=== PATIENT | male | born 1980 | race Caucasian/White ===

== ENCOUNTER → 2016-04-23 | Outpatient (CLI) | payer SELFPAY ==
[~2016-04-23] MED LIST: AC500T PO; AMIO400T4 PO; ASP325T PO; ASP81TEC PO; ASPI-808 PO; CALC500T5 PO; CARV12.5 PO; CARV3.12 PO; CEFU500T5 PO; Calcium Carbonate PO; DIPH50CA40 PO; ENAL2.5T PO; FOLI0.4T2 PO; FOLI1TAB24 PO; FURO20TA4 PO; FURO40TA4 PO; HYDR-2856 PO; KCL10CCR PO; LEVE500T6 PO; LEVE500T99 PO; MAGN400C PO; METO-333 PO; OMEP20CA12 PO; ONDAN4ODT PO; Oxycodone Hcl/Acetaminophen PO; PHEN100C4 PO; PNT40TEC PO; POTA10CA43 PO; POTA10TA86 PO; THM100T PO; TRAZ150T42 PO; TRZ100T PO; [UNRECOGNIZED DRUG - CODE] IM
--- NOTE | 2016-04-25 11:57 | ECHOCARDIOGRAPHY REPORT ---
PROCEDURE PHYSICIAN: HILLARY TAYLOR DATE OF PROCEDURE: 04/23/2016 TWO DIMENSIONAL ECHOCARDIOGRAM REPORT PRIMARY PHYSICIAN: OTHER PHYSICIAN: REFERRING PHYSICIAN: Dr. Cecily Toussaint [facility] ORDERING PHYSICIAN: INDICATION FOR THE PROCEDURE: Congestive heart failure, coronary artery disease. MEASUREMENTS DERIVED VALUES LV DIAMETER (LAX) NORMALS NORMALS Diastolic 6.9 (3.6-5.2) Eject. Fract. 40% (60%+/-6%) Systolic (2.3-3.9) Diastolic Vol. % Shortening (0.22-0.42) Systolic Vol. Aortic Root IVS THICKNESS Diastolic 1.1 (0.6-1.1) LVPW THICKNESS Diastolic 1.1 (0.6-1.1) LA DIAMETER Systolic 4. (2.1-3.7) FINDINGS: 1. The left ventricle is prominent with diffuse left ventricular hypokinesia. Systolic function is reduced. Estimated ejection fraction 40%. 2. The left atrium is in the upper normal limit in size. No clot or thrombus were seen within the left atrium. 3. The right atrium and right ventricle are normal in size. No clot or thrombus were seen within the right side. 4. Mitral valve is normal in morphology with mild mitral regurgitation noted by color Doppler flow. No mitral valve prolapse. No mitral valve stenosis. 5. Aortic valve is bicuspid, the valve gradient was not well measured. Overall it did not appear to be having aortic valve stenosis or regurgitation. 6. Tricuspid valve is normal in morphology with mild tricuspid regurgitation noted by color Doppler flow. Doppler across tricuspid valve estimated pulmonary artery pressure of 27+ right atrial pressure. 7. Pulmonic valve is functioning normally. 8. No pericardial effusion. CONCLUSION: 1. Prominent left ventricle with diffuse left ventricular hypokinesia. Systolic function is reduced. Estimated ejection fraction 40% percent. 2. Bicuspid aortic valve appeared to be functioning normally, the gradient was not measured across the aortic valve. 3. Mild mitral and tricuspid regurgitation. 4. Estimated pulmonary artery pressure of 35 mmHg. Job ID: [id number] Dictated Date: 04/24/2016 08:54:09 Community Outreach Specialist Date: 04/25/2016 11:51:24 / jasmin
== END ==
LOC: CARD 13:12
PROVIDERS: ATTEND Internal Medicine Cardiovascular Disease
DX: I25.10 Atherosclerotic heart disease of native coronary artery without angina pectoris (principal); I50.22 Chronic systolic (congestive) heart failure; F10.10 Alcohol abuse, uncomplicated; E83.42 Hypomagnesemia; F15.10 Other stimulant abuse, uncomplicated
CPT/HCPCS: 93306

== ENCOUNTER → 2016-08-23 | Outpatient (CLI) | payer OTHER ==
--- NOTE | 2016-08-23 09:38 | Diagnostic Imaging Report ---
EXAMINATION: Two views of the left knee. INDICATION: Left knee pain. FINDINGS: There is a well-corticated fragment in the upper lateral aspect of the patella, likely related to a bipartite congenital fragment or related to old trauma. The fragment is 1.4 cm in size. If there is focal tenderness and injury at this location, then a subacute fracture could be considered. Dedicated patellar views could also be obtained, like sunrise view, if needed. No arthritic changes are seen. No suprapatellar effusion. IMPRESSION: 1.4 cm osseous fragment along the superior lateral aspect of the patella is favored to be congenital or related to old trauma. If the patient has focal tenderness and injury history at this site, then a subacute fracture could be considered. Dictated by: Dictated on workstation # [id number]
== END | disposition home or self-care (01) ==
LOC: RAD 09:06
PROVIDERS: ATTEND Surgery
DX: M25.562 Pain in left knee (principal)
CPT/HCPCS: 73560

== ENCOUNTER 2017-04-13 07:02 | Inpatient (IN) | payer MEDICAID ==
[2017-04-13] VITALS (14 sets, daily range): BP systolic 97–126; BP diastolic 61–83
[~2017-04-13] VITALS: Ht 172.7 cm; Wt 84.0 kg
[~2017-04-13 07:02] MED LIST changes: -AMIO400T4 PO; +AMIO400T5 PO
--- OUTSIDE RECORDS SUMMARY | 2017-04-13 07:04 | XMS REPORT | Continuity of Care Document ---
Author Author [employer] Organization [facility] Address Unknown Phone Unavailable Care Team Providers Care Clinical Application Consultant Name Role Phone [employer] Unavailable Unavailable Problems Medications Allergies, Adverse Reactions, Alerts Immunizations Results Vital Signs Encounters Location Location Details Encounter Type Encounter Number Reason For Visit Attending Provider ADM Date DC Date Status Source OUTPATIENT [id number] MARCIANO BASS 10/19/20162016 Active [facility] O MARCIANO BASS Active [facility] Procedures Plan of Care Social History Assessment and Plan Family History Advance Directives Functional Status
--- OUTSIDE RECORDS SUMMARY | 2017-04-13 07:04 | XMS REPORT | Clinical Summary ---
Author Author [facility] Organization [facility] Address Unknown Phone Unavailable Care Team Providers Care Container Coordinator Name Role Phone Mary Jane Ceballos MD PCP Source Comments Some departments are not documenting in the electronic medical record. If you do not see the information that you expected, contact Release of Information in the Health Information Management department at [phone] for further assistance in locating additional records.[facility] Allergies No Known Allergies Current Medications Prescription Sig. Disp. Refills Start End Date Status Date LEVETIRACETAM (KEPPRA PO) Take 500 mg by mouth Active three times daily. amiodarone (CORDARONE) Take 200 mg by mouth Active 200 mg tablet twice daily. Take with food. METOPROLOL TARTRATE PO Take 25 mg by mouth twice Active daily. Active Problems Problem Noted Date Unclassified epileptic seizures (HCC) 07/29/2016 Last Assessment & Plan: Patient has multiple risk factors for seizures. I have requested records from [facility] in [place]. EEG ordered. Keprra is the medication of choice given the patient's liver disease. Will try to get him on patient assistance for Keppra XR as this may be more tolerable. Social History Tobacco Use Types Packs/Day Years Used Date Never Smoker Alcohol Use Drinks/Week oz/Week Comments Yes 7 Standard 4.2 drinks or equivalent Sex Assigned at Date Recorded Not on file Last Filed Vital Signs Vital Sign Reading Time Taken Blood Pressure 111/71 07/29/2016 11:21 AM CDT Pulse 73 07/29/2016 11:21 AM CDT Temperature 36.5 C (97.7 F) 07/29/2016 11:21 AM CDT Respiratory Rate 12 07/29/2016 11:21 AM CDT Oxygen Saturation - - Inhaled Oxygen - - Concentration Weight 76.2 kg (168 lb) 07/29/2016 11:21 AM CDT Height 175 cm (5' 8.9") 07/29/2016 11:21 AM CDT Body Mass Index 24.88 07/29/2016 11:21 AM CDT Plan of Treatment Health Maintenance Due Date Last Done Comments PHYSICAL (COMPREHENSIVE) 1989 EXAM PERTUSSIS VACCINE 1993 TETANUS VACCINE 07/01/1999 INFLUENZA VACCINE 10/12/2016 Results Not on filefrom Last 3 Months
--- OUTSIDE RECORDS SUMMARY | 2017-04-13 07:04 | XMS REPORT ---
Author Author KARLY RIOS Organization [facility] Address [address] [place] [address] Care Team Providers Care Active Directory Systems Administrator Name Role Phone KARLY RIOS Unavailable PROBLEMS Type Condition ICD9-CM Code [id number] Code Onset Dates Condition Status SNOMED Code Problem Chronic congestive heart failure, unspecified congestive heart failure type I50.9 Active 96227452 Problem Essential hypertension I10 Active 03193072 Problem Mild intermittent asthma without complication J45.20 Active 490297567 Problem Elevated liver enzymes R74.8 Active 127500490 Problem GERD (gastroesophageal reflux disease) K21.9 Active 104865546 Problem Cardiomegaly I51.7 Active 3667102 Problem Anxiety F41.9 Active 73710311 Problem Other chronic pain G89.29 Active 45594468 Problem Pain in left knee M25.562 Active 75854916 Problem Seizures R56.9 Active 29177746 Problem Alcohol abuse F10.10 Active 86722949 Problem CAD (coronary artery disease) I25.10 Active 97719863 Problem Insomnia G47.00 Active 421876612 ALLERGIES Unknown Allergies SOCIAL HISTORY No smoking Hx information available PLAN OF CARE VITAL SIGNS MEDICATIONS Unknown Medications RESULTS No Results PROCEDURES No Known procedures IMMUNIZATIONS No Known Immunizations
--- OUTSIDE RECORDS SUMMARY | 2017-04-13 07:05 | XMS REPORT ---
Author Author KARLY RIOS Organization [facility] Address [address] [place] [address] Care Team Providers Care Bass Mechanism Maker Name Role Phone KARLY RIOS Unavailable PROBLEMS Type Condition ICD9-CM Code [id number] Code Onset Dates Condition Status SNOMED Code Problem Chronic congestive heart failure, unspecified congestive heart failure type I50.9 Active 78398980 Problem Essential hypertension I10 Active 73352217 Problem Mild intermittent asthma without complication J45.20 Active 205035158 Problem Elevated liver enzymes R74.8 Active 379054067 Problem GERD (gastroesophageal reflux disease) K21.9 Active 348981655 Problem Cardiomegaly I51.7 Active 8798422 Problem Anxiety F41.9 Active 89518746 Problem Other chronic pain G89.29 Active 39933639 Problem Pain in left knee M25.562 Active 58370968 Problem Seizures R56.9 Active 78478349 Problem Alcohol abuse F10.10 Active 35959102 Problem CAD (coronary artery disease) I25.10 Active 71122888 Problem Insomnia G47.00 Active 287250938 ALLERGIES Unknown Allergies SOCIAL HISTORY No smoking Hx information available PLAN OF CARE VITAL SIGNS MEDICATIONS Unknown Medications RESULTS No Results PROCEDURES No Known procedures IMMUNIZATIONS No Known Immunizations
--- OUTSIDE RECORDS SUMMARY | 2017-04-13 07:05 | XMS REPORT ---
Author RUPERT Bradley [facility] [employer] Address Unknown Phone Unavailable Care Team Providers Care Icu Nurse Name Role Phone RUPERT RYAN Unavailable Allergies, Adverse Reactions, Alerts Substance Reaction Event Type N.K.D.A. Info Not Available Non Drug Allergy Problems Problem Type Condition Code Onset Dates Condition Status Assessment Chronic congestive heart failure, unspecified congestive heart failure type I50.9 Active Problem Seizures R56.9 Active Problem Alcohol abuse F10.10 Active Assessment Anxiety F41.9 Active Assessment Mild intermittent asthma without complication J45.20 Active Problem Anxiety F41.9 Active Problem Mild intermittent asthma without complication J45.20 Active Problem GERD (gastroesophageal reflux disease) K21.9 Active Problem Insomnia G47.00 Active Problem Cardiomegaly I51.7 Active Problem Essential hypertension I10 Active Problem Chronic congestive heart failure, unspecified congestive heart failure type I50.9 Active Medications Medication Code System Code Instructions Start Date End Date Status Dosage Lasix [facility] [address]-24 20 mg Mar 27, 2014 0.5 Tablet by Oral route 1 time per day take with potassium-REPOSITORY Potassium Chloride [facility] [address]-54 10 mEq Mar 27, 2014 1 Tablet by Oral route 1 time per day take with lasix-- REPOSITORY Enalapril Maleate [facility] [address]-70 2.5 MG Orally 2 times a day 1 tablet Amiodarone HCl [facility] [address]-90 400 MG Orally 2 times a day 1 tablet Omeprazole [facility] [address]-32 20 MG Orally 2 times a day May 14, 2014 take 1 capsule by Oral route before a meal 2 time per day repository HydrOXYzine HCl [facility] [address]-01 25 mg May 14, 2014 take 1 tablet by Oral route 3 times per day as needed for anxiety. Metoprolol Tartrate [facility] [address]-16 25 MG Orally Twice a day 1 tablet Procedures Procedure Coding System Code Date Office Visit, Est Pt., Level 3 CPT-4 62167 Feb 10, 2015 Vital Signs Date/Time: Feb 10, 2015 Temperature 98.3 F Weight 183.0 lbs Height 70 in BMI 26.25 Index Blood Pressure Diastolic 80 mmHg Blood Pressure Systolic 118 mmHg Cardiac Monitoring Heart Rate 72 bpm Results No Known Results Summary Purpose eClinicalWorks Submission
--- OUTSIDE RECORDS SUMMARY | 2017-04-13 07:05 | XMS REPORT ---
Author Author KARLY RIOS Organization [employer] Address Unknown Phone Unavailable Care Team Providers Care Quoter Name Role Phone KARLY RIOS CP Unavailable Allergies No Known Allergies Problems Problem Type Condition Code Onset Dates Condition Status Problem Alcohol abuse F10.10 Active Problem Cardiomegaly I51.7 Active Problem Seizures R56.9 Active Problem GERD (gastroesophageal reflux disease) K21.9 Active Problem Anxiety F41.9 Active Problem CAD (coronary artery disease) I25.10 Active Problem Chronic congestive heart failure, unspecified congestive heart failure type I50.9 Active Problem Insomnia G47.00 Active Problem Mild intermittent asthma without complication J45.20 Active Problem Essential hypertension I10 Active Medications No Known Medications Results No Known Results Summary Purpose eClinicalWorks Submission
--- OUTSIDE RECORDS SUMMARY | 2017-04-13 07:05 | XMS REPORT ---
Author Author KARLY RIOS [facility] Address [address] [place] [address] Care Team Providers Care Barrel Rifler Broach Name Role Phone AYAKA RIOSNETTE Unavailable PROBLEMS Type Condition ICD9-CM Code [id number] Code Onset Dates Condition Status SNOMED Code Problem Chronic congestive heart failure, unspecified congestive heart failure type I50.9 Active 98168823 Problem Essential hypertension I10 Active 24326773 Problem Mild intermittent asthma without complication J45.20 Active 072852481 Problem Elevated liver enzymes R74.8 Active 832117972 Problem GERD (gastroesophageal reflux disease) K21.9 Active 066775964 Problem Cardiomegaly I51.7 Active 0448331 Problem Anxiety F41.9 Active 24012936 Problem Other chronic pain G89.29 Active 94222031 Problem Pain in left knee M25.562 Active 43380958 Problem Seizures R56.9 Active 64193226 Problem Alcohol abuse F10.10 Active 81197183 Problem CAD (coronary artery disease) I25.10 Active 31398950 Problem Insomnia G47.00 Active 253938380 ALLERGIES Substance Reaction Event Type Date Status N.K.D.A. Unknown Non Drug Allergy Mar, Unknown SOCIAL HISTORY No smoking Hx information available PLAN OF CARE Activity Details Follow Up 4 Weeks Reason:recheck of left knee VITAL SIGNS Height 71 in 2016-03-19 Weight 183 lbs 2016-03-19 Temperature 98.2 degrees Fahrenheit 2016-03-19 Heart Rate 78 bpm 2016-03-19 Respiratory Rate 20 2016-03-19 BMI 25.52 kg/m2 2016-03-19 Blood pressure systolic 110 mmHg 2016-03-19 Blood pressure diastolic 80 mmHg 2016-03-19 MEDICATIONS Medication Instructions Dosage Frequency Start Date End Date Duration Status Metoprolol Tartrate 25 MG Orally Twice a day 1 tablet with food 12h Aug 30 day(s) Active Amiodarone HCl 200 mg Orally twice a day 1 tablet 12h Aug, Active Protonix 40 mg Orally Once a day 1 tablet 24h Mar, 30 day(s) Active Keppra 500 MG Orally every 12 hrs 1 tablet 12h Active RESULTS Name Result Date Reference Range Xray : Knee, Left 3 views (IN HOUSE) 2016-03-19 CBC 2016-03-19 WBC 4.9 3.4-10.8 RBC 4.94 4.14-5.80 Hemoglobin 15.5 12.6-17.7 Hematocrit 45.5 37.5-51.0 MCV 92 79-97 MCH 31.4 26.6-33.0 MCHC 34.1 31.5-35.7 RDW 13.6 12.3-15.4 Platelets 237 150-379 Neutrophils 63 Lymphs 24 Monocytes 10 Eos 2 Basos 1 Neutrophils (Absolute) 3.1 1.4-7.0 Lymphs (Absolute) 1.2 0.7-3.1 Monocytes(Absolute) 0.5 0.1-0.9 Eos (Absolute) 0.1 0.0-0.4 Baso (Absolute) 0.1 0.0-0.2 Immature Granulocytes 0 Immature Grans (Abs) 0.0 0.0-0.1 CMP 2016-03-19 Glucose, Serum 87 65-99 BUN 5 6-20 Creatinine, Serum 0.89 0.76-1.27 eGFR If NonAfricn Am 112 >59 eGFR If Africn Am 130 >59 BUN/Creatinine Ratio 6 8-19 Sodium, Serum 143 134-144 Potassium, Serum 4.6 3.5-5.2 Chloride, Serum 99 96-106 Carbon Dioxide, Total 27 18-29 Calcium, Serum 8.9 8.7-10.2 Protein, Total, Serum 7.8 6.0-8.5 Albumin, Serum 4.6 3.5-5.5 Globulin, Total 3.2 1.5-4.5 A/G Ratio 1.4 1.1-2.5 Bilirubin, Total 0.6 0.0-1.2 Alkaline Phosphatase, S 134 39-117 AST (SGOT) 161 0-40 ALT (SGPT) 78 0-44 PROCEDURES Procedure Date Ordered Related Diagnosis Body Site COMPLETE CBC W/AUTO DIFF WBC Mar 19, 2016 COMPREHEN METABOLIC PANEL Mar 19, 2016 Office Visit, Est Pt., Level 4 Mar 19, 2016 X-RAY EXAM OF KNEE, 3 Mar 19, 2016 VENIPUNCT, ROUTINE* Mar 19, 2016 IMMUNIZATIONS No Known Immunizations
--- OUTSIDE RECORDS SUMMARY | 2017-04-13 07:05 | XMS REPORT ---
Author Author RUPERT RYAN [facility] eClinicalWorks Address Unknown Phone Unavailable Care Team Providers Care Psych Coordinator Name Role Phone RUPERT RYAN CP Unavailable Allergies No Known Allergies Problems Problem Type Condition Code Onset Dates Condition Status Problem Insomnia, unspecified 780.52 Active Problem Other dyspnea and respiratory abnormalities 786.09 Active Problem Congestive heart failure, unspecified 428.0 Active Problem Cardiomegaly 429.3 Active Problem Personal history of alcoholism V11.3 Active Problem Esophageal reflux 530.81 Active Problem Nausea with vomiting 787.01 Active Problem Seizures 780.39 Active Problem Acute sinusitis, unspecified 461.9 Active Problem Unspecified essential hypertension 401.9 Active Problem Anxiety state, unspecified 300.00 Active Problem Asthma, unspecified, unspecified status 493.90 Active Medications Medication Code System Code Instructions Start Date End Date Status Dosage Enalapril Maleate [facility] [address]-06 2.5 MG Orally 2 times a day 1 tablet Trazodone HCl [facility] [address]-44 100 MG Orally Once a day 1 tablet at bedtime Results No Known Results Summary Purpose eClinicalWorks Submission
--- OUTSIDE RECORDS SUMMARY | 2017-04-13 07:05 | XMS REPORT ---
Author Author KARLY RIOS Organization [facility] Address [address] [place] [address] Care Team Providers Care Assistant Oceanographer Name Role Phone KARLY RIOS Unavailable PROBLEMS Type Condition ICD9-CM Code QEM19-ZG Code Onset Dates Condition Status SNOMED Code Problem Chronic congestive heart failure, unspecified congestive heart failure type I50.9 Active 20023968 Problem Essential hypertension I10 Active 57908653 Problem Mild intermittent asthma without complication J45.20 Active 868992742 Problem Elevated liver enzymes R74.8 Active 211235594 Problem GERD (gastroesophageal reflux disease) K21.9 Active 116121034 Problem Cardiomegaly I51.7 Active 9785467 Problem Anxiety F41.9 Active 05176929 Problem Other chronic pain G89.29 Active 30293484 Problem Pain in left knee M25.562 Active 82817566 Problem Seizures R56.9 Active 09335768 Problem Alcohol abuse F10.10 Active 94743819 Problem CAD (coronary artery disease) I25.10 Active 77038581 Problem Insomnia G47.00 Active 623509749 ALLERGIES Unknown Allergies SOCIAL HISTORY No smoking Hx information available PLAN OF CARE VITAL SIGNS MEDICATIONS Unknown Medications RESULTS No Results PROCEDURES No Known procedures IMMUNIZATIONS No Known Immunizations
--- OUTSIDE RECORDS SUMMARY | 2017-04-13 07:05 | XMS REPORT ---
Author RUPERT Bradley [facility] eClinicalWorks Address Unknown Phone Unavailable Care Team Providers Care Drop Wire Aliner Name Role Phone RUPERT RYAN Unavailable Allergies, Adverse Reactions, Alerts Substance Reaction Event Type N.K.D.A. Info Not Available Non Drug Allergy Problems Problem Type Condition Code Onset Dates Condition Status Assessment Essential hypertension I10 Active Problem Seizures R56.9 Active Problem Alcohol abuse F10.10 Active Problem Anxiety F41.9 Active Problem Mild intermittent asthma without complication J45.20 Active Problem GERD (gastroesophageal reflux disease) K21.9 Active Problem Insomnia G47.00 Active Problem Cardiomegaly I51.7 Active Problem Essential hypertension I10 Active Problem Chronic congestive heart failure, unspecified congestive heart failure type I50.9 Active Assessment Alcohol abuse F10.10 Active Assessment Seizures R56.9 Active Assessment GERD (gastroesophageal reflux disease) K21.9 Active Assessment Cardiomegaly I51.7 Active Assessment Anxiety F41.9 Active Assessment Chronic congestive heart failure, unspecified congestive heart failure type I50.9 Active Medications Medication Code System Code Instructions Start Date End Date Status Dosage Lasix [facility] [address]-91 20 mg Mar 27, 2014 0.5 Tablet by Oral route 1 time per day take with potassium-REPOSITORY Potassium Chloride [facility] [address]-39 10 mEq Mar 27, 2014 1 Tablet by Oral route 1 time per day take with lasix-- REPOSITORY HydrOXYzine HCl [facility] [address]-43 25 mg May 14, 2014 take 1 tablet by Oral route 3 times per day as needed for anxiety. Metoprolol Tartrate [facility] [address]-66 25 MG Orally Twice a day 1 tablet Omeprazole [facility] [address]-78 20 MG Orally 2 times a day May 14, 2014 take 1 capsule by Oral route before a meal 2 time per day repository Enalapril Maleate [facility] [address]-94 2.5 MG Orally 2 times a day 1 tablet Amiodarone HCl [facility] [address]-11 400 MG Orally 2 times a day 1 tablet Procedures Procedure Coding System Code Date Office Visit, Est Pt., Level 3 CPT-4 27373 Jan 14, 2015 Vital Signs Date/Time: Jan 14, 2015 Temperature 98.1 F Weight 183.3 lbs Height 70 in BMI 26.30 Index Blood Pressure Diastolic 88 mmHg Blood Pressure Systolic 148 mmHg Cardiac Monitoring Heart Rate 84 bpm Results No Known Results Summary Purpose eClinicalWorks Submission
--- OUTSIDE RECORDS SUMMARY | 2017-04-13 07:06 | XMS REPORT ---
Author Author RUPERT RYAN [facility] eClinicalWorks Address Unknown Phone Unavailable Care Team Providers Care Quality Assurance Project Manager Name Role Phone RUPERT RYAN CP Unavailable [...] Asthma, unspecified, unspecified status 493.90 Active Medications No Known Medications Results No Known Results Summary Purpose eClinicalWorks Submission
--- OUTSIDE RECORDS SUMMARY | 2017-04-13 07:06 | XMS REPORT ---
Author Author RUPERT RYAN Organization [employer] Address Unknown Phone Unavailable Care Team Providers Care Household Worker Name Role Phone RUPERT RYAN CP Unavailable Allergies No Known Allergies Problems Problem Type Condition Code Onset Dates Condition Status Problem Seizures R56.9 Active Problem Alcohol abuse F10.10 Active Problem Anxiety F41.9 Active Problem Mild intermittent asthma without complication J45.20 Active Problem GERD (gastroesophageal reflux disease) K21.9 Active Problem Insomnia G47.00 Active Problem Cardiomegaly I51.7 Active Problem Essential hypertension I10 Active Problem Chronic congestive heart failure, unspecified congestive heart failure type I50.9 Active Medications No Known Medications Results No Known Results Summary Purpose eClinicalWorks Submission
--- OUTSIDE RECORDS SUMMARY | 2017-04-13 07:06 | XMS REPORT ---
Author Author RUPERT RYAN [facility] eClinical[employer] Address Unknown Phone Unavailable Care Team Providers Care Employee Relation Manager Name Role Phone RUPERT RYAN CP [...]
--- OUTSIDE RECORDS SUMMARY | 2017-04-13 07:06 | XMS REPORT ---
Author Author KARLY RIOS Organization [facility] Address [address] [place] [address] Care Team Providers Care Shank Sorter Name Role Phone AYAKA RIOSNETTE Unavailable PROBLEMS Type Condition ICD9-CM Code EDI78-FF Code Onset Dates Condition Status SNOMED Code Problem Chronic congestive heart failure, unspecified congestive heart failure type I50.9 Active 96238683 Problem Essential hypertension I10 Active 33286074 Problem Mild intermittent asthma without complication J45.20 Active 602705174 Problem Elevated liver enzymes R74.8 Active 869086574 Problem GERD (gastroesophageal reflux disease) K21.9 Active 053718101 Problem Cardiomegaly I51.7 Active 9125451 Problem Anxiety F41.9 Active 11168155 Problem Other chronic pain G89.29 Active 05167163 Problem Pain in left knee M25.562 Active 95430826 Problem Seizures R56.9 Active 83730946 Problem Alcohol abuse F10.10 Active 48906205 Problem CAD (coronary artery disease) I25.10 Active 69157699 Problem Insomnia G47.00 Active 680591405 ALLERGIES No Information SOCIAL HISTORY Never Assessed PLAN OF CARE VITAL SIGNS MEDICATIONS Unknown Medications RESULTS No Results PROCEDURES No Known procedures IMMUNIZATIONS No Known Immunizations MEDICAL (GENERAL) HISTORY Type Description Date Medical History CHF-Dx'd 11/01/2012. Seen by Dr. Soliman Medical History Anxiety Medical History Cardiomegaly Medical History GERD Medical History Chest pain Medical History hypertension Medical History insomnia Medical History asthma Medical History pacemaker Medical History seizures Surgical History pacemaker/defibrillator 2013 Surgical History heart cath 2013 Hospitalization History Chest pain 04/2014 Hospitalization History CHF 10/2012 Hospitalization History CHF x2 admits 11/2012 Hospitalization History Chest Pain 01/2015
--- OUTSIDE RECORDS SUMMARY | 2017-04-13 07:06 | XMS REPORT ---
Author Author BLANCA KARLY Organization [facility] Address [address] [place] [address] Care Team Providers Care Industrial Property Appraiser Name Role Phone KARLY RIOS Unavailable PROBLEMS Type Condition ICD9-CM Code [id number] Code Onset Dates Condition Status SNOMED Code Problem Seizures R56.9 Active 80805348 Problem Insomnia G47.00 Active 535691812 Problem Cardiomegaly I51.7 Active 2797887 Assessment Essential hypertension I10 Nov, Active 81926618 Problem Elevated liver enzymes R74.8 Active 434848023 Problem Alcohol abuse F10.10 Active 63994488 Problem CAD (coronary artery disease) I25.10 Active 91980518 Problem GERD (gastroesophageal reflux disease) K21.9 Active 854661265 Problem Essential hypertension I10 Active 68175845 Problem Chronic congestive heart failure, unspecified congestive heart failure type I50.9 Active 50397339 Problem Anxiety F41.9 Active 52288101 Problem Mild intermittent asthma without complication J45.20 Active 488302512 ALLERGIES Substance Reaction Event Type Date Status N.K.D.A. Unknown Non Drug Allergy Nov, Unknown SOCIAL HISTORY No smoking Hx information available PLAN OF CARE VITAL SIGNS Height 71 in 2015-11-20 Weight 184.6 lbs 2015-11-20 Heart Rate 64 bpm 2015-11-20 Respiratory Rate 20 2015-11-20 BMI 25.74 kg/m2 2015-11-20 Blood pressure systolic 124 mmHg 2015-11-20 Blood pressure diastolic 90 mmHg 2015-11-20 MEDICATIONS Medication Instructions Dosage Frequency Start Date End Date Duration Status Amiodarone HCl 200 mg Orally twice a day 1 tablet 12h Aug, Active Keppra 500 MG Orally every 12 hrs 1 tablet 12h Active BusPIRone HCl 10 mg Orally Twice a day 1 tablet 12h Jun, Active Metoprolol Tartrate 25 MG Orally Twice a day 1 tablet with food 12h Aug 30 day(s) Active RESULTS Name Result Date Reference Range HIV ANTIGEN/ANTIBODY 2015-11-20 HIV Screen 4th Generation wRfx Non Reactive Non Reactive MAGNESIUM, SERUM 2015-11-20 Magnesium, Serum 1.8 1.6-2.3 CBC 2015-11-20 WBC 7.2 3.4-10.8 RBC 4.74 4.14-5.80 Hemoglobin 14.7 12.6-17.7 Hematocrit 44.1 37.5-51.0 MCV 93 79-97 MCH 31.0 26.6-33.0 MCHC 33.3 31.5-35.7 RDW 13.8 12.3-15.4 Platelets 300 150-379 Neutrophils 76 Lymphs 13 Monocytes 9 Eos 1 Basos 1 Neutrophils (Absolute) 5.5 1.4-7.0 Lymphs (Absolute) 0.9 0.7-3.1 Monocytes(Absolute) 0.6 0.1-0.9 Eos (Absolute) 0.1 0.0-0.4 Baso (Absolute) 0.1 0.0-0.2 Immature Granulocytes 0 Immature Grans (Abs) 0.0 0.0-0.1 LIPID PANEL 2015-11-20 Cholesterol, Total 215 100-199 Triglycerides 97 0-149 HDL Cholesterol 110 >39 VLDL Cholesterol Marcelino 19 5-40 LDL Cholesterol Calc 86 0-99 CMP 2015-11-20 Glucose, Serum 76 65-99 BUN 8 6-20 Creatinine, Serum 0.76 0.76-1.27 eGFR If NonAfricn Am 120 >59 eGFR If Africn Am 139 >59 BUN/Creatinine Ratio 11 8-19 Sodium, Serum 141 134-144 Potassium, Serum 4.8 3.5-5.2 Chloride, Serum 97 97-108 Carbon Dioxide, Total 27 18-29 Calcium, Serum 9.4 8.7-10.2 Protein, Total, Serum 7.2 6.0-8.5 Albumin, Serum 4.4 3.5-5.5 Globulin, Total 2.8 1.5-4.5 A/G Ratio 1.6 1.1-2.5 Bilirubin, Total 0.8 0.0-1.2 Alkaline Phosphatase, S 111 39-117 AST (SGOT) 68 0-40 ALT (SGPT) 50 0-44 HEPATITIS PROFILE 2015-11-20 Hep A Ab, IgM Negative Negative HBsAg Screen Negative Negative Hep B Core Ab, IgM Negative Negative Hep C Virus Ab <0.1 0.0-0.9 Written Authorization 2015-11-20 Written Authorization PROCEDURES Procedure Date Ordered Related Diagnosis Body Site COMPLETE CBC W/AUTO DIFF WBC Nov 20, 2015 COMPREHEN METABOLIC PANEL Nov 20, 2015 Office Visit, Est Pt., Level 4 Nov 20, 2015 LIPID PANEL Nov 20, 2015 VENIPUNCT, ROUTINE* Nov 20, 2015 ASSAY OF MAGNESIUM Nov 20, 2015 IMMUNIZATIONS No Known Immunizations
--- OUTSIDE RECORDS SUMMARY | 2017-04-13 07:06 | XMS REPORT ---
Author KARLY [facility] eClinicalWorks Address Unknown Phone Unavailable Care Team Providers Care Test Director Name Role Phone KARLY RIOS CP Unavailable Allergies, Adverse Reactions, Alerts Substance Reaction Event Type N.K.D.A. Info Not Available Non Drug Allergy Problems Problem Type Condition Code Onset Dates Condition Status Assessment Seizures R56.9 Active Problem Seizures R56.9 Active Problem Alcohol abuse F10.10 Active Problem Anxiety F41.9 Active Problem Mild intermittent asthma without complication J45.20 Active Problem GERD (gastroesophageal reflux disease) K21.9 Active Problem Insomnia G47.00 Active Problem Cardiomegaly I51.7 Active Problem Essential hypertension I10 Active Problem Chronic congestive heart failure, unspecified congestive heart failure type I50.9 Active Assessment Alcohol abuse F10.10 Active Assessment Anxiety F41.9 Active Assessment GERD (gastroesophageal reflux disease) K21.9 Active Assessment Cardiomegaly I51.7 Active Medications Medication Code System Code Instructions Start Date End Date Status Dosage Lasix [facility] [address]-29 20 mg Mar 27, 2014 0.5 Tablet by Oral route 1 time per day take with potassium-REPOSITORY ProAir HFA [facility] [address]-72 90 mcg/actuation Apr 24, 2011 2 puffs by Inhalation route 4 times per day for 30 day(s) Metoprolol Tartrate [facility] [address]-61 25 MG Orally Twice a day 1 tablet HydrOXYzine HCl [facility] [address]-83 25 mg May 14, 2014 take 1 tablet by Oral route 3 times per day as needed for anxiety. Enalapril Maleate [facility] [address]-37 2.5 MG Orally 2 times a day 1 tablet Amiodarone HCl [facility] [address]-09 400 MG Orally 2 times a day 1 tablet Omeprazole [facility] [address]-18 20 MG Orally 2 times a day May 14, 2014 take 1 capsule by Oral route before a meal 2 time per day repository Levetiracetam [facility] [address]-70 500 MG Orally every 12 hrs 1 tablet Potassium Chloride [facility] [address]-71 10 mEq Mar 27, 2014 1 Tablet by Oral route 1 time per day take with lasix-- REPOSITORY Procedures Procedure Coding System Code Date COMPREHEN METABOLIC PANEL CPT-4 88535 Mar 26, 2015 Office Visit, Est Pt., Level 4 CPT-4 63662 Mar 26, 2015 GLYCATED HEMOGLOBIN TEST CPT-4 36824 Mar 26, 2015 VENIPUNCT, ROUTINE* CPT-4 15399 Mar 26, 2015 Vital Signs Date/Time: Mar 26, 2015 Temperature 98.2 F Weight 188.2 lbs Height 71 in BMI 26.25 Index Blood Pressure Diastolic 80 mmHg Blood Pressure Systolic 120 mmHg Cardiac Monitoring Heart Rate 80 bpm Results Name Result Date Reference Range Unit Abnormality Flag CMP ----Calcium, Serum 9.2 20150326 8.7-10.2 mg/dL ----Carbon Dioxide, Total 26 20150326 18-29 mmol/L ----ALT (SGPT) 15 20150326 0-44 IU/L ----Creatinine, Serum 0.87 80663502 0.76-1.27 mg/dL ----AST (SGOT) 30 87554120 0-40 IU/L ----eGFR If NonAfricn Am 114 17058573 >59 mL/min/1.73 ----Alkaline Phosphatase, S 123 40879699 39-117 IU/L H ----eGFR If Africn Am 132 71316844 >59 mL/min/1.73 ----Bilirubin, Total 0.3 48592207 0.0-1.2 mg/dL ----BUN/Creatinine Ratio 7 20150326 8-19 L ----A/G Ratio 1.3 26844898 1.1-2.5 ----Sodium, Serum 138 20150326 134-144 mmol/L ----Globulin, Total 3.4 13470891 1.5-4.5 g/dL ----Potassium, Serum 4.5 20150326 3.5-5.2 mmol/L ----Glucose, Serum 93 20150326 65-99 mg/dL ----Chloride, Serum 100 20150326 97-108 mmol/L ----Albumin, Serum 4.4 20150326 3.5-5.5 g/dL ----BUN 6 20150326 6-20 mg/dL ----Protein, Total, Serum 7.8 20150326 6.0-8.5 g/dL A1C (IN HOUSE) ----A1C IN HOUSE 5.2 20150326 4.30 - 5.6 % ----Lot # [id number] ----Exp date [id number] ROUTINE VENIPUNCTURE Summary Purpose eClinicalWorks Submission
--- OUTSIDE RECORDS SUMMARY | 2017-04-13 07:06 | XMS REPORT ---
Author Author RUPERT RYAN Organization [employer] Address Unknown Phone Unavailable Care Team Providers Care Gold Miner Blasting Name Role Phone RUPERT RYAN CP Unavailable [...]
--- OUTSIDE RECORDS SUMMARY | 2017-04-13 07:07 | XMS REPORT ---
Author Author KARLY RIOS Organization [employer] Address Unknown Phone Unavailable Care Team Providers Care Gyroscopic Instrument Tester Name Role Phone KARLY RIOS CP Unavailable [...]
--- OUTSIDE RECORDS SUMMARY | 2017-04-13 07:07 | XMS REPORT ---
Author Author KARLY RIOS Organization [facility] Address [address] [place] [address] Care Team Providers Care Pharmacy Service Associate Name Role Phone AYAKA RIOSNETTE Unavailable PROBLEMS Type Condition ICD9-CM Code [id number] Code Onset Dates Condition Status SNOMED Code Problem Cardiomegaly I51.7 Active 3047879 Problem Essential hypertension I10 Active 22135180 Problem Mild intermittent asthma without complication J45.20 Active 576846564 Problem Elevated liver enzymes R74.8 Active 121233958 Problem GERD (gastroesophageal reflux disease) K21.9 Active 684563299 Problem Anxiety F41.9 Active 05626191 Problem Chronic systolic HF (heart failure) I50.22 Active 418867466 Problem Other chronic pain G89.29 Active 78349378 Problem Seizures R56.9 Active 09048545 Problem Alcohol abuse F10.10 Active 85229869 Problem CAD (coronary artery disease) I25.10 Active 32309480 Problem Insomnia G47.00 Active 924857946 ALLERGIES No Information SOCIAL HISTORY Never Assessed [...]
--- OUTSIDE RECORDS SUMMARY | 2017-04-13 07:07 | XMS REPORT ---
Author RUPERT [facility] eClinical[employer] Address Unknown Phone Unavailable Care Team Providers Care Location Director Name Role Phone RUPERT RYAN CP Unavailable Allergies, Adverse Reactions, Alerts Substance Reaction Event Type N.K.D.A. Info Not Available Non Drug Allergy Problems Problem Type Condition ICD-9 Code Onset Dates Condition Status Problem Insomnia, unspecified 780.52 Active Problem Other dyspnea and respiratory abnormalities 786.09 Active Problem Congestive heart failure, unspecified 428.0 Active Problem Esophageal reflux 530.81 Active Problem Nausea with vomiting 787.01 Active Problem Seizures 780.39 Active Problem Acute sinusitis, unspecified 461.9 Active Problem Unspecified essential hypertension 401.9 Active Problem Anxiety state, unspecified 300.00 Active Problem Asthma, unspecified, unspecified status 493.90 Active Assessment Congestive heart failure, unspecified 428.0 Active Assessment Esophageal reflux 530.81 Active Problem Cardiomegaly 429.3 Active Assessment Seizures 780.39 Active Problem Personal history of alcoholism V11.3 Active Medications Medication Code System Code Instructions Start Date End Date Status Dosage Enalapril Maleate [facility] [address]-32 2.5 MG Orally 2 times a day 1 tablet Coreg [facility] [address]-62 12.5 mg Mar 27, 2014 1 Tablet by Oral route 2 times per day REPOSITORY Lasix [facility] [address]-38 20 mg Mar 27, 2014 0.5 Tablet by Oral route 1 time per day take with potassium-REPOSITORY Potassium Chloride [facility] [address]-83 10 mEq Mar 27, 2014 1 Tablet by Oral route 1 time per day take with lasix-- REPOSITORY Trazodone HCl [facility] [address]-75 100 MG Orally Once a day 1 tablet at bedtime Omeprazole [facility] [address]-70 20 mg May 14, 2014 take 1 capsule by Oral route before a meal 1 time per day repository HydrOXYzine HCl [facility] [address]-27 25 mg May 14, 2014 take 1 tablet by Oral route 3 times per day as needed for anxiety. Procedures Procedure Coding System Code Date Office Visit, Est Pt., Level 4 CPT-4 27998 Oct 28, 2014 Vital Signs Date/Time: Oct 28, 2014 Temperature 97.4 F Weight 177 lbs Height 70 in BMI 25.39 Index Blood Pressure Diastolic 74 mmHg Blood Pressure Systolic 110 mmHg Cardiac Monitoring Heart Rate 74 bpm Results No Known Results Summary Purpose eClinicalWorks Submission
--- OUTSIDE RECORDS SUMMARY | 2017-04-13 07:07 | XMS REPORT ---
Author Author KARLY RIOS [facility] Address [address] [place] [address] Care Team Providers Care Plant Clerk Name Role Phone AYAKA RIOSNETTE Unavailable PROBLEMS Type Condition ICD9-CM Code [id number] Code Onset Dates Condition Status SNOMED Code Problem Chronic congestive heart failure, unspecified congestive heart failure type I50.9 Active 72167131 Problem Essential hypertension I10 Active 63085210 Problem Mild intermittent asthma without complication J45.20 Active 738625130 Problem Elevated liver enzymes R74.8 Active 198782639 Problem GERD (gastroesophageal reflux disease) K21.9 Active 911390400 Problem Cardiomegaly I51.7 Active 6480907 Problem Anxiety F41.9 Active 83512052 Problem Other chronic pain G89.29 Active 56728768 Problem Pain in left knee M25.562 Active 89890396 Problem Seizures R56.9 Active 21847638 Problem Alcohol abuse F10.10 Active 36435489 Problem CAD (coronary artery disease) I25.10 Active 78749268 Problem Insomnia G47.00 Active 254033520 ALLERGIES No Known Allergies SOCIAL HISTORY Never Assessed PLAN OF CARE Activity Details Follow Up 3 Months Reason:seizures, falling alcohol abuse VITAL SIGNS Height 71 in 2016-06-07 Weight 178.5 lbs 2016-06-07 Temperature 97.2 degrees Fahrenheit 2016-06-07 Heart Rate 70 bpm 2016-06-07 Respiratory Rate 20 2016-06-07 BMI 24.89 kg/m2 2016-06-07 Blood pressure systolic 122 mmHg 2016-06-07 Blood pressure diastolic 80 mmHg 2016-06-07 MEDICATIONS Medication Instructions Dosage Frequency Start Date End Date Duration Status Keppra 500 mg Orally 3 times a day 1 tablet 8h Active Protonix 40 mg Orally Once a day 1 tablet 24h Mar, 30 day(s) Active Amiodarone HCl 200 mg Orally twice a day 1 tablet 12h Aug, Active Metoprolol Tartrate 25 MG Orally Twice a day 1 tablet with food 12h Aug 30 day(s) Active RESULTS Name Result Date Reference Range H PYLORI (IN HOUSE) 2016-06-07 H. PYLORI Negative Control + Lot # [id number] Exp date PROCEDURES Procedure Date Ordered Result Body Site IMMUNOASSAY,INFECTIOUS AGENT June 07, 2016 IMMUNIZATIONS No Known Immunizations MEDICAL (GENERAL) HISTORY [...]
--- OUTSIDE RECORDS SUMMARY | 2017-04-13 07:07 | XMS REPORT ---
Author Author ELIDA ZAVALA [employer] Address Unknown Phone Unavailable Care Team Providers Care Home Support Worker Name Role Phone ELIDA ZAVALA CP Unavailable Allergies No Known Allergies Problems [...]
--- OUTSIDE RECORDS SUMMARY | 2017-04-13 07:07 | XMS REPORT ---
Author Author RUPERT RYAN Organization [employer] Address Unknown Phone Unavailable Care Team Providers Care Spare Hand Name Role Phone RUPERT RYAN CP Unavailable [...]
--- OUTSIDE RECORDS SUMMARY | 2017-04-13 07:08 | XMS REPORT | Continuity of Care Document ---
Author Author [facility] Organization [facility] Address Unknown Phone Unavailable Allergies Active Description Code Type Severity Reaction Onset Reported/Identified Relationship to Patient Clinical Status Yes No Known Drug Allergies [id number] Drug Allergy Unknown N/A 11/28/2012 Medications There is no data. Problems Date Dx Coded Attending Type Code Diagnosis Diagnosed By 09/21/2009 Ot 873.43 09/21/2009 Ot E000.8 09/21/2009 Ot E029.9 09/21/2009 Ot E849.0 09/21/2009 Ot E917.4 09/28/2009 Ot V58.32 06/03/2011 Ot 070.9 06/03/2011 Ot 558.9 06/03/2011 Ot 787.03 09/29/2011 Ot 300.00 11/26/2011 Ot 291.81 11/26/2011 Ot 300.00 11/26/2011 Ot 303.91 11/26/2011 Ot 780.39 11/26/2011 Ot V06.1 03/27/2012 Ot 291.81 03/27/2012 Ot 303.91 03/27/2012 Ot 780.39 03/27/2012 Ot V04.81 11/01/2012 ZAIRA CARPENTER, VITALIY Dumont Ot 275.2 11/01/2012 ZAIRA CARPENTER, VITALIY Dumont Ot 300.00 11/01/2012 ZAIRA CARPENTER, VITALIY Dumont Ot 303.90 11/01/2012 ZAIRA CARPENTER, VITALIY Dumont Ot 305.70 11/01/2012 ZAIRA CARPENTER, VITALIY Dumont Ot 397.0 11/01/2012 ZAIRA CARPENTER, VITALIY Dumont Ot 424.0 11/01/2012 ZAIRA CARPENTER, VITALIY Dumont Ot 425.5 11/01/2012 ZAIRA CARPENTER, VITALIY Dumont Ot 427.89 11/01/2012 ZAIRA CARPENTER, VITALIY Dumont Ot 428.0 11/01/2012 ZAIRA CARPENTER, VITALIY Dumont Ot 428.21 11/01/2012 ZAIRA CARPENTER, VITALIY F Ot 571.8 11/01/2012 ZAIRA CARPENTER, VITALIY Dumont Ot 790.6 11/01/2012 ZAIRA CARPENTER, VITALIY Tim Ot 794.31 11/04/2012 KAMILAH CARPENTER, IAM N Ot 276.1 11/04/2012 KAMILAH CARPENTER, IAM N Ot 305.01 11/04/2012 KAMILAH CARPENTER, IAM N Ot 305.90 11/04/2012 KAMILAH CARPENTER, IAM N Ot 425.4 11/04/2012 KAMILAH CARPENTER, IAM N Ot 428.0 11/04/2012 KAMILAH CARPENTER, IAM N Ot 428.23 11/28/2012 KAMILAH CARPENTER, IAM N Ot 303.90 11/28/2012 KAMILAH CARPENTER, IAM N Ot 305.70 11/28/2012 KAMILAH CARPENTER, IAM N Ot 425.5 11/28/2012 KAMILAH CARPENTER, IAM N Ot 428.0 11/28/2012 KAMILAH CARPENTER, IAM N Ot 428.23 02/04/2014 JAYLEEN MYERS Ot 428.0 02/14/2014 CLAUDIA CARPENTER, HILLARY Chawla Ot 305.00 02/14/2014 CLAUDIA CARPENTER, HILLARY J Ot 305.70 02/14/2014 CLAUDIA CARPENTER, HILLARY Chawla Ot 401.9 02/14/2014 CLAUDIA CARPENTER, HILLARY Chawla Ot 414.01 02/14/2014 CLAUDIA CARPENTER, HILLARY J Ot 425.4 02/14/2014 CLAUDIA CARPENTER, HILLARY J Ot 428.0 02/14/2014 CLAUDIA CARPENTER, HILLARY J Ot 428.22 02/14/2014 CLAUDIA CARPENTER, HILLARY J Ot V58.69 03/15/2014 DARON GUTIERRES MD Ot 345.90 03/15/2014 DARON GUTIERRES MD Ot 401.9 03/15/2014 DARON GUTIERRES MD Ot 414.01 03/15/2014 DARON GUTIERRES MD Ot 425.4 03/15/2014 DARON GUTIERRES MD Ot V53.32 03/15/2014 JAYLEEN MYERS Ot 428.0 03/15/2014 JAYLEEN MYERS Ot 397.0 03/15/2014 KELLY-BRITNI PA, JAYLEEN K Ot 401.9 03/15/2014 KELLY-BRITNI PA, JAYLEEN K Ot 424.0 03/15/2014 KELLY-BRITNI PA, JAYLEEN K Ot 428.0 03/15/2014 KELLY-BRITNI PA, JAYLEEN K Ot 786.09 03/15/2014 KELLY-BRITNI PA, JAYLEEN K Ot 397.0 03/15/2014 KELLY-BRITNI PA, JAYLEEN K Ot 401.9 03/15/2014 KELLY-BRITNI PA, JAYLEEN K Ot 424.0 03/15/2014 KELLY-BRITNI PA, JAYLEEN K Ot 428.0 03/15/2014 KELLY-BRITNI PA, JAYLEEN K Ot 786.09 04/24/2014 JOHNSON DO, ANNE K Ot 291.81 04/24/2014 JOHNSON DO, ANNE K Ot 300.00 04/24/2014 JOHNSON DO, ANNE K Ot 303.91 04/24/2014 JOHNSON DO, ANNE K Ot 425.5 04/24/2014 JOHNSON DO, ANNE K Ot 427.69 04/24/2014 JOHNSON DO, ANNE K Ot 428.0 04/24/2014 JOHNSON DO, ANNE K Ot 428.22 04/24/2014 JOHNSON DO, ANNE K Ot 786.50 04/24/2014 JOHNSON DO, ANNE K Ot 787.01 04/24/2014 JOHNSON DO, ANNE K Ot 787.91 04/24/2014 JOHNSON DO, ANNE K Ot V45.02 07/11/2014 ZAIRA CARPENTER, VITALIY Dumont Ot 291.81 07/11/2014 ZAIRA CARPENTER, VITALIY Dumont Ot 425.5 07/11/2014 ZAIRA CARPENTER, VITALIY Dumont Ot 780.39 07/11/2014 ZAIRA CARPENTER, VITALIY Dumont Ot V15.81 08/06/2014 KELLY-BRITNI PA, JAYLEEN K Ot 428.0 08/06/2014 KELLY-BRITNI PA, JAYLEEN K Ot 397.0 08/06/2014 KELLY-BRITNI PA, JAYLEEN K Ot 401.9 08/06/2014 KELLY-BRITNI PA, JAYLEEN K Ot 424.0 08/06/2014 KELLY-BRITNI PA, JAYLEEN K Ot 428.0 08/06/2014 KELLY-BRITNI PA, JAYLEEN K Ot 786.09 08/06/2014 KELLY-BRITNI PA, JAYLEEN K Ot 397.0 08/06/2014 KELLY-BRITNI PA, JAYLEEN K Ot 401.9 08/06/2014 KELLY-BRITNI PA, JAYLEEN K Ot 424.0 08/06/2014 KELLY-BRITNI PA, JAYLEEN K Ot 428.0 08/06/2014 KELLY-BRITNI PA, JAYLEEN K Ot 786.09 08/30/2014 KELLY-BRITNI PA, JAYLEEN K Ot 428.0 08/30/2014 KELLY-BRITNI PA, JAYLEEN K Ot 397.0 08/30/2014 KELLY-BRITNI PA, JAYLEEN K Ot 401.9 08/30/2014 KELLY-BRITNI PA, JAYLEEN K Ot 424.0 08/30/2014 KELLY-BRITNI PA, JAYLEEN K Ot 428.0 08/30/2014 KELLY-BRITNI PA, JAYLEEN K Ot 786.09 08/30/2014 KELLY-BRITNI PA, JAYLEEN K Ot 397.0 08/30/2014 KELLY-BRITNI PA, JAYLEEN K Ot 401.9 08/30/2014 KELLY-BRITNI PA, JAYLEEN K Ot 424.0 08/30/2014 KELLY-BRITNI PA, JAYLEEN K Ot 428.0 08/30/2014 KELLY-BRITNI PA, JAYLEEN K Ot 786.09 08/30/2014 KELLY-BIRTNI PA, JAYLEEN K Ot 428.0 09/05/2014 KELLY-BRITNI PA, JAYLEEN K Ot 428.0 09/05/2014 KELLY-BRITNI PA, JAYLEEN K Ot 397.0 09/05/2014 KELLY-BRITNI PA, JAYLEEN K Ot 401.9 09/05/2014 KELLY-BRITNI PA, JAYLEEN K Ot 424.0 09/05/2014 KELLY-BRITNI PA, JAYLEEN K Ot 428.0 09/05/2014 KELLY-BRITNI PA, JAYLEEN K Ot 786.09 10/17/2014 KELYL-BRITNI PA, JAYLEEN K Ot 428.0 10/17/2014 KELLY-BRITNI PA, JAYLEEN K Ot 397.0 10/17/2014 KELLY-BRITNI PA, JAYLEEN K Ot 401.9 10/17/2014 KELLY-BRITNI PA, JAYLEEN K Ot 424.0 10/17/2014 KELLY-BRITNI PA, JAYLEEN K Ot 428.0 10/17/2014 KELLY-BRITNI PA, JAYLEEN K Ot 786.09 10/21/2014 JAYME PA, WILBER Baldwin Ot 291.81 ALCOHOL WITHDRAWAL 10/21/2014 KELLY-BRITNI PA, JAYLEEN K Ot 428.0 10/21/2014 KELLY-BRITNI PA, JAYLEEN K Ot 397.0 10/21/2014 KELLY-BRITNI PA, JAYLEEN K Ot 401.9 10/21/2014 KELLY-BRITNI PA, JAYLEEN K Ot 424.0 10/21/2014 KELLY-BRITNI PA, JAYLEEN K Ot 428.0 10/21/2014 KELLY-BRITNI PA, JAYLEEN K Ot 786.09 12/05/2014 KELLY-BRITNI PA, JAYLEEN K Ot 428.0 12/05/2014 KELLY-BRITNI PA, JAYLEEN K Ot 397.0 12/05/2014 KELLY-BRITNI PA, JAYLEEN K Ot 401.9 12/05/2014 KELLY-BRITNI PA, JAYLEEN K Ot 424.0 12/05/2014 KELLY-BRITNI PA, JAYLEEN K Ot 428.0 12/05/2014 KELLY-BRITNI PA, JAYLEEN K Ot 786.09 12/11/2014 KELLY-BRITNI PA, JAYLEEN K Ot 428.0 12/11/2014 KELLY-BRITNI PA, JAYLEEN K Ot 397.0 12/11/2014 KELLY-BRITNI PA, JAYLEEN K Ot 401.9 12/11/2014 KELLY-BRITNI PA, JAYLEEN K Ot 424.0 12/11/2014 KELLY-BRITNI PA, JAYLEEN K Ot 428.0 12/11/2014 KELLY-BRITNI PA, JAYLEEN K Ot 786.09 01/11/2015 KELLY-BRITNI PA, JAYLEEN K Ot 428.0 01/11/2015 KELLY-BRITNI PA, JAYLEEN K Ot 397.0 01/11/2015 KELLY-BRITNI PA, JAYLEEN K Ot 401.9 01/11/2015 KELLY-BRITNI PA, JAYLEEN K Ot 424.0 01/11/2015 JAYLEEN MYERS Ot 428.0 01/11/2015 JAYLEEN MYERS Ot 786.09 01/11/2015 CLAUDIA CARPENTER, HILLARY Chawla Ot F10.10 01/11/2015 HILLARY TAYLOR MD Ot F15.10 01/11/2015 CLAUDIA CARPENTER, HILLARY Chawla Ot I25.10 01/11/2015 CLAUDIA CARPENTER, HILLARY Chawla Ot I50.22 01/12/2015 ANNE JOHNSON DO Ot E78.5 HYPERLIPIDEMIA, UNSPECIFIED 01/12/2015 ANNE JOHNSON DO Ot F10.229 ALCOHOL DEPENDENCE WITH INTOXICATION, UN 01/12/2015 ANNE JOHNSON DO Ot G40.909 EPILEPSY, UNSP, NOT INTRACTABLE, WITHOUT 01/12/2015 ANNE JOHNSON DO Ot I10 ESSENTIAL (PRIMARY) HYPERTENSION 01/12/2015 ANNE JOHNSON DO Ot I25.10 ATHSCL HEART DISEASE OF [place] CORONARY 01/12/2015 ANNE JOHNSON DO Ot I42.6 ALCOHOLIC CARDIOMYOPATHY 01/12/2015 ANNE JOHNSON DO Ot I47.1 SUPRAVENTRICULAR TACHYCARDIA 01/12/2015 ANNE JOHNSON DO Ot I50.22 CHRONIC SYSTOLIC (CONGESTIVE) HEART FAIL 01/12/2015 ANNE JOHNSON DO Ot Z91.14 PATIENT'S OTHER NONCOMPLIANCE WITH MEDIC 01/12/2015 ANNE JOHNSON DO Ot Z95.810 PRESENCE OF AUTOMATIC (IMPLANTABLE) CARD 03/21/2015 ANNE JOHNSON DO Ot F10.20 ALCOHOL DEPENDENCE, UNCOMPLICATED 03/21/2015 ANNE JOHNSON DO Ot G40.409 OTH GENERALIZED EPILEPSY, NOT INTRACTABL 03/21/2015 ANNE JOHNSON DO Ot I42.6 ALCOHOLIC CARDIOMYOPATHY 03/21/2015 ANNE JONHSON DO Ot I47.1 SUPRAVENTRICULAR TACHYCARDIA 03/21/2015 ANNE JOHNSON DO Ot Z91.14 PATIENT'S OTHER NONCOMPLIANCE WITH MEDIC 03/21/2015 ANNE JOHNSON DO Ot Z91.19 PATIENT'S NONCOMPLIANCE W OTH MEDICAL TR 03/21/2015 HILLARY TAYLOR MD Ot F10.10 03/21/2015 CLAUDIA CARPENTER, HILLARY Chawla Ot F15.10 03/21/2015 HILLARY TAYLOR MD J Ot I25.10 03/21/2015 CLAUDIA CARPENTER, HILLARY Chawla Ot I50.22 03/21/2015 CLAUDIA CARPENTER, HILLARY Chawla Ot F10.10 03/21/2015 CLAUDIA CARPENTER, HILLARY Chawla Ot F15.10 03/21/2015 CLAUDIA CARPENTER, HILLARY Chawla Ot I25.10 03/21/2015 CLAUDIA CARPENTER, HILLARY Chawla Ot I50.22 04/29/2015 CLAUDIA CARPENTER, HILLARY Chawla Ot F10.10 04/29/2015 CLAUDIA CARPENTER, HILLARY Chawla Ot F15.10 04/29/2015 CLAUDIA CARPENTER, HILLARY Chawla Ot I25.10 04/29/2015 CLAUDIA CARPENTER, HILLARY Chawla Ot I50.22 04/29/2015 CLAUDIA CARPENTER, HILLARY Chawla Ot F10.10 04/29/2015 CLAUDIA CARPENTER, HILLARY Chawla Ot F15.10 04/29/2015 CLAUDIA CARPENTER, HILLARY Chawla Ot I25.10 04/29/2015 CLAUDIA CARPENTER, HILLARY Chawla Ot I50.22 09/02/2015 CLAUDIA CARPENTER, HILLARY Chawla Ot F10.10 ALCOHOL ABUSE, UNCOMPLICATED 09/02/2015 CLAUDIA CARPENTER, HILLARY Chawla Ot F15.10 OTHER STIMULANT ABUSE, UNCOMPLICATED 09/02/2015 CLAUDIA CARPENTER, HILLARY Chawla Ot I25.10 ATHSCL HEART DISEASE OF [place] CORONARY 09/02/2015 CLAUDIA CARPENTER, HILLARY Chawla Ot I50.22 CHRONIC SYSTOLIC (CONGESTIVE) HEART FAIL 11/09/2015 HERLINDA FONSECA MD Ot G40.909 EPILEPSY, UNSP, NOT INTRACTABLE, WITHOUT 11/09/2015 RAYMUNDO CARPENTER, HERLINDA Shoemaker Ot I42.9 CARDIOMYOPATHY, UNSPECIFIED 11/11/2015 HERLINDA FONSECA MD Ot G40.909 EPILEPSY, UNSP, NOT INTRACTABLE, WITHOUT 11/11/2015 HERLINDA FONSECA MD T Ot I42.9 CARDIOMYOPATHY, UNSPECIFIED 11/13/2015 HERLINDA FONSECA MD Ot G40.909 EPILEPSY, UNSP, NOT INTRACTABLE, WITHOUT 11/13/2015 HERLINDA FONSECA MD Ot I42.9 CARDIOMYOPATHY, UNSPECIFIED 04/26/2016 HILLARY TAYLOR MD Ot E83.42 HYPOMAGNESEMIA 04/26/2016 HILLARY TAYLOR MD Ot F10.10 ALCOHOL ABUSE, UNCOMPLICATED 04/26/2016 HILLARY TAYLOR MD Ot F15.10 OTHER STIMULANT ABUSE, UNCOMPLICATED 04/26/2016 HILLARY TAYLOR MD Ot I25.10 ATHSCL HEART DISEASE OF [place] CORONARY 04/26/2016 HILLARY TAYLOR MD Ot I50.22 CHRONIC SYSTOLIC (CONGESTIVE) HEART FAIL 08/23/2016 HILLARY TAYLOR MD Ot E83.42 HYPOMAGNESEMIA 08/23/2016 HILLARY TAYLOR MD Ot F10.10 ALCOHOL ABUSE, UNCOMPLICATED 08/23/2016 HILLARY TAYLOR MD Ot F15.10 OTHER STIMULANT ABUSE, UNCOMPLICATED 08/23/2016 HILLARY TAYLOR MD Ot I25.10 ATHSCL HEART DISEASE OF [place] CORONARY 08/23/2016 HILLARY TAYLOR MD Ot I50.22 CHRONIC SYSTOLIC (CONGESTIVE) HEART FAIL 08/23/2016 OLAF CARPENTER, DIAMOND Bhatt ([facility]) Ot M25.562 PAIN IN LEFT KNEE Procedures There is no data. Results Test Result Range Complete blood count (CBC) with automated white blood cell (WBC) differential - 11/09/15 11:45 Blood leukocytes automated count (number/volume) 7.7 10*3/uL 4.3-11.0 Blood erythrocytes automated count (number/volume) 4.43 10*6/uL 4.35-5.85 Venous blood hemoglobin measurement (mass/volume) 14.3 g/dL 13.3-17.7 Blood hematocrit (volume fraction) 42 % 40-54 Automated erythrocyte mean corpuscular volume 94 [foz_us] 80-99 Automated erythrocyte mean corpuscular hemoglobin (mass per erythrocyte) 32 pg 25-34 Automated erythrocyte mean corpuscular hemoglobin concentration measurement ( mass/volume) 34 g/dL 32-36 Automated erythrocyte distribution width ratio 12.6 % 10.0-14.5 Automated blood platelet count (count/volume) 264 10*3/uL 130-400 Automated blood platelet mean volume measurement 9.7 [foz_us] 7.4-10.4 Automated blood neutrophils/100 leukocytes 81 % 42-75 Automated blood lymphocytes/100 leukocytes 8 % 12-44 Blood monocytes/100 leukocytes 10 % 0-12 Automated blood eosinophils/100 leukocytes 1 % 0-10 Automated blood basophils/100 leukocytes 1 % 0-10 Blood neutrophils automated count (number/volume) 6.2 10*3 1.8-7.8 Blood lymphocytes automated count (number/volume) 0.6 10*3 1.0-4.0 Blood monocytes automated count (number/volume) 0.8 10*3 0.0-1.0 Automated eosinophil count 0.1 10*3/uL 0.0-0.3 Automated blood basophil count (count/volume) 0.1 10*3/uL 0.0-0.1 Comprehensive metabolic panel - 11/09/15 11:45 Serum or plasma sodium measurement (moles/volume) 139 mmol/L 135-145 Serum or plasma potassium measurement (moles/volume) 4.1 mmol/L 3.6-5.0 Serum or plasma chloride measurement (moles/volume) 107 mmol/L 98-107 Carbon dioxide 25 mmol/L 21-32 Serum or plasma anion gap determination (moles/volume) 7 mmol/L 5-14 Serum or plasma urea nitrogen measurement (mass/volume) 9 mg/dL 7-18 Serum or plasma creatinine measurement (mass/volume) 0.76 mg/dL 0.60-1.30 Serum or plasma urea nitrogen/creatinine mass ratio 12 NRG Serum or plasma creatinine measurement with calculation of estimated glomerular filtration rate > NRG Serum or plasma glucose measurement (mass/volume) 99 mg/dL 70-105 Serum or plasma calcium measurement (mass/volume) 8.7 mg/dL 8.5-10.1 Serum or plasma total bilirubin measurement (mass/volume) 0.6 mg/dL 0.1-1.0 Serum or plasma alkaline phosphatase measurement (enzymatic activity/volume) 90 U/L 40-136 Serum or plasma aspartate aminotransferase measurement (enzymatic activity/ volume) 19 U/L 5-34 Serum or plasma alanine aminotransferase measurement (enzymatic activity/volume ) 15 U/L 0-55 Serum or plasma protein measurement (mass/volume) 6.4 g/dL 6.4-8.2 Serum or plasma albumin measurement (mass/volume) 3.8 g/dL 3.2-4.5 Magnesium - 11/09/15 11:45 Magnesium 2.2 mg/dL 1.8-2.4 Serum or plasma creatine kinase measurement (enzymatic activity/volume) - 11/08 11:45 Serum or plasma creatine kinase measurement (enzymatic activity/volume) 103 U/L 30-200 Serum or plasma troponin i.cardiac measurement (mass/volume) - 11/09/15 11:45 Serum or plasma troponin i.cardiac measurement (mass/volume) < ng/ mL <0.30 Serum or plasma ethanol measurement (mass/volume) - 11/09/15 11:45 Serum or plasma ethanol measurement (mass/volume) < mg/dL <10 Serum or plasma lithium measurement (moles/volume) - 11/09/15 11:45 BNP level 54.0 pg/mL <100.0 Complete urinalysis with reflex to culture - 11/09/15 12:35 Urine color determination YELLOW NRG Urine clarity determination CLEAR NRG Urine pH measurement by test strip 7 5-9 Specific gravity of urine by test strip 1.015 1.016- 1.022 Urine protein assay by test strip, semi-quantitative 2+ NEGATIVE Urine glucose detection by automated test strip NEGATIVE NEGATIVE Erythrocytes detection in urine sediment by light microscopy NEGATIVE NEGATIVE Urine ketones detection by automated test strip NEGATIVE NEGATIVE Urine nitrite detection by test strip NEGATIVE NEGATIVE Urine total bilirubin detection by test strip NEGATIVE NEGATIVE Urine urobilinogen measurement by automated test strip (mass/volume) 1 mg/dL NORMAL Urine leukocyte esterase detection by dipstick 1+ NEGATIVE Automated urine sediment erythrocyte count by microscopy (number/high power field) RARE NRG Automated urine sediment leukocyte count by microscopy (number/high power field ) RARE NRG Bacteria detection in urine sediment by light microscopy NEGATIVE NRG Squamous epithelial cells detection in urine sediment by light microscopy NONE NRG Crystals detection in urine sediment by light microscopy NONE NRG Casts detection in urine sediment by light microscopy NONE NRG Mucus detection in urine sediment by light microscopy NEGATIVE NRG Complete urinalysis with reflex to culture NO NRG Urine drug screening test - 11/09/15 12:35 Urine acetaminophen detection by screening method NEGATIVE NEGATIVE Urine phencyclidine detection by screening method NEGATIVE NEGATIVE Urine benzodiazepines detection by screening method NEGATIVE NEGATIVE Urine cocaine detection NEGATIVE NEGATIVE Urine amphetamines detection by screening method NEGATIVE NEGATIVE Urine methamphetamine detection by screening method NEGATIVE NEGATIVE Urine cannabinoids detection by screening method NEGATIVE NEGATIVE Urine opiates detection by screening method NEGATIVE NEGATIVE Urine barbiturates detection NEGATIVE NEGATIVE Screening urine tricyclic antidepressants detection POSITIVE NEGATIVE Urine methadone detection by screening method NEGATIVE NEGATIVE Encounters ACCT No. Visit Date/Time Discharge Status Pt. Type Provider Facility Loc./Unit Complaint [id number] 04/06/2017 09:00:00 04/06/2017 23:59:59 CLS Preadmit HILLARY TAYLOR MD [facility] CATH SEJAL,VT,NICM,HLP [id number] 08/23/2016 09:06:00 08/23/2016 23:59:59 CLS Outpatient DIAMOND BABIN MD (DDU) [facility] RAD DDU [id number] 04/23/2016 13:12:00 04/23/2016 23:59:59 CLS Outpatient HILLARY TAYLOR MD [facility] CARD CAD,CHF [id number] 11/09/2015 10:55:00 11/09/2015 13:49:00 DIS Emergency RAYMUNDO CARPENTER, HERLINDA Shoemaker [facility] ER SEIZURE [id number] 03/20/2015 15:30:00 03/21/2015 13:55:00 DIS Inpatient ANNE JOHNSON DO [facility] ICU SEIZURES [id number] 01/11/2015 13:00:00 01/12/2015 14:50:00 DIS Inpatient ANNE JOHNSON DO [facility] ICU [id number] 12/20/2014 11:13:00 12/20/2014 23:59:59 CLS Outpatient HILLARY TAYLOR MD [facility] CARD [id number] 10/21/2014 12:11:00 10/21/2014 15:04:00 DIS Emergency WILBER MOORE [facility] ER [id number] 07/10/2014 16:30:00 07/11/2014 07:45:00 DIS Inpatient VITALIY MENESES MD [facility] SURGICAL [id number] 04/23/2014 22:50:00 04/24/2014 19:15:00 DIS Inpatient JOHNSON ANNE RAMIREZ [facility] 4TH [id number] 03/13/2014 22:15:00 03/15/2014 08:15:00 DIS Inpatient DARON GUTIERRES MD [facility] CSD [id number] 02/13/2014 10:15:00 02/14/2014 16:00:00 DIS Outpatient CLAUDIA CARPENTER, HILLARY Chawla [facility] [id number] 02/04/2014 09:12:00 02/04/2014 23:59:59 CLS Outpatient JAYLEEN MYERS [facility] CARD [id number] 03/29/2013 12:58:00 03/29/2013 23:59:59 CLS Outpatient JAYLEEN MYERS [facility] CARD [id number] 11/27/2012 21:13:00 11/28/2012 15:45:00 DIS Inpatient IAM TRIANA MD Via [address] [id number] 11/04/2012 05:34:00 11/04/2012 18:30:00 DIS Inpatient IAM TRIANA MD [facility] [id number] 10/29/2012 21:40:00 11/01/2012 15:10:00 DIS Inpatient VITALIY MENESES MD [facility] [id number] 02/04/2014 09:10:00 Document Registration [id number] 03/26/2012 15:11:00 Document Registration [id number] 11/25/2011 13:10:00 Document Registration [id number] 09/29/2011 11:53:00 Document Registration [id number] 06/03/2011 06:04:00 Document Registration [id number] 09/28/2009 17:19:00 Document Registration [id number] 09/21/2009 17:41:00 Document Registration
[2017-04-13] MEDS ORDERED: HEParin (CATH LAB) 1,000 ML IV ONE (07:11)
[2017-04-13] MEDS ORDERED: NS IV 1000 ML 1,000 ML ONE (07:11)
[2017-04-13] MEDS ORDERED: LIDOCAINE 1% INJ 50 ML (XYLOCAINE) VIAL ONE (07:11)
[2017-04-13 07:44] LABS: BILIRUBIN,URINE NEGATIVE (NEGATIVE); CLARITY,URINE CLEAR; COLOR,URINE YELLOW; GLUCOSE, URINE (UA) NEGATIVE (NEGATIVE); KETONES,URINE NEGATIVE (NEGATIVE); LEUKOCYTE ESTERASE ,URINE NEGATIVE (NEGATIVE); NITRITE,URINE NEGATIVE (NEGATIVE); PH,URINE 7 (5-9); PROTEIN,URINE NEGATIVE (NEGATIVE); UROBILINOGEN,URINE 4 MG/DL (NORMAL)
[2017-04-13] MEDS: NS IV 1000 ML 1,000 ML IV SCH ×2 (07:45→13:26)
[2017-04-13 07:47] LABS: HEMOGLOBIN 13.9 G/DL (13.3-17.7); MEAN PLATELET VOLUME 9.1 FL (7.4-10.4); RED BLOOD COUNT 4.45 10^6/uL (4.35-5.85); RED CELL DISTRIBUTION WIDTH 11.8 % (10.0-14.5); WHITE BLOOD COUNT 6.5 10^3/uL (4.3-11.0)
[2017-04-13 07:50] LABS: BACTERIA,URINE NEGATIVE /HPF; SQUAMOUS EPITHELIAL CELL,UR RARE /HPF; WBC,URINE RARE /HPF
[2017-04-13 07:54] LABS: PROTHROMBIN TIME PATIENT 13.1 SEC (12.2-14.7)
[2017-04-13] MEDS ORDERED: ceFAZolin 1,000 MG (ANCEF) VIAL ONE (07:56)
[2017-04-13] MEDS ORDERED: NS (IVPB) 50 ML ONE (07:57)
[2017-04-13] MEDS ORDERED: BACITRACIN INJECTION 50,000 UNIT, SODIUM CHLORIDE 0.9% IRRIGATIO 500 ML IR ONE ×2 (08:00)
[2017-04-13 08:02] LABS: ALANINE AMINOTRANSFERASE 21 U/L (0-55); ALKALINE PHOSPHATASE 92 U/L (40-136); BILIRUBIN,TOTAL 1.1 MG/DL (0.1-1.0); BUN/CREATININE RATIO 11; CALCIUM 8.8 MG/DL (8.5-10.1); CARBON DIOXIDE 27 MMOL/L (21-32); CHLORIDE 104 MMOL/L (98-107); CHOLESTEROL 143 MG/DL (< 200); CREATININE SERUM 0.84 MG/DL (0.60-1.30); GFR ESTIMATED > 60; GLUCOSE 94 MG/DL (70-105); HDL CHOLESTEROL 47 MG/DL (40-60); POTASSIUM 3.9 MMOL/L (3.6-5.0); SODIUM 139 MMOL/L (135-145); TOTAL PROTEIN 6.9 GM/DL (6.4-8.2); TRIGLYCERIDES 98 MG/DL (<150); VLDL CHOLESTEROL 20 MG/DL (5-40)
[2017-04-13] MEDS ORDERED: AMIO200T2 PO (08:04)
--- NOTE | 2017-04-13 08:04 | Diagnostic Imaging Report ---
INDICATION: ICD pacer replacement. Preop. COMPARISON: 11/09/2015. FINDINGS: Portable chest show the lungs to be well-aerated and clear. ICD pacer on the right is present. Pacemaker lead appears unchanged. The lungs are well-aerated with no infiltrates. Heart is not enlarged. No pulmonary edema. No pleural effusion. IMPRESSION: Pacemaker present on the right with no abnormalities. Dictated by: Dictated on workstation # [id number]
--- NOTE | 2017-04-13 08:57 | Cardiac Procedure Note-CS/ASA ---
Pre-Procedure Note Pre-Op Procedure Note H&P Reviewed The H&P was reviewed, patient examined and no changes noted. Date H&P Reviewed: Apr 13, 2017 Time H&P Reviewed: 08:57 Conscious Sedation Pre-Proced Time Reviewed: 08:57 ASA Class: 3 Airway Mallampati Classification: ([place] appropriate class) I. II. III, IV Lungs Heart ASA score ASA 1: a normal healthy patient ASA 2: a patient with a mild systemic disease (mid diabetes, controlled hypertension, obesity x ASA 3: a patient with a severe systemic disease that limits activity (angina , COPD, prior Myocardial infarction) ASA 4: a patient with an incapacitating disease that is a constant threat to life (CHF, renal failure) ASA 5: a moribund patient not expected to survive 24 hrs. (ruptured aneurysm) ASA 6: a declared brain patient whose organs are being harvested. For emergent operations, add the letter E after the classification Grade 3 Sedation Plan: Analgesia, Amnesia, Plan communicated to team members, Discussed options with patient/fam, Discussed risks with patient/fam Note The patient is an appropriate candidate to undergo the planned procedure, sedation, and anesthesia. The patient immediately re-assessed prior to indication. HILLARY TAYLOR MD Apr 13, 2017 08:57
[2017-04-13] MEDS ORDERED: proPOfol 200 MG/20 ML (DIPRIVAN) VIAL IV ONE (10:16)
[2017-04-13] MEDS ORDERED: NS IV 1000 ML 1,000 ML IV SCH (10:26)
--- NOTE | 2017-04-13 10:28 | Progress Note-Standard ---
Standard Progress Note Progress Notes/Assess & Plan Date Seen by Provider: Apr 13, 2017 Time Seen by Provider: 10:10 Progress/Assessment & Plan Anesthesia Note ([id number]) Called to [facility] for sedation for defibrillator function testing. Pt already given versed 7 mg IV and fentanyl 125 mcg IV for procedural sedation prior to my arrival. VSS and propofol 50 mg IV given for additional sedation prior to DFT. Spontaneous ventilation maintained throughout. Pt tolerated procedure well. Will be available if needed. IGNACIA CONRAD DO Apr 13, 2017 10:28
[2017-04-13] MEDS ORDERED: PATIENT MAY USE OWN MEDS, ALL PO SCH (10:30)
--- NOTE | 2017-04-13 10:54 | ICD Generator Change ---
ICD Generator Change Physician (s)/Dairy Consultant (s) Physician HILLARY TAYLOR MD Pre-Procedure Diagnosis Pre-Procedure Diagnosis: Congestive heart failure, ventricular tachycardia Post-Procedure Note Procedure Start Date: Apr 13, 2017 Name of Procedure: ICD generator change DFT testing Findings/Procedure Note BRIEF HISTORY: The patient is a 36 male with congestive heart failure, had ventricular tachycardia and multiple shock, has single-chamber ICD reached SEJAL and scheduled for generator replacement DFT testing. PROCEDURE NOTE: After explaining the procedure to the patient, all pros and cons were explained. Chest was prepped in sterile condition, incision was made, generator was removed and skin pocket was irrigated with antibiotic solution then a new device [employer] (formerly [employer])tronic with serial number [id number] was placed, attached to the leads , good sensing and capture activity. Skin pocket was closed without complication The patient was sedated with assistance of anesthesia, R on T was delivered with T shock, patient went to ventricular fibrillation, received 3 consecutive shocks with 25 then 35 then 45 J without success in terminating ventricular fibrillation, patient received external shock and it was successful in terminating ventricular fibrillation. CONCLUSION: 1. Successful single-chamber ICD generator replacement without complication 2. Patient had DFT testing which failed to terminate ventricular fibrillation through 3 consecutive shocks. Anesthesia Type: Conscious Sedation Estimated blood loss (mL): 20 ml Contrast Amount: 0 ml Post-Procedure Diagnosis Post-operative diagnosis: Congestive heart failure Ventricular tachycardia Ventricular fibrillation HILLARY Jeter MD Apr 13, 2017 10:54
--- NOTE | 2017-04-13 12:21 | Diagnostic Imaging Report ---
Indication: Pacemaker placement. TIME OF EXAM: 11:26 AM FINDINGS: Right-sided defibrillator is in place. There is an external pacer overlying the left hemithorax. The lungs are clear. No pneumothorax is seen. There is no effusion. IMPRESSION: No acute abnormality is detected. Dictated by: Dictated on workstation # [id number]
--- OUTSIDE RECORDS SUMMARY | 2017-04-13 12:39 | XMS REPORT | Continuity of Care Document ---
Author Author [employer] Organization [facility] Address Unknown Phone Unavailable Care Team Providers Care Dispatcher [employer] Name Role Phone [employer] Unavailable Unavailable Problems Medications Allergies, Adverse Reactions, Alerts Immunizations Results Vital Signs Encounters Location Location Details Encounter Type Encounter Number Reason For Visit Attending Provider ADM Date DC Date Status Source OUTPATIENT [id number] MARCIANO BASS 10/19/20162016 Active [facility] O Active [facility] Procedures Plan of Care Social History Assessment and Plan Family History Advance Directives Functional Status
--- OUTSIDE RECORDS SUMMARY | 2017-04-13 12:39 | XMS REPORT | Encounter Summary ---
Author Author [facility] Organization [facility] Address Unknown Phone Unavailable Care Team Providers Care Hop Trainer Name Role Phone Mary Jane Ceballos MD PCP Encounter Details Date Type Department Care Team Description 04/13/2017 Pharmacy Visit [facility] [id number] [place] [id number] Social History Tobacco Use Types Packs/Day Years Used Date Never Smoker Alcohol Use Drinks/Week oz/Week Comments Yes 7 Standard 4.2 drinks or equivalent Sex Assigned at Date Recorded Not on file as of this encounter Plan of Treatment Not on fileas of this encounter Visit Diagnoses Not on filein this encounter
--- OUTSIDE RECORDS SUMMARY | 2017-04-13 12:39 | XMS REPORT | Clinical Summary ---
Author Author [facility] Organization [facility] Address Unknown Phone Unavailable Care Team Providers Care [place] Department Supervisor Name Role Phone Mary Jane Ceballos MD PCP Source Comments Some departments are not documenting in the electronic medical record. If you do not see the information that you expected, contact Release of Information in the Health Information Management department at [phone] for further assistance in locating additional records.[facility] Allergies No Known Allergies Current Medications [...] have requested records from [facility] in [place]. EEG ordered. Keprra is the medication of choice given the patient's liver disease. Will try to get him on patient assistance for Keppra XR as this may be more tolerable. Encounters Date Type Specialty Care Team Description 04/13/2017 Pharmacy Visit from Last 3 Months Social History Tobacco Use Types Packs/Day Years [...]
--- OUTSIDE RECORDS SUMMARY | 2017-04-13 12:42 | XMS REPORT | Continuity of Care Document ---
Author Author [facility] Organization [facility] Address Unknown Phone Unavailable Allergies Active Description Code Type Severity Reaction Onset Reported/Identified Relationship to Patient Clinical Status Yes No Known Drug Allergies [id number] Drug Allergy Unknown N/A 11/28/2012 Medications There [...] JAYLEEN K Ot 786.09 04/24/2014 JOHNSON DO, NANE K Ot 291.81 04/24/2014 JOHNSON DO, ANNE [...] 08/30/2014 KELLY-BRITNI PA, JAYLEEN K Ot 428.0 09/05/2014 KELLY-BRITNI PA, JAYLEEN K Ot 428.0 09/05/2014 KELLY-BRITNI PA, JAYLEEN K Ot 397.0 09/05/2014 KELLY-BRITNI PA, JAYLEEN K Ot 401.9 09/05/2014 KELLY-BRITNI PA, JAYLEEN K Ot 424.0 09/05/2014 KELLY-BRITNI PA, JAYLEEN K Ot 428.0 09/05/2014 KELLY-BRITNI PA, JAYLEEN K Ot 786.09 10/17/2014 KELLY-BRITNI PA, JAYLEEN K Ot 428.0 [...] KELLY-BRITNI PA, JAYLEEN K Ot 428.0 12/11/2014 KELYL-BRITNI PA, JAYLEEN K Ot 397.0 12/11/2014 KELLY-BRITNI PA, JAYLEEN K Ot 401.9 12/11/2014 KELLY-BRITNI PA, JAYLEEN K Ot 424.0 12/11/2014 KELLY-BRITNI PA, JAYLEEN K Ot 428.0 12/11/2014 KELLY-BRITNI PA, JAYLEEN K Ot 786.09 01/11/2015 KELLY-BRITNI PA, JAYLEEN K Ot 428.0 01/11/2015 KELLY-BRITNI PA, JAYLEEN K Ot 397.0 01/11/2015 KELLY-BRITNI PA, JAYLEEN K Ot 401.9 01/11/2015 KELLY-BRITNI PA, JAYLEEN K Ot 424.0 01/11/2015 JAYELEN MYERS Ot 428.0 01/11/2015 JAYLEEN MYERS Ot [...] DO Ot I25.10 ATHSCL HEART DISEASE OF [place] CORONARY 01/12/2015 ANNE JOHNSON DO Ot I42.6 [...] DO Ot I42.6 ALCOHOLIC CARDIOMYOPATHY 03/21/2015 ANNE JOHNSON DO Ot I47.1 SUPRAVENTRICULAR TACHYCARDIA 03/21/2015 ANNE [...] Chawla Ot I25.10 ATHSCL HEART DISEASE OF [place] CORONARY 09/02/2015 CLAUDIA CARPENTER, HILLARY Chawla Ot [...] MD Ot I25.10 ATHSCL HEART DISEASE OF [place] CORONARY 04/26/2016 HILLARY TAYLOR MD Ot I50.22 CHRONIC SYSTOLIC (CONGESTIVE) HEART FAIL 08/23/2016 HILLARY TAYLOR MD Ot E83.42 HYPOMAGNESEMIA 08/23/2016 HILLARY TAYLOR MD Ot F10.10 ALCOHOL ABUSE, UNCOMPLICATED 08/23/2016 HILLARY TAYLOR MD Ot F15.10 OTHER STIMULANT ABUSE, UNCOMPLICATED 08/23/2016 HILLARY TAYLOR MD Ot I25.10 ATHSCL HEART DISEASE OF [place] CORONARY 08/23/2016 HILLARY TAYLOR MD Ot I50.22 CHRONIC SYSTOLIC (CONGESTIVE) HEART FAIL 08/23/2016 OLAF CARPENTER, DIAMOND Bhatt ([facility]) Ot M25.562 PAIN IN LEFT KNEE [...] methadone detection by screening method NEGATIVE NEGATIVE Complete urinalysis with reflex to culture - 04/13/17 07:22 Urine color determination YELLOW NRG Urine clarity determination CLEAR NRG Urine pH measurement by test strip 7 5-9 Specific gravity of urine by test strip 1.005 1.016- 1.022 Urine protein assay by test strip, semi-quantitative NEGATIVE NEGATIVE Urine glucose detection by automated test strip NEGATIVE NEGATIVE Erythrocytes detection in urine sediment by light microscopy NEGATIVE NEGATIVE Urine ketones detection by automated test strip NEGATIVE NEGATIVE Urine nitrite detection by test strip NEGATIVE NEGATIVE Urine total bilirubin detection by test strip NEGATIVE NEGATIVE Urine urobilinogen measurement by automated test strip (mass/volume) 4 mg/dL NORMAL Urine leukocyte esterase detection by dipstick NEGATIVE NEGATIVE Automated urine sediment erythrocyte count by microscopy (number/high power field) NONE NRG Automated urine sediment leukocyte count by microscopy (number/high power field ) RARE NRG Bacteria detection in urine sediment by light microscopy NEGATIVE NRG Squamous epithelial cells detection in urine sediment by light microscopy RARE NRG Crystals detection in urine sediment by light microscopy NONE NRG Casts detection in urine sediment by light microscopy NONE NRG Mucus detection in urine sediment by light microscopy NEGATIVE NRG Complete urinalysis with reflex to culture NO NRG Automated blood complete blood count (hemogram) panel - 04/13/17 07:35 Blood leukocytes automated count (number/volume) 6.5 10*3/uL 4.3-11.0 Blood erythrocytes automated count (number/volume) 4.45 10*6/uL 4.35-5.85 Venous blood hemoglobin measurement (mass/volume) 13.9 g/dL 13.3-17.7 Blood hematocrit (volume fraction) 40 % 40-54 Automated erythrocyte mean corpuscular volume 90 [foz_us] 80-99 Automated erythrocyte mean corpuscular hemoglobin (mass per erythrocyte) 31 pg 25-34 Automated erythrocyte mean corpuscular hemoglobin concentration measurement ( mass/volume) 35 g/dL 32-36 Automated erythrocyte distribution width ratio 11.8 % 10.0-14.5 Automated blood platelet count (count/volume) 332 10*3/uL 130-400 Automated blood platelet mean volume measurement 9.1 [foz_us] 7.4-10.4 PT panel in platelet poor plasma by coagulation assay - 04/13/17 07:35 Prothrombin time (PT) in platelet poor plasma by coagulation assay 13.1 s 12.2-14.7 INR in platelet poor plasma or blood by coagulation assay 1.0 0.8-1.4 Activated partial thromboplastin time (aPTT) in platelet poor plasma bycoagulation assay - 04/13/17 07:35 Activated partial thromboplastin time (aPTT) in platelet poor plasma bycoagulation assay 30 s 24-35 Comprehensive metabolic panel - 04/13/17 07:35 Serum or plasma sodium measurement (moles/volume) 139 mmol/L 135-145 Serum or plasma potassium measurement (moles/volume) 3.9 mmol/L 3.6-5.0 Serum or plasma chloride measurement (moles/volume) 104 mmol/L 98-107 Carbon dioxide 27 mmol/L 21-32 Serum or plasma anion gap determination (moles/volume) 8 mmol/L 5-14 Serum or plasma urea nitrogen measurement (mass/volume) 9 mg/dL 7-18 Serum or plasma creatinine measurement (mass/volume) 0.84 mg/dL 0.60-1.30 Serum or plasma urea nitrogen/creatinine mass ratio 11 NRG Serum or plasma creatinine measurement with calculation of estimated glomerular filtration rate > NRG Serum or plasma glucose measurement (mass/volume) 94 mg/dL 70-105 Serum or plasma calcium measurement (mass/volume) 8.8 mg/dL 8.5-10.1 Serum or plasma total bilirubin measurement (mass/volume) 1.1 mg/dL 0.1-1.0 Serum or plasma alkaline phosphatase measurement (enzymatic activity/volume) 92 U/L 40-136 Serum or plasma aspartate aminotransferase measurement (enzymatic activity/ volume) 23 U/L 5-34 Serum or plasma alanine aminotransferase measurement (enzymatic activity/volume ) 21 U/L 0-55 Serum or plasma protein measurement (mass/volume) 6.9 g/dL 6.4-8.2 Serum or plasma albumin measurement (mass/volume) 4.0 g/dL 3.2-4.5 Lipid 1996 panel - 04/13/17 07:35 Serum or plasma triglyceride measurement (mass/volume) 98 mg/dL <150 Serum or plasma cholesterol measurement (mass/volume) 143 mg/dL < 200 Serum or plasma cholesterol in HDL measurement (mass/volume) 47 mg/ dL 40-60 Cholesterol in LDL [mass/volume] in serum or plasma by direct assay 89 mg/dL 1-129 Serum or plasma cholesterol in VLDL measurement (mass/volume) 20 mg/ dL 5-40 Encounters ACCT No. Visit Date/Time Discharge Status Pt. Type Provider Facility Loc./Unit Complaint [id number] 04/06/2017 09:00:00 04/06/2017 23:59:59 CLS Preadmit HILLARY TAYLOR MD [facility] CATH SEJAL,VT,NICM,HLP [id number] 08/23/2016 09:06:00 08/23/2016 23:59:59 CLS Outpatient DIAMOND BABIN MD (DDU) [facility] RAD DDU [id number] 04/23/2016 13:12:00 04/23/2016 23:59:59 CLS Outpatient HILLARY TAYLOR MD [facility] CARD CAD,CHF [id number] 11/09/2015 10:55:00 11/09/2015 13:49:00 DIS Emergency RAYMUNDO CARPENTER, HERLINDA T [facility] ER SEIZURE [id number] 03/20/2015 15:30:00 03/21/2015 13:55:00 DIS Inpatient ANNE JOHNSON DO K [facility] ICU SEIZURES [id number] 01/11/2015 13:00:00 01/12/2015 14:50:00 DIS Inpatient ANNE JOHNSON DO [facility] ICU [id number] 12/20/2014 11:13:00 12/20/2014 23:59:59 CLS Outpatient HILLARY TAYLOR MD [facility] CARD [id number] 10/21/2014 12:11:00 10/21/2014 15:04:00 DIS Emergency WILBER MOORE [facility] ER [id number] 07/10/2014 16:30:00 07/11/2014 07:45:00 DIS Inpatient ZAIRA CARPENTER, VITALIY Dumont [facility] SURGICAL [id number] 04/23/2014 22:50:00 04/24/2014 19:15:00 DIS Inpatient ANNE JOHNSON DO [facility] 4TH [id number] 03/13/2014 22:15:00 03/15/2014 08:15:00 DIS Inpatient DARON GUTIERRES MD [facility] [id number] 02/13/2014 10:15:00 02/14/2014 16:00:00 DIS Outpatient CLAUDIA CARPENTER, HILLARY Chawla [facility] [id number] 02/04/2014 09:12:00 02/04/2014 23:59:59 CLS Outpatient KELLY-JAYLEEN HOUSE [facility] CARD [id number] 03/29/2013 12:58:00 03/29/2013 23:59:59 CLS Outpatient ROBIN-JAYLEEN HOUSE K [facility] CARD [id number] 11/27/2012 21:13:00 11/28/2012 15:45:00 DIS Inpatient IAM TRIANA MD [facility] [address] [id number] 11/04/2012 05:34:00 11/04/2012 18:30:00 DIS Inpatient IAM TRIANA MD [facility] [id number] 10/29/2012 21:40:00 11/01/2012 15:10:00 DIS Inpatient VITALIY MENESES MD [facility] [id number] 02/04/2014 09:10:00 Document Registration [id number] 03/26/2012 15:11:00 Document Registration [id number] 11/25/2011 13:10:00 Document Registration [id number] 09/29/2011 11:53:00 Document Registration [id number] 06/03/2011 06:04:00 Document Registration [id number] 09/28/2009 17:19:00 Document Registration [id number] 09/21/2009 17:41:00 Document Registration
--- NOTE | 2017-04-13 13:21 | Electrophysiology Consultation ---
HPI-Cardiology Cardiology Consultation: Date of Consultation 04/13/17 Date of Admission Attending Physician Tia Soliman MD Admitting Physician No,Local Physician Consulting Physician Julio CALDERON MD HPI: Time Seen by Provider: 12:30 Chief Complaint: Failed defibrillation during DFT testing This is a 36-year-old gentleman who has history of nonischemic cardiomyopathy with ICD placement in 2013. Patient also has history of alcohol and drug abuse , however, according to the patient he has quit both alcohol and drug abuse. His most recent echocardiogram showed an EF of 40 percent. He has had previous ICD shocks. His ICD generator which is a [employer] device was at [facility] and therefore replaced this morning. He has a right-sided ICD since he is left- handed. VF was induced with R on T. First shock was at 25 J, the next 2 shocks were at 36 J which were all unsuccessful. An external shock at 200 J was successful. Review of Systems-Cardiology Review of Systems Constitutional: No As described under HPI, No no symptoms reported, No chills, No fever, No lightheadedness, No malaise, No tiredness, No weight loss, No weight gain, No other Eyes: No As described under HPI, No no symptoms reported, No blindness, No blurred vision, No contact lenses, No drainage, No decreased acuity, No foreign body sensation, No glasses, No inflammation, No pain, No photophobia, No previous injury, No shadows, No tunnel vision, No other, No vision change Ears/Nose/Throat: No As described under HPI, No no symptoms reported, No chronic hearing loss, No epistaxis, No ear discharge, No ear pain, No loose teeth, No mouth pain, No mouth swelling, No nasal drainage, No nose pain, No recent hearing loss, No throat pain, No throat swelling, No ulcerations, No other Respiratory: No no symptoms reported, No As described under HPI, No cough, No orthopnea, No shortness of breath, No SOB with excertion, No SOB at rest, No stridor, No wheezing, No other Cardiovascular: No no symptoms reported, No As described under HPI, No chest pain, No edema, No irregular heart rate, No lightheadedness, No palpitations, No syncope, No other Gastrointestinal: No no symptoms reported, No As described under HPI, No abdomen distended, No abdominal pain, No blood streaked bowels, No constipation , No diarrhea, No difficulty swallowing, No nausea, No poor appetite, No poor fluid intake, No rectal bleeding, No vomiting, No other, No nausea/vomiting/ diarrhea, No stool coloration changes Genitourinary: No no symptoms reported, No As described under HPI, No burning, No dysuria, No discharge, No frequency, No flank pain, No hematuria, No incontinence, No pain, No urgency, No other, No urine frequency changes, No urine coloration changes Musculoskeletal: No no symptoms reported, No As describe under HPI, No back pain, No gout, No joint pain, No joint swelling, No muscle pain, No muscle stiffness, No neck pain, No other Skin: No no symptoms reported, No As described under HPI, No change in color, No change in hair/nails, No dryness, No lesions, No lumps, No rash, No other, No skin related problems, No ulcerations, No rash on exposed areas, No ulcerations on exposed areas SOL-[id number] Hx Patient Social History Smoking Status: Never a Smoker Recent Foreign Travel: No Immunizations Up To Date Tetanus Booster (TDap): Unknown Date of Pneumonia Vaccine: Feb 14, 2014 Date of Influenza Vaccine: Dec 15, 2016 Past Medical History PMH As described under Assessment. Family Medical History Family History: Deafness or hearing loss 19 FATHER Diabetes mellitus 19 FATHER Hypertension G8 BROTHER Respiratory disorder 19 MOTHER Allergies and Home Medications Allergies Coded Allergies: No Known Drug Allergies (Unverified , 11/28/12) Home Medications Amiodarone HCl 200 Mg Tablet, 200 MG PO DAILY, (Reported) Enalapril Maleate 2.5 Mg Tablet, 2.5 MG PO BID, (Reported) Levetiracetam 500 Mg Tablet, 500 MG PO BID, #60 Prescribed by: COURTNEY ABRAHAM on 03/21/15 1256 Metoprolol Tartrate 25 Mg Tablet, 25 MG PO BID, (Reported) Physical Exam-Cardiology Physical Exam Vital Signs/I&O Vital Sign - Last 12Hours 04/13/17 04/13/17 04/13/17 04/13/17 10:47 10:47 12:00 12:45 Temp 97.4 Pulse 53 53 Resp 12 12 B/P (MAP) 113/80 (91) 105/70 (82) Pulse Ox 97 97 O2 Delivery Room Air Room Air Room Air Room Air 04/13/17 04/13/17 04/13/17 04/13/17 13:00 14:00 14:11 15:00 Pulse 51 58 51 68 Resp 12 18 18 B/P (MAP) 111/79 (90) 111/82 (92) 115/61 (79) Pulse Ox 98 98 98 O2 Delivery Room Air Room Air Room Air 04/13/17 04/13/17 04/13/17 04/13/17 15:50 16:00 16:00 17:00 Temp 98.3 Pulse 56 54 Resp 14 16 B/P (MAP) 108/69 (82) 105/66 (79) Pulse Ox 100 99 O2 Delivery Room Air Room Air Room Air 04/13/17 04/13/17 18:00 19:00 Pulse 53 58 Resp 15 B/P (MAP) 106/68 (81) Pulse Ox 98 O2 Delivery Room Air Capillary Refill : Constitutional: No appears stated age, No AAO x 3, No apparent distress, No PERRL, No well-developed, No well-nourished, No other HEENT: No PERRL, No normal ENT inspection, No TMs normal, No pharynx normal, No scleral icterus (R), No scleral icterus (L), No pale conjunctivae (R), No pale conjunctivae (L), No photophobia, No TM abnormal (R), No TM abnormal (L), No pharyngeal erythema, No tonsillar exudate, No other, No discharge, No EOMI, No hearing is well preserved, No hard of hearing, No oral hygience is good, No ulceration, No xanthelasmas are seen Neck: No non-tender, No full range of motion, No supple, No normal inspection, No carotid bruit, No limited range of motion, No lymphadenopathy (R), No lymphadenopathy (L), No tender lateral, No tender midline, No thyromegaly, No other, No carotid pulses are 2 + bilaterally, No with good upstrokes Respiratory: No accessory muscle use, No respiratory distress, No chest tender , No chest expansion is symmetric, No chest is bilaterally symmetric, No lungs clear to percussion, No lungs clear to auscultation, No crackles, No rhonchi, No rales, No stridor, No wheezing, No pleural rub, No other Cardiovascular: regular rate-rhythm, S1 and S2 Gastrointestinal: No tender, No soft, No round, No distended, No pulsatile mass , No organomegaly, No guarding, No rebound, No tenderness, No hernia, No mass, No audible bowel sounds, No abnormal bowel sounds, No abdominal bruits, No spleenomegaly, No other Rectal: deferred Extremities: No normal range of motion, No non-tender, No normal inspection, No pedal edema, No calf tenderness, No normal capillary refill, No pelvis stable , No calf tenderness, No inflammation, No pedal edema, No slow capillary refill , No swelling, No other, No abrasion, No clubbing, No cyanosis, No ecchymosis, No laceration, No no lower extremity edema bilateral, No significant edema, No tenderness, No wound Neurologic/Psychiatric: No seismic engineer II-XII nml as tested, No no motor/sensory deficits, No alert, No normal mood/affect, No oriented x 3, No abnormal cerebellar tests, No abnormal seismic engineer II-XII, No abnormal gait, No aphasia, No EOM palsy, No facial droop, No motor weakness, No sensory deficit, No depressed affect, No disoriented x 3, No other, No grossly intact, No power is 5/5 both on sides Skin: No normal color, No warm/dry, No cyanosis, No cool, No diaphoresis, No damp, No ecchymosis, No jaundice, No mottled, No pallor, No rash, No tattoos/ piercings, No ulcerations, No rash on exposed areas, No ulcerations on exposed areas, No other Data Review Labs Laboratory Tests 04/13/17 07:22: Urine Color YELLOW, Urine Clarity CLEAR, Urine pH 7, Urine Specific [place] 1.005L, Urine Protein NEGATIVE, Urine Glucose (UA) NEGATIVE, Urine Ketones NEGATIVE, Urine Nitrite NEGATIVE, Urine Bilirubin NEGATIVE, Urine Urobilinogen 4H, Urine Leukocyte Esterase NEGATIVE, Urine RBC (Auto) NEGATIVE, Urine RBC NONE , Urine WBC RARE, Urine Squamous Epithelial Cells RARE, Urine Crystals NONE, Urine Bacteria NEGATIVE, Urine Casts NONE, Urine Mucus NEGATIVE, Urine Culture Indicated NO 04/13/17 07:35: White Blood Count 6.5, Red Blood Count 4.45, Hemoglobin 13.9, Hematocrit 40, Mean Corpuscular Volume 90, Mean Corpuscular Hemoglobin 31, Mean Corpuscular Hemoglobin Concent 35, Red Cell Distribution Width 11.8, Platelet Count 332, Mean Platelet Volume 9.1, Prothrombin Time 13.1, INR Comment 1.0, Activated Partial Thromboplast Time 30, Sodium Level 139, Potassium Level 3.9, Chloride Level 104, Carbon Dioxide Level 27, Anion Gap 8, Blood Urea Nitrogen 9, Creatinine 0.84, Estimat Glomerular Filtration Rate > 60, BUN/Creatinine Ratio 11, Glucose Level 94, Calcium Level 8.8, Total Bilirubin 1.1H, Aspartate Amino Transf (AST/SGOT) 23, Alanine Aminotransferase (ALT/SGPT) 21, Alkaline Phosphatase 92, Total Protein 6.9, Albumin 4.0, Triglycerides Level 98, Cholesterol Level 143, LDL Cholesterol Direct 89, VLDL Cholesterol 20, HDL Cholesterol 47 ECG Impression ECG Initial ECG Rhythm: S.Nuno A/P-Cardiology Assessment/Admission Diagnosis ICD generator change today. History of ventricular tachycardia and ICD shock. Congestive heart failure. Unsuccessful DFT testing. Plan Reviewing all the patient's pertinent EP data including initial implant and DFT thresholds. Previous appropriate and inappropriate shocks and programming changing. Early battery depletion due to frequent shocks is noted. Right sided ICD device with dual coils. However according to the patient his had no shocks in the last one year. Discontinue amiodarone. We will recheck EKG in the morning. May require starting sotalol x 3 days. NIPS on tuesday afternoon. Thank you for your consultation. Please call me if you have any questions. Bandar Calderon MD, FACP, FACC, FSCAI, FHRS, CCDS Interventional Cardiology Cardiac Electrophysiology Vascular Medicine and Endovascular Interventions Julio CALDERON MD Apr 13, 2017 1:21 pm
[2017-04-13] MEDS: ceFAZolin INJECTION 1,000 MG in NS (IVPB) 50 ML IV SCH ×2 (13:26→21:10)
[2017-04-13] MEDS: meTOprolol TARTRATE 25 MG (LOPRESSOR) TABLET PO SCH (21:11)
[2017-04-13] MEDS: LEVETIRACETAM 500 MG (KEPPRA) TAB PO SCH (21:11)
[2017-04-13] MEDS: ENALAPRIL 2.5 MG (VASOTEC) TAB PO SCH (21:13)
[2017-04-14] VITALS (23 sets, daily range): BP systolic 87–119; BP diastolic 33–80
[2017-04-14] MEDS: NS IV 1000 ML 1,000 ML IV SCH ×2 (05:43→13:15)
[2017-04-14] MEDS: ceFAZolin INJECTION 1,000 MG in NS (IVPB) 50 ML IV SCH (05:49)
[2017-04-14 05:50] LABS: HEMOGLOBIN 13.7 G/DL (13.3-17.7); MEAN PLATELET VOLUME 9.6 FL (7.4-10.4); RED BLOOD COUNT 4.39 10^6/uL (4.35-5.85); WHITE BLOOD COUNT 6.2 10^3/uL (4.3-11.0)
[2017-04-14 06:29] LABS: ALANINE AMINOTRANSFERASE 18 U/L (0-55); ALBUMIN 3.6 GM/DL (3.2-4.5); ALKALINE PHOSPHATASE 73 U/L (40-136); BILIRUBIN,TOTAL 0.9 MG/DL (0.1-1.0); BUN/CREATININE RATIO 9; CALCIUM 8.8 MG/DL (8.5-10.1); CARBON DIOXIDE 25 MMOL/L (21-32); CHLORIDE 106 MMOL/L (98-107); CREATININE SERUM 0.79 MG/DL (0.60-1.30); GFR ESTIMATED > 60; GLUCOSE 91 MG/DL (70-105); POTASSIUM 4.3 MMOL/L (3.6-5.0); SODIUM 140 MMOL/L (135-145); TOTAL PROTEIN 6.4 GM/DL (6.4-8.2)
[2017-04-14] MEDS: meTOprolol TARTRATE 25 MG (LOPRESSOR) TABLET PO SCH ×2 (08:37→21:27)
[2017-04-14] MEDS: LEVETIRACETAM 500 MG (KEPPRA) TAB PO SCH ×2 (08:38→21:26)
[2017-04-14] MEDS: ENALAPRIL 2.5 MG (VASOTEC) TAB PO SCH ×2 (08:38→21:26)
[2017-04-14] MEDS ORDERED: AMIODARONE 200 MG (CORDARONE) TAB PO SCH (09:00)
[2017-04-14] MEDS ORDERED: SOTALOL 80 MG (BETAPACE) TAB PO NR (09:55)
[2017-04-14] MEDS: CEFDINIR 300 MG (OMNICEF) CAP PO SCH ×2 (10:04→21:26)
--- NOTE | 2017-04-14 13:24 | Cardiology Progress Note ---
Cardiology SOAP Progress Note Subjective: No cardiac symptoms. Objective: I&O/Vital Signs Vital Sign - Last 12Hours 04/14/17 04/14/17 04/14/17 04/14/17 09:00 09:00 10:00 11:00 Pulse 58 57 71 Resp 11 18 20 B/P (MAP) 108/76 (87) 101/72 (82) 105/67 (80) Pulse Ox 97 100 99 O2 Delivery Room Air Room Air Room Air Room Air 04/14/17 04/14/17 04/14/17 04/14/17 11:19 11:20 12:00 13:00 Temp 98.2 Pulse 60 59 B/P (MAP) 106/67 (80) 105/68 (80) Pulse Ox 98 99 O2 Delivery Room Air Room Air Room Air 04/14/17 04/14/17 04/14/17 04/14/17 13:00 14:00 15:00 16:00 Pulse 59 59 60 66 B/P (MAP) 110/65 (80) 101/71 (81) 96/67 (77) Pulse Ox 100 99 100 O2 Delivery Room Air Room Air Room Air 04/14/17 04/14/17 17:00 18:00 Pulse 63 64 B/P (MAP) 104/73 (83) 104/66 (79) Pulse Ox 100 99 O2 Delivery Room Air Room Air Intake and Output 04/14/17 00:00 Intake Total 836 ml Output Total 950 ml Balance -114 ml Weight (Pounds): 185 Weight (Ounces): 2.0 Weight (Calculated Kilograms): 83.906957 Constitutional: No appears stated age, No AAO x 3, No apparent distress, No PERRL, No well-developed, No well-nourished, No other Respiratory: No accessory muscle use, No respiratory distress, No chest tender , No chest expansion is symmetric, No chest is bilaterally symmetric, No lungs clear to percussion, No lungs clear to auscultation, No crackles, No rhonchi, No rales, No stridor, No wheezing, No pleural rub, No other Cardiovascular: regular rate-rhythm, S1 and S2 Gastrointestional: No tender, No soft, No round, No distended, No pulsatile mass, No organomegaly, No guarding, No rebound, No tenderness, No hernia, No mass, No audible bowel sounds, No abnormal bowel sounds, No abdominal bruits, No spleenomegaly, No other Extremities: No normal range of motion, No non-tender, No normal inspection, No pedal edema, No calf tenderness, No normal capillary refill, No pelvis stable , No calf tenderness, No inflammation, No pedal edema, No slow capillary refill , No swelling, No other, No abrasion, No clubbing, No cyanosis, No ecchymosis, No laceration, No no lower extremity edema bilateral, No significant edema, No tenderness, No wound Neurologic/Psychiatric: No clamper II-XII nml as tested, No no motor/sensory deficits, No alert, No normal mood/affect, No oriented x 3, No abnormal cerebellar tests, No abnormal clamper II-XII, No abnormal gait, No aphasia, No EOM palsy, No facial droop, No motor weakness, No sensory deficit, No depressed affect, No disoriented x 3, No other, No grossly intact, No power is 5/5 both on sides Skin: No normal color, No warm/dry, No cyanosis, No cool, No diaphoresis, No damp, No ecchymosis, No jaundice, No mottled, No pallor, No rash, No tattoos/ piercings, No ulcerations, No rash on exposed areas, No ulcerations on exposed areas, No other Results/Procedures: Labs Laboratory Tests 04/14/17 04:55: White Blood Count 6.2, Red Blood Count 4.39, Hemoglobin 13.7, Hematocrit 40, Mean Corpuscular Volume 92, Mean Corpuscular Hemoglobin 31, Mean Corpuscular Hemoglobin Concent 34, Red Cell Distribution Width 12.0, Platelet Count 303, Mean Platelet Volume 9.6, Sodium Level 140, Potassium Level 4.3, Chloride Level 106, Carbon Dioxide Level 25, Anion Gap 9, Blood Urea Nitrogen 7, Creatinine 0.79, Estimat Glomerular Filtration Rate > 60, BUN/Creatinine Ratio 9, Glucose Level 91, Calcium Level 8.8, Total Bilirubin 0.9, Aspartate Amino Transf (AST/ SGOT) 21, Alanine Aminotransferase (ALT/SGPT) 18, Alkaline Phosphatase 73, Total Protein 6.4, Albumin 3.6 Microbiology 04/13/17 MRSA Screen - Final, Complete MRSA not isolated A/P: Assessment/Dx: ICD generator change today. History of ventricular tachycardia and ICD shock. Congestive heart failure. Unsuccessful DFT testing. Plan: Reviewing all the patient's pertinent EP data including initial implant and DFT thresholds. Previous appropriate and inappropriate shocks and programming changing. Early battery depletion due to frequent shocks is noted. Right sided ICD device with dual coils. However according to the patient his had no shocks in the last one year. Discontinue amiodarone. Repeat EKG this morning showed QT interval below 500 ms therefore sotalol 40 mg was given. Post sotalol to our EKG did not show significant improvement in QTc interval therefore patient will be changed to sotalol 80 mg twice a day. NIPS on tuesday afternoon. Patient not in congestive heart failure. Latest EF [address] Soliman. Thank you for your consultation. Please call me if you have any questions. Bandar Calderon MD, FACP, FACC, FSCAI, FHRS, CCDS Interventional Cardiology Cardiac Electrophysiology Vascular Medicine and Endovascular Interventions Julio CALDERON MD Apr 14, 2017 1:24 pm
--- NOTE | 2017-04-14 16:01 | Cardiology History & Physical ---
HPI-Cardiology Cardiology Consultation Date of Consultation 04/14/17 Date of Admission Time Seen by Provider: 08:00 Indication: Sudden cardiac , ventricular fibrillation HPI 36 years old gentleman with history of ventricular tachycardia and ventricular fibrillation cardiomyopathy, alcoholism, had history of single-chamber ICD that has been functioning normally. Reached SEJAL, scheduled for elective generator replacement yesterday, underwent the procedure without any complication, after the procedure I did NIPS, was able to induce ventricular fibrillation with our own T shock, the device was unsuccessful in terminating fibrillation with 3 consecutive shocks. Patient received external defibrillation successfully. He has been asymptomatic. I consulted Dr. Calderon for EP evaluation. Decision was made to admit him and change amiodarone to sotalol and monitor his QT interval and repeated procedure in 3 days. PMH-Cardiology Immunizations Up To Date Tetanus Booster (DTap): Unknown Date of Pneumonia Vaccine: Feb 14, 2014 Date of Influenza Vaccine: Dec 15, 2016 Seasonal Allergies Seasonal Allergies: No Cardiovascular Cardiomyopathy, Coronary Artery Disease Neurological Seizure Disorder Reproductive System Hx Reproductive Disorders: No Sexually Transmitted Disease: No HIV/AIDS: No HEENT Loss of Vision: Denies Hearing Impairment: Denies Psychosocial Anxiety Blood Transfusions Adverse Rxn to Transfusion: No Other PMHx past medical history as discussed below Social History Patient Social History Marrital Status: single Dip or chew tobacco?: No Recent Foreign Travel: No Contact w/other who traveled: No Family Hx Significant Family History: No Pertinent Family Hx Family History: Deafness or hearing loss 19 FATHER Diabetes mellitus 19 FATHER Hypertension G8 BROTHER Respiratory disorder 19 MOTHER ROS-Cardiology Review of Systems General: No Chills, No Night Sweats, Fatigue, Malaise, No Appetite HEENT: No Head Aches, No Visual Changes, No Eye Pain, No Ear Pain, No Dysphasia , No Sinus Congestion, No Post Nasal Drip, No Sore Throat Pulmonary: No Dyspnea, No Cough, No Pleuritic Chest Pain Cardiovascular: No: Chest Pain, Palpitations, Orthopnea, Paroxysmal Noc. Dyspnea, Edema, Lt Headedness Gastrointestinal: No: Nausea, Vomiting, Abdominal Pain, Diarrhea, Constipation , Melena, Hematochezia Genitourinary: No Dysuria, No Frequency, No Incontinence, No Hematuria, No Retention Musculoskeletal: No: neck pain, shoulder pain, arm pain, back pain, hand pain, leg pain, foot pain Neurological: No: Weakness, Numbness, Incoordination, Change in speech, Confusion, Seizures Home Medications & Allergies Allergies: Coded Allergies: No Known Drug Allergies (Unverified , 11/28/12) Home Medication List Reviewed: Yes Exam-Cardiology Vital Signs Vital Signs Date Time Temp Pulse Resp B/P (MAP) Pulse Ox O2 Delivery O2 Flow Rate FiO2 04/14/17 13:00 59 04/14/17 11:20 Room Air 04/14/17 11:19 98.2 04/14/17 08:00 12 107/71 (83) 98 Exam General Appearance: Alert, Oriented X3, Cooperative, No Acute Distress HEENT: Atraumatic, PERRLA Respiratory: Clear to Auscultation, Normal Air Movement Cardiovascular: Regular Rate, Normal S1, Normal S2, No Murmurs Abdominal: Normal Bowel Sounds, Soft, No Tenderness, No Hepatosplenomegaly, No Masses Extremities: No Clubbing, No Cyanosis, No Edema, Normal Pulses, No Tenderness/ Swelling Skin: No Rashes, No Breakdown, No Significant Lesion Neuro: Normal Gait, Normal Speech, Strength at 5/5 X4 Ext, Normal Tone, Sensation Intact Psych/Mental Status: Mental Status NL, Mood NL Results Labs Labs Laboratory Tests 04/14/17 04:55: White Blood Count 6.2, Red Blood Count 4.39, Hemoglobin 13.7, Hematocrit 40, Mean Corpuscular Volume 92, Mean Corpuscular Hemoglobin 31, Mean Corpuscular Hemoglobin Concent 34, Red Cell Distribution Width 12.0, Platelet Count 303, Mean Platelet Volume 9.6, Sodium Level 140, Potassium Level 4.3, Chloride Level 106, Carbon Dioxide Level 25, Anion Gap 9, Blood Urea Nitrogen 7, Creatinine 0.79, Estimat Glomerular Filtration Rate > 60, BUN/Creatinine Ratio 9, Glucose Level 91, Calcium Level 8.8, Total Bilirubin 0.9, Aspartate Amino Transf (AST/ SGOT) 21, Alanine Aminotransferase (ALT/SGPT) 18, Alkaline Phosphatase 73, Total Protein 6.4, Albumin 3.6 Microbiology 04/13/17 MRSA Screen - Final, Complete MRSA not isolated A/P-Cardiology Admission Diagnosis Congestive heart failure, chronic compensated left ventricular systolic dysfunction Ventricular fibrillation Sudden cardiac Alcohol abuse Assessment/Plan Congestive heart failure, improved, left ventricular function has improved on the last echocardiogram. Continue on current medications and monitor X Ventricular fibrillation, multiple episodes of sudden . Had history of single-chamber ICD implantation. Underwent generator replacement yesterday without complication, leads tested normal without change from baseline. Failed to terminate ventricular fibrillation during testing the device, Dr. Calderon was consulted, decision was made to discontinue amiodarone and start him on sotalol and monitor his QT interval for consideration to repeat NIPS in 3 days. History of substance and alcohol abuse, has been abstinent. Continue to monitor History of noncompliance with medications. Clinical Quality Measures DVT/VTE Risk/Contraindication: RFS Level Per Nursing on Admit: 1=Low/No VTE PPX HILLARY TAYLOR MD Apr 14, 2017 16:01
[2017-04-14] MEDS: SOTALOL 80 MG (BETAPACE) TAB PO SCH (21:26)
[2017-04-15] VITALS (12 sets, daily range): BP systolic 84–109; BP diastolic 51–75
[2017-04-15] MEDS: NS IV 1000 ML 1,000 ML IV SCH ×2 (00:05→13:05)
[2017-04-15] MEDS: CEFDINIR 300 MG (OMNICEF) CAP PO SCH ×2 (08:50→20:28)
[2017-04-15] MEDS: ENALAPRIL 2.5 MG (VASOTEC) TAB PO SCH ×2 (08:50→20:29)
[2017-04-15] MEDS: SOTALOL 80 MG (BETAPACE) TAB PO SCH ×2 (08:50→20:28)
[2017-04-15] MEDS: LEVETIRACETAM 500 MG (KEPPRA) TAB PO SCH ×2 (08:51→20:29)
[2017-04-15] MEDS: meTOprolol TARTRATE 25 MG (LOPRESSOR) TABLET PO SCH ×2 (08:51→20:29)
--- NOTE | 2017-04-15 09:28 | Cardiology Progress Note ---
Subjective Date Seen by Provider: Apr 15, 2017 Time Seen by Provider: 09:28 Subjective/Events-last exam patient is laying down in bed, feeling well. No complaint Review of Systems General: No Chills, No Night Sweats, No Fatigue, No Malaise, No Appetite, No Other HEENT: No Head Aches, No Visual Changes, No Eye Pain, No Ear Pain, No Dysphasia , No Sinus Congestion, No Post Nasal Drip, No Sore Throat, No Other Pulmonary: No Dyspnea, No Cough, No Pleuritic Chest Pain, No Other Cardiovascular: No: Chest Pain, Palpitations, Orthopnea, Paroxysmal Noc. Dyspnea, Edema, Lt Headedness, Other Objective-Cardiology Exam Last Set of Vital Signs Vital Signs 04/14/17 04/15/17 11:00 08:00 Pulse 55 Resp 20 B/P (MAP) 101/58 (72) Pulse Ox 99 O2 Delivery Room Air Capillary Refill : I&O Intake and Output 04/15/17 00:00 Intake Total 2506 ml Output Total 2600 ml Balance -94 ml Intake Oral 2506 ml Output Urine Total 2600 ml # Voids 6 General: Alert, Oriented X3, Cooperative, No Acute Distress HEENT: Atraumatic, PERRLA Lungs: Clear to Auscultation, Normal Air Movement Heart: Regular Rate, Normal S1, Normal S2, No Murmurs Abdomen: Normal Bowel Sounds, Soft, No Tenderness, No Hepatosplenomegaly, No Masses Extremities: No Clubbing, No Cyanosis, No Edema, Normal Pulses, No Tenderness/ Swelling Skin: No Rashes, No Breakdown, No Significant Lesion Neuro: Normal Gait, Normal Speech, Strength at 5/5 X4 Ext, Normal Tone, Sensation Intact Psych/Mental Status: Mental Status NL, Mood NL A/P-Cardiology Admission Diagnosis Congestive heart failure, chronic compensated left ventricular systolic dysfunction Ventricular fibrillation Sudden cardiac Alcohol abuse Assessment/Plan Congestive heart failure, improved, left ventricular function has improved on the last echocardiogram. Continue on current medications and monitor Ventricular fibrillation, multiple episodes of sudden . Had history of single-chamber ICD implantation. Underwent generator replacement yesterday without complication, leads tested normal without change from baseline. Failed to terminate ventricular fibrillation during testing the device, Dr. Calderon was consulted, decision was made to discontinue amiodarone and start him on sotalol and monitor his QT interval for consideration to repeat NIPS in 3 days, today's EKG showed normal QTC History of substance and alcohol abuse, has been abstinent. Continue to monitor History of noncompliance with medications. Clinical Quality Measures DVT/VTE Risk/Contraindication: RFS Level Per Nursing on Admit: 1=Low/No VTE PPX HILLARY TAYLOR MD Apr 15, 2017 09:28
--- NOTE | 2017-04-15 16:17 | Cardiology Progress Note ---
Cardiology SOAP Progress Note Subjective: No cardiac complaints. Objective: I&O/Vital Signs Vital Sign - Last 12Hours 04/15/17 04/15/17 04/15/17 04/15/17 05:00 06:00 07:00 07:00 Pulse 56 59 89 56 B/P (MAP) 84/51 (62) 96/67 (77) 98/68 (78) Pulse Ox 96 98 98 O2 Delivery Room Air Room Air Room Air 04/15/17 04/15/17 04/15/17 04/15/17 08:00 08:45 08:45 12:00 Temp 97.0 97.4 Pulse 55 60 Resp 12 16 B/P (MAP) 101/58 (72) 109/74 (86) Pulse Ox 99 100 O2 Delivery Room Air Room Air Room Air Room Air 04/15/17 13:00 Pulse 71 Intake and Output 04/15/17 00:00 Intake Total 1595 ml Output Total 550 ml Balance 1045 ml Weight (Pounds): 185 Weight (Ounces): 2.0 Weight (Calculated Kilograms): 83.689439 Constitutional: No appears stated age, No AAO x 3, No apparent distress, No PERRL, No well-developed, No well-nourished, No other Respiratory: No accessory muscle use, No respiratory distress, No chest tender , No chest expansion is symmetric, No chest is bilaterally symmetric, No lungs clear to percussion, No lungs clear to auscultation, No crackles, No rhonchi, No rales, No stridor, No wheezing, No pleural rub, No other Cardiovascular: regular rate-rhythm, S1 and S2 Gastrointestional: No tender, No soft, No round, No distended, No pulsatile mass, No organomegaly, No guarding, No rebound, No tenderness, No hernia, No mass, No audible bowel sounds, No abnormal bowel sounds, No abdominal bruits, No spleenomegaly, No other Extremities: No normal range of motion, No non-tender, No normal inspection, No pedal edema, No calf tenderness, No normal capillary refill, No pelvis stable , No calf tenderness, No inflammation, No pedal edema, No slow capillary refill , No swelling, No other, No abrasion, No clubbing, No cyanosis, No ecchymosis, No laceration, No no lower extremity edema bilateral, No significant edema, No tenderness, No wound Neurologic/Psychiatric: No dairy husbandman II-XII nml as tested, No no motor/sensory deficits, No alert, No normal mood/affect, No oriented x 3, No abnormal cerebellar tests, No abnormal dairy husbandman II-XII, No abnormal gait, No aphasia, No EOM palsy, No facial droop, No motor weakness, No sensory deficit, No depressed affect, No disoriented x 3, No other, No grossly intact, No power is 5/5 both on sides Skin: No normal color, No warm/dry, No cyanosis, No cool, No diaphoresis, No damp, No ecchymosis, No jaundice, No mottled, No pallor, No rash, No tattoos/ piercings, No ulcerations, No rash on exposed areas, No ulcerations on exposed areas, No other Results/Procedures: Labs Microbiology 04/13/17 MRSA Screen - Final, Complete MRSA not isolated A/P: Assessment/Dx: ICD generator change today. History of ventricular tachycardia and ICD shock. Congestive heart failure. Unsuccessful DFT testing. Plan: Reviewing all the patient's pertinent EP data including initial implant and DFT thresholds. Previous appropriate and inappropriate shocks and programming changing. Early battery depletion due to frequent shocks is noted. Right sided ICD device with dual coils. However according to the patient his had no shocks in the last one year. Discontinue amiodarone. Continue sotalol 80 mg twice a day. NIPS on tuesday afternoon. Patient not in congestive heart failure. Latest EF [address] Soliman. Thank you for your consultation. Please call me if you have any questions. Bandar Calderon MD, FACP, FACC, FSCAI, FHRS, CCDS Interventional Cardiology Cardiac Electrophysiology Vascular Medicine and Endovascular Interventions Julio CALDERON MD Apr 15, 2017 4:17 pm
[2017-04-16] VITALS (7 sets, daily range): BP systolic 66–110; BP diastolic 58–73
[2017-04-16] MEDS: SOTALOL 80 MG (BETAPACE) TAB PO SCH ×2 (09:20→20:13)
[2017-04-16] MEDS: CEFDINIR 300 MG (OMNICEF) CAP PO SCH ×2 (09:20→20:13)
[2017-04-16] MEDS: LEVETIRACETAM 500 MG (KEPPRA) TAB PO SCH ×2 (09:20→20:14)
[2017-04-16] MEDS: meTOprolol TARTRATE 25 MG (LOPRESSOR) TABLET PO SCH ×2 (09:59→20:13)
[2017-04-16] MEDS: ENALAPRIL 2.5 MG (VASOTEC) TAB PO SCH ×2 (09:59→20:14)
--- NOTE | 2017-04-16 14:19 | Cardiology Progress Note ---
Cardiology SOAP Progress Note Subjective: No complaints. Objective: I&O/Vital Signs Vital Sign - Last 12Hours 04/16/17 04/16/17 04/16/17 04/16/17 04:00 07:00 08:00 08:00 Temp 98.5 98.5 Pulse 58 61 61 Resp 6 6 B/P (MAP) 104/70 (81) 92/65 (74) Pulse Ox 96 96 96 O2 Delivery Room Air Room Air Room Air 04/16/17 04/16/17 04/16/17 09:58 12:00 13:00 Temp 98.5 97.9 Pulse 61 52 66 Resp 6 16 B/P (MAP) 92/65 (74) 66/61 (63) Pulse Ox 96 O2 Delivery Room Air Room Air Intake and Output 04/16/17 00:00 Intake Total 860 ml Balance 860 ml Weight (Pounds): 185 Weight (Ounces): 2.0 Weight (Calculated Kilograms): 83.122432 Constitutional: No appears stated age, No AAO x 3, No apparent distress, No PERRL, No well-developed, No well-nourished, No other Respiratory: No accessory muscle use, No respiratory distress, No chest tender , No chest expansion is symmetric, No chest is bilaterally symmetric, No lungs clear to percussion, No lungs clear to auscultation, No crackles, No rhonchi, No rales, No stridor, No wheezing, No pleural rub, No other Cardiovascular: regular rate-rhythm, S1 and S2 Gastrointestional: No tender, No soft, No round, No distended, No pulsatile mass, No organomegaly, No guarding, No rebound, No tenderness, No hernia, No mass, No audible bowel sounds, No abnormal bowel sounds, No abdominal bruits, No spleenomegaly, No other Extremities: No normal range of motion, No non-tender, No normal inspection, No pedal edema, No calf tenderness, No normal capillary refill, No pelvis stable , No calf tenderness, No inflammation, No pedal edema, No slow capillary refill , No swelling, No other, No abrasion, No clubbing, No cyanosis, No ecchymosis, No laceration, No no lower extremity edema bilateral, No significant edema, No tenderness, No wound Neurologic/Psychiatric: No insulation board head saw operator II-XII nml as tested, No no motor/sensory deficits, No alert, No normal mood/affect, No oriented x 3, No abnormal cerebellar tests, No abnormal insulation board head saw operator II-XII, No abnormal gait, No aphasia, No EOM palsy, No facial droop, No motor weakness, No sensory deficit, No depressed affect, No disoriented x 3, No other, No grossly intact, No power is 5/5 both on sides Skin: No normal color, No warm/dry, No cyanosis, No cool, No diaphoresis, No damp, No ecchymosis, No jaundice, No mottled, No pallor, No rash, No tattoos/ piercings, No ulcerations, No rash on exposed areas, No ulcerations on exposed areas, No other Results/Procedures: Labs Microbiology 04/13/17 MRSA Screen - Final, Complete MRSA not isolated A/P: Assessment/Dx: ICD generator change today. History of ventricular tachycardia and ICD shock. Congestive heart failure. Unsuccessful DFT testing. Plan: Reviewing all the patient's pertinent EP data including initial implant and DFT thresholds. Previous appropriate and inappropriate shocks and programming changing. Early battery depletion due to frequent shocks is noted. Right sided ICD device with dual coils. However according to the patient his had no shocks in the last one year. Discontinued amiodarone. Continue sotalol 80 mg twice a day. QTC below 480 ms. NIPS on tuesday afternoon. Patient not in congestive heart failure. Latest EF 40 percent. Thank you for your consultation. Please call me if you have any questions. Bandar Calderon MD, FACP, FACC, FSCAI, FHRS, CCDS Interventional Cardiology Cardiac Electrophysiology Vascular Medicine and Endovascular Interventions Julio CALDERON MD Apr 16, 2017 2:18 pm
[2017-04-17] VITALS: BP 102/69
[2017-04-17 04:00] VITALS: BP 83/44
[2017-04-17 08:00] VITALS: BP 108/64
[2017-04-17] MEDS: meTOprolol TARTRATE 25 MG (LOPRESSOR) TABLET PO SCH ×2 (08:59→21:02)
[2017-04-17] MEDS: SOTALOL 80 MG (BETAPACE) TAB PO SCH ×2 (08:59→21:01)
[2017-04-17] MEDS: LEVETIRACETAM 500 MG (KEPPRA) TAB PO SCH ×2 (08:59→21:02)
[2017-04-17] MEDS: CEFDINIR 300 MG (OMNICEF) CAP PO SCH ×2 (08:59→21:01)
[2017-04-17] MEDS: ENALAPRIL 2.5 MG (VASOTEC) TAB PO SCH ×2 (08:59→21:02)
[2017-04-17 12:00] VITALS: BP 112/68
--- NOTE | 2017-04-17 13:04 | Cardiology Progress Note ---
Cardiology SOAP Progress Note Subjective: No cardiac complaints. Objective: I&O/Vital Signs Vital Sign - Last 12Hours 04/17/17 04/17/17 04/17/17 04:00 07:00 08:00 Temp 98.0 98.0 Pulse 64 56 60 Resp 16 16 B/P (MAP) 83/44 (57) 108/64 (79) Pulse Ox 97 96 O2 Delivery Room Air Intake and Output 04/17/17 00:00 Intake Total 2770 ml Balance 2770 ml Weight (Pounds): 185 Weight (Ounces): 2.0 Weight (Calculated Kilograms): 83.665040 Constitutional: No appears stated age, No AAO x 3, No apparent distress, No PERRL, No well-developed, No well-nourished, No other Respiratory: No accessory muscle use, No respiratory distress, No chest tender , No chest expansion is symmetric, No chest is bilaterally symmetric, No lungs clear to percussion, No lungs clear to auscultation, No crackles, No rhonchi, No rales, No stridor, No wheezing, No pleural rub, No other Cardiovascular: regular rate-rhythm, S1 and S2 Gastrointestional: No tender, No soft, No round, No distended, No pulsatile mass, No organomegaly, No guarding, No rebound, No tenderness, No hernia, No mass, No audible bowel sounds, No abnormal bowel sounds, No abdominal bruits, No spleenomegaly, No other Extremities: No normal range of motion, No non-tender, No normal inspection, No pedal edema, No calf tenderness, No normal capillary refill, No pelvis stable , No calf tenderness, No inflammation, No pedal edema, No slow capillary refill , No swelling, No other, No abrasion, No clubbing, No cyanosis, No ecchymosis, No laceration, No no lower extremity edema bilateral, No significant edema, No tenderness, No wound Neurologic/Psychiatric: No plant operations manager II-XII nml as tested, No no motor/sensory deficits, No alert, No normal mood/affect, No oriented x 3, No abnormal cerebellar tests, No abnormal plant operations manager II-XII, No abnormal gait, No aphasia, No EOM palsy, No facial droop, No motor weakness, No sensory deficit, No depressed affect, No disoriented x 3, No other, No grossly intact, No power is 5/5 both on sides Skin: No normal color, No warm/dry, No cyanosis, No cool, No diaphoresis, No damp, No ecchymosis, No jaundice, No mottled, No pallor, No rash, No tattoos/ piercings, No ulcerations, No rash on exposed areas, No ulcerations on exposed areas, No other Results/Procedures: Labs Microbiology 04/13/17 MRSA Screen - Final, Complete MRSA not isolated A/P: Assessment/Dx: ICD generator change today. History of ventricular tachycardia and ICD shock. Congestive heart failure. Unsuccessful DFT testing. Plan: Reviewing all the patient's pertinent EP data including initial implant and DFT thresholds. Previous appropriate and inappropriate shocks and programming changing. Early battery depletion due to frequent shocks is noted. Right sided ICD device with dual coils. However according to the patient his had no shocks in the last one year. Discontinued amiodarone. Continue sotalol 80 mg twice a day. QTC below 480 ms. NIPS on tuesday afternoon. Patient not in congestive heart failure. Latest EF 40 percent. Thank you for your consultation. Please call me if you have any questions. Bandar Calderon MD, FACP, FACC, FSCAI, FHRS, CCDS Interventional Cardiology Cardiac Electrophysiology Vascular Medicine and Endovascular Interventions Julio CALDERON MD Apr 17, 2017 1:04 pm
[2017-04-17 16:00] VITALS: BP 92/55
[2017-04-17 20:00] VITALS: BP 114/65
[2017-04-18] VITALS: BP 113/81
[2017-04-18 04:00] VITALS: BP 86/45
[2017-04-18] MEDS: CEFDINIR 300 MG (OMNICEF) CAP PO SCH (08:53)
[2017-04-18] MEDS: LEVETIRACETAM 500 MG (KEPPRA) TAB PO SCH (08:53)
[2017-04-18] MEDS: ENALAPRIL 2.5 MG (VASOTEC) TAB PO SCH (08:53)
[2017-04-18] MEDS: SOTALOL 80 MG (BETAPACE) TAB PO SCH (08:53)
[2017-04-18] MEDS: meTOprolol TARTRATE 25 MG (LOPRESSOR) TABLET PO SCH (08:54)
--- NOTE | 2017-04-18 09:00 | Cardiology Progress Note ---
Subjective Date Seen by Provider: Apr 18, 2017 Time Seen by Provider: 08:59 Subjective/Events-last exam patient is laying down in bed, wound is healing well. Scheduled for NIPS today Review of Systems General: No Chills, No Night Sweats, No Fatigue, No Malaise, No Appetite, No Other HEENT: No Head Aches, No Visual Changes, No Eye Pain, No Ear Pain, No Dysphasia , No Sinus Congestion, No Post Nasal Drip, No Sore Throat, No Other Pulmonary: No Dyspnea, No Cough, No Pleuritic Chest Pain, No Other Cardiovascular: No: Chest Pain, Palpitations, Orthopnea, Paroxysmal Noc. Dyspnea, Edema, Lt Headedness, Other Objective-Cardiology Exam Last Set of Vital Signs Vital Signs 04/17/17 04/17/17 04/18/17 16:00 20:00 04:00 Temp 96.9 Pulse 63 Resp 16 B/P (MAP) 86/45 (59) Pulse Ox 98 O2 Delivery Room Air Capillary Refill : I&O Intake and Output 04/17/17 23:59 Intake Total 1845 ml Balance 1845 ml Intake Oral 1845 ml # Voids 8 General: Alert, Oriented X3, Cooperative, No Acute Distress HEENT: Atraumatic, PERRLA Neck: Supple, No JVD Lungs: Clear to Auscultation, Normal Air Movement Heart: Regular Rate, Normal S1, Normal S2, No Murmurs Abdomen: Normal Bowel Sounds, Soft, No Tenderness, No Hepatosplenomegaly, No Masses Extremities: No Clubbing, No Cyanosis, No Edema, Normal Pulses, No Tenderness/ Swelling Skin: No Rashes, No Breakdown, No Significant Lesion Neuro: Normal Gait, Normal Speech, Strength at 5/5 X4 Ext, Normal Tone, Sensation Intact Psych/Mental Status: Mental Status NL, Mood NL A/P-Cardiology Admission Diagnosis Congestive heart failure, chronic compensated left ventricular systolic dysfunction Ventricular fibrillation Sudden cardiac Alcohol abuse Assessment/Plan Congestive heart failure, improved, left ventricular function has improved on the last echocardiogram. Continue on current medications and monitor Ventricular fibrillation, multiple episodes of sudden . Had history of single-chamber ICD implantation. Underwent generator replacement yesterday without complication, leads tested normal without change from baseline. Failed to terminate ventricular fibrillation during testing the device, Dr. Calderon was consulted, decision was made to discontinue amiodarone and start him on sotalol and monitor his QT interval for consideration to repeat NIPS today History of substance and alcohol abuse, has been abstinent. Continue to monitor History of noncompliance with medications. Clinical Quality Measures DVT/VTE Risk/Contraindication: RFS Level Per Nursing on Admit: 1=Low/No VTE PPX HILLARY TAYLOR MD Apr 18, 2017 09:00
[2017-04-18 09:31] VITALS: BP 96/64
[2017-04-18] MEDS ORDERED: NS IV 500 ML 500 ML ONE (11:31)
[2017-04-18] MEDS ORDERED: NS IV 500 ML 500 ML IV SCH (12:00)
[2017-04-18] MEDS ORDERED: MIDAZOLAM 2 MG/2 ML (VERSED) VIAL ONE (13:14)
[2017-04-18 13:15] VITALS: BP 95/57
--- NOTE | 2017-04-18 13:27 | Cardiology Progress Note ---
Cardiology SOAP Progress Note Subjective: No cardiac symptoms. Objective: I&O/Vital Signs Vital Sign - Last 12Hours 04/18/17 04/18/17 04/18/17 04/18/17 04:00 07:00 08:40 09:31 Temp 96.9 97.6 Pulse 63 57 62 Resp 14 B/P (MAP) 86/45 (59) 96/64 (75) Pulse Ox 97 O2 Delivery Room Air Room Air Room Air Intake and Output 04/18/17 00:00 Intake Total 1295 ml Balance 1295 ml Weight (Pounds): 185 Weight (Ounces): 2.0 Weight (Calculated Kilograms): 83.988894 Constitutional: No appears stated age, No AAO x 3, No apparent distress, No PERRL, No well-developed, No well-nourished, No other Respiratory: No accessory muscle use, No respiratory distress, No chest tender , No chest expansion is symmetric, No chest is bilaterally symmetric, No lungs clear to percussion, No lungs clear to auscultation, No crackles, No rhonchi, No rales, No stridor, No wheezing, No pleural rub, No other Cardiovascular: regular rate-rhythm, S1 and S2 Gastrointestional: No tender, No soft, No round, No distended, No pulsatile mass, No organomegaly, No guarding, No rebound, No tenderness, No hernia, No mass, No audible bowel sounds, No abnormal bowel sounds, No abdominal bruits, No spleenomegaly, No other Extremities: No normal range of motion, No non-tender, No normal inspection, No pedal edema, No calf tenderness, No normal capillary refill, No pelvis stable , No calf tenderness, No inflammation, No pedal edema, No slow capillary refill , No swelling, No other, No abrasion, No clubbing, No cyanosis, No ecchymosis, No laceration, No no lower extremity edema bilateral, No significant edema, No tenderness, No wound Neurologic/Psychiatric: No senior biostatistician II-XII nml as tested, No no motor/sensory deficits, No alert, No normal mood/affect, No oriented x 3, No abnormal cerebellar tests, No abnormal senior biostatistician II-XII, No abnormal gait, No aphasia, No EOM palsy, No facial droop, No motor weakness, No sensory deficit, No depressed affect, No disoriented x 3, No other, No grossly intact, No power is 5/5 both on sides Skin: No normal color, No warm/dry, No cyanosis, No cool, No diaphoresis, No damp, No ecchymosis, No jaundice, No mottled, No pallor, No rash, No tattoos/ piercings, No ulcerations, No rash on exposed areas, No ulcerations on exposed areas, No other Results/Procedures: Labs Microbiology 04/13/17 MRSA Screen - Final, Complete MRSA not isolated A/P: Assessment/Dx: ICD generator change today. History of ventricular tachycardia and ICD shock. Congestive heart failure. Unsuccessful DFT testing. Plan: Reviewing all the patient's pertinent EP data including initial implant and DFT thresholds. Previous appropriate and inappropriate shocks and programming changing. Early battery depletion due to frequent shocks is noted. Right sided ICD device with dual coils. However according to the patient his had no shocks in the last one year. Discontinued amiodarone. Continue sotalol 80 mg twice a day. QTC below 480 ms. NIPS today. Patient not in congestive heart failure. Latest EF 40 percent. Thank you for your consultation. Please call me if you have any questions. Bandar Calderon MD, FACP, FACC, FSCAI, FHRS, CCDS Interventional Cardiology Cardiac Electrophysiology Vascular Medicine and Endovascular Interventions Julio CALDERON MD Apr 18, 2017 1:27 pm
[2017-04-18 13:30] VITALS: BP 94/56
[2017-04-18] MEDS ORDERED: MIDAZOLAM 2 MG/2 ML (VERSED) VIAL IVP ONE (13:30)
--- NOTE | 2017-04-18 13:31 | Cardiology Post Procedure Note ---
Post-Procedure Note Physician (s)/Silk Conditioner (s) Physician Julio ALMAZAN MD Pre-Procedure Diagnosis Pre-Procedure Diagnosis: Cardiomyopathy, VT Post-Procedure Note Procedure Start Date: Apr 18, 2017 Procedure Start Time: 13:15 Name of Procedure: Non-invasive programmed stimulation (NIPS) Findings/Procedure Note VF induced via ICD - appropriately sensed and terminated with single 25J shock. Estimated blood loss (mL): 0 Contrast Amount: 0 ml Post-Procedure Diagnosis Post-operative diagnosis: Successful DFT testing Julio ALMAZAN MD Apr 18, 2017 1:31 pm
--- NOTE | 2017-04-18 13:31 | Progress Note-Standard ---
Standard Progress Note Progress Notes/Assess & Plan Date Seen by Provider: Apr 18, 2017 Time Seen by Provider: 13:05 Progress/Assessment & Plan Anesthesia Note ([id number] on 04-18-17) Called to ICU 5 for sedation (MAC) for defibrillator function testing. Propofol 150 mg IV in divided doses and versed 2 mg IV given for sedation. Pt maintained spontaneous ventilation and + ETCO2 throughout. VSS and pt tolerated the procedure well. Anesthesia Note ([id number]) Called to On Air Director for sedation for defibrillator function testing. Pt already given versed 7 mg IV and fentanyl 125 mcg IV for procedural sedation prior to my arrival. VSS and propofol 50 mg IV given for additional sedation prior to DFT. Spontaneous ventilation maintained throughout. Pt tolerated procedure well. Will be available if needed. IGNACIA CONRAD DO Apr 18, 2017 13:31
[2017-04-18] MEDS ORDERED: proPOfol 200 MG/20 ML (DIPRIVAN) VIAL IV ONE (13:33)
[2017-04-18 13:45] VITALS: BP 94/57
[2017-04-18] MEDS ORDERED: Sotalol Hcl PO (14:55)
--- NOTE | 2017-04-19 03:31 | OPERATIVE REPORT ---
DATE OF SERVICE: NONINVASIVE PROGRAMMED STIMULATION REFERRING PHYSICIAN: Tia Soliman MD. CARDIAC PURCHASING BUYER: Bandar Calderon MD. INDICATION: DFT testing following failed DFT testing during generator change. PREOPERATIVE DIAGNOSES: Congestive heart failure, ventricular tachycardia, failed defibrillation threshold testing at generator change. POSTOPERATIVE DIAGNOSES: 1. Congestive heart failure, ventricular tachycardia, failed defibrillation threshold testing at generator change. 2. Successful defibrillation threshold testing. HISTORY: The patient is a 36-year-old gentleman, who has history of nonischemic cardiomyopathy, ventricular tachycardia with ICD placement in February around 4 years ago. He presented for a generator change. During generator change, a DFT testing was performed, which was unsuccessful with 25 joules, 35 joules internal shock. The patient had to be shocked externally. The patient was admitted to the hospital. Amiodarone was discontinued and he was started on sotalol 80 mg twice a day. He was kept on sotalol for three to four days and plan was to perform noninvasive programmed stimulation. PROCEDURE IN DETAIL: The procedure was performed in the ICU after informed consent was taken. This was done with anesthesia support. VF was then induced. Initially, we had difficulty inducing VF since as soon as we induced, we were not able to sustain it. Finally, we were able to induce a sustained VF, which was appropriately sensed by the device as VF and was successfully terminated with a 25-joule shock. The patient tolerated procedure well, did not have any complication. CONCLUSION: 1. Congestive heart failure, ventricular tachycardia, and unsuccessful defibrillation threshold testing during generator change. 2. Discontinue amiodarone, continue on sotalol 80 mg twice a day. 3. Successful noninvasive defibrillation threshold testing today. Job ID: [id number] DocumentID: [id number] Dictated Date: 04/18/2017 20:20:48 Lithographic Camera Operator Date: 04/19/2017 03:30:39 Dictated By: GINETTE CALDERON MD MTDD
== END 2017-04-18 15:15 | disposition home or self-care (01) | DRG 245 ==
LOC: CATH 07:02 → ICU 10:45
PROVIDERS: ADMIT Internal Medicine Cardiovascular Disease; ATTEND Internal Medicine Cardiovascular Disease
PROC: 0JH808Z Insertion of Defibrillator Generator into Abdomen Subcutaneous Tissue and Fascia, Open Approach (ICD-10-PCS; principal; 2017-04-13)
PROC: 0JPT0PZ Removal of Cardiac Rhythm Related Device from Trunk Subcutaneous Tissue and Fascia, Open Approach (ICD-10-PCS; 2017-04-13)
PROC: 5A2204Z Restoration of Cardiac Rhythm, Single (ICD-10-PCS; 2017-04-13)
PROC: 4B02XTZ Measurement of Cardiac Defibrillator, External Approach (ICD-10-PCS; 2017-04-13)
PROC: 4B02XTZ Measurement of Cardiac Defibrillator, External Approach (ICD-10-PCS; 2017-04-18)
DX: I47.2 Ventricular tachycardia (principal); Z45.02 Encounter for adjustment and management of automatic implantable cardiac defibrillator; I42.9 Cardiomyopathy, unspecified; I50.22 Chronic systolic (congestive) heart failure; I49.01 Ventricular fibrillation; F10.20 Alcohol dependence, uncomplicated; Z91.14 Patient's other noncompliance with medication regimen; E78.5 Hyperlipidemia, unspecified; G40.909 Epilepsy, unspecified, not intractable, without status epilepticus
CPT/HCPCS: 33262; 36415; 71045; 80053; 80061; 81000; 85027; 85610; 85730; 87081; 93005; 93306

== ENCOUNTER → 2017-11-25 | Outpatient (CLI) | payer MEDICAID ==
[~2017-11-25] MED LIST changes: +AMIO200T4 PO; +Sotalol Hcl PO
[2017-11-25 12:37] LABS: ALANINE AMINOTRANSFERASE 15 U/L (0-55); ALBUMIN 4.1 GM/DL (3.2-4.5); ALKALINE PHOSPHATASE 125 U/L (40-136); BILIRUBIN,TOTAL 1.3 MG/DL (0.1-1.0); BUN/CREATININE RATIO 8; CALCIUM 9.2 MG/DL (8.5-10.1); CARBON DIOXIDE 25 MMOL/L (21-32); CHLORIDE 102 MMOL/L (98-107); CREATININE SERUM 0.76 MG/DL (0.60-1.30); GFR ESTIMATED > 60; GLUCOSE 100 MG/DL (70-105); POTASSIUM 4.1 MMOL/L (3.6-5.0); SODIUM 137 MMOL/L (135-145); TOTAL PROTEIN 6.8 GM/DL (6.4-8.2)
== END ==
LOC: LAB 12:01
PROVIDERS: ATTEND Internal Medicine Cardiovascular Disease
DX: I25.10 Atherosclerotic heart disease of native coronary artery without angina pectoris (principal); F10.10 Alcohol abuse, uncomplicated; I50.9 Heart failure, unspecified; F15.10 Other stimulant abuse, uncomplicated; I47.1 Supraventricular tachycardia; Z95.810 Presence of automatic (implantable) cardiac defibrillator
CPT/HCPCS: 36415; 80053

== ENCOUNTER 2018-05-14 02:26 | Emergency (ER) | payer MEDICAID ==
[~2018-05-14] VITALS: Ht 177.8 cm; Wt 79.4 kg
[2018-05-14 03:27] LABS: HEMOGLOBIN 20.5 G/DL (13.3-17.7); MEAN PLATELET VOLUME 9.4 FL (7.4-10.4); RED CELL DISTRIBUTION WIDTH 14.3 % (10.0-14.5); WHITE BLOOD COUNT 3.3 10^3/uL (4.3-11.0)
[2018-05-14 03:43] LABS: ALANINE AMINOTRANSFERASE 24 U/L (0-55); ALBUMIN 4.3 GM/DL (3.2-4.5); ALKALINE PHOSPHATASE 111 U/L (40-136); BILIRUBIN,DIRECT 0.5 MG/DL (0.0-0.3); BILIRUBIN,INDIRECT 0.9 MG/DL; BILIRUBIN,TOTAL 1.4 MG/DL (0.1-1.0); BUN/CREATININE RATIO 9; CALCIUM 9.8 MG/DL (8.5-10.1); CARBON DIOXIDE 23 MMOL/L (21-32); CHLORIDE 105 MMOL/L (98-107); CREATININE SERUM 0.78 MG/DL (0.60-1.30); GFR ESTIMATED > 60; GLUCOSE 101 MG/DL (70-105); POTASSIUM 3.6 MMOL/L (3.6-5.0); SODIUM 140 MMOL/L (135-145); TOTAL PROTEIN 7.4 GM/DL (6.4-8.2)
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
[2018-05-14] MEDS ORDERED: NS IV 1000 ML 1,000 ML IV SCH (03:48)
--- NOTE | 2018-05-14 04:15 | NUR ---
c-collar removed by Dr. Self
[2018-05-14] MEDS ORDERED: KETOROLAC 30 MG/ML VIAL IVP ONE (04:30)
[2018-05-14] MEDS ORDERED: TETANUS,DIPTH,PERTUSS P/F (BOOSTRIX) 0.5 ML VIAL IM ONE (04:45)
[2018-05-14] MEDS ORDERED: RECEIVED CONTRAST 20 ML VIAL IV SCH (05:00)
[2018-05-14] MEDS ORDERED: NS 100 ML (IVPB) BAG IV ONE (05:00)
[2018-05-14] MEDS ORDERED: IOHEXOL 350 MG/ML 100 ML (OMNIPAQUE 350) VIAL IV ONE (05:00)
[2018-05-14] MEDS ORDERED: ACHD5005 PO (05:31)
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
[2018-05-14] MEDS ORDERED: ceFAZolin INJECTION 1,000 MG in WATER (STERILE) FOR INJECTION 10 ML IV ONE (05:45)
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
[2018-05-14 06:18] VITALS: BP 121/82
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
--- OUTSIDE RECORDS SUMMARY | 2018-05-14 15:28 | XMS REPORT | Clinical Summary ---
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 If you do not see the information that you expected, contact Release of Information in the Health Information Management department at [phone] for further assistance in locating additional records.[facility] Allergies No Known Allergies Medications End Date Status Medication Sig Dispensed Refills Start Date Active LEVETIRACETAM (KEPPRA PO) Take 500 mg 0 by mouth three times daily. Active amiodarone (CORDARONE) Take 200 mg 0 200 mg tablet by mouth twice daily. Take with food. Active METOPROLOL TARTRATE PO Take 25 mg by 0 mouth twice daily. Active KEPPRA 500 mg tablet Take 1 tablet 270 tablet 1 by mouth 3 8 times a day as directed by physician. 07/19/2018 Active KEPPRA 500 mg tablet TAKE 1 TABLET 270 tablet 0 BY MOUTH 3 8 TIMES A DAY Active Problems Problem Noted Date Unclassified epileptic seizures 07/29/2016 Last Assessment & Plan: Patient has multiple risk factors for seizures. I have requested records from [facility] in [place]. EEG ordered. Keprra is the medication of choice given the patient's liver disease. Will try to get him on patient assistance for Keppra XR as this may be more tolerable. Social History Date Tobacco Use Types Packs/Day Years Used Never Smoker Alcohol Use Drinks/Week oz/Week Comments Yes 7 Standard 4.2 drinks or equivalent Sex Assigned at Date Recorded Not on file Industry Job Start Date Occupation Not on file Not on file Not on file Travel End Travel History Travel Start No recent travel history available. Last Filed Vital Signs Time Taken Vital Sign Reading 07/29/2016 11:21 AM CDT Blood Pressure 111/71 07/29/2016 11:21 AM CDT Pulse 73 07/29/2016 11:21 AM CDT Temperature 36.5 C (97.7 F) 07/29/2016 11:21 AM CDT Respiratory Rate 12 - Oxygen Saturation - - Inhaled Oxygen - Concentration 07/29/2016 11:21 AM CDT Weight 76.2 kg (168 lb) 07/29/2016 11:21 AM CDT Height 175 cm (5' 8.9") 07/29/2016 11:21 AM CDT Body Mass Index 24.88 Plan of Treatment Health Maintenance Due Date Last Done Comments PHYSICAL (COMPREHENSIVE) 1989 EXAM HIV SCREENING 1997 DTAP/TDAP VACCINES (1 - 2000 Tdap) INFLUENZA VACCINE 10/12/2018 Results Not on filefrom Last 3 Months Advance Directives Patient has advance care planning documents on file. For more information, please contact: [facility] [address] [place] [address]
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
--- OUTSIDE RECORDS SUMMARY | 2018-05-14 15:29 | XMS REPORT ---
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 Name Role Phone WILLIAM PATTERSON Unavailable PROBLEMS Type Condition ICD9-CM Code HTU95-UM Code Onset Dates Condition Status SNOMED Code Problem Cardiomegaly I51.7 Active 2584170 Problem Essential hypertension I10 Active 48949807 Problem Mild intermittent asthma without complication J45.20 Active 390896506 Problem Chronic systolic HF (heart failure) I50.22 Active 469050801 Problem Other chronic pain G89.29 Active 36906489 Problem Seizures R56.9 Active 93171911 Problem Alcohol abuse F10.10 Active 73225541 Problem CAD (coronary artery disease) I25.10 Active 15754126 Problem Insomnia G47.00 Active 203923182 Problem 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 Active 926009121 Problem Elevated liver enzymes R74.8 Active 263156749 Problem GERD (gastroesophageal reflux disease) K21.9 Active 298746642 Problem Non-ischemic cardiomyopathy I42.8 Active 20144518 Problem Anxiety F41.9 Active 14183382 ALLERGIES No Information ENCOUNTERS Encounter Location Date Diagnosis [facility] [place] [id number], [place] [address] Dec, [facility] [place] [address] [id number], [place] [address] Oct, [facility] [place] [id number] [place] [address] 54680- 9905 Oct, Chronic congestive heart failure, unspecified congestive heart failure type I50.9 [facility] [place] [id number], [place] [address] Oct, Chronic congestive heart failure, unspecified congestive heart failure type I50.9 [facility] [place] [id number] [place] [address] 48382- 7778 Sep, [facility] [place] [id number] [place] [address] 98885- 2501 Aug, Tachycardia R00.0 ; Seizures R56.9 ; Chronic systolic HF ( heart failure) I50.22 ; Non-ischemic cardiomyopathy I42.8 ; 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 and Multiple joint pain M25.50 [facility] [place] [id number] [place] [address] 51999- 4719 Aug, Chronic congestive heart failure, unspecified congestive heart failure type I50.9 [facility] [id number] [place] [address] [id number] July, [facility] [id number] [place] [address] [id number] July, Dental examination Z01.20 [place] [id number] [place] [address] 16908- 5876 Jun, Seizures R56.9 [place] [id number] [place] [address] 96684- 4142 May, [place] [id number] [place] [address] 14654- 8406 28 Apr, 2017 Chronic systolic HF (heart failure) I50.22 ; Essential hypertension I10 and Seizures R56.9 [place] [id number] [place] [address] 50047- 1080 12 Apr, 2017 [facility] [place] [id number] [place] [address] 19306- 4572 Dec, Seizures R56.9 ; Alcohol abuse F10.10 and Chronic systolic HF (heart failure) I50.22 [place] [id number] [place] [address] 11449- 6301 Oct, Chronic congestive heart failure, unspecified congestive heart failure type I50.9 ; Cardiomegaly I51.7 ; Seizures R56.9 and Alcohol abuse F10.10 [facility] [id number] [id number] Sep, Dental examination Z01.20 [facility] [place] [id number] [place] [address] 15971- 9891 Aug, [place] [id number] [place] [address] 00144- 7031 July, [place] [id number] [place] [address] 20830- 4556 May, [place] [id number] [place] [address] 51835- 7598 May, Seizures R56.9 ; Alcohol abuse F10.10 ; CAD (coronary artery disease) I25.10 ; Chronic congestive heart failure, unspecified congestive heart failure type I50.9 ; Mild intermittent asthma without complication J45.20 ; GERD (gastroesophageal reflux disease) K21.9 ; Unspecified abdominal pain R10.9 ; Vomiting, unspecified R11.10 ; Head injury due to trauma, sequela S09.90XS and Pain in left knee M25.562 [place] [id number] [place] [address] 77159- 1932 Apr, [place] [id number] [place] [address] 69696- 3100 Mar, [place] [id number] [place] [address] 71960- 7952 Mar, [place] [id number] [place] [address] 60161- 6036 Mar, Alcohol abuse F10.10 ; Chronic congestive heart failure, unspecified congestive heart failure type I50.9 ; Cardiomegaly I51.7 ; Seizures R56.9 ; Mild intermittent asthma without complication J45.20 ; Anxiety F41.9 ; Essential hypertension I10 ; GERD (gastroesophageal reflux disease) K21.9 ; Pain in left knee M25.562 and Other chronic pain G89.29 [place] [id number] [place] [address] 30672- 6633 Mar, [place] [id number] [place] [address] 22241- 6472 Nov, GERD (gastroesophageal reflux disease) K21.9 ; Anxiety F41.9 ; Mild intermittent asthma without complication J45.20 ; Essential hypertension I10 ; Cardiomegaly I51.7 ; Seizures R56.9 and Alcohol abuse F10.10 [place] [id number] [place] [address] 42038- 8720 Nov, [place] [id number] [place] [address] 83477- 0415 Oct, [place] [id number] [place] [address] 33410- 0109 Oct, [place] [id number] [place] [address] 13459- 0005 Oct, [place] [id number] [place] [address] 07879- 2844 Aug, Anxiety F41.[address] [id number] Aug, Lumbar neuritis M54.16 and Anxiety F41.9 [place] [id number] [place] [address] 28874- 1150 Jun, CAD (coronary artery disease) I25.10 ; Essential hypertension I10 and Chronic congestive heart failure, unspecified congestive heart failure type I50.[address] [id number] Jun, CAD (coronary artery disease) I25.10 ; Arrhythmia I49.9 ; Anxiety F41.9 and Cardiomegaly I51.7 [place] [id number] [place] [address] 56548- 6816 May, [address] [id number] May, Anxiety F41.9 [place] [id number] [place] [address] 94834- 9988 Apr, Cardiomegaly I51.7 [facility] [place] [address] [address]- 8949 Mar, Seizures R56.9 ; Cardiomegaly I51.7 ; GERD ( gastroesophageal reflux disease) K21.9 ; Anxiety F41.9 and Alcohol abuse F10.10 [facility] [place] [address] 50087- 3414 Feb, [facility] [place] [address] 98164- 9802 Feb, [place] [address] 23500- 3533 Jan, Chronic congestive heart failure, unspecified congestive heart failure type I50.9 ; Mild intermittent asthma without complication J45.20 and Anxiety F41.9 [place] [address] 12936- 8449 Jan, [facility] [place] [id number] [place] [address] 47345- 4989 Jan, [place] [id number] [place] [address] 42580- 0769 Jan, Essential hypertension I10 ; Chronic congestive heart failure, unspecified congestive heart failure type I50.9 ; Cardiomegaly I51.7 ; Seizures R56.9 ; Alcohol abuse F10.10 ; Anxiety F41.9 and GERD ( gastroesophageal reflux disease) K21.9 [facility] [place] [id number] [place] [address] 88018- 6729 Dec, [facility] [place] [address] 73402- 6520 Dec, [facility] [place] [id number] [place] [address] 17846- 2656 Dec, [facility] [place] [id number] [place] [address] 40646- 4957 Oct, Esophageal reflux 530.81 ; Congestive heart failure, unspecified 428.0 and Seizures 780.39 [facility] [place] [id number] [place] [address] 56039- 3257 Jun, [facility] [id number] [place] [address] 19468- 8346 Jun, [facility] [place] [id number] [place] [address] 61324- 8589 May, [facility] [place] [id number] [place] [address] 84753- 4646 May, [facility] [place] [id number] [place] [address] 15385- 3967 May, [facility] [place] [id number] [place] [address] 46312- 6300 May, [facility] [place] [id number] [place] [address] 91633- 1479 Apr, [facility] [place] [id number] [place] [address] 96121- 6724 Apr, [facility] [place] [id number] [place] [address] 65865- 7278 Apr, [facility] [place] [address], [place] [address]- 3519 Mar, [facility] [place] [address], [place] [address]- 8598 Mar, [facility] [place] [address], [place] [address]- 3738 Mar, [facility] [place] [id number], [place] [address]- 2248 Mar, [facility] [place] [address], [place] [address]- 5810 Mar, [facility] [place] [id number] [place] [address] 19713- 5278 Mar, [facility] [place] [facility] [address] [id number] [place] [address]- 3896 Feb, [facility] [place] [facility] [address] [id number] [place] [address] Feb, [facility] [place] [facility] [address] [id number] [place] [address]- 0783 Jan, [facility] [place] [facility] [address] [id number] [place] [address]- 3834 Jan, [facility] [place] [facility] [address] [id number] [place] [address]- 8456 Dec, [facility] [place] [facility] [address] [id number] [place] [address]- 4310 Dec, [facility] [place] [facility] [address] [id number] [place] [address]- 7994 Nov, [facility] [place] [facility] [address] [id number] [place] [address]- 8322 Nov, [facility] [place] [facility] [address] [id number] [place] [address]- 2971 Nov, [facility] [place] [facility] [address] [id number] [place] [address]- 0317 Nov, [facility] [place] [facility] [address] [id number] [place] [address]- 2394 Nov, [facility] [place] [facility] [address] [id number] [place] [address]- 3797 Nov, [facility] [place] [facility] [address] [id number] [place] [address]- 2565 Oct, [facility] [place] [facility] [address] [id number] [place] [address]- 1719 Oct, [facility] [place] [facility] [address] [id number] [place] [address]- 7562 Jun, [facility] [place] [facility] [address] [id number] [place] [address]- 8049 Jun, [facility] [place] [facility] [address] [id number] [place] [address]- 8074 Jun, [facility] [place] [facility] [address] [id number] [place] [address]- 7912 Jun, [facility] [place] [facility] [address] [id number] [place] [address]- 1839 Jun, [facility] [place] [facility] [address] [id number] [place] [address]- 7831 Jun, [facility] [place] [facility] [address] [id number] [place] [address]- 5901 Jun, [facility] [place] [facility] [address] [id number] [place] [address]- 4330 Jun, [facility] [place] [facility] [address] [id number] [place] [address]- 0242 Apr, [facility] [place] [facility] [address] [id number] [place] [address]- 2496 Apr, [facility] [place] [facility] [address] [id number] [place] [address]- 9636 Apr, [facility] [place] [facility] [address] [id number] [place] [address]- 3687 Apr, [facility] [place] [facility] [address] [id number] [place] [address]- 9209 Mar, [facility] [place] [facility] [address] [id number] [place] 4765 Mar, [facility] [place] [facility] [address] [id number] [place] [address]- 1973 Feb, [facility] [place] [facility] [address] [id number] [place] [address]- 5476 Feb, [facility] [place] [facility] [address] [id number] [place] [address]- 8792 30 Feb, 2013 [facility] [place] [facility] [address] [id number] [place] 8106 Feb, [facility] [place] [facility] [address] [id number] [place] [address]- 8310 Feb, [facility] [place] [facility] [address] [id number] [place] [address]- 1988 Feb, [facility] [place] [facility] [address] [id number] [place] [address]- 0660 Jan, [facility] [place] [facility] [address] [id number] [place] 5673 Jan, [facility] [place] [facility] [address] [id number] [place] 8541 Jan, [facility] [place] [facility] [address] [id number] [place] [address]- 9934 Jan, [facility] [place] [facility] [address] [id number] [place] [address]- 0893 Dec, [facility] [place] [facility] [address] [id number] [place] [address]- 5963 Dec, [facility] [place] [facility] [address] [id number] [place] [address]- 8432 24 Nov, 2012 [facility] [place] [facility] [address] [id number], [place] [address]- 1541 23 Nov, 2012 [facility] [place] [facility] [address] [id number], [place] [address]- 6763 Oct, [facility] [place] [facility] [address] [id number] [place] [address]- 0356 Oct, [facility] [place] [facility] [address] [id number], [place] [address]- 0560 20 Nov, 2011 [facility] [place] [facility] [address] [id number] [place] [address]- 1579 17 Nov, 2011 [facility] [place] [facility] [address] [facility] [id number] [place] [address]- 3506 Oct, [facility] [place] [address] [facility] [id number], [place] [address]- 1013 Apr, [facility] [place] [address] [facility] [id number], [place] [address]- 2781 Dec, [facility] [place] [address] [facility] [id number], [place] [address]- 6409 Feb, [facility] [place] [address] [facility] [id number], [place] [address]- 9291 Feb, IMMUNIZATIONS No Known Immunizations SOCIAL HISTORY Never Assessed REASON FOR VISIT Requests return call/lost meds PLAN OF CARE VITAL SIGNS MEDICATIONS Medication Instructions Dosage Frequency Start Date End Date Duration Status Sotalol HCl 80 MG Orally twice a day 1 tablet 12h 45 days Active RESULTS No Results PROCEDURES No Known [...]
--- OUTSIDE RECORDS SUMMARY | 2018-05-14 15:29 | XMS REPORT ---
Author Author WILLIAM PATTERSON Organization [facility] Address [address] [place] [address] Care Team Providers Care Sports Team Marketing Intern Name Role Phone WILLIAM PATTERSON Unavailable PROBLEMS Type Condition ICD9-CM Code WVD99-KT Code Onset Dates Condition Status SNOMED Code Problem Cardiomegaly I51.7 Active 1830557 Problem Essential hypertension I10 Active 43819605 Problem Mild intermittent asthma without complication J45.20 Active 423384771 Problem Chronic systolic HF (heart failure) I50.22 Active 016755215 Problem Other chronic pain G89.29 Active 95701734 Problem Seizures R56.9 Active 73976502 Problem Alcohol abuse F10.10 Active 51428509 Problem CAD (coronary artery disease) I25.10 Active 62153058 Problem Insomnia G47.00 Active 942651253 Problem 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 Active 875089937 Problem Elevated liver enzymes R74.8 Active 862753846 Problem GERD (gastroesophageal reflux disease) K21.9 Active 843021339 Problem Non-ischemic cardiomyopathy I42.8 Active 30280553 Problem Anxiety F41.9 Active 48984148 ALLERGIES No Known Allergies ENCOUNTERS Encounter Location Date Diagnosis [facility] [id number] [place] [address] 47679- 7873 Dec, Seizures R56.9 ; Chronic systolic HF (heart failure) I50.22 and Anxiety F41.9 [facility] [id number] [place] [address] 69007- 8290 Oct, [facility] [id number] [place] [address] 27929- 2036 30 Oct, 2017 Chronic congestive heart failure, unspecified congestive heart failure type I50.9 [facility] [id number] [place] [address] 33711- 4998 Oct, Chronic congestive heart failure, unspecified congestive heart failure type I50.9 [facility] [id number] [place] [address] 19085- 8638 Sep, [facility] [id number] [place] [address] 79466- 5644 Aug, Tachycardia R00.0 ; Seizures R56.9 ; Chronic systolic HF ( heart failure) I50.22 ; Non-ischemic cardiomyopathy I42.8 ; 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 and Multiple joint pain M25.50 [facility] [id number] [place] [address] 83336- 3121 Aug, Chronic congestive heart failure, unspecified congestive heart failure type I50.9 [facility] [address] [id number] July, [facility] [address] [id number] July, Dental examination Z01.20 [facility] [id number] [place] [address] 14037- 5663 Jun, Seizures R56.9 [facility] [address] 85336- 0612 May, [facility] [id number] [place] [address] 62247- 5776 Apr, Chronic systolic HF (heart failure) I50.22 ; Essential hypertension I10 and Seizures R56.9 [facility] [id number] [place] [address] 09495- 5214 Apr, [facility] [address] 03936- 4702 Dec, Seizures R56.9 ; Alcohol abuse F10.10 and Chronic systolic HF (heart failure) I50.22 [facility] [address] 71121- 2911 Oct, Chronic congestive heart failure, unspecified congestive heart failure type I50.9 ; Cardiomegaly I51.7 ; Seizures R56.9 and Alcohol abuse F10.10 [facility] [id number] [place] [address] [id number] Sep, Dental examination Z01.20 [id number] [place] [address] 91266- 2062 Aug, [place] [facility] [id number] [place] [address] 98494- 6791 July, [place] [id number] [place] [address] 13373- 9607 May, [facility] [facility] [id number] [place] [address] 85625- 4546 May, Seizures R56.9 ; Alcohol abuse F10.10 ; CAD (coronary artery disease) I25.10 ; Chronic congestive heart failure, unspecified congestive heart failure type I50.9 ; Mild intermittent asthma without complication J45.20 ; GERD (gastroesophageal reflux disease) K21.9 ; Unspecified abdominal pain R10.9 ; Vomiting, unspecified R11.10 ; Head injury due to trauma, sequela S09.90XS and Pain in left knee M25.562 [place] [id number] [place] [address] 48912- 8035 Apr, [place] [id number] [place] [address] 49823- 6949 Mar, [place] [facility] [id number] [place] [address] 89151- 6998 Mar, [place] [facility] [id number] [place] [address] 70041- 9763 Mar, Alcohol abuse F10.10 ; Chronic congestive heart failure, unspecified congestive heart failure type I50.9 ; Cardiomegaly I51.7 ; Seizures R56.9 ; Mild intermittent asthma without complication J45.20 ; Anxiety F41.9 ; Essential hypertension I10 ; GERD (gastroesophageal reflux disease) K21.9 ; Pain in left knee M25.562 and Other chronic pain G89.29 [place] [facility] [id number] [place] [address] 84992- 4612 Mar, [place] [facility] [id number] [place] [address] 52286- 4642 08 Nov, 2015 GERD (gastroesophageal reflux disease) K21.9 ; Anxiety F41.9 ; Mild intermittent asthma without complication J45.20 ; Essential hypertension I10 ; Cardiomegaly I51.7 ; Seizures R56.9 and Alcohol abuse F10.10 [place] [facility] [id number] [place] [address] 45550- 7649 Nov, [place] [address] 68945- 3385 Oct, [place] [address] 89598- 9870 Oct, [place] [facility] [id number] [place] [address] 24869- 1571 Oct, [place] [facility] [id number] [place] [address] 40541- 0982 Aug, Anxiety F41.[address] [id number] Aug, Lumbar neuritis M54.16 and Anxiety F41.9 [place] [facility] [id number] [place] [address] 12089- 0061 Jun, CAD (coronary artery disease) I25.10 ; Essential hypertension I10 and Chronic congestive heart failure, unspecified congestive heart failure type I50.[address] [id number] Jun, CAD (coronary artery disease) I25.10 ; Arrhythmia I49.9 ; Anxiety F41.9 and Cardiomegaly I51.7 [place] [facility] [id number] [place] [address] 72277- 9013 May, [address] [id number] May, Anxiety F41.9 [facility] [id number] [place] [address] 92939- 1529 Apr, Cardiomegaly I51.7 [facility] [id number] [place] [address] 31835- 2331 Mar, Seizures R56.9 ; Cardiomegaly I51.7 ; GERD ( gastroesophageal reflux disease) K21.9 ; Anxiety F41.9 and Alcohol abuse F10.10 [place] [id number] [place] [address] 01023- 7218 Feb, [place] [address] 61923- 9293 Feb, [place] [id number] [place] [address] 74016- 7712 Jan, Chronic congestive heart failure, unspecified congestive heart failure type I50.9 ; Mild intermittent asthma without complication J45.20 and Anxiety F41.9 [place] [facility] [id number] [place] [address] 22051- 4601 Jan, [place] [facility] [id number] [place] [address] 64601- 6780 Jan, [place] [facility] [id number] [place] [address] 81539- 3082 Jan, Essential hypertension I10 ; Chronic congestive heart failure, unspecified congestive heart failure type I50.9 ; Cardiomegaly I51.7 ; Seizures R56.9 ; Alcohol abuse F10.10 ; Anxiety F41.9 and GERD ( gastroesophageal reflux disease) K21.9 [place] [facility] [id number] [place] [address] 82057- 6217 Dec, [place] [facility] [id number] [place] [address] 50674- 9157 Dec, [place] [id number] [place] [address] 11349- 6982 Dec, [facility] [address] [address]- 5553 Oct, Esophageal reflux 530.81 ; Congestive heart failure, unspecified 428.0 and Seizures 780.39 [facility] [address] [address]- 5849 Jun, [facility] [id number] [place] [address] 76065- 1776 Jun, [facility] [id number] [place] [address] 65858- 9894 May, [facility] [id number] [place] [address] 26385- 6208 May, [facility] [id number] [place] [address] 49753- 5056 May, [facility] [id number] [place] [address] 13908- 6514 May, [facility] [address] [address]- 2624 Apr, [facility] [id number] [place] [address] 94761- 5319 Apr, [facility] [address] [address]- 1319 Apr, [facility] [address] [address]- 6565 Mar, [facility] [address] [address]- 5500 Mar, [facility] [id number] [place] [address] 91267- 4698 Mar, [facility] [address] [address]- 8656 Mar, [facility] [address] 3648 Mar, [facility] [place] [facility] [address] [id number] [place] [address]- 3573 Mar, [facility] [place] [facility] [address] [id number] [place] [address]- 1159 Feb, [facility] [place] [facility] [address] [id number] [place] [address]- 2481 Feb, [facility] [place] [facility] [address] [id number] [place] [address]- 8557 Jan, [facility] [place] [facility] [address] [id number] [place] [address]- 9992 Jan, [facility] [place] [facility] [address] [id number] [place] [address]- 4775 Dec, [facility] [place] [facility] [address] [id number] [place] [address]- 0255 Dec, [facility] [place] [facility] [address] [id number] [place] [address]- 5340 Nov, [facility] [place] [facility] [address] [id number] [place] [address]- 6160 Nov, [facility] [place] [facility] [address] [id number] [place] [address]- 6426 Nov, [facility] [place] [facility] [address] [id number] [place] [address]- 1613 Nov, [facility] [place] [facility] [address] [id number], [place] [address]- 1795 Nov, [facility] [place] [facility] [address] [id number] [place] [address]- 6719 Nov, [facility] [place] [facility] [address] [id number] [place] [address]- 0348 Oct, [facility] [place] [facility] [address] [id number], [place] [address]- 7948 Oct, [facility] [place] [facility] [address] [id number], [place] [address]- 5163 Jun, [facility] [place] [facility] [address] [id number] [place] [address]- 0897 Jun, [facility] [place] [facility] [address] [id number] [place] [address]- 6976 Jun, [facility] [place] [facility] [address] [id number] [place] [address]- 9549 Jun, [facility] [place] [facility] [address] [id number] [place] [address]- 3723 Jun, [facility] [place] [facility] [address] [id number] [place] [address]- 7527 Jun, [facility] [place] [facility] [address] [id number] [place] [address]- 2328 Jun, [facility] [place] [facility] [address] [id number] [place] [address]- 6134 Jun, [facility] [place] [facility] [address] [id number] [place] [address]- 9623 Apr, [facility] [place] [facility] [address] [id number] [place] [address]- 6297 Apr, [facility] [place] [facility] [address] [facility] [id number] [place] [address]- 8377 Apr, [facility] [place] [facility] [address] [id number] [place] [address]- 1365 Apr, [facility] [place] [facility] [address] [id number] [place] [address]- 1328 Mar, [facility] [place] [facility] [address] [id number] [place] [address]- 2476 Mar, [facility] [place] [facility] [address] [id number] [place] [address]- 9097 Feb, [facility] [place] [facility] [address] [id number] [place] [address]89 Feb, [facility] [place] [facility] [address] [id number] [place] [address]- 3340 30 Feb, 2013 [facility] [address] [id number] [place] [address]- 6531 Feb, [facility] [place] [facility] [address] [id number] [place] [address]- 0980 Feb, [facility] [address] [id number] [place] [address]- 6588 Feb, [facility] [address] [id number] [place] [address]- 5996 Jan, [facility] [place] [facility] [address] [id number] [place] [address]- 2498 Jan, [facility] [address] [id number] [place] [address]- 0192 Jan, [facility] [address] [id number] [place] [address]- 8512 Jan, [facility] [address] [id number] [place] [address]- 9942 Dec, [facility] [address] [id number] [place] [address]- 0269 Dec, [facility] [address] [id number] [place] [address]- 7404 24 Nov, 2012 [facility] [place] [facility] [address] [id number] [place] [address]- 1990 Nov, [facility] [place] [facility] [address] [id number] [place] [address]- 3078 Oct, [facility] [place] [facility] [address] [id number] [place] [address]- 3006 Oct, [facility] [place] [facility] [address] [id number] [place] [address]- 5015 Nov, [facility] [place] [facility] [address] [id number], [place] [address]- 2546 Nov, [facility] [address] [facility] [facility] [id number] [place] [address]- 2546 Oct, [facility] [address] [facility] [facility] [id number], [place] [address]- 2546 Apr, [facility] [address] [facility] [facility] [id number], [place] [address]- 2546 Dec, [facility] [address] [facility] [facility] [id number], [place] [address]- 2546 Feb, [facility] [address] [facility] [facility] [id number], [place] [address]- 2546 Feb, IMMUNIZATIONS No Known Immunizations SOCIAL HISTORY Never Assessed REASON FOR VISIT seizure f/u. pt reports his last seizure last week. pt also has been checking his own BP at home and states that "both of the numbers were almost the same" and he would like to discuss this with the Dr Patterson today. BP today is 112/80. PLAN OF CARE Activity Details Follow Up 3 Months with [facility] Reason: VITAL SIGNS Height 71 in 2018-01-02 Weight 173.4 lbs 2018-01-02 Temperature 98.1 degrees Fahrenheit 2018-01-02 Heart Rate 80 bpm 2018-01-02 Respiratory Rate 18 2018-01-02 BMI 24.18 kg/m2 2018-01-02 Blood pressure systolic 112 mmHg 2018-01-02 Blood pressure diastolic 80 mmHg 2018-01-02 MEDICATIONS Medication Instructions Dosage Frequency Start Date End Date Duration Status Metoprolol Tartrate 25 MG Orally Twice a day 1/2 tablet with food 12h Aug, 30 days Active Multivitamin Adult Active Sotalol HCl 80 MG Orally twice a day 1 tablet 12h 45 days Active Enalapril Maleate 2.5 MG Orally Once a day 1 tablet 24h Active Keppra 500 mg Orally 3 times a day 1 tablet 8h Active RESULTS No Results PROCEDURES No Known [...]
--- OUTSIDE RECORDS SUMMARY | 2018-05-14 15:29 | XMS REPORT ---
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 Role Phone WILLIAM PATTERSON Unavailable PROBLEMS Type Condition ICD9-CM Code RIL14-NA Code Onset Dates Condition Status SNOMED Code Problem Cardiomegaly I51.7 Active 9112741 Problem Essential hypertension I10 Active 21473973 Problem Mild intermittent asthma without complication J45.20 Active 444500859 Problem Chronic systolic HF (heart failure) I50.22 Active 457966414 Problem Other chronic pain G89.29 Active 45619600 Problem Seizures R56.9 Active 12115651 Problem Alcohol abuse F10.10 Active 36978654 Problem CAD (coronary artery disease) I25.10 Active 49484593 Problem Insomnia G47.00 Active 606084693 Problem 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 Active 950218265 Problem Elevated liver enzymes R74.8 Active 409170730 Problem GERD (gastroesophageal reflux disease) K21.9 Active 426613138 Problem Non-ischemic cardiomyopathy I42.8 Active 02780060 Problem Anxiety F41.9 Active 41838392 ALLERGIES No Information ENCOUNTERS Encounter Location Date Diagnosis [facility] [id number] [address] Dec, [facility] [id number] [address] Oct, [facility] [id number] [place] [address] 44682- 5017 Oct, Chronic congestive heart failure, unspecified congestive heart failure type I50.9 [facility] [id number] [address] Oct, Chronic congestive heart failure, unspecified congestive heart failure type I50.9 [facility] [id number] [place] [address] 00309- 8925 Sep, [facility] [id number] [place] [address] 53188- 5457 Aug, Tachycardia R00.0 ; Seizures R56.9 ; Chronic systolic HF ( heart failure) I50.22 ; Non-ischemic cardiomyopathy I42.8 ; 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 and Multiple joint pain M25.50 [facility] [id number] [place] [address] 07558- 0645 Aug, Chronic congestive heart failure, unspecified congestive heart failure type I50.9 [facility] [id number] [place] [address] [id number] July, [facility] [id number] [place] [address] [id number] July, Dental examination Z01.20 [facility] [id number] [place] [address] 24145- 6482 Jun, Seizures R56.9 [facility] [id number] [place] [address] 20685- 3812 May, [facility] [id number] [place] [address] 39916- 4623 28 Apr, 2017 Chronic systolic HF (heart failure) I50.22 ; Essential hypertension I10 and Seizures R56.9 [facility] [facility] [id number] [place] [address] 66622- 2840 12 Apr, 2017 [facility] [id number] [place] [address] 93157- 0141 Dec, Seizures R56.9 ; Alcohol abuse F10.10 and Chronic systolic HF (heart failure) I50.22 [facility] [id number] [place] [address] 90712- 7204 Oct, Chronic congestive heart failure, unspecified congestive heart failure type I50.9 ; Cardiomegaly I51.7 ; Seizures R56.9 and Alcohol abuse F10.10 [facility] [id number] [id number] Sep, Dental examination Z01.20 [facility] [id number] [place] [address] 73073- 7935 Aug, [facility] [id number] [place] [address] 30480- 7766 July, [facility] [id number] [place] [address] 66356- 6635 May, [facility] [id number] [place] [address] 41418- 4261 May, Seizures R56.9 ; Alcohol abuse F10.10 ; CAD (coronary artery disease) I25.10 ; Chronic congestive heart failure, unspecified congestive heart failure type I50.9 ; Mild intermittent asthma without complication J45.20 ; GERD (gastroesophageal reflux disease) K21.9 ; Unspecified abdominal pain R10.9 ; Vomiting, unspecified R11.10 ; Head injury due to trauma, sequela S09.90XS and Pain in left knee M25.562 [facility] [facility] [id number] [place] [address] 93563- 9607 Apr, [facility] [id number] [place] [address] 42944- 2225 Mar, [facility] [id number] [place] [address] 97790- 0985 Mar, [facility] [id number] [place] [address] 25863- 1642 Mar, Alcohol abuse F10.10 ; Chronic congestive heart failure, unspecified congestive heart failure type I50.9 ; Cardiomegaly I51.7 ; Seizures R56.9 ; Mild intermittent asthma without complication J45.20 ; Anxiety F41.9 ; Essential hypertension I10 ; GERD (gastroesophageal reflux disease) K21.9 ; Pain in left knee M25.562 and Other chronic pain G89.29 [facility] [facility] [id number] [place] [address] 03631- 9574 Mar, [facility] [id number] [place] [address] 10668- 6809 Nov, GERD (gastroesophageal reflux disease) K21.9 ; Anxiety F41.9 ; Mild intermittent asthma without complication J45.20 ; Essential hypertension I10 ; Cardiomegaly I51.7 ; Seizures R56.9 and Alcohol abuse F10.10 [facility] [id number] [place] [address] 21429- 8849 Nov, [facility] [facility] [id number] [place] [address] 04988- 6095 Oct, [facility] [id number] [place] [address] 36980- 2146 Oct, [facility] [id number] [place] [address] 65846- 9629 Oct, [facility] [id number] [place] [address] 36651- 9125 Aug, Anxiety F41.[address] [id number] Aug, Lumbar neuritis M54.16 and Anxiety F41.9 [facility] [id number] [place] [address] 87588- 0175 Jun, CAD (coronary artery disease) I25.10 ; Essential hypertension I10 and Chronic congestive heart failure, unspecified congestive heart failure type I50.[address] [id number] Jun, CAD (coronary artery disease) I25.10 ; Arrhythmia I49.9 ; Anxiety F41.9 and Cardiomegaly I51.7 [facility] [id number] [place] [address] 53408- 7460 May, [address] [id number] May, Anxiety F41.9 [facility] [id number] [place] [address] 76318- 2207 Apr, Cardiomegaly I51.7 [facility] [address] [address]- 6417 Mar, Seizures R56.9 ; Cardiomegaly I51.7 ; GERD ( gastroesophageal reflux disease) K21.9 ; Anxiety F41.9 and Alcohol abuse F10.10 [facility] [address] 7[address]11- 6617 Feb, [facility] [address] 0[address]37- 1525 Feb, [place] [address] 75713- 6953 Jan, Chronic congestive heart failure, unspecified congestive heart failure type I50.9 ; Mild intermittent asthma without complication J45.20 and Anxiety F41.9 [place] [address] 32730- 3044 Jan, [facility] [id number] [place] [address] 30604- 2794 Jan, [facility] [facility] [id number] [place] [address] 88017- 4612 Jan, Essential hypertension I10 ; Chronic congestive heart failure, unspecified congestive heart failure type I50.9 ; Cardiomegaly I51.7 ; Seizures R56.9 ; Alcohol abuse F10.10 ; Anxiety F41.9 and GERD ( gastroesophageal reflux disease) K21.9 [facility] [id number] [place] [address] 35120- 9541 Dec, [facility] [address] 81150- 3114 Dec, [facility] [id number] [place] [address] 55619- 3253 Dec, [facility] [id number] [place] [address] 36845- 3008 Oct, Esophageal reflux 530.81 ; Congestive heart failure, unspecified 428.0 and Seizures 780.39 [facility] [id number] [place] [address] 41207- 4833 Jun, [facility] [id number] [place] [address] 12873- 2201 Jun, [facility] [id number] [place] [address] 77192- 8879 May, [facility] [id number] [place] [address] 13187- 6563 May, [facility] [id number] [place] [address] 59112- 0845 May, [facility] [id number] [place] [address] 01298- 6603 May, [facility] [id number] [place] [address] 10689- 6707 Apr, [facility] [id number] [place] [address] 23858- 2192 Apr, [facility] [id number] [place] [address] 84024- 8065 Apr, [facility] [address] [address]- 8186 Mar, [facility] [address] [address]- 5842 Mar, [facility] [address] [address]- 4753 Mar, [facility] [id number] [address]- 5858 Mar, [facility] [address] [address]- 6407 Mar, [facility] [id number] [place] [address] 19422- 6055 Mar, [facility] [place] [facility] [address] [id number] [place] [address]- 3700 Feb, [facility] [place] [facility] [address] [id number] [place] 5946 Feb, [facility] [place] [facility] [address] [id number] [place] [address]- 8399 Jan, [facility] [place] [facility] [address] [id number] [place] [address]- 6701 Jan, [facility] [place] [facility] [address] [id number] [place] [address]- 0256 Dec, [facility] [place] [facility] [address] [id number] [place] [address]- 4556 Dec, [facility] [place] [facility] [address] [id number] [place] [address]- 3570 Nov, [facility] [place] [facility] [address] [id number] [place] [address]- 9147 Nov, [facility] [place] [facility] [address] [id number] [place] [address]- 0778 Nov, [facility] [place] [facility] [address] [id number] [place] [address]- 1456 Nov, [facility] [place] [facility] [address] [id number] [place] [address]- 7536 Nov, [facility] [place] [facility] [address] [id number] [place] [address]- 0009 Nov, [facility] [place] [facility] [address] [id number] [place] [address]- 7824 Oct, [facility] [place] [facility] [address] [id number] [place] [address]- 5133 Oct, [facility] [place] [facility] [address] [id number] [place] [address]- 4158 Jun, [facility] [place] [facility] [address] [id number] [place] [address]- 6335 Jun, [facility] [place] [facility] [address] [id number] [place] [address]- 3854 Jun, [facility] [place] [facility] [address] [id number] [place] [address]- 5352 Jun, [facility] [place] [facility] [address] [id number] [place] [address]- 9953 Jun, [facility] [place] [facility] [address] [id number] [place] [address]- 7052 Jun, [facility] [place] [facility] [address] [id number] [place] [address]- 5228 Jun, [facility] [place] [facility] [address] [id number] [place] [address]- 9875 Jun, [facility] [place] [facility] [address] [id number] [place] [address]- 1125 Apr, [facility] [place] [facility] [address] [id number] [place] [address]- 2317 Apr, [facility] [place] [facility] [address] [id number] [place] [address]- 3586 Apr, [facility] [place] [facility] [address] [id number] [place] [address]- 5695 Apr, [facility] [place] [facility] [address] [id number] [place] [address]- 1092 Mar, [facility] [place] [facility] [address] [id number] [place] 2472 Mar, [facility] [place] [facility] [address] [id number] [place] [address]- 8332 Feb, [facility] [place] [facility] [address] [id number] [place] [address]- 4616 Feb, [facility] [place] [facility] [address] [id number] [place] [address]- 4893 30 Feb, 2013 [facility] [place] [facility] [address] [id number] [place] 3849 Feb, [facility] [place] [facility] [address] [id number] [place] [address]- 8739 Feb, [facility] [place] [facility] [address] [id number] [place] [address]- 2815 Feb, [facility] [place] [facility] [address] [id number] [place] [address]- 6239 Jan, [facility] [place] [facility] [address] [id number] [place] 4143 Jan, [facility] [place] [facility] [address] [id number] [place] 1933 Jan, [facility] [place] [facility] [address] [id number] [place] [address]- 6931 Jan, [facility] [place] [facility] [address] [id number] [place] [address]- 8078 Dec, [facility] [place] [facility] [address] [id number] [place] [address]- 6650 Dec, [facility] [place] [facility] [address] [id number] [place] [address]- 2181 24 Nov, 2012 [facility] [place] [facility] [address] [id number] [address]- 8085 23 Nov, 2012 [facility] [place] [facility] [address] [id number] [address]- 7048 Oct, [facility] [place] [facility] [address] [id number] [place] [address]- 9865 Oct, [facility] [place] [facility] [address] [id number] [address]- 6239 20 Nov, 2011 [facility] [place] [facility] [address] [id number] [place] [address]- 2258 17 Nov, 2011 [facility] [place] [facility] [address] [facility] [id number] [place] [address]- 2546 Oct, [facility] [address] [facility] [id number] [address]- 2546 Apr, [facility] [address] [facility] [id number] [address]- 2546 Dec, [facility] [address] [facility] [id number] [address]- 2546 Feb, [facility] [address] [facility] [id number] [address]- 2546 Feb, IMMUNIZATIONS No Known Immunizations SOCIAL HISTORY Never Assessed REASON FOR VISIT Medication refill request PLAN OF CARE VITAL SIGNS MEDICATIONS Medication Instructions Dosage Frequency Start Date End Date Duration Status Metoprolol Tartrate 25 MG Orally Twice a day 1/2 tablet with food 12h Aug, 30 days Active Enalapril Maleate 2.5 MG Orally Once a day 1 tablet 24h Active RESULTS No Results PROCEDURES No Known [...]
--- OUTSIDE RECORDS SUMMARY | 2018-05-14 15:30 | XMS REPORT ---
Author Author WILLIAM PATTERSON [facility] Address [address] [place] [address] Care Team Providers Care Proof Clerk Name Role Phone WILLIAM PATTERSON Unavailable PROBLEMS Type Condition ICD9-CM Code NWL81-DR Code Onset Dates Condition Status SNOMED Code Problem Cardiomegaly I51.7 Active 2591754 Problem Essential hypertension I10 Active 96999285 Problem Mild intermittent asthma without complication J45.20 Active 952181202 Problem Chronic systolic HF (heart failure) I50.22 Active 382285169 Problem Other chronic pain G89.29 Active 63697315 Problem Seizures R56.9 Active 56829215 Problem Alcohol abuse F10.10 Active 60042054 Problem CAD (coronary artery disease) I25.10 Active 62724813 Problem Insomnia G47.00 Active 217028251 Problem 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 Active 963158547 Problem Elevated liver enzymes R74.8 Active 634799642 Problem GERD (gastroesophageal reflux disease) K21.9 Active 055473437 Problem Non-ischemic cardiomyopathy I42.8 Active 99160734 Problem Anxiety F41.9 Active 92128968 ALLERGIES No Information ENCOUNTERS Encounter Location Date Diagnosis [facility] [place] [id number], [place] [address] Nov, [facility] [place] [address], [place] [address] Oct, [facility] [place] [id number] [place] [address] 26808- 6843 Oct, Chronic congestive heart failure, unspecified congestive heart failure type I50.9 [facility] [place] [id number], [place] [address] Oct, Chronic congestive heart failure, unspecified congestive heart failure type I50.9 [facility] [place] [id number] [place] [address] 35907- 9162 Sep, [facility] [place] [id number] [place] [address] 34173- 1936 Aug, Tachycardia R00.0 ; Seizures R56.9 ; Chronic systolic HF ( heart failure) I50.22 ; Non-ischemic cardiomyopathy I42.8 ; 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 and Multiple joint pain M25.50 [facility] [place] [id number] [place] [address] 53494- 8724 Aug, Chronic congestive heart failure, unspecified congestive heart failure type I50.9 [facility] [id number] [place] [address] [id number] July, [facility] [id number] [place] [address] [id number] July, Dental examination Z01.20 [facility] [id number] [place] [address] 75325- 6869 Jun, Seizures R56.9 [facility] [id number] [place] [address] 35003- 1274 May, [facility] [id number] [place] [address] 48276- 6251 28 Apr, 2017 Chronic systolic HF (heart failure) I50.22 ; Essential hypertension I10 and Seizures R56.9 [facility] [id number] [place] [address] 86984- 6089 12 Apr, 2017 [facility] [place] [id number] [place] [address] 33737- 8664 Dec, Seizures R56.9 ; Alcohol abuse F10.10 and Chronic systolic HF (heart failure) I50.22 [facility] [facility] [id number] [place] [address] 22682- 2492 Oct, Chronic congestive heart failure, unspecified congestive heart failure type I50.9 ; Cardiomegaly I51.7 ; Seizures R56.9 and Alcohol abuse F10.10 [facility] [id number] [id number] Sep, Dental examination Z01.20 [facility] [place] [id number] [place] [address] 94591- 5312 Aug, [facility] [facility] [id number] [place] [address] 51272- 9473 July, [facility] [facility] [id number] [place] [address] 97651- 6560 May, [facility] [facility] [id number] [place] [address] 55590- 0728 May, Seizures R56.9 ; Alcohol abuse F10.10 ; CAD (coronary artery disease) I25.10 ; Chronic congestive heart failure, unspecified congestive heart failure type I50.9 ; Mild intermittent asthma without complication J45.20 ; GERD (gastroesophageal reflux disease) K21.9 ; Unspecified abdominal pain R10.9 ; Vomiting, unspecified R11.10 ; Head injury due to trauma, sequela S09.90XS and Pain in left knee M25.562 [place] [id number] [place] [address] 58107- 3652 Apr, [facility] [facility] [id number] [place] [address] 82835- 1267 Mar, [facility] [facility] [id number] [place] [address] 69500- 9914 Mar, [facility] [facility] [id number] [place] [address] 35718- 9406 Mar, Alcohol abuse F10.10 ; Chronic congestive heart failure, unspecified congestive heart failure type I50.9 ; Cardiomegaly I51.7 ; Seizures R56.9 ; Mild intermittent asthma without complication J45.20 ; Anxiety F41.9 ; Essential hypertension I10 ; GERD (gastroesophageal reflux disease) K21.9 ; Pain in left knee M25.562 and Other chronic pain G89.29 [facility] [facility] [id number] [place] [address] 19139- 9485 Mar, [facility] [facility] [id number] [place] [address] 86931- 1908 Nov, GERD (gastroesophageal reflux disease) K21.9 ; Anxiety F41.9 ; Mild intermittent asthma without complication J45.20 ; Essential hypertension I10 ; Cardiomegaly I51.7 ; Seizures R56.9 and Alcohol abuse F10.10 [facility] [facility] [id number] [place] [address] 13570- 8682 Nov, [facility] [facility] [id number] [place] [address] 34897- 5830 Oct, [facility] [facility] [id number] [place] [address] 41384- 2548 Oct, [facility] [facility] [id number] [place] [address] 81405- 9603 Oct, [facility] [facility] [id number] [place] [address] 79557- 4377 Aug, Anxiety F41.[address] [id number] Aug, Lumbar neuritis M54.16 and Anxiety F41.9 [facility] [facility] [id number] [place] [address] 05723- 3706 Jun, CAD (coronary artery disease) I25.10 ; Essential hypertension I10 and Chronic congestive heart failure, unspecified congestive heart failure type I50.[address] [id number] Jun, CAD (coronary artery disease) I25.10 ; Arrhythmia I49.9 ; Anxiety F41.9 and Cardiomegaly I51.7 [facility] [facility] [id number] [place] [address] 82903- 7804 May, [address] [id number] May, Anxiety F41.9 [facility] [facility] [id number] [place] [address] 52944- 4417 Apr, Cardiomegaly I51.7 [facility] [place] [address] 71791- 1386 Mar, Seizures R56.9 ; Cardiomegaly I51.7 ; GERD ( gastroesophageal reflux disease) K21.9 ; Anxiety F41.9 and Alcohol abuse F10.10 [facility] [place] [address] 61252- 8051 Feb, [facility] [place] [address] 80129- 4175 Feb, [place] [address] 14237- 8069 Jan, Chronic congestive heart failure, unspecified congestive heart failure type I50.9 ; Mild intermittent asthma without complication J45.20 and Anxiety F41.9 [place] [address] 21400- 4163 Jan, [facility] [place] [id number] [place] [address] 95209- 6898 Jan, [place] [id number] [place] [address] 63120- 1995 Jan, Essential hypertension I10 ; Chronic congestive heart failure, unspecified congestive heart failure type I50.9 ; Cardiomegaly I51.7 ; Seizures R56.9 ; Alcohol abuse F10.10 ; Anxiety F41.9 and GERD ( gastroesophageal reflux disease) K21.9 [facility] [place] [id number] [place] [address] 58124- 1967 Dec, [facility] [place] [address] 77449- 5826 Dec, [facility] [place] [id number] [place] [address] 40711- 9225 Dec, [facility] [place] [id number] [place] [address] 36567- 2647 Oct, Esophageal reflux 530.81 ; Congestive heart failure, unspecified 428.0 and Seizures 780.39 [facility] [place] [id number] [place] [address] 89199- 4423 Jun, [facility] [place] [id number] [place] [address] 49982- 4596 Jun, [facility] [place] [id number] [place] [address] 46351- 9117 May, [facility] [place] [id number] [place] [address] 92312- 3018 May, [facility] [place] [id number] [place] [address] 35450- 3873 May, [facility] [place] [id number] [place] [address] 69023- 9987 May, [facility] [place] [id number] [place] [address] 75095- 1049 Apr, [facility] [place] [id number] [place] [address] 40998- 9713 Apr, [facility] [place] [id number] [place] [address] 25025- 1112 Apr, [facility] [place] [address], [place] [address]- 5081 Mar, [facility] [place] [address], [place] [address]- 3567 Mar, [facility] [place] [address], [place] [address]- 6386 Mar, [facility] [place] [id number], [place] [address]- 4123 Mar, [facility] [place] [address], [place] [address]- 6521 Mar, [facility] [place] [id number] [place] [address] 16727- 5383 Mar, [facility] [place] [facility] [address] [id number] [place] [address]- 2319 Feb, [facility] [place] [facility] [address] [id number] [place] [address] Feb, [facility] [place] [facility] [address] [id number] [place] [address]- 3630 Jan, [facility] [place] [facility] [address] [id number] [place] [address]- 5715 Jan, [facility] [place] [facility] [address] [id number] [place] [address]- 6797 Dec, [facility] [place] [facility] [address] [id number] [place] [address]- 4509 Dec, [facility] [place] [facility] [address] [id number] [place] [address]- 1470 Nov, [facility] [place] [facility] [address] [id number] [place] [address]- 6417 Nov, [facility] [place] [facility] [address] [id number] [place] [address]- 9265 Nov, [facility] [place] [facility] [address] [id number] [place] [address]- 0758 Nov, [facility] [place] [facility] [address] [id number] [place] [address]- 4038 Nov, [facility] [place] [facility] [address] [id number] [place] [address]- 4301 Nov, [facility] [place] [facility] [address] [id number] [place] [address]- 4027 Oct, [facility] [place] [facility] [address] [id number] [place] [address]- 0729 Oct, [facility] [place] [facility] [address] [id number] [place] [address]- 4632 Jun, [facility] [place] [facility] [address] [id number] [place] [address]- 1244 Jun, [facility] [place] [facility] [address] [id number] [place] [address]- 9951 Jun, [facility] [place] [facility] [address] [id number] [place] [address]- 2426 Jun, [facility] [place] [facility] [address] [id number] [place] [address]- 0079 Jun, [facility] [place] [facility] [address] [id number] [place] [address]- 4573 Jun, [facility] [place] [facility] [address] [id number] [place] [address]- 5869 Jun, [facility] [place] [facility] [address] [id number] [place] [address]- 0877 Jun, [facility] [place] [facility] [address] [id number] [place] [address]- 9454 Apr, [facility] [place] [facility] [address] [id number] [place] [address]- 5366 Apr, [facility] [place] [facility] [address] [id number] [place] [address]- 4327 Apr, [facility] [place] [facility] [address] [id number] [place] [address]- 5618 Apr, [facility] [place] [facility] [address] [id number] [place] [address]- 2288 Mar, [facility] [place] [facility] [address] [id number] [place] [address]25 Mar, [facility] [place] [facility] [address] [id number] [place] [address]- 0921 Feb, [facility] [place] [facility] [address] [id number] [place] [address]- 2076 Feb, [facility] [place] [facility] [address] [id number] [place] [address]- 0611 30 Feb, 2013 [facility] [place] [facility] [address] [id number] [place] 0313 Feb, [facility] [place] [facility] [address] [id number] [place] [address]- 1726 Feb, [facility] [place] [facility] [address] [id number] [place] [address]- 0562 Feb, [facility] [place] [facility] [address] [id number] [place] [address]- 5601 Jan, [facility] [place] [facility] [address] [id number] [place] 6219 Jan, [facility] [place] [facility] [address] [id number] [place] 0264 Jan, [facility] [place] [facility] [address] [id number] [place] [address]- 8646 Jan, [facility] [place] [facility] [address] [id number] [place] [address]- 9702 Dec, [facility] [place] [facility] [address] [id number] [place] [address]- 9482 Dec, [facility] [place] [facility] [address] [id number] [place] [address]- 2257 24 Nov, 2012 [facility] [place] [facility] [address] [id number], [place] [address]- 7451 23 Nov, 2012 [facility] [place] [facility] [address] [id number], [place] [address]- 7297 Oct, [facility] [place] [facility] [address] [id number] [place] [address]- 1142 Oct, [facility] [place] [facility] [address] [id number], [place] [address]- 1190 20 Nov, 2011 [facility] [place] [facility] [address] [id number] [place] [address]- 8203 17 Nov, 2011 [facility] [place] [facility] [address] [facility] [id number] [place] [address]- 6606 10 Oct, 2011 [facility] [place] [address] [facility] [id number], [place] [address]- 7244 Apr, [facility] [place] [address] [facility] [id number], [place] [address]- 8786 Dec, [facility] [place] [address] [facility] [id number], [place] [address]- 6906 Feb, [facility] [place] [address] [facility] [id number], [place] [address]- 8425 Feb, IMMUNIZATIONS No Known Immunizations SOCIAL HISTORY Never Assessed REASON FOR VISIT Refill request PLAN OF CARE VITAL SIGNS MEDICATIONS Medication Instructions Dosage Frequency Start Date End Date Duration Status Sotalol HCl 80 MG Orally twice a day 1 tablet 12h Active RESULTS No Results PROCEDURES No Known [...]
--- OUTSIDE RECORDS SUMMARY | 2018-05-14 15:30 | XMS REPORT ---
Author Author WILLIAM PATTERSON [facility] Address [address] [place] [address] Care Team Providers Care Supervisor Plate Pasting Name Role Phone WILLIAM PATTERSON Unavailable PROBLEMS Type Condition ICD9-CM Code OYW56-CU Code Onset Dates Condition Status SNOMED Code Problem Cardiomegaly I51.7 Active 5338476 Problem Essential hypertension I10 Active 33411521 Problem Mild intermittent asthma without complication J45.20 Active 008294118 Problem Chronic systolic HF (heart failure) I50.22 Active 690526710 Problem Other chronic pain G89.29 Active 17967935 Problem Seizures R56.9 Active 58295442 Problem Alcohol abuse F10.10 Active 98530691 Problem CAD (coronary artery disease) I25.10 Active 56226811 Problem Insomnia G47.00 Active 133591511 Problem 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 Active 697863749 Problem Elevated liver enzymes R74.8 Active 684797233 Problem GERD (gastroesophageal reflux disease) K21.9 Active 088878091 Problem Non-ischemic cardiomyopathy I42.8 Active 59951573 Problem Anxiety F41.9 Active 24759515 ALLERGIES No Information ENCOUNTERS Encounter Location Date Diagnosis [facility] [id number] [address] Dec, [facility] [id number] [address] Oct, [facility] [id number] [place] [address] 32203- 0867 Oct, Chronic congestive heart failure, unspecified congestive heart failure type I50.9 [facility] [id number] [address] Oct, Chronic congestive heart failure, unspecified congestive heart failure type I50.9 [facility] [id number] [place] [address] 86621- 0790 Sep, [facility] [id number] [place] [address] 31732- 9179 Aug, Tachycardia R00.0 ; Seizures R56.9 ; Chronic systolic HF ( heart failure) I50.22 ; Non-ischemic cardiomyopathy I42.8 ; 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 and Multiple joint pain M25.50 [facility] [id number] [place] [address] 99635- 9662 Aug, Chronic congestive heart failure, unspecified congestive heart failure type I50.9 [facility] [id number] [place] [address] [id number] July, [facility] [id number] [place] [address] [id number] July, Dental examination Z01.20 [facility] [id number] [place] [address] 47228- 1251 Jun, Seizures R56.9 [facility] [id number] [place] [address] 74208- 8318 May, [facility] [id number] [place] [address] 99571- 0909 28 Apr, 2017 Chronic systolic HF (heart failure) I50.22 ; Essential hypertension I10 and Seizures R56.9 [facility] [id number] [place] [address] 37937- 1008 12 Apr, 2017 [facility] [id number] [place] [address] 29057- 2955 Dec, Seizures R56.9 ; Alcohol abuse F10.10 and Chronic systolic HF (heart failure) I50.22 [facility] [id number] [place] [address] 82993- 7917 Oct, Chronic congestive heart failure, unspecified congestive heart failure type I50.9 ; Cardiomegaly I51.7 ; Seizures R56.9 and Alcohol abuse F10.10 [facility] [id number] [id number] Sep, Dental examination Z01.20 [facility] [id number] [place] [address] 31008- 4197 Aug, [facility] [id number] [place] [address] 02001- 6291 July, [facility] [id number] [place] [address] 18009- 9485 May, [facility] [id number] [place] [address] 08617- 7751 May, Seizures R56.9 ; Alcohol abuse F10.10 ; CAD (coronary artery disease) I25.10 ; Chronic congestive heart failure, unspecified congestive heart failure type I50.9 ; Mild intermittent asthma without complication J45.20 ; GERD (gastroesophageal reflux disease) K21.9 ; Unspecified abdominal pain R10.9 ; Vomiting, unspecified R11.10 ; Head injury due to trauma, sequela S09.90XS and Pain in left knee M25.562 [facility] [id number] [place] [address] 05480- 1764 Apr, [facility] [id number] [place] [address] 35424- 1691 Mar, [facility] [id number] [place] [address] 87319- 3033 Mar, [facility] [id number] [place] [address] 51598- 8944 Mar, Alcohol abuse F10.10 ; Chronic congestive heart failure, unspecified congestive heart failure type I50.9 ; Cardiomegaly I51.7 ; Seizures R56.9 ; Mild intermittent asthma without complication J45.20 ; Anxiety F41.9 ; Essential hypertension I10 ; GERD (gastroesophageal reflux disease) K21.9 ; Pain in left knee M25.562 and Other chronic pain G89.29 [facility] [id number] [place] [address] 40948- 2522 Mar, [facility] [id number] [place] [address] 87078- 0096 Nov, GERD (gastroesophageal reflux disease) K21.9 ; Anxiety F41.9 ; Mild intermittent asthma without complication J45.20 ; Essential hypertension I10 ; Cardiomegaly I51.7 ; Seizures R56.9 and Alcohol abuse F10.10 [facility] [id number] [place] [address] 75951- 5822 Nov, [facility] [id number] [place] [address] 33004- 0092 Oct, [facility] [id number] [place] [address] 05313- 6427 Oct, [facility] [id number] [place] [address] 76906- 1842 Oct, [facility] [id number] [place] [address] 46910- 2842 Aug, Anxiety F41.[address] [id number] Aug, Lumbar neuritis M54.16 and Anxiety F41.9 [facility] [id number] [place] [address] 54029- 3438 Jun, CAD (coronary artery disease) I25.10 ; Essential hypertension I10 and Chronic congestive heart failure, unspecified congestive heart failure type I50.[address] [id number] Jun, CAD (coronary artery disease) I25.10 ; Arrhythmia I49.9 ; Anxiety F41.9 and Cardiomegaly I51.7 [facility] [id number] [place] [address] 82940- 6167 May, [address] [id number] May, Anxiety F41.9 [facility] [id number] [place] [address] 16912- 7135 Apr, Cardiomegaly I51.7 [facility] [address] 84341- 8953 Mar, Seizures R56.9 ; Cardiomegaly I51.7 ; GERD ( gastroesophageal reflux disease) K21.9 ; Anxiety F41.9 and Alcohol abuse F10.10 [facility] [address] 72516- 7826 Feb, [facility] [address] 51048- 9891 Feb, [facility] [facility] [address] 32013- 8784 Jan, Chronic congestive heart failure, unspecified congestive heart failure type I50.9 ; Mild intermittent asthma without complication J45.20 and Anxiety F41.9 [facility] [address] 75538- 5344 Jan, [facility] [id number] [place] [address] 94306- 0519 Jan, [facility] [id number] [place] [address] 77390- 6125 Jan, Essential hypertension I10 ; Chronic congestive heart failure, unspecified congestive heart failure type I50.9 ; Cardiomegaly I51.7 ; Seizures R56.9 ; Alcohol abuse F10.10 ; Anxiety F41.9 and GERD ( gastroesophageal reflux disease) K21.9 [facility] [id number] [place] [address] 95302- 0146 Dec, [facility] [address] 15823- 6304 Dec, [facility] [id number] [place] [address] 28277- 2209 Dec, [facility] [id number] [place] [address] 06876- 6032 Oct, Esophageal reflux 530.81 ; Congestive heart failure, unspecified 428.0 and Seizures 780.39 [facility] [id number] [place] [address] 75136- 1940 Jun, [facility] [place] [id number] [place] [address] 30073- 3396 Jun, [facility] [id number] [place] [address] 73358- 9441 May, [facility] [id number] [place] [address] 37645- 9267 May, [facility] [id number] [place] [address] 06974- 4104 May, [facility] [id number] [place] [address] 20767- 1477 May, [facility] [id number] [place] [address] 75629- 0375 Apr, [facility] [id number] [place] [address] 62892- 1872 Apr, [facility] [id number] [place] [address] 64792- 5949 Apr, [facility] [address] [address]- 3763 Mar, [facility] [address], [place] [address]- 5259 Mar, [facility] [address], [place] [address]- 6217 Mar, [facility] [id number], [place] [address]- 7063 Mar, [facility] [address] [address]- 7263 Mar, [facility] [id number] [place] [address] 14372- 4538 Mar, [facility] [place] [facility] [address] [id number] [place] [address]- 4869 Feb, [facility] [place] [facility] [address] [id number] [place] Feb, [facility] [place] [facility] [address] [id number] [place] [address]- 8583 Jan, [facility] [place] [facility] [address] [id number] [place] [address]- 3858 Jan, [facility] [place] [facility] [address] [id number] [place] [address]- 1341 Dec, [facility] [place] [facility] [address] [id number] [place] [address]- 6945 Dec, [facility] [place] [facility] [address] [id number] [place] [address]- 8846 Nov, [facility] [place] [facility] [address] [id number] [place] [address]- 7611 Nov, [facility] [place] [facility] [address] [id number] [place] [address]- 6512 Nov, [facility] [place] [facility] [address] [id number] [place] [address]- 9509 Nov, [facility] [place] [facility] [address] [id number] [place] [address]- 5978 Nov, [facility] [place] [facility] [address] [id number] [place] [address]- 6669 Nov, [facility] [place] [facility] [address] [id number] [place] [address]- 3577 Oct, [facility] [place] [facility] [address] [id number] [place] [address]- 8452 Oct, [facility] [place] [facility] [address] [id number] [place] [address]- 8594 Jun, [facility] [place] [facility] [address] [id number] [place] [address]- 1187 Jun, [facility] [place] [facility] [address] [id number] [place] [address]- 7216 Jun, [facility] [place] [facility] [address] [id number] [place] [address]- 1442 Jun, [facility] [place] [facility] [address] [id number] [place] [address]- 4992 Jun, [facility] [place] [facility] [address] [id number] [place] [address]- 1441 Jun, [facility] [place] [facility] [address] [id number] [place] [address]- 7498 Jun, [facility] [place] [facility] [address] [id number] [place] [address]- 8263 Jun, [facility] [place] [facility] [address] [id number] [place] [address]- 4435 Apr, [facility] [place] [facility] [address] [id number] [place] [address]- 1775 Apr, [facility] [place] [facility] [address] [id number] [place] [address]- 8232 Apr, [facility] [place] [facility] [address] [id number] [place] [address]- 3125 Apr, [facility] [place] [facility] [address] [id number] [place] [address]- 5285 Mar, [facility] [place] [facility] [address] [id number] [place] 9952 Mar, [facility] [place] [facility] [address] [id number] [place] [address]- 8569 Feb, [facility] [place] [facility] [address] [id number] [place] [address]- 5356 Feb, [facility] [place] [facility] [address] [id number] [place] [address]- 8717 30 Feb, 2013 [facility] [place] [facility] [address] [id number] [place] 1521 Feb, [facility] [place] [facility] [address] [id number] [place] [address]- 7192 Feb, [facility] [place] [facility] [address] [id number] [place] [address]- 8500 Feb, [facility] [place] [facility] [address] [id number] [place] [address]- 1029 Jan, [facility] [place] [facility] [address] [id number] [place] 4085 Jan, [facility] [place] [facility] [address] [id number] [place]- 8394 Jan, [facility] [place] [facility] [address] [id number] [place] [address]- 4489 Jan, [facility] [place] [facility] [address] [id number] [place] [address]- 3782 Dec, [facility] [place] [facility] [address] [id number] [place] [address]- 0924 Dec, [facility] [place] [facility] [address] [id number] [place] [address]- 2228 24 Nov, 2012 [facility] [place] [facility] [address] [id number] [address]- 2572 23 Nov, 2012 [facility] [place] [facility] [address] [id number], [place] [address]- 8756 Oct, [facility] [place] [facility] [address] [id number] [place] [address]- 4251 Oct, [facility] [place] [facility] [address] [id number], [place] [address]- 3283 20 Nov, 2011 [facility] [place] [facility] [address] [id number] [place] [address]- 8044 17 Nov, 2011 [facility] [place] [facility] [address] [facility] [id number] [place] [address]- 2546 Oct, [facility] [address] [facility] [id number], [place] [address]- 1769 Apr, [facility] [address] [facility] [id number] [address]- 8156 Dec, [facility] [address] [facility] [id number] [address] Feb, [facility] [address] [facility] [id number] [address]- 0670 Feb, IMMUNIZATIONS No Known Immunizations SOCIAL HISTORY Never Assessed REASON FOR VISIT med refill PLAN OF CARE VITAL SIGNS MEDICATIONS Medication Instructions Dosage Frequency Start Date End Date Duration Status Metoprolol Tartrate 25 MG Orally Twice a day 1/2 tablet with food 12h Aug, 30 days Active RESULTS No Results PROCEDURES No [...]
--- OUTSIDE RECORDS SUMMARY | 2018-05-14 15:30 | XMS REPORT ---
Author Author MIGUEL ÁNGEL RANDLE [facility] Address Unknown Care Team Providers Care Manager Equipment Name Role Phone MIGUEL ÁNGEL RANDLE Unavailable PROBLEMS Type Condition ICD9-CM Code XSL11-DS Code Onset Dates Condition Status SNOMED Code Problem Cardiomegaly I51.7 Active 4959022 Problem Essential hypertension I10 Active 78405619 Problem Mild intermittent asthma without complication J45.20 Active 510417568 Problem Chronic systolic HF (heart failure) I50.22 Active 049206367 Problem Other chronic pain G89.29 Active 16174487 Problem Seizures R56.9 Active 47721072 Problem Alcohol abuse F10.10 Active 41620558 Problem CAD (coronary artery disease) I25.10 Active 75537380 Problem Insomnia G47.00 Active 122297694 Problem 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 Active 451526634 Problem Elevated liver enzymes R74.8 Active 973814004 Problem GERD (gastroesophageal reflux disease) K21.9 Active 312526306 Problem Non-ischemic cardiomyopathy I42.8 Active 43138936 Problem Anxiety F41.9 Active 64777542 ALLERGIES No Information ENCOUNTERS Encounter Location Date Diagnosis [facility] [address] [address] Dec, [facility] [id number] [place] [address]65- 0900 Oct, [facility] [address] [address] Oct, Chronic congestive heart failure, unspecified congestive heart failure type I50.9 [facility] [id number] [place] [address]996- 6126 Oct, Chronic congestive heart failure, unspecified congestive heart failure type I50.9 [facility] [id number] [place] [address] 33732- 6119 Sep, [facility] [id number] [place] [address] 21849- 7792 Aug, Tachycardia R00.0 ; Seizures R56.9 ; Chronic systolic HF ( heart failure) I50.22 ; Non-ischemic cardiomyopathy I42.8 ; 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 and Multiple joint pain M25.50 [facility] [address] [address] Aug, Chronic congestive heart failure, unspecified congestive heart failure type I50.9 [facility] [address] [id number] July, [facility] [address] [id number] July, Dental examination Z01.20 [place] [address] [address]- [address] Jun, Seizures R56.9 [place] [address] [address]- [address] May, [place] [address] [address]- [address] 28 Apr, 2017 Chronic systolic HF (heart failure) I50.22 ; Essential hypertension I10 and Seizures R56.9 [place] [address] [address]- 265[address] Apr, [place] [id number] [place] [address] 70262- 6456 Dec, Seizures R56.9 ; Alcohol abuse F10.10 and Chronic systolic HF (heart failure) I50.22 [place] [id number] [place] [address] 70144- 5936 Oct, Chronic congestive heart failure, unspecified congestive heart failure type I50.9 ; Cardiomegaly I51.7 ; Seizures R56.9 and Alcohol abuse F10.10 [facility] [id number] [id number] Sep, Dental examination Z01.20 [place] [id number] [place] [address] 52355- 1153 Aug, [place] [id number] [place] [address] 29099- 5846 July, [place] [id number] [place] [address] 34241- 1410 May, [place] [id number] [place] [address] 91966- 3283 May, Seizures R56.9 ; Alcohol abuse F10.10 ; CAD (coronary artery disease) I25.10 ; Chronic congestive heart failure, unspecified congestive heart failure type I50.9 ; Mild intermittent asthma without complication J45.20 ; GERD (gastroesophageal reflux disease) K21.9 ; Unspecified abdominal pain R10.9 ; Vomiting, unspecified R11.10 ; Head injury due to trauma, sequela S09.90XS and Pain in left knee M25.562 [place] [id number] [place] [address] 32222- 1011 Apr, [place] [id number] [place] [address] 03266- 9355 Mar, [place] [id number] [place] [address] 39456- 7292 Mar, [place] [id number] [place] [address] 21497- 3910 Mar, Alcohol abuse F10.10 ; Chronic congestive heart failure, unspecified congestive heart failure type I50.9 ; Cardiomegaly I51.7 ; Seizures R56.9 ; Mild intermittent asthma without complication J45.20 ; Anxiety F41.9 ; Essential hypertension I10 ; GERD (gastroesophageal reflux disease) K21.9 ; Pain in left knee M25.562 and Other chronic pain G89.29 [place] [id number] [place] [address] 78963- 5811 Mar, [place] [address] 35657- 5226 Nov, GERD (gastroesophageal reflux disease) K21.9 ; Anxiety F41.9 ; Mild intermittent asthma without complication J45.20 ; Essential hypertension I10 ; Cardiomegaly I51.7 ; Seizures R56.9 and Alcohol abuse F10.10 [place] [address] 37449- 4332 Nov, [place] [address] 56216- 2489 Oct, [place] [address] 74604- 9910 Oct, [place] [address] 6[address]19- 1167 Oct, [place] [address] 40863- 5634 Aug, Anxiety F41.[address] [id number] Aug, Lumbar neuritis M54.16 and Anxiety F41.9 [place] [address] 05478- 7079 Jun, CAD (coronary artery disease) I25.10 ; Essential hypertension I10 and Chronic congestive heart failure, unspecified congestive heart failure type I50.[address] [id number] Jun, CAD (coronary artery disease) I25.10 ; Arrhythmia I49.9 ; Anxiety F41.9 and Cardiomegaly I51.7 [place] [address] 24656- 9027 May, [address] [id number] May, Anxiety F41.9 [place] [address] 22781- 9474 Apr, Cardiomegaly I51.7 [place] [address] 31016- 9347 Mar, Seizures R56.9 ; Cardiomegaly I51.7 ; GERD ( gastroesophageal reflux disease) K21.9 ; Anxiety F41.9 and Alcohol abuse F10.10 [place] [address] 72398- 3798 Feb, [place] [address] 55053- 3578 Feb, [place] [address] 09171- 6365 Jan, Chronic congestive heart failure, unspecified congestive heart failure type I50.9 ; Mild intermittent asthma without complication J45.20 and Anxiety F41.9 [place] [address] 14758- 8390 Jan, [place] [address] 20164- 9849 Jan, [place] [address] 33092- 1470 Jan, Essential hypertension I10 ; Chronic congestive heart failure, unspecified congestive heart failure type I50.9 ; Cardiomegaly I51.7 ; Seizures R56.9 ; Alcohol abuse F10.10 ; Anxiety F41.9 and GERD ( gastroesophageal reflux disease) K21.9 [place] [id number] [place] [address] 68500- 3972 Dec, [place] [address] 18378- 4381 Dec, [place] [address] 28645- 5180 Dec, [place] [address] 26900- 8225 Oct, Esophageal reflux 530.81 ; Congestive heart failure, unspecified 428.0 and Seizures 780.39 [facility] [address] [address] Jun, [facility] [address], [place] [address] 8483 Jun, [facility] [address] [address] May, [facility] [address] [address] 4488 May, [facility] [id number] [place] [address] 89974- 4756 May, [facility] [id number] [address] 479[address] May, [facility] [address] [place] [address] 33085- 4518 Apr, [facility] [address], [place] [address]- 4250 Apr, [facility] [address], [place] [address]- 7341 Apr, [facility] [address], [place] [address]- 8693 Mar, [facility] [address], [place] [address]- 5977 Mar, [facility] [address] [address]- 8857 Mar, [facility] [address], [place] [address]- 0815 Mar, [facility] [address] [address] Mar, [facility] [address] [address] Mar, [facility] [place] [facility] [address] [id number] [place] [address]- 1142 Feb, [facility] [place] [facility] [address] [id number] [place] [address]- 9862 Feb, [facility] [place] [facility] [address] [id number] [place] [address]- 5248 Jan, [facility] [place] [facility] [address] [id number] [place] [address]- 3098 Jan, [facility] [place] [facility] [address] [id number] [place] [address]- 8704 Dec, [facility] [place] [facility] [address] [id number] [place] [address]- 0354 Dec, [facility] [place] [facility] [address] [id number] [place] [address]- 0495 Nov, [facility] [place] [facility] [address] [id number] [place] [address]- 7446 Nov, [facility] [place] [facility] [address] [id number] [place] [address]- 5794 Nov, [facility] [place] [facility] [address] [id number] [place] [address]- 4475 Nov, [facility] [place] [facility] [address] [id number] [place] [address]- 6935 Nov, [facility] [place] [facility] [address] [id number] [place] [address]- 9173 Nov, [facility] [place] [facility] [address] [id number] [place] [address]- 6959 Oct, [facility] [place] [facility] [address] [id number] [place] [address]- 7127 Oct, [facility] [place] [facility] [address] [id number] [place] [address]- 2875 Jun, [facility] [place] [facility] [address] [id number] [place] [address]- 7255 Jun, [facility] [place] [facility] [address] [id number] [place] [address]- 2105 Jun, [facility] [place] [facility] [address] [id number] [place] [address]- 8894 Jun, [facility] [place] [facility] [address] [facility] [id number] [place] [address]- 1528 Jun, [facility] [place] [facility] [address] [id number] [place] [address]- 3787 Jun, [facility] [place] [facility] [address] [id number] [place] [address]- 8751 Jun, [facility] [place] [facility] [address] [id number] [place] [address]- 7949 Jun, [facility] [place] [facility] [address] [id number] [place] [address]- 0328 Apr, [facility] [place] [facility] [address] [id number] [place] [address]- 3058 Apr, [facility] [place] [facility] [address] [id number] [place] [address]- 5490 Apr, [facility] [place] [facility] [address] [facility] [id number] [place] [address]- 2861 Apr, [facility] [place] [facility] [address] [id number] [place] [address]- 4438 Mar, [facility] [place] [facility] [address] [id number] [place] [address]- 4243 Mar, [facility] [place] [facility] [address] [id number] [place] [address]- 2086 Feb, [facility] [place] [facility] [address] [id number] [place] 0819 Feb, [facility] [place] [facility] [address] [facility] [id number] [place] [address]89 Feb, [facility] [place] [facility] [address] [id number] [place] [address]- 0682 18 Feb, 2013 [facility] [place] [facility] [address] [id number] [place] [address]- 0353 Feb, [facility] [place] [facility] [address] [id number] [place] [address]- 5856 Feb, [facility] [place] [facility] [address] [id number] [place] [address]- 3000 Jan, [facility] [place] [facility] [address] [id number] [place] [address]- 7797 Jan, [facility] [place] [facility] [address] [id number] [place] [address]- 4392 Jan, [facility] [place] [facility] [address] [id number] [place] [address] Jan, [facility] [place] [facility] [address] [id number] [place] [address]- 1037 Dec, [facility] [place] [facility] [address] [id number] [place] [address]- 2186 Dec, [facility] [place] [facility] [address] [id number] [place] [address]- 7479 24 Nov, 2012 [facility] [place] [facility] [address] [id number] [place] [address]- 5392 Nov, [facility] [place] [facility] [address] [id number] [place] [address]- 9418 Oct, [facility] [place] [facility] [address] [id number] [place] [address]- 5437 Oct, [facility] [place] [facility] [address] [id number] [place] [address]- 8257 20 Nov, 2011 [facility] [place] [facility] [address] [id number] [place] [address]- 7956 17 Nov, 2011 [facility] [place] [facility] [address] [id number] [place] [address]- 8443 Oct, [facility] [address] [facility] [id number] [address]- 2546 Apr, [facility] [address] [facility] [id number], [place] [address]- 2546 Dec, [facility] [address] [facility] [id number], [place] [address]- 2546 Feb, [facility] [address] [facility] [id number], [place] [address]- 2546 Feb, IMMUNIZATIONS No Known Immunizations SOCIAL HISTORY Never Assessed REASON FOR VISIT PLAN OF CARE VITAL SIGNS MEDICATIONS Medication Instructions Dosage Frequency Start Date End Date Duration Status Amoxicillin 500 mg Orally every 8 hrs 1 capsule 8h July, July, 07 days Active RESULTS No Results PROCEDURES No [...]
--- OUTSIDE RECORDS SUMMARY | 2018-05-14 15:31 | XMS REPORT ---
Author Author WILLIAM PATTERSON Organization [facility] Address [address] [place] [address] Care Team Providers Care X Ray Inspector Name Role Phone WILLIAM PATTERSON Unavailable PROBLEMS Type Condition ICD9-CM Code LXI79-ZE Code Onset Dates Condition Status SNOMED Code Problem Cardiomegaly I51.7 Active 5683673 Problem Essential hypertension I10 Active 88936703 Problem Mild intermittent asthma without complication J45.20 Active 973926786 Problem Chronic systolic HF (heart failure) I50.22 Active 055423604 Problem Other chronic pain G89.29 Active 68903859 Problem Seizures R56.9 Active 20112953 Problem Alcohol abuse F10.10 Active 56604514 Problem CAD (coronary artery disease) I25.10 Active 46842991 Problem Insomnia G47.00 Active 928344682 Problem 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 Active 176155163 Problem Elevated liver enzymes R74.8 Active 627890224 Problem GERD (gastroesophageal reflux disease) K21.9 Active 925363370 Problem Non-ischemic cardiomyopathy I42.8 Active 95981117 Problem Anxiety F41.9 Active 51138292 ALLERGIES No Known Allergies ENCOUNTERS Encounter Location Date Diagnosis [facility] [id number] [address] Nov, [facility] [id number] [address] Oct, Chronic congestive heart failure, unspecified congestive heart failure type I50.9 [facility] [id number] [address] Sep, [facility] [id number] [address] Aug, Tachycardia R00.0 ; Seizures R56.9 ; Chronic systolic HF ( heart failure) I50.22 ; Non-ischemic cardiomyopathy I42.8 ; 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 and Multiple joint pain M25.50 [facility] [id number] [place] [address] Aug, Chronic congestive heart failure, unspecified congestive heart failure type I50.9 [facility] [id number] [place] [id number] July, [facility] [address] [id number] July, Dental examination Z01.20 [place] [address] [address] Jun, Seizures R56.9 [place] [address] [address] May, [place] [address] [address] Apr, Chronic systolic HF (heart failure) I50.22 ; Essential hypertension I10 and Seizures R56.9 [place] [address] [address] Apr, [place] [id number] [place] [address] Dec, Seizures R56.9 ; Alcohol abuse F10.10 and Chronic systolic HF (heart failure) I50.22 [place] [id number] [place] [address] Oct, Chronic congestive heart failure, unspecified congestive heart failure type I50.9 ; Cardiomegaly I51.7 ; Seizures R56.9 and Alcohol abuse F10.10 [facility] [id number] [place] [id number] Sep, Dental examination Z01.20 [place] [address] [address] Aug, [place] [id number] [place] [address] July, [place] [address] [address] May, [place] [address] [address] May, Seizures R56.9 ; Alcohol abuse F10.10 ; CAD (coronary artery disease) I25.10 ; Chronic congestive heart failure, unspecified congestive heart failure type I50.9 ; Mild intermittent asthma without complication J45.20 ; GERD (gastroesophageal reflux disease) K21.9 ; Unspecified abdominal pain R10.9 ; Vomiting, unspecified R11.10 ; Head injury due to trauma, sequela S09.90XS and Pain in left knee M25.[address] [address] Apr, [address] [address] Mar, [address] [address] Mar, [place] [id number] [place] [address]- [address] Mar, Alcohol abuse F10.10 ; Chronic congestive heart failure, unspecified congestive heart failure type I50.9 ; Cardiomegaly I51.7 ; Seizures R56.9 ; Mild intermittent asthma without complication J45.20 ; Anxiety F41.9 ; Essential hypertension I10 ; GERD (gastroesophageal reflux disease) K21.9 ; Pain in left knee M25.562 and Other chronic pain G89.[address] [address] Mar, [address] [address]- [address] 08 Nov, 2015 GERD (gastroesophageal reflux disease) K21.9 ; Anxiety F41.9 ; Mild intermittent asthma without complication J45.20 ; Essential hypertension I10 ; Cardiomegaly I51.7 ; Seizures R56.9 and Alcohol abuse F10.10 [place] [id number] [place] [address]- [address] Nov, [place] [id number] [place] [address]- [address] Oct, [place] [address] [address]- [address] Oct, [place] [id number] [place] [address]- [address] Oct, [place] [id number] [place] [address]- [address] Aug, Anxiety F41.[address] [id number] Aug, Lumbar neuritis M54.16 and Anxiety F41.9 [place] [id number] [place] [address]- [address] Jun, CAD (coronary artery disease) I25.10 ; Essential hypertension I10 and Chronic congestive heart failure, unspecified congestive heart failure type I50.[address] [id number] Jun, CAD (coronary artery disease) I25.10 ; Arrhythmia I49.9 ; Anxiety F41.9 and Cardiomegaly I51.7 [place] [id number] [place] [address]- [address] May, [address] [id number] May, Anxiety F41.9 [place] [id number] [place] [address]- 4[address] Apr, Cardiomegaly I51.7 [place] [id number] [place] [address]- 4955 Mar, Seizures R56.9 ; Cardiomegaly I51.7 ; GERD ( gastroesophageal reflux disease) K21.9 ; Anxiety F41.9 and Alcohol abuse F10.10 [place] [id number] [place] [address]- 9799 Feb, [place] [address] [address] Feb, [place] [address] [address]- [address] Jan, Chronic congestive heart failure, unspecified congestive heart failure type I50.9 ; Mild intermittent asthma without complication J45.20 and Anxiety F41.[address] [address]- [address] Jan, [place] [address] [address]- [address] Jan, [place] [address] [address]- [address] Jan, Essential hypertension I10 ; Chronic congestive heart failure, unspecified congestive heart failure type I50.9 ; Cardiomegaly I51.7 ; Seizures R56.9 ; Alcohol abuse F10.10 ; Anxiety F41.9 and GERD ( gastroesophageal reflux disease) K21.9 [place] [id number] [place] [address]62- [address]74 Dec, [place] [address] [address]- [address] Dec, [place] [address] 47532- 5939 Dec, [place] [address] 30[address]- 2786 Oct, Esophageal reflux 530.81 ; Congestive heart failure, unspecified 428.0 and Seizures 780.39 [place] [address] 7[address]- [address]201 Jun, [place] [address] [address]- [address] Jun, [facility] [place] [facility] [address] [id number] [place] [address] May, [facility] [place] [facility] [address] [id number] [place] [address]- [address]80 May, [facility] [place] [facility] [address] [id number] [place] [address]- 6767 May, [facility] [place] [facility] [address] [id number] [place] [address]- 0870 May, [facility] [place] [facility] [address] [id number] [place] [address]- 4266 Apr, [facility] [place] [facility] [address] [id number] [place] [address]- 9640 Apr, [facility] [place] [facility] [address] [id number] [place] [address]- 3771 Apr, [facility] [place] [facility] [address] [id number] [place] [address]- [address]387 Mar, [facility] [place] [facility] [address] [id number] [place] [address]- 3[address] Mar, [facility] [place] [facility] [address] [facility] [id number] [place] [address]- 7759 Mar, [facility] [place] [facility] [address] [id number] [place] [address]- 2033 Mar, [facility] [place] [facility] [address] [id number] [place] [address]- 8446 Mar, [facility] [place] [facility] [address] [id number] [place] [address]- 9576 Mar, [facility] [place] [facility] [address] [id number] [place] [address]- 0716 Feb, [facility] [place] [facility] [address] [id number] [place] [address]- 6069 Feb, [facility] [place] [facility] [address] [id number] [place] [address]- 3728 Jan, [facility] [place] [facility] [address] [id number] [place] [address]- 5700 Jan, [facility] [place] [facility] [address] [id number] [place] [address]- 8850 Dec, [facility] [place] [facility] [address] [id number] [place] [address]- 9241 Dec, [facility] [place] [facility] [address] [id number] [place] [address]- 5391 Nov, [facility] [place] [facility] [address] [id number] [place] [address]- 9553 Nov, [facility] [place] [facility] [address] [id number] [place] [address]- 5544 Nov, [facility] [place] [facility] [address] [id number] [place] [address]- 5016 Nov, [facility] [place] [facility] [address] [id number] [place] [address]- 9986 Nov, [facility] [place] [facility] [address] [id number] [place] [address]- 9107 Nov, [facility] [place] [facility] [address] [id number] [place] [address]- 3818 Oct, [facility] [place] [facility] [address] [id number] [place] [address]- 7849 Oct, [facility] [place] [facility] [address] [id number] [place] [address]- 1820 Jun, [facility] [place] [facility] [address] [id number] [place] [address]- 2845 Jun, [facility] [place] [facility] [address] [id number] [place] [address]- 8891 Jun, [facility] [place] [facility] [address] [id number] [place] [address]- 8857 Jun, [facility] [place] [facility] [address] [id number] [place] [address]- 6066 Jun, [facility] [place] [facility] [address] [id number] [place] [address]- 1034 Jun, [facility] [place] [facility] [address] [id number] [place] [address]- 3402 Jun, [facility] [place] [facility] [address] [id number] [place] [address]- 8298 Jun, [facility] [place] [facility] [address] [id number] [place] [address]- 0737 Apr, [facility] [place] [facility] [address] [id number] [place] [address]- 7119 Apr, [facility] [place] [facility] [address] [id number] [place] [address]- 9789 Apr, [facility] [place] [facility] [address] [id number] [place] [address]- 7627 Apr, [facility] [place] [facility] [address] [id number] [place] [address]- 1825 Mar, [facility] [place] [facility] [address] [id number] [place] [address]- 5231 Mar, [facility] [place] [facility] [address] [id number] [place] [address]- 2710 31 Feb, 2013 [facility] [place] [facility] [address] [id number] [place] [address]- 0252 31 Feb, 2013 [facility] [place] [facility] [address] [id number] [place] [address]- 2054 30 Feb, 2013 [facility] [place] [facility] [address] [id number] [place] [address] 18 Feb, 2013 [facility] [place] [facility] [address] [id number] [place] [address] 17 Feb, 2013 [facility] [place] [facility] [address] [id number] [place] [address]- 4129 Feb, [facility] [place] [facility] [address] [id number] [place] [address]- 5864 Jan, [facility] [place] [facility] [address] [id number] [place] [address]- 6776 Jan, [facility] [place] [facility] [address] [id number] [place] [address]- 8692 Jan, [facility] [place] [facility] [address] [id number] [place] [address]- 2902 Jan, [facility] [place] [facility] [address] [id number] [place] [address]- 0754 Dec, [facility] [place] [facility] [address] [id number] [place] [address]- 3389 Dec, [facility] [place] [facility] [address] [id number] [place] [address]- 1732 Nov, [facility] [place] [facility] [address] [id number] [place] [address]- 7709 Nov, [facility] [place] [facility] [address] [id number] [place] [address]- 3079 Oct, [facility] [place] [facility] [address] [id number] [place] [address]- 2841 Oct, [facility] [place] [facility] [address] [id number] [place] [address]- 1160 Nov, [facility] [place] [facility] [address] [id number] [place] [address]- 9997 17 Nov, 2011 [facility] [place] [facility] [address] [id number] [place] [address]- 1344 Oct, [facility] [place] [facility] [address] [id number] [place] [address]- 2546 Apr, [facility] [place] [facility] [address] [id number] [place] [address]- 7416 Dec, [facility] [address] [facility] [id number] [place] [address]- 5533 Feb, [facility] [address] [facility] [id number] [place] [address]- 7576 Feb, IMMUNIZATIONS No Known Immunizations SOCIAL HISTORY Never Assessed REASON FOR VISIT Seizure f/u -- talib layton PLAN OF CARE Activity Details Follow Up 2 Months with Lonnie for f.u seizures Reason: VITAL SIGNS Height 71 in 2017-09-05 Weight 169.0 lbs 2017-09-05 Temperature 98.0 degrees Fahrenheit 2017-09-05 Heart Rate 76 bpm 2017-09-05 Respiratory Rate 18 2017-09-05 BMI 23.57 kg/m2 2017-09-05 Blood pressure systolic 126 mmHg 2017-09-05 Blood pressure diastolic 70 mmHg 2017-09-05 MEDICATIONS Medication Instructions Dosage Frequency Start Date End Date Duration Status Keppra 500 mg Orally 3 times a day 1 tablet 8h Active Metoprolol Tartrate 25 MG Orally Twice a day 1/2 tablet with food 12h Aug, Active Enalapril Maleate 2.5 MG Orally Once a day 1 tablet 24h Active Sotalol HCl 80 MG Orally twice [...]
--- OUTSIDE RECORDS SUMMARY | 2018-05-14 15:31 | XMS REPORT ---
Author Author WILLIAM PATTERSON [facility] Address [address] [place] [address] Care Team Providers Care Peripheral Equipment Operator Name Role Phone WILLIAM PATTERSON Unavailable PROBLEMS Type Condition ICD9-CM Code BAU80-VC Code Onset Dates Condition Status SNOMED Code Problem Cardiomegaly I51.7 Active 1073151 Problem Essential hypertension I10 Active 44591398 Problem Mild intermittent asthma without complication J45.20 Active 079310735 Problem Chronic systolic HF (heart failure) I50.22 Active 609094831 Problem Other chronic pain G89.29 Active 42314733 Problem Seizures R56.9 Active 11759004 Problem Alcohol abuse F10.10 Active 05296319 Problem CAD (coronary artery disease) I25.10 Active 13445704 Problem Insomnia G47.00 Active 149290422 Problem 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 Active 622050236 Problem Elevated liver enzymes R74.8 Active 810207085 Problem GERD (gastroesophageal reflux disease) K21.9 Active 039945285 Problem Non-ischemic cardiomyopathy I42.8 Active 91376100 Problem Anxiety F41.9 Active 27964563 ALLERGIES No Information ENCOUNTERS Encounter Location Date Diagnosis [facility] [id number] [address] Nov, [facility] [id number], [place] [address] Oct, Chronic congestive heart failure, unspecified congestive heart failure type I50.9 [facility] [id number], [place] [address] Sep, [facility] [id number], [place] [address] Aug, Tachycardia R00.0 ; Seizures R56.9 ; Chronic systolic HF ( heart failure) I50.22 ; Non-ischemic cardiomyopathy I42.8 ; 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 and Multiple joint pain M25.50 [facility] [id number] [place] [address] Aug, Chronic congestive heart failure, unspecified congestive heart failure type I50.9 [facility] [id number] [place] [id number] July, [facility] [address] [id number] July, Dental examination Z01.20 [address] [address] Jun, Seizures R56.9 [place] [address] [address] May, [place] [address] [address] Apr, Chronic systolic HF (heart failure) I50.22 ; Essential hypertension I10 and Seizures R56.9 [place] [address] [address]- [address] Apr, [facility] [id number] [place] [address]- 5555 Dec, Seizures R56.9 ; Alcohol abuse F10.10 and Chronic systolic HF (heart failure) I50.22 [facility] [id number] [place] [address]- [address]18 Oct, Chronic congestive heart failure, unspecified congestive heart failure type I50.9 ; Cardiomegaly I51.7 ; Seizures R56.9 and Alcohol abuse F10.10 [facility] [id number] [place] [id number] Sep, Dental examination Z01.20 [facility] [address] [address] Aug, [place] [id number] [place] [address]- [address]23 July, [place] [address] [address] May, [place] [address] [address]- [address] May, Seizures R56.9 ; Alcohol abuse F10.10 ; CAD (coronary artery disease) I25.10 ; Chronic congestive heart failure, unspecified congestive heart failure type I50.9 ; Mild intermittent asthma without complication J45.20 ; GERD (gastroesophageal reflux disease) K21.9 ; Unspecified abdominal pain R10.9 ; Vomiting, unspecified R11.10 ; Head injury due to trauma, sequela S09.90XS and Pain in left knee M25.[address] [address]- [address] Apr, [place] [address] [address] Mar, [place] [address] [address]- [address] Mar, [place] [id number] [place] [address]11- 5907 Mar, Alcohol abuse F10.10 ; Chronic congestive heart failure, unspecified congestive heart failure type I50.9 ; Cardiomegaly I51.7 ; Seizures R56.9 ; Mild intermittent asthma without complication J45.20 ; Anxiety F41.9 ; Essential hypertension I10 ; GERD (gastroesophageal reflux disease) K21.9 ; Pain in left knee M25.562 and Other chronic pain G89.[address] [address]- [address]38 Mar, [address] [address]- [address]63 08 Nov, 2015 GERD (gastroesophageal reflux disease) K21.9 ; Anxiety F41.9 ; Mild intermittent asthma without complication J45.20 ; Essential hypertension I10 ; Cardiomegaly I51.7 ; Seizures R56.9 and Alcohol abuse F10.10 [place] [id number] [place] [address]208- 9829 Nov, [place] [id number] [place] [address]28- 1141 Oct, [place] [address] [address]- [address] Oct, [place] [id number] [place] [address]293- 2981 Oct, [place] [id number] [place] [address] 76603- 8486 Aug, Anxiety F41.[address] [id number] Aug, Lumbar neuritis M54.16 and Anxiety F41.9 [place] [id number] [place] [address]18- 5002 Jun, CAD (coronary artery disease) I25.10 ; Essential hypertension I10 and Chronic congestive heart failure, unspecified congestive heart failure type I50.[address] [id number] Jun, CAD (coronary artery disease) I25.10 ; Arrhythmia I49.9 ; Anxiety F41.9 and Cardiomegaly I51.7 [place] [id number] [place] [address]86- 5097 May, [address] [id number] May, Anxiety F41.9 [place] [id number] [place] [address] 38052- 9342 Apr, Cardiomegaly I51.7 [place] [id number] [place] [address] 85961- 8325 Mar, Seizures R56.9 ; Cardiomegaly I51.7 ; GERD ( gastroesophageal reflux disease) K21.9 ; Anxiety F41.9 and Alcohol abuse F10.10 [place] [id number] [place] [address] 6[address]- 8904 Feb, [facility] [address] [address]- [address] Feb, [facility] [address] [address] Jan, Chronic congestive heart failure, unspecified congestive heart failure type I50.9 ; Mild intermittent asthma without complication J45.20 and Anxiety F41.9 [place] [address] 6[address]- [address]87 Jan, [place] [address] 14191- 8946 Jan, [place] [address] [address]- [address] Jan, Essential hypertension I10 ; Chronic congestive heart failure, unspecified congestive heart failure type I50.9 ; Cardiomegaly I51.7 ; Seizures R56.9 ; Alcohol abuse F10.10 ; Anxiety F41.9 and GERD ( gastroesophageal reflux disease) K21.9 [place] [id number] [place] [address] 06402- 5952 Dec, [place] [id number] [place] [address] 74040- 7539 Dec, [place] [address] 87951- 3840 Dec, [place] [address] 20108- 6135 Oct, Esophageal reflux 530.81 ; Congestive heart failure, unspecified 428.0 and Seizures 780.39 [place] [address] 28640- 3741 Jun, [place] [address] [address]- 2915 Jun, [facility] [place] [facility] [address] [id number] [place] [address] May, [facility] [place] [facility] [address] [id number] [place] [address]- 4863 May, [facility] [place] [facility] [address] [id number] [place] [address]- 4730 May, [facility] [place] [facility] [address] [id number] [place] [address]- 6617 May, [facility] [place] [facility] [address] [id number] [place] [address]- 4487 Apr, [facility] [place] [facility] [address] [id number] [place] [address]- 6698 Apr, [facility] [place] [facility] [address] [id number] [place] [address]- 3337 Apr, [facility] [place] [facility] [address] [id number] [place] [address]- 0857 Mar, [facility] [place] [facility] [address] [id number] [place] [address]- 3770 Mar, [facility] [place] [facility] [address] [facility] [id number] [place] [address]- 4664 Mar, [facility] [place] [facility] [address] [id number] [place] [address]- 5287 Mar, [facility] [place] [facility] [address] [id number] [address] Mar, [facility] [place] [facility] [address] [id number] [place] [address]- 0020 Mar, [facility] [place] [facility] [address] [id number] [place] [address]- 7926 Feb, [facility] [place] [facility] [address] [facility] [id number] [place] [address]- 2301 Feb, [facility] [place] [facility] [address] [id number] [place] [address]- 6703 Jan, [facility] [place] [facility] [address] [id number] [place] [address]- 5373 Jan, [facility] [place] [facility] [address] [id number] [place] [address]- 9427 Dec, [facility] [place] [facility] [address] [id number] [place] [address]- 5450 Dec, [facility] [place] [facility] [address] [id number] [place] [address]- 9933 Nov, [facility] [place] [facility] [address] [id number] [place] [address]- 2872 Nov, [facility] [place] [facility] [address] [id number] [place] [address]- 1668 Nov, [facility] [place] [facility] [address] [id number] [place] [address]- 2125 Nov, [facility] [place] [facility] [address] [id number] [place] [address]- 0807 Nov, [facility] [place] [facility] [address] [id number] [place] [address]- 9721 Nov, [facility] [place] [facility] [address] [id number] [place] [address]- 2333 Oct, [facility] [place] [facility] [address] [id number] [place] [address]- 3296 Oct, [facility] [place] [facility] [address] [id number] [place] [address]- 8744 Jun, [facility] [place] [facility] [address] [id number] [place] [address]- 2729 Jun, [facility] [place] [facility] [address] [id number] [place] [address]- 0492 Jun, [facility] [place] [facility] [address] [id number] [place] [address]- 1940 Jun, [facility] [place] [facility] [address] [id number] [place] [address]- 2923 Jun, [facility] [place] [facility] [address] [id number] [place] [address]- 1423 Jun, [facility] [place] [facility] [address] [id number] [place] [address]- 6027 Jun, [facility] [place] [facility] [address] [id number] [place] [address]- 2314 Jun, [facility] [place] [facility] [address] [id number] [place] [address]- 0857 Apr, [facility] [place] [facility] [address] [id number] [place] [address]- 1657 Apr, [facility] [place] [facility] [address] [id number] [place] [address]- 5439 Apr, [facility] [place] [facility] [address] [id number] [place] [address]- 0869 Apr, [facility] [place] [facility] [address] [id number] [place] [address]- 5052 Mar, [facility] [place] [facility] [address] [id number] [place] [address]- 4949 Mar, [facility] [place] [facility] [address] [id number] [place] [address]- 4294 31 Feb, 2013 [facility] [place] [facility] [address] [id number] [place] [address]- 9402 31 Feb, 2013 [facility] [place] [facility] [address] [id number] [place] [address]- 4871 30 Feb, 2013 [facility] [place] [facility] [address] [id number] [place] [address] 18 Feb, 2013 [facility] [place] [facility] [address] [id number] [place] [address] 17 Feb, 2013 [facility] [place] [facility] [address] [id number] [place] [address]- 3716 Feb, [facility] [address] [id number] [place] [address]- 2785 Jan, [facility] [place] [facility] [address] [id number] [place] [address]- 1866 Jan, [facility] [address] [id number] [place] [address]- 3025 Jan, [facility] [place] [facility] [address] [id number] [place] [address]- 3620 Jan, [facility] [address] [id number] [place] [address]- 5621 Dec, [facility] [address] [id number] [place] [address]- 9221 Dec, [facility] [address] [id number] [place] [address]- 2623 Nov, [facility] [address] [id number] [place] [address]- 0774 Nov, [facility] [address] [id number] [place] [address]- 6514 Oct, [facility] [address] [id number] [place] [address]- 9840 Oct, [facility] [address] [id number] [place] [address]- 6236 Nov, [facility] [address] [id number] [place] [address]- 3390 Nov, [facility] [place] [facility] [address] [id number] [place] [address]- 8333 Oct, [facility] [place] [facility] [address] [id number] [place] [address]- 2546 Apr, [facility] [place] [facility] [address] [id number] [place] [address]- 3805 Dec, [facility] [address] [facility] [id number] [place] [address]- 2546 Feb, [facility] [address] [facility] [id number] [place] [address]- 2546 Feb, IMMUNIZATIONS No Known Immunizations SOCIAL HISTORY Never Assessed REASON FOR VISIT Repository Medication PLAN OF CARE VITAL SIGNS MEDICATIONS Medication [...]
--- OUTSIDE RECORDS SUMMARY | 2018-05-14 15:31 | XMS REPORT ---
Author Author KHADRA LANDRY [facility] Address [address] [place] [address] Phone Unavailable Care Team Providers Care R Programmer Name Role Phone KHADRA LANDRY Unavailable Unavailable PROBLEMS Type Condition ICD9-CM Code FDV83-QV Code Onset Dates Condition Status SNOMED Code Problem Cardiomegaly I51.7 Active 4121370 Problem Essential hypertension I10 Active 33989731 Problem Mild intermittent asthma without complication J45.20 Active 491845240 Problem Chronic systolic HF (heart failure) I50.22 Active 553784783 Problem Other chronic pain G89.29 Active 73996005 Problem Seizures R56.9 Active 49354784 Problem Alcohol abuse F10.10 Active 88435751 Problem CAD (coronary artery disease) I25.10 Active 19144144 Problem Insomnia G47.00 Active 932472291 Problem 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 Active 511894598 Problem Elevated liver enzymes R74.8 Active 154759605 Problem GERD (gastroesophageal reflux disease) K21.9 Active 410690228 Problem Non-ischemic cardiomyopathy I42.8 Active 43952629 Problem Anxiety F41.9 Active 80762358 ALLERGIES No Known Allergies ENCOUNTERS Encounter Location Date Diagnosis [facility] [id number] [place] [address] 57806- 3037 Nov, [facility] [id number] [place] [address] 43769- 5515 10 Oct, 2017 Chronic congestive heart failure, unspecified congestive heart failure type I50.9 [facility] [id number] [place] [address] 17218- 8533 07 Sep, 2017 [facility] [id number] [place] [address] 95068- 6744 Aug, Tachycardia R00.0 ; Seizures R56.9 ; Chronic systolic HF ( heart failure) I50.22 ; Non-ischemic cardiomyopathy I42.8 ; 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 and Multiple joint pain M25.50 [facility] [address] 45578- 5531 Aug, Chronic congestive heart failure, unspecified congestive heart failure type I50.9 [facility] [id number] [place] [address] [id number] July, [facility] [address] [id number] July, Dental examination Z01.20 [facility] [address] 52385- 2836 Jun, Seizures R56.9 [facility] [address] 28907- 5520 May, [facility] [address] 38541- 7996 Apr, Chronic systolic HF (heart failure) I50.22 ; Essential hypertension I10 and Seizures R56.9 [facility] [address] 57158- 7427 Apr, [facility] [address] 02566- 9578 Dec, Seizures R56.9 ; Alcohol abuse F10.10 and Chronic systolic HF (heart failure) I50.22 [facility] [id number] [place] [address] 98105- 8028 Oct, Chronic congestive heart failure, unspecified congestive heart failure type I50.9 ; Cardiomegaly I51.7 ; Seizures R56.9 and Alcohol abuse F10.10 [facility] [id number] [place] [address] [id number] Sep, Dental examination Z01.20 [facility] [id number] [place] [address] 97502- 4739 Aug, [facility] [id number] [place] [address] 47654- 4293 July, [facility] [address] [address]247- 5657 May, [facility] [id number] [place] [address] 64064- 2242 May, Seizures R56.9 ; Alcohol abuse F10.10 ; CAD (coronary artery disease) I25.10 ; Chronic congestive heart failure, unspecified congestive heart failure type I50.9 ; Mild intermittent asthma without complication J45.20 ; GERD (gastroesophageal reflux disease) K21.9 ; Unspecified abdominal pain R10.9 ; Vomiting, unspecified R11.10 ; Head injury due to trauma, sequela S09.90XS and Pain in left knee M25.562 [id number] [place] [address] 61987- 5469 Apr, [address] [address]- 0691 Mar, [place] [id number] [place] [address] 35627- 9360 Mar, [place] [id number] [place] [address] 61602- 1245 Mar, Alcohol abuse F10.10 ; Chronic congestive heart failure, unspecified congestive heart failure type I50.9 ; Cardiomegaly I51.7 ; Seizures R56.9 ; Mild intermittent asthma without complication J45.20 ; Anxiety F41.9 ; Essential hypertension I10 ; GERD (gastroesophageal reflux disease) K21.9 ; Pain in left knee M25.562 and Other chronic pain G89.[address] 66839- 4857 Mar, [address] 52904- 0028 08 Nov, 2015 GERD (gastroesophageal reflux disease) K21.9 ; Anxiety F41.9 ; Mild intermittent asthma without complication J45.20 ; Essential hypertension I10 ; Cardiomegaly I51.7 ; Seizures R56.9 and Alcohol abuse F10.10 [facility] [id number] [place] [address] 69308- 7592 Nov, [facility] [id number] [place] [address] 36023- 4113 Oct, [facility] [id number] [place] [address] 20976- 1053 Oct, [facility] [id number] [place] [address] 30909- 8184 Oct, [facility] [place] [id number] [place] [address] 32494- 0249 Aug, Anxiety F41.[address] [id number] Aug, Lumbar neuritis M54.16 and Anxiety F41.9 [facility] [id number] [place] [address] 72635- 0544 Jun, CAD (coronary artery disease) I25.10 ; Essential hypertension I10 and Chronic congestive heart failure, unspecified congestive heart failure type I50.[address] [id number] Jun, CAD (coronary artery disease) I25.10 ; Arrhythmia I49.9 ; Anxiety F41.9 and Cardiomegaly I51.7 [facility] [id number] [place] [address] 75589- 5731 May, [address] [id number] May, Anxiety F41.9 [facility] [id number] [place] [address] 54137- 9336 Apr, Cardiomegaly I51.7 [facility] [id number] [place] [address] 94782- 7361 Mar, Seizures R56.9 ; Cardiomegaly I51.7 ; GERD ( gastroesophageal reflux disease) K21.9 ; Anxiety F41.9 and Alcohol abuse F10.10 [facility] [id number] [place] [address] 99039- 0324 Feb, [facility] [address] 56811- 1120 Feb, [place] [address] 58473- 5224 Jan, Chronic congestive heart failure, unspecified congestive heart failure type I50.9 ; Mild intermittent asthma without complication J45.20 and Anxiety F41.9 [facility] [place] [address] 71354- 0739 Jan, [address] 56190- 8147 Jan, [address] 23156- 1671 Jan, Essential hypertension I10 ; Chronic congestive heart failure, unspecified congestive heart failure type I50.9 ; Cardiomegaly I51.7 ; Seizures R56.9 ; Alcohol abuse F10.10 ; Anxiety F41.9 and GERD ( gastroesophageal reflux disease) K21.9 [facility] [id number] [place] [address] 61018- 9065 Dec, [facility] [address] 87099- 8195 Dec, [facility] [address] 19165- 2615 Dec, [place] [address] 77396- 2331 Oct, Esophageal reflux 530.81 ; Congestive heart failure, unspecified 428.0 and Seizures 780.39 [place] [address] 33472- 4486 Jun, [place] [address] 72715- 0768 Jun, [facility] [place] [facility] [address] [id number] [place] [address]- 5728 May, [facility] [place] [facility] [address] [id number] [place] [address]- 8238 May, [facility] [place] [facility] [address] [id number] [place] [address]- 2866 May, [facility] [place] [facility] [address] [id number] [place] [address]- 2706 May, [facility] [place] [facility] [address] [id number] [place] [address]- 3087 Apr, [facility] [place] [facility] [address] [id number] [place] [address]- 3976 Apr, [facility] [place] [facility] [address] [id number] [place] [address]- 4856 Apr, [facility] [place] [facility] [address] [id number] [place] [address]- 5225 Mar, [facility] [place] [facility] [address] [id number] [place] [address]- 1401 Mar, [facility] [place] [facility] [address] [id number] [place] [address]- 5297 Mar, [facility] [place] [facility] [address] [id number] [place] [address]- 3779 Mar, [facility] [place] [facility] [address] [id number] [address]- 6786 Mar, [facility] [place] [facility] [address] [id number] [place] [address]- 7343 Mar, [facility] [place] [facility] [address] [id number] [place] [address]- 0466 Feb, [facility] [place] [facility] [address] [id number] [place] [address]- 6356 Feb, [facility] [place] [facility] [address] [id number] [place] [address]- 8376 Jan, [facility] [place] [facility] [address] [id number] [place] [address]- 0776 Jan, [facility] [place] [facility] [address] [id number] [place] [address]- 2464 Dec, [facility] [place] [facility] [address] [id number] [place] [address]- 5036 Dec, [facility] [place] [facility] [address] [id number] [place] [address]- 4959 Nov, [facility] [place] [facility] [address] [id number] [place] [address]- 7857 Nov, [facility] [place] [facility] [address] [id number] [place] [address]- 4317 Nov, [facility] [place] [facility] [address] [id number] [place] [address]- 5123 Nov, [facility] [place] [facility] [address] [id number] [place] [address]- 9374 Nov, [facility] [place] [facility] [address] [id number] [place] [address]- 5893 Nov, [facility] [place] [facility] [address] [facility] [id number] [place] [address]- 3279 Oct, [facility] [place] [facility] [address] [id number] [place] [address]- 9017 Oct, [facility] [place] [facility] [address] [id number] [place] [address]- 4293 Jun, [facility] [place] [facility] [address] [id number] [place] [address]- 0594 Jun, [facility] [place] [facility] [address] [id number] [place] [address]- 6372 Jun, [facility] [place] [facility] [address] [id number] [place] [address]- 6340 Jun, [facility] [place] [facility] [address] [id number] [place] [address]- 5634 Jun, [facility] [place] [facility] [address] [id number] [place] [address]- 0899 Jun, [facility] [place] [facility] [address] [id number] [place] [address]- 9117 Jun, [facility] [place] [facility] [address] [id number] [place] [address]- 7169 Jun, [facility] [place] [facility] [address] [id number] [place] [address]- 8983 Apr, [facility] [place] [facility] [address] [id number] [place] [address]- 8788 Apr, [facility] [place] [facility] [address] [id number] [place] [address]- 0457 Apr, [facility] [place] [facility] [address] [id number] [place] [address]- 2319 Apr, [facility] [place] [facility] [address] [id number] [place] [address]- 6678 Mar, [facility] [place] [facility] [address] [id number] [place] [address]- 7730 Mar, [facility] [place] [facility] [address] [id number] [place] [address]- 3528 Feb, [facility] [place] [facility] [address] [id number] [place] [address]- 3182 31 Feb, 2013 [facility] [place] [facility] [address] [id number] [place] [address]- 8726 30 Feb, 2013 [facility] [place] [facility] [address] [id number] [place] 9833 18 Feb, 2013 [facility] [place] [facility] [address] [id number] [place]- 9398 17 Feb, 2013 [facility] [place] [facility] [address] [id number] [address]- 1562 Feb, [facility] [place] [facility] [address] [id number] [place] [address]- 5585 Jan, [facility] [place] [facility] [address] [id number] [place] [address]- 8572 Jan, [facility] [place] [facility] [address] [facility] [id number] [place] [address]- 6579 Jan, [facility] [place] [facility] [address] [id number] [place] [address]- 8333 Jan, [facility] [place] [facility] [address] [id number] [place] [address]- 3170 Dec, [facility] [place] [facility] [address] [id number] [place] [address]- 7189 Dec, [facility] [place] [facility] [address] [facility] [id number] [place] [address]- 1687 Nov, [facility] [place] [facility] [address] [id number] [place] [address]- 6597 Nov, [facility] [place] [facility] [address] [id number] [place] [address]- 9443 Oct, [facility] [place] [facility] [address] [facility] [id number] [place] [address]- 4354 Oct, [facility] [place] [facility] [address] [id number] [address]- 5981 Nov, [facility] [place] [facility] [address] [id number] [address]- 5141 Nov, [facility] [place] [facility] [address] [id number] [place] [address]- 1045 Oct, [facility] [place] [facility] [address] [facility] [id number][place] [address]- 2355 Apr, [facility] [place] [facility] [address] [facility] [id number] [place] [address]- 8377 Dec, [facility] [place] [facility] [address] [facility] [id number] [place] [address]- 3929 Feb, [facility] [address] [facility] [id number] [place] [address]- 5103 Feb, IMMUNIZATIONS No Known Immunizations SOCIAL HISTORY Never Assessed REASON FOR VISIT LASHAWN PLAN OF CARE Activity Details Follow Up juan Reason:ext.srp VITAL SIGNS Blood pressure systolic 127 mmHg 2017-07-21 Blood pressure diastolic 73 mmHg 2017-07-21 MEDICATIONS Medication Instructions Dosage Frequency Start Date End Date Duration Status Sotalol HCl 80 MG Orally twice a day 1 tablet 12h Active Keppra 500 mg Orally 3 times a day 1 tablet 8h Active Enalapril Maleate 2.5 MG Orally Once a day 1 tablet 24h Active Metoprolol Tartrate 25 MG Orally Twice a day 1 tablet with food 12h Aug 30 day(s) Active Amoxicillin 500 mg Orally every 8 hrs 1 capsule 8h July, July, 07 days Active RESULTS No Results PROCEDURES Procedure Date Ordered Result Body Site COMP ORAL EVALUATION - NEW/EST PT July 21, 2017 INTRAORL-PERIAPICAL 1 FILM [id number] July 21, 2017 BITEWINGS - FOUR FILMS July 21, 2017 INTRAORL-PERIAPICAL EA ADD FILM July 21, 2017 PANORAMIC FILM SEE ALSO CODE [id number] July 21, 2017 INSTRUCTIONS MEDICATIONS ADMINISTERED No Known Medications MEDICAL [...]
--- OUTSIDE RECORDS SUMMARY | 2018-05-14 15:32 | XMS REPORT ---
Author Author WILLIAM PATTERSON Organization [facility] Address [address] [place] [address] Care Team Providers Care Tower Equipment Installer Name Role Phone WILLIAM PATTERSON Unavailable PROBLEMS Type Condition ICD9-CM Code [id number] Code Onset Dates Condition Status SNOMED Code Problem Cardiomegaly I51.7 Active 6018559 Problem Essential hypertension I10 Active 50147136 Problem Mild intermittent asthma without complication J45.20 Active 334162877 Problem Chronic systolic HF (heart failure) I50.22 Active 584209395 Problem Other chronic pain G89.29 Active 24458185 Problem Seizures R56.9 Active 06392560 Problem Alcohol abuse F10.10 Active 34077300 Problem CAD (coronary artery disease) I25.10 Active 05387161 Problem Insomnia G47.00 Active 186846571 Problem 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 Active 982860083 Problem Elevated liver enzymes R74.8 Active 418085566 Problem GERD (gastroesophageal reflux disease) K21.9 Active 049628746 Problem Non-ischemic cardiomyopathy I42.8 Active 15150723 Problem Anxiety F41.9 Active 60587359 ALLERGIES No Information ENCOUNTERS Encounter Location Date Diagnosis [facility] [id number] [place] [address]- [address] Sep, [facility] [id number] [address] Aug, Tachycardia R00.0 ; Seizures R56.9 ; Chronic systolic HF ( heart failure) I50.22 ; Non-ischemic cardiomyopathy I42.8 ; 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 and Multiple joint pain M25.50 [facility] [id number] [address] Aug, Chronic congestive heart failure, unspecified congestive heart failure type I50.9 [facility] [id number] [id number] July, [facility] [address] [id number] July, Dental examination Z01.20 [facility] [address] [address] Jun, Seizures R56.9 [facility] [id number] [place] [address] 896684- 9091 May, [facility] [address] [place] [address] 58703- 5097 Apr, Chronic systolic HF (heart failure) I50.22 ; Essential hypertension I10 and Seizures R56.9 [facility] [id number] [place] [address] 37590- 9080 Apr, [facility] [id number] [place] [address] 60936- 6510 Dec, Seizures R56.9 ; Alcohol abuse F10.10 and Chronic systolic HF (heart failure) I50.22 [facility] [address] [address] Oct, Chronic congestive heart failure, unspecified congestive heart failure type I50.9 ; Cardiomegaly I51.7 ; Seizures R56.9 and Alcohol abuse F10.10 [facility] [address] [id number] Sep, Dental examination Z01.20 [facility] [address] [address] Aug, [facility] [address] [place] [address] 145532- 2236 July, [facility] [address] [address] May, [facility] [id number] [place] [address] 85690- 0075 May, Seizures R56.9 ; Alcohol abuse F10.10 ; CAD (coronary artery disease) I25.10 ; Chronic congestive heart failure, unspecified congestive heart failure type I50.9 ; Mild intermittent asthma without complication J45.20 ; GERD (gastroesophageal reflux disease) K21.9 ; Unspecified abdominal pain R10.9 ; Vomiting, unspecified R11.10 ; Head injury due to trauma, sequela S09.90XS and Pain in left knee M25.562 [id number] [place] [address] 83880- 0028 Apr, [address] [address] Mar, [place] [id number] [place] [address] 60241- 5070 Mar, [place] [id number] [place] [address] 72601- 3243 Mar, Alcohol abuse F10.10 ; Chronic congestive heart failure, unspecified congestive heart failure type I50.9 ; Cardiomegaly I51.7 ; Seizures R56.9 ; Mild intermittent asthma without complication J45.20 ; Anxiety F41.9 ; Essential hypertension I10 ; GERD (gastroesophageal reflux disease) K21.9 ; Pain in left knee M25.562 and Other chronic pain G89.29 [place] [id number] [place] [address] 11192- 8599 Mar, [id number] [place] [address] 68394- 1314 Nov, GERD (gastroesophageal reflux disease) K21.9 ; Anxiety F41.9 ; Mild intermittent asthma without complication J45.20 ; Essential hypertension I10 ; Cardiomegaly I51.7 ; Seizures R56.9 and Alcohol abuse F10.10 [place] [id number] [place] [address] 19407- 3070 Nov, [address] [id number] [address] Oct, [facility] [id number] [place] [address] 32560- 7710 Oct, [facility] [id number] [place] [address] 42804- 5630 Oct, [facility] [id number] [place] [address] 13598- 9975 Aug, Anxiety F41.[address] [id number] Aug, Lumbar neuritis M54.16 and Anxiety F41.9 [place] [id number] [place] [address] 92022- 3477 Jun, CAD (coronary artery disease) I25.10 ; Essential hypertension I10 and Chronic congestive heart failure, unspecified congestive heart failure type I50.[address] [id number] Jun, CAD (coronary artery disease) I25.10 ; Arrhythmia I49.9 ; Anxiety F41.9 and Cardiomegaly I51.7 [place] [id number] [place] [address] 84768- 2302 May, [address] [id number] May, Anxiety F41.9 [place] [id number] [place] [address] 35065- 8242 Apr, Cardiomegaly I51.7 [place] [id number] [place] [address] 66741- 0738 Mar, Seizures R56.9 ; Cardiomegaly I51.7 ; GERD ( gastroesophageal reflux disease) K21.9 ; Anxiety F41.9 and Alcohol abuse F10.10 [facility] [address] [place] [address] 74457- 2148 Feb, [place] [id number] [place] [address] 94221- 0552 Feb, [facility] [id number] [place] [address] 67880- 5013 Jan, Chronic congestive heart failure, unspecified congestive heart failure type I50.9 ; Mild intermittent asthma without complication J45.20 and Anxiety F41.9 [place] [id number] [place] [address] 46421- 6084 Jan, [place] [address] [address]- 4112 Jan, [place] [id number] [place] [address] 21189- 8896 Jan, Essential hypertension I10 ; Chronic congestive heart failure, unspecified congestive heart failure type I50.9 ; Cardiomegaly I51.7 ; Seizures R56.9 ; Alcohol abuse F10.10 ; Anxiety F41.9 and GERD ( gastroesophageal reflux disease) K21.9 [address] [address] [address] 0[address]78- 3305 Dec, [place] [address] 64791- 3461 Dec, [place] [address] 11412- 1660 Dec, [place] [id number] [place] [address] 91577- 7825 Oct, Esophageal reflux 530.81 ; Congestive heart failure, unspecified 428.0 and Seizures 780.39 [place] [id number] [place] [address] 97297- 5738 Jun, [place] [address] 82150- 3547 Jun, [facility] [id number] [place] [address] 47465- 9574 May, [place] [id number] [place] [address] 64215- 4322 May, [facility] [place] [facility] [address] [id number] [place] [address]- 0908 May, [facility] [place] [facility] [address] [id number] [place] [address]- 7607 May, [facility] [place] [facility] [address] [id number] [place] [address]- 1027 Apr, [facility] [place] [facility] [address] [id number] [place] [address]- 5885 Apr, [facility] [place] [facility] [address] [id number] [place] [address]- 1663 Apr, [facility] [place] [facility] [address] [id number] [place] [address]- 9507 Mar, [facility] [place] [facility] [address] [id number] [place] [address]- 5051 Mar, [facility] [place] [facility] [address] [id number] [place] [address]- 8844 Mar, [facility] [place] [facility] [address] [id number] [place] [address]- 2219 Mar, [facility] [place] [facility] [address] [id number] [place] [address]- 4224 Mar, [facility] [place] [facility] [address] [id number] [place] [address]- 4337 Mar, [facility] [place] [facility] [address] [id number] [place] [address]- 1944 Feb, [facility] [place] [facility] [address] [id number] [place] [address]- 6767 Feb, [facility] [place] [facility] [address] [id number] [place] [address]- 9264 Jan, [facility] [place] [facility] [address] [id number] [place] [address]- 2167 Jan, [facility] [place] [facility] [address] [id number] [address]- 8232 Dec, [facility] [place] [facility] [address] [id number] [place] [address]- 4054 Dec, [facility] [place] [facility] [address] [id number] [place] [address]- 1835 Nov, [facility] [place] [facility] [address] [id number] [place] [address]- 0606 Nov, [facility] [place] [facility] [address] [id number] [place] [address]- 1825 Nov, [facility] [place] [facility] [address] [id number] [place] [address]- 8416 Nov, [facility] [place] [facility] [address] [id number] [place] [address]- 3598 Nov, [facility] [place] [facility] [address] [id number] [place] [address]- 5536 Nov, [facility] [place] [facility] [address] [id number] [place] [address]- 4128 Oct, [facility] [place] [facility] [address] [id number] [place] [address]- 2014 Oct, [facility] [place] [facility] [address] [id number] [place] [address]- 0736 Jun, [facility] [place] [facility] [address] [id number] [place] [address]- 5463 Jun, [facility] [place] [facility] [address] [id number] [place] [address]- 0971 Jun, [facility] [place] [facility] [address] [id number] [place] [address]- 6970 Jun, [facility] [place] [facility] [address] [id number] [place] [address]- 3612 Jun, [facility] [place] [facility] [address] [id number] [place] [address]- 5558 Jun, [facility] [place] [facility] [address] [id number] [place] [address]- 5717 Jun, [facility] [place] [facility] [address] [id number] [place] [address]- 4845 Jun, [facility] [place] [facility] [address] [id number] [place] [address]- 1796 Apr, [facility] [place] [facility] [address] [id number] [place] [address]- 7676 Apr, [facility] [place] [facility] [address] [id number] [place] [address]- 8578 Apr, [facility] [place] [facility] [address] [id number] [place] [address]- 7867 Apr, [facility] [place] [facility] [address] [id number] [place] [address]- 0162 Mar, [facility] [place] [facility] [address] [id number] [place] [address]- 8194 Mar, [facility] [place] [facility] [address] [id number] [place] [address]- 6364 Feb, [facility] [place] [facility] [address] [id number] [place] [address]- 0693 31 Feb, 2013 [facility] [place] [facility] [address] [id number] [place] [address]- 0536 30 Feb, 2013 [facility] [place] [facility] [address] [id number] [place] [address]- 9391 18 Feb, 2013 [facility] [place] [facility] [address] [id number] [place]- [address]644 17 Feb, 2013 [facility] [place] [facility] [address] [id number] [place] [address]- 2703 17 Feb, 2013 [facility] [place] [facility] [address] [id number] [place] [address]- 0713 Jan, [facility] [place] [facility] [address] [id number] [place] [address]- 0223 Jan, [facility] [address] [facility] [id number] [place] [address]- 2975 Jan, [facility] [address] [facility] [id number] [address]- 4286 Jan, [facility] [address] [facility] [id number] [address]- 0261 Dec, [facility] [address] [facility] [id number] [address]- 0914 Dec, [facility] [address] [facility] [id number] [place] [address]- 0317 Nov, [facility] [address] [facility] [id number], [place] [address]- 6904 Nov, [facility] [address] [facility] [id number], [place] [address]- 7684 Oct, [facility] [address] [facility] [id number], [place] [address]- 4348 Oct, [facility] [address] [facility] [id number] [address]- 7888 Nov, [facility] [address] [facility] [id number] 6367 Nov, [facility] [id number] [address]- 8275 Oct, [facility] [address] [facility] [id number][place] [address]- 1629 Apr, [facility] [address] [facility] [id number], [place] [address]- 1446 Dec, [facility] [address] [facility] [id number], [place] [address]- 4916 Feb, [facility] [address] [facility] [id number][place] [address]- 6626 Feb, IMMUNIZATIONS No Known Immunizations SOCIAL HISTORY [...]
--- OUTSIDE RECORDS SUMMARY | 2018-05-14 15:32 | XMS REPORT ---
Author Author WILLIAM PATTERSON Organization [facility] Address [address] [place] [address] Care Team Providers Care Family Support Specialist Name Role Phone WILLIAM PATTERSON Unavailable PROBLEMS Type Condition ICD9-CM Code ZEJ44-SA Code Onset Dates Condition Status SNOMED Code Problem Cardiomegaly I51.7 Active 2077880 Problem Essential hypertension I10 Active 88263509 Problem Mild intermittent asthma without complication J45.20 Active 414904930 Problem Chronic systolic HF (heart failure) I50.22 Active 581870164 Problem Other chronic pain G89.29 Active 20521593 Problem Seizures R56.9 Active 36341621 Problem Alcohol abuse F10.10 Active 38511969 Problem CAD (coronary artery disease) I25.10 Active 57536315 Problem Insomnia G47.00 Active 083914290 Problem 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 Active 907179702 Problem Elevated liver enzymes R74.8 Active 033996676 Problem GERD (gastroesophageal reflux disease) K21.9 Active 490680365 Problem Non-ischemic cardiomyopathy I42.8 Active 81238240 Problem Anxiety F41.9 Active 16114318 ALLERGIES No Information ENCOUNTERS Encounter Location Date Diagnosis [facility] [id number] [place] [address]73- 7283 Sep, [facility] [id number], [place] [address] Aug, Tachycardia R00.0 ; Seizures R56.9 ; Chronic systolic HF ( heart failure) I50.22 ; Non-ischemic cardiomyopathy I42.8 ; 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 and Multiple joint pain M25.50 [facility] [id number], [place] [address] Aug, Chronic congestive heart failure, unspecified congestive heart failure type I50.9 [facility] [id number] [id number] July, [facility] [address] [id number] July, Dental examination Z01.20 [facility] [address], [place] [address] Jun, Seizures R56.9 [facility] [id number] [place] [address] 833769- 0498 May, [facility] [id number] [place] [address] 04364- 2092 Apr, Chronic systolic HF (heart failure) I50.22 ; Essential hypertension I10 and Seizures R56.9 [facility] [address] [place] [address] 92376- 5183 Apr, [facility] [id number] [place] [address] 72061- 8131 Dec, Seizures R56.9 ; Alcohol abuse F10.10 and Chronic systolic HF (heart failure) I50.22 [facility] [address] [address] Oct, Chronic congestive heart failure, unspecified congestive heart failure type I50.9 ; Cardiomegaly I51.7 ; Seizures R56.9 and Alcohol abuse F10.10 [facility] [address] [id number] Sep, Dental examination Z01.20 [facility] [address], [place] [address] Aug, [facility] [address] [place] [address] 329934- 4426 July, [facility] [address], [place] [address] May, [facility] [id number] [place] [address] 47217- 4686 May, Seizures R56.9 ; Alcohol abuse F10.10 ; CAD (coronary artery disease) I25.10 ; Chronic congestive heart failure, unspecified congestive heart failure type I50.9 ; Mild intermittent asthma without complication J45.20 ; GERD (gastroesophageal reflux disease) K21.9 ; Unspecified abdominal pain R10.9 ; Vomiting, unspecified R11.10 ; Head injury due to trauma, sequela S09.90XS and Pain in left knee M25.562 [id number] [place] [address] 97851- 6672 Apr, [address] [address]- [address] Mar, [place] [id number] [place] [address] 89641- 9986 Mar, [place] [id number] [place] [address] 08012- 4705 Mar, Alcohol abuse F10.10 ; Chronic congestive heart failure, unspecified congestive heart failure type I50.9 ; Cardiomegaly I51.7 ; Seizures R56.9 ; Mild intermittent asthma without complication J45.20 ; Anxiety F41.9 ; Essential hypertension I10 ; GERD (gastroesophageal reflux disease) K21.9 ; Pain in left knee M25.562 and Other chronic pain G89.29 [place] [id number] [place] [address] 63197- 8636 Mar, [id number] [place] [address] 66458- 1124 Nov, GERD (gastroesophageal reflux disease) K21.9 ; Anxiety F41.9 ; Mild intermittent asthma without complication J45.20 ; Essential hypertension I10 ; Cardiomegaly I51.7 ; Seizures R56.9 and Alcohol abuse F10.10 [place] [id number] [place] [address] 31968- 1380 Nov, [address] [address] Oct, [facility] [id number] [place] [address] 02978- 6983 Oct, [facility] [id number] [place] [address] 34872- 8682 Oct, [facility] [id number] [place] [address] 94365- 5678 Aug, Anxiety F41.[address] [id number] Aug, Lumbar neuritis M54.16 and Anxiety F41.9 [place] [id number] [place] [address] 67673- 2869 Jun, CAD (coronary artery disease) I25.10 ; Essential hypertension I10 and Chronic congestive heart failure, unspecified congestive heart failure type I50.[address] [id number] Jun, CAD (coronary artery disease) I25.10 ; Arrhythmia I49.9 ; Anxiety F41.9 and Cardiomegaly I51.7 [place] [id number] [place] [address] 30743- 3470 May, [address] [id number] May, Anxiety F41.9 [place] [id number] [place] [address] 92211- 8842 Apr, Cardiomegaly I51.7 [place] [id number] [place] [address] 97247- 9063 Mar, Seizures R56.9 ; Cardiomegaly I51.7 ; GERD ( gastroesophageal reflux disease) K21.9 ; Anxiety F41.9 and Alcohol abuse F10.10 [facility] [address] [place] [address] 63282- 8901 Feb, [place] [id number] [place] [address] 88573- 2419 Feb, [facility] [id number] [place] [address] 14545- 4786 Jan, Chronic congestive heart failure, unspecified congestive heart failure type I50.9 ; Mild intermittent asthma without complication J45.20 and Anxiety F41.9 [place] [id number] [place] [address] 34475- 9920 Jan, [place] [address] [address]645- 6259 Jan, [place] [id number] [place] [address] 15622- 4093 Jan, Essential hypertension I10 ; Chronic congestive heart failure, unspecified congestive heart failure type I50.9 ; Cardiomegaly I51.7 ; Seizures R56.9 ; Alcohol abuse F10.10 ; Anxiety F41.9 and GERD ( gastroesophageal reflux disease) K21.9 [place] [address] [address]- 0809 Dec, [place] [address] 30507- 3875 Dec, [place] [address] 93971- 9266 Dec, [place] [id number] [place] [address] 43866- 9445 Oct, Esophageal reflux 530.81 ; Congestive heart failure, unspecified 428.0 and Seizures 780.39 [place] [id number] [place] [address] 92210- 0416 Jun, [place] [address] 05714- 9930 Jun, [facility] [id number] [place] [address] 73289- 2424 May, [place] [id number] [place] [address] 66024- 2233 May, [facility] [place] [facility] [address] [id number] [place] [address] 7598 May, [facility] [place] [facility] [address] [id number] [place] [address]- 0437 May, [facility] [place] [facility] [address] [id number] [place] [address]- 2459 Apr, [facility] [place] [facility] [address] [id number] [place] [address]- 4023 Apr, [facility] [place] [facility] [address] [id number] [place] [address]- 7532 Apr, [facility] [place] [facility] [address] [id number] [place] [address]- 5467 Mar, [facility] [place] [facility] [address] [id number] [place] [address]- 0992 Mar, [facility] [place] [facility] [address] [id number] [place] [address]- 0081 Mar, [facility] [place] [facility] [address] [id number] [place] [address]- 0134 Mar, [facility] [place] [facility] [address] [id number] [place] [address]- 3581 Mar, [facility] [place] [facility] [address] [id number] [place] [address]- 1886 Mar, [facility] [place] [facility] [address] [id number] [place] [address]- 8459 Feb, [facility] [place] [facility] [address] [id number] [place] [address]- 2482 Feb, [facility] [place] [facility] [address] [id number] [place] [address]- 6600 Jan, [facility] [place] [facility] [address] [id number] [place] [address]- 1026 Jan, [facility] [place] [facility] [address] [id number] [address]- 3123 Dec, [facility] [place] [facility] [address] [id number] [place] [address]- 0584 Dec, [facility] [place] [facility] [address] [id number] [place] [address]- 4926 Nov, [facility] [place] [facility] [address] [id number] [place] [address]- 5817 Nov, [facility] [place] [facility] [address] [id number] [place] [address]- 9456 Nov, [facility] [place] [facility] [address] [id number] [place] [address]- 4278 Nov, [facility] [place] [facility] [address] [id number] [place] [address]- 1158 Nov, [facility] [place] [facility] [address] [id number] [place] [address]- 2304 Nov, [facility] [place] [facility] [address] [id number] [place] [address]- 3385 Oct, [facility] [place] [facility] [address] [id number] [place] [address]- 7547 Oct, [facility] [place] [facility] [address] [id number] [place] [address]- 3244 Jun, [facility] [place] [facility] [address] [id number] [place] [address]- 7388 Jun, [facility] [place] [facility] [address] [id number] [place] [address]- 0372 Jun, [facility] [place] [facility] [address] [id number] [place] [address]- 3769 Jun, [facility] [place] [facility] [address] [id number] [place] [address]- 4059 Jun, [facility] [place] [facility] [address] [id number] [place] [address]- 1822 Jun, [facility] [place] [facility] [address] [id number] [place] [address]- 2028 Jun, [facility] [place] [facility] [address] [id number] [place] [address]- 9265 Jun, [facility] [place] [facility] [address] [id number] [place] [address]- 3566 Apr, [facility] [place] [facility] [address] [id number] [place] [address]- 0266 Apr, [facility] [place] [facility] [address] [id number] [place] [address]- 8075 Apr, [facility] [place] [facility] [address] [id number] [place] [address]- 8372 Apr, [facility] [place] [facility] [address] [id number] [place] [address]- 8451 Mar, [facility] [place] [facility] [address] [id number] [place] [address]- 1513 Mar, [facility] [place] [facility] [address] [id number] [place] [address]- 6891 Feb, [facility] [place] [facility] [address] [id number] [place] [address]- 2544 31 Feb, 2013 [facility] [place] [facility] [address] [id number] [place] [address]- 9599 30 Feb, 2013 [facility] [place] [facility] [address] [id number] [place] [address]- 1320 18 Feb, 2013 [facility] [place] [facility] [address] [id number] [place] [address] 17 Feb, 2013 [facility] [place] [facility] [address] [id number] [place] [address]- 6163 17 Feb, 2013 [facility] [place] [facility] [address] [id number] [place] [address]- 0885 Jan, [facility] [place] [facility] [address] [id number] [place] [address]- 7630 Jan, [facility] [address] [facility] [id number] [place] [address]- 2433 Jan, [facility] [address] [facility] [id number], [place] [address]- 6276 Jan, [facility] [address] [facility] [id number], [place] [address]- 6961 Dec, [facility] [address] [facility] [id number], [place] [address]- 8846 Dec, [facility] [address] [facility] [id number] [place] [address]- 6571 Nov, [facility] [address] [facility] [id number], [place] [address]- 9832 Nov, [facility] [address] [facility] [id number], [place] [address]- 2694 Oct, [facility] [address] [facility] [id number], [place] [address]- 0704 Oct, [facility] [address] [facility] [id number], [place] [address]- 1493 Nov, [facility] [address] [facility] [id number][place] 9394 Nov, [facility] [id number], [place] [address]- 3656 Oct, [facility] [address] [facility] [id number], [place] [address]- 8589 Apr, [facility] [address] [facility] [id number], [place] [address]- 5196 Dec, [facility] [address] [facility] [id number], [place] [address]- 5886 Feb, [facility] [address] [facility] [id number], [place] [address]- 2086 Feb, IMMUNIZATIONS No Known Immunizations SOCIAL HISTORY [...]
--- OUTSIDE RECORDS SUMMARY | 2018-05-14 15:33 | XMS REPORT ---
Author Author WILLIAM PATTERSON Organization [facility] [place] Address [address] [place] [address] Care Team Providers Care Mason Apprentice Name Role Phone WILLIAM PATTERSON Unavailable PROBLEMS Type Condition ICD9-CM Code YYG15-WS Code Onset Dates Condition Status SNOMED Code Problem Cardiomegaly I51.7 Active 7942829 Problem Essential hypertension I10 Active 24227707 Problem Mild intermittent asthma without complication J45.20 Active 345827955 Problem Chronic systolic HF (heart failure) I50.22 Active 689067123 Problem Other chronic pain G89.29 Active 74864463 Problem Seizures R56.9 Active 55415416 Problem Alcohol abuse F10.10 Active 20798794 Problem CAD (coronary artery disease) I25.10 Active 82662512 Problem Insomnia G47.00 Active 814528359 Problem 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 Active 693129767 Problem Elevated liver enzymes R74.8 Active 159881321 Problem GERD (gastroesophageal reflux disease) K21.9 Active 585661707 Problem Non-ischemic cardiomyopathy I42.8 Active 01326550 Problem Anxiety F41.9 Active 37594756 ALLERGIES No Information ENCOUNTERS Encounter Location Date Diagnosis [facility], [place] [id number] [place] [address]21- 2255 Aug, Tachycardia R00.0 ; Seizures R56.9 ; Chronic systolic HF ( heart failure) I50.22 ; Non-ischemic cardiomyopathy I42.8 ; 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 and Multiple joint pain M25.50 [facility] [place] [id number] [place] [address] 91310- 6743 18 Aug, 2017 Chronic congestive heart failure, unspecified congestive heart failure type I50.9 [facility] [id number] [place] [address] [id number] July, [facility] [id number] [id number] July, Dental examination Z01.20 [facility] [place] [id number] [place] [address] 90709- 6866 Jun, Seizures R56.9 [facility] [place] [id number] [place] [address] 17798- 3116 May, [facility] [place] [id number] [place] [address] 97388- 6414 Apr, Chronic systolic HF (heart failure) I50.22 ; Essential hypertension I10 and Seizures R56.9 [facility] [place] [id number] [place] [address] 23311- 0026 Apr, [facility] [place] [id number] [place] [address] 87058- 5718 Dec, Seizures R56.9 ; Alcohol abuse F10.10 and Chronic systolic HF (heart failure) I50.22 [facility] [place] [address] [place] [address] 67531- 6576 Oct, Chronic congestive heart failure, unspecified congestive heart failure type I50.9 ; Cardiomegaly I51.7 ; Seizures R56.9 and Alcohol abuse F10.10 [facility] [id number] [place] [address] [id number] Sep, Dental examination Z01.20 [facility] [place] [id number] [place] [address] 44065- 1356 Aug, [facility] [place] [id number] [place] [address] 13231- 1396 July, [facility] [place] [id number] [place] [address] 95135- 6614 May, [facility] [place] [id number] [place] [address] 89109- 9736 May, Seizures R56.9 ; Alcohol abuse F10.10 ; CAD (coronary artery disease) I25.10 ; Chronic congestive heart failure, unspecified congestive heart failure type I50.9 ; Mild intermittent asthma without complication J45.20 ; GERD (gastroesophageal reflux disease) K21.9 ; Unspecified abdominal pain R10.9 ; Vomiting, unspecified R11.10 ; Head injury due to trauma, sequela S09.90XS and Pain in left knee M25.562 [place] [address] [address]1984- 4883 Apr, [place] [address] 02730- 7114 Mar, [place] [address] 56822- 4049 Mar, [place] [id number] [place] [address] 47604- 1108 Mar, Alcohol abuse F10.10 ; Chronic congestive heart failure, unspecified congestive heart failure type I50.9 ; Cardiomegaly I51.7 ; Seizures R56.9 ; Mild intermittent asthma without complication J45.20 ; Anxiety F41.9 ; Essential hypertension I10 ; GERD (gastroesophageal reflux disease) K21.9 ; Pain in left knee M25.562 and Other chronic pain G89.29 [place] [id number] [place] [address] 71860- 2373 Mar, [place] [id number] [place] [address] 34887- 3353 Nov, GERD (gastroesophageal reflux disease) K21.9 ; Anxiety F41.9 ; Mild intermittent asthma without complication J45.20 ; Essential hypertension I10 ; Cardiomegaly I51.7 ; Seizures R56.9 and Alcohol abuse F10.10 [place] [id number] [place] [address] 81961- 1324 Nov, [place] [id number] [place] [address] 13956- 5431 Oct, [place] [id number] [address] 6230 Oct, [facility] [place] [id number] [place] [address] 39433- 4328 Oct, [facility] [place] [id number] [place] [address] 53583- 4688 Aug, Anxiety F41.[address] [id number] Aug, Lumbar neuritis M54.16 and Anxiety F41.9 [place] [id number] [place] [address] 69642- 4434 Jun, CAD (coronary artery disease) I25.10 ; Essential hypertension I10 and Chronic congestive heart failure, unspecified congestive heart failure type I50.[address] [id number] Jun, CAD (coronary artery disease) I25.10 ; Arrhythmia I49.9 ; Anxiety F41.9 and Cardiomegaly I51.7 [place] [id number] [place] [address] 83323- 2122 May, [address] [id number] May, Anxiety F41.9 [place] [id number] [place] [address] 24859- 4463 Apr, Cardiomegaly I51.7 [place] [id number] [place] [address] 28600- 0301 Mar, Seizures R56.9 ; Cardiomegaly I51.7 ; GERD ( gastroesophageal reflux disease) K21.9 ; Anxiety F41.9 and Alcohol abuse F10.10 [place] [id number] [place] [address] 19020- 3351 Feb, [place] [id number] [place] [address] 97227- 3087 Feb, [place] [id number] [place] [address] 05753- 9868 Jan, Chronic congestive heart failure, unspecified congestive heart failure type I50.9 ; Mild intermittent asthma without complication J45.20 and Anxiety F41.9 [facility] [place] [address] 63032- 0930 Jan, [facility] [place] [id number] [place] [address] 38676- 6479 Jan, [facility] [place] [address] 27327- 2298 Jan, Essential hypertension I10 ; Chronic congestive heart failure, unspecified congestive heart failure type I50.9 ; Cardiomegaly I51.7 ; Seizures R56.9 ; Alcohol abuse F10.10 ; Anxiety F41.9 and GERD ( gastroesophageal reflux disease) K21.9 [place] [address] 49577- 1861 Dec, [place] [address] 82126- 5351 Dec, [place] [address] 59716- 3647 Dec, [place] [address] 21014- 1345 Oct, Esophageal reflux 530.81 ; Congestive heart failure, unspecified 428.0 and Seizures 780.39 [place] [address] 71325- 3374 Jun, [facility] [place] [address] 58588- 1639 Jun, [place] [address] 16511- 6752 May, [facility] [place] [id number] [place] [address] 60972- 7816 May, [place] [address] 08621- 1872 May, [facility] [place] [facility] [address] [id number] [place] [address]- 0100 May, [facility] [place] [facility] [address] [id number] [place] 8244 Apr, [facility] [place] [facility] [address] [id number] [place] [address]- 1734 Apr, [facility] [place] [facility] [address] [id number] [place] [address]- 4078 Apr, [facility] [place] [facility] [address] [id number] [place] [address]- 4370 Mar, [facility] [place] [facility] [address] [id number] [place] [address]- 6832 Mar, [facility] [place] [facility] [address] [id number] [place] [address]- 1276 Mar, [facility] [place] [facility] [address] [id number] [place] [address]- 9802 Mar, [facility] [place] [facility] [address] [id number] [place] [address]- 0175 Mar, [facility] [place] [facility] [address] [id number] [place] [address]- 1306 Mar, [facility] [place] [facility] [address] [id number] [place] [address]- 1240 Feb, [facility] [place] [facility] [address] [id number] [place] [address]- 4600 Feb, [facility] [place] [facility] [address] [id number] [place] [address]- 4568 Jan, [facility] [place] [facility] [address] [id number] [place] [address]- 8747 Jan, [facility] [place] [facility] [address] [id number] [place] [address]- 4915 Dec, [facility] [place] [facility] [address] [id number] [address]- 0253 Dec, [facility] [place] [facility] [address] [id number] [place] [address]- 9337 Nov, [facility] [place] [facility] [address] [id number] [place] [address]- 9744 Nov, [facility] [place] [facility] [address] [id number] [place] [address]- 0553 Nov, [facility] [place] [facility] [address] [id number] [place] [address]- 7904 Nov, [facility] [place] [facility] [address] [id number] [place] [address]- 1733 Nov, [facility] [place] [facility] [address] [id number] [place] [address]- 2173 Nov, [facility] [place] [facility] [address] [id number] [place] [address]- 9600 Oct, [facility] [place] [facility] [address] [id number] [place] [address]- 0691 Oct, [facility] [place] [facility] [address] [id number] [place] [address]- 0285 Jun, [facility] [place] [facility] [address] [id number] [place] [address]- 1244 Jun, [facility] [place] [facility] [address] [id number] [place] [address]- 8140 Jun, [facility] [place] [facility] [address] [id number] [place] [address]- 4973 Jun, [facility] [place] [facility] [address] [id number] [place] [address]- 9340 Jun, [facility] [place] [facility] [address] [id number] [place] [address]- 5265 Jun, [facility] [place] [facility] [address] [id number] [place] [address]- 2297 Jun, [facility] [place] [facility] [address] [id number] [place] [address]- 8481 Jun, [facility] [place] [facility] [address] [id number] [place] [address]- 0236 Apr, [facility] [place] [facility] [address] [id number] [place] [address]- 2546 Apr, [facility] [place] [facility] [address] [id number] [place] [address]- 7396 Apr, [facility] [place] [facility] [address] [id number] [place] [address]- 1119 Apr, [facility] [place] [facility] [address] [id number] [place] [address]- 3596 Mar, [facility] [place] [facility] [address] [id number] [place] [address]- 9425 Mar, [facility] [place] [facility] [address] [id number] [place] [address]- 7737 Feb, [facility] [place] [facility] [address] [id number] [place] [address]- 2766 31 Feb, 2013 [facility] [place] [facility] [address] [id number] [place] [address]- 9095 30 Feb, 2013 [facility] [place] [facility] [address] [id number] [place] [address]- 0474 18 Feb, 2013 [facility] [place] [facility] [address] [id number] [place] [address]- 0228 17 Feb, 2013 [facility] [place] [facility] [address] [id number] [place] [address]- 1208 17 Feb, 2013 [facility] [place] [facility] [address] [id number] [place] [address]- 7749 Jan, [facility] [place] [facility] [address] [id number] [place] [address]- 0467 Jan, [facility] [place] [facility] [address] [id number] [place] [address]- 4174 Jan, [facility] [place] [id number] [address]- 2231 Jan, [facility] [place] [address] [address]- 5136 Dec, [facility] [place] [address] [address]- 6656 Dec, [facility] [place] [address] [address]- 9753 Nov, [facility] [place] [address] [address]- 1740 Nov, [facility] [place] [address] [address]- 8814 Oct, [facility] [place] [address] [address]- 3781 Oct, [facility] [place] [address] [address]- 6494 Nov, [facility] [place] [address] [address]- 4292 Nov, [facility] [place] [address] 5642 Oct, [facility] [place] [address] [address]- 0332 Apr, [facility] [place] [address] [address]- 5242 Dec, [facility] [place] [address] [address]- 4656 Feb, [facility] [place] [address] [address]- 8523 Feb, IMMUNIZATIONS No Known Immunizations SOCIAL HISTORY Never Assessed REASON FOR VISIT Requests return call PLAN OF CARE VITAL SIGNS MEDICATIONS No Known Medications RESULTS No Results PROCEDURES No Known [...]
--- OUTSIDE RECORDS SUMMARY | 2018-05-14 15:33 | XMS REPORT ---
Author Author WILLIAM PATTERSON [facility] Address [address] [place] [address] Care Team Providers Care Commanding Officer Traffic Division Name Role Phone WILLIAM PATTERSON Unavailable PROBLEMS Type Condition ICD9-CM Code MRH92-CI Code Onset Dates Condition Status SNOMED Code Problem Cardiomegaly I51.7 Active 3495237 Problem Essential hypertension I10 Active 44401348 Problem Mild intermittent asthma without complication J45.20 Active 206328153 Problem Chronic systolic HF (heart failure) I50.22 Active 474908645 Problem Other chronic pain G89.29 Active 13230093 Problem Seizures R56.9 Active 14637131 Problem Alcohol abuse F10.10 Active 41766249 Problem CAD (coronary artery disease) I25.10 Active 73205409 Problem Insomnia G47.00 Active 903960557 Problem 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 Active 438210065 Problem Elevated liver enzymes R74.8 Active 326833265 Problem GERD (gastroesophageal reflux disease) K21.9 Active 297922735 Problem Non-ischemic cardiomyopathy I42.8 Active 75922339 Problem Anxiety F41.9 Active 75809323 ALLERGIES No Known Allergies ENCOUNTERS Encounter Location Date Diagnosis [facility] [id number] [place] [address] 02378- 4870 Aug, [facility] [id number] [place] [address] [id number] July, [facility] [id number] [place] [address] [id number] July, Dental examination Z01.20 [facility] [id number] [place] [address] 04468- 8124 Jun, Seizures R56.9 [facility] [id number] [place] [address] 66319- 4518 May, [place] [id number] [place] [address] 50139- 5189 Apr, Chronic systolic HF (heart failure) I50.22 ; Essential hypertension I10 and Seizures R56.9 [place] [id number] [place] [address] 86237- 9897 Apr, [place] [address] [address]- 5909 Dec, Seizures R56.9 ; Alcohol abuse F10.10 and Chronic systolic HF (heart failure) I50.22 [place] [address] 58048- 9064 Oct, Chronic congestive heart failure, unspecified congestive heart failure type I50.9 ; Cardiomegaly I51.7 ; Seizures R56.9 and Alcohol abuse F10.10 [facility] [address] [id number] Sep, Dental examination Z01.20 [place] [address] 32122- 4233 Aug, [place] [address] 17405- 9912 July, [place] [id number] [place] [address] 77435- 0339 May, [place] [address] 52047- 4875 May, Seizures R56.9 ; Alcohol abuse F10.10 ; CAD (coronary artery disease) I25.10 ; Chronic congestive heart failure, unspecified congestive heart failure type I50.9 ; Mild intermittent asthma without complication J45.20 ; GERD (gastroesophageal reflux disease) K21.9 ; Unspecified abdominal pain R10.9 ; Vomiting, unspecified R11.10 ; Head injury due to trauma, sequela S09.90XS and Pain in left knee M25.562 [place] [address] [place] [address] 27[address] Apr, [facility] [id number] [place] [address] 56368- 8645 Mar, [facility] [id number] [place] [address] 95078- 4837 Mar, [facility] [id number] [place] [address] 64820- 7531 Mar, Alcohol abuse F10.10 ; Chronic congestive heart failure, unspecified congestive heart failure type I50.9 ; Cardiomegaly I51.7 ; Seizures R56.9 ; Mild intermittent asthma without complication J45.20 ; Anxiety F41.9 ; Essential hypertension I10 ; GERD (gastroesophageal reflux disease) K21.9 ; Pain in left knee M25.562 and Other chronic pain G89.29 [place] [id number] [place] [address] 88503- 7725 Mar, [facility] [id number] [place] [address] 40425- 5002 Nov, GERD (gastroesophageal reflux disease) K21.9 ; Anxiety F41.9 ; Mild intermittent asthma without complication J45.20 ; Essential hypertension I10 ; Cardiomegaly I51.7 ; Seizures R56.9 and Alcohol abuse F10.10 [facility] [id number] [place] [address] 26737- 3320 Nov, [facility] [id number] [place] [address] 10363- 1319 Oct, [facility] [id number] [place] [address] 23153- 9529 Oct, [facility] [id number] [place] [address] 80124- 9099 Oct, [facility] [id number] [place] [address] 18584- 4435 Aug, Anxiety F41.9 [facility] [address] [place] [id number] Aug, Lumbar neuritis M54.16 and Anxiety F41.9 [place] [id number] [place] [address] 62369- 7882 Jun, CAD (coronary artery disease) I25.10 ; Essential hypertension I10 and Chronic congestive heart failure, unspecified congestive heart failure type I50.[address] [id number] Jun, CAD (coronary artery disease) I25.10 ; Arrhythmia I49.9 ; Anxiety F41.9 and Cardiomegaly I51.7 [place] [address] 8[address]96- 4471 May, [address] [id number] May, Anxiety F41.9 [place] [address] 31979- 6150 Apr, Cardiomegaly I51.7 [place] [address] 99238- 3867 Mar, Seizures R56.9 ; Cardiomegaly I51.7 ; GERD ( gastroesophageal reflux disease) K21.9 ; Anxiety F41.9 and Alcohol abuse F10.10 [place] [address] 35758- 7662 Feb, [place] [address] 24383- 4547 Feb, [place] [address] 14465- 3139 Jan, Chronic congestive heart failure, unspecified congestive heart failure type I50.9 ; Mild intermittent asthma without complication J45.20 and Anxiety F41.9 [place] [address] 59395- 5225 16 Jan, 2015 [place] [address] 25761- 0788 Jan, [place] [id number] [address]14 Jan, Essential hypertension I10 ; Chronic congestive heart failure, unspecified congestive heart failure type I50.9 ; Cardiomegaly I51.7 ; Seizures R56.9 ; Alcohol abuse F10.10 ; Anxiety F41.9 and GERD ( gastroesophageal reflux disease) K21.9 [facility] [id number] [place] [address] 332020- 6172 Dec, [facility] [id number] [place] [address] 01689- 7596 Dec, [facility] [id number] [place] [address] 624510- 8740 Dec, [facility] [id number] [place] [address] 20584- 4930 Oct, Esophageal reflux 530.81 ; Congestive heart failure, unspecified 428.0 and Seizures 780.39 [facility] [id number] [place] [address] 21179- 5588 Jun, [facility] [id number] [place] [address] 75610- 6945 Jun, [facility] [id number] [place] [address] 06301- 8096 May, [facility] [address] [address]- 6362 May, [facility] [id number] [place] [address] 39457- 4063 May, [facility] [address] 86[address] May, [facility] [id number] [place] [address] 52001- 8923 Apr, [facility] [address] [address]- 8284 Apr, [facility] [id number] [place] [address]- 5[address] Apr, [facility] [address] [id number] [place] [address]- 8079 Mar, [facility] [place] [facility] [address] [id number] [place] [address]- 9926 Mar, [facility] [address] [id number] [place] [address]- 1266 Mar, [facility] [place] [facility] [address] [id number] [place] [address]- 0054 Mar, [facility] [address] [id number] [place] [address]- 2840 Mar, [facility] [address] [id number] [place] [address]- 4192 Mar, [facility] [address] [id number] [place] [address]- 5271 Feb, [facility] [address] [id number] [place] [address]- 4355 Feb, [facility] [address] [id number] [place] [address]- 8812 Jan, [facility] [address] [id number] [place] [address]- 8991 Jan, [facility] [place] [facility] [address] [id number] [place] [address]- 1981 Dec, [facility] [place] [facility] [address] [id number] [place] [address]- 0964 Dec, [facility] [place] [facility] [address] [id number] [place] [address]- 4114 Nov, [facility] [place] [facility] [address] [id number] [place] [address]- 6003 Nov, [facility] [place] [facility] [address] [id number] [place] 9313 Nov, [facility] [place] [facility] [address] [id number] [place] [address]- 2081 Nov, [facility] [place] [facility] [address] [id number] [place] [address]- 4178 Nov, [facility] [place] [facility] [address] [id number] [place] [address]- 0526 Nov, [facility] [place] [facility] [address] [id number] [place] [address]- 2581 Oct, [facility] [place] [facility] [address] [id number] [place] [address]- 8336 Oct, [facility] [place] [facility] [address] [id number] [place] [address]- 9136 Jun, [facility] [place] [facility] [address] [id number] [place] [address]- 0374 Jun, [facility] [place] [facility] [address] [id number] [place] [address]- 7411 Jun, [facility] [place] [facility] [address] [id number] [place] [address]- 5824 Jun, [facility] [place] [facility] [address] [id number] [place] [address]- 4014 Jun, [facility] [place] [facility] [address] [id number] [place] [address]- 4663 Jun, [facility] [place] [facility] [address] [id number] [place] [address]- 3892 Jun, [facility] [place] [facility] [address] [id number] [place] [address]- 3047 Jun, [facility] [place] [facility] [address] [id number] [place] [address]- 7423 Apr, [facility] [place] [facility] [address] [id number] [place] [address]- 8377 Apr, [facility] [place] [facility] [address] [id number] [place] [address]- 1378 11 Apr, 2013 [facility] [place] [facility] [address] [id number] [place] [address]- 1772 Apr, [facility] [place] [facility] [address] [id number] [place] [address] Mar, [facility] [place] [facility] [address] [facility] [id number] [place] [address]- 3574 Mar, [facility] [place] [facility] [address] [id number] [place] [address]- 2395 31 Feb, 2013 [facility] [place] [facility] [address] [id number] [place] [address]- 3305 31 Feb, 2013 [facility] [place] [facility] [address] [id number] [place] [address]- 0376 30 Feb, 2013 [facility] [place] [facility] [address] [facility] [id number] [place] [address]- 1545 18 Feb, 2013 [facility] [place] [facility] [address] [id number] [place] [address]- 2843 Feb, [facility] [place] [facility] [address] [id number] [place] [address]- 1260 Feb, [facility] [place] [facility] [address] [facility] [id number] [place] [address]- 9143 Jan, [facility] [place] [facility] [address] [id number] [place] [address]- 6411 Jan, [facility] [place] [facility] [address] [id number] [place] [address]- 0010 Jan, [facility] [place] [facility] [address] [id number] [place] [address]- 9001 Jan, [facility] [place] [facility] [address] [facility] [id number] [place] [address]907 Dec, [facility] [place] [facility] [address] [id number] [place] [address]- 5607 Dec, [facility] [address] [address]- 3581 Nov, [facility] [address] [address]- 8150 Nov, [facility] [address] [address]- 8667 Oct, [facility] [id number] [place] [address] 61552- 4667 Oct, [facility] [address] [address]- 3703 Nov, [facility] [id number] [place] [address] 40111- 9650 Nov, [facility] [id number] [address]- 4964 Oct, [facility] [id number] [address]- 7543 Apr, [facility] [address] [address]- 9343 Dec, [facility] [address] [address]- 2657 Feb, [facility] [address] [address]- 6696 Feb, IMMUNIZATIONS No Known Immunizations SOCIAL HISTORY Never Assessed REASON FOR VISIT seizure, pt. states went to and seen neurologist and increased medication dosage and is now running out but has no insurance---PATTI Navas, pt. states since the medication increase he feels off balance PLAN OF CARE Activity Details Follow Up 2 Months with [facility] f/u seizures Reason: VITAL SIGNS Height 71 in 2017-01-04 Weight 161.1 lbs 2017-01-04 Temperature 97.3 degrees Fahrenheit 2017-01-04 Heart Rate 66 bpm 2017-01-04 Respiratory Rate 18 2017-01-04 BMI 22.47 kg/m2 2017-01-04 Blood pressure systolic 125 mmHg 2017-01-04 Blood pressure diastolic 82 mmHg 2017-01-04 MEDICATIONS Medication Instructions Dosage Frequency Start Date End Date Duration Status Amiodarone HCl 200 mg Orally twice a day 1 tablet 12h Aug, 90 days Active Metoprolol Tartrate 25 MG Orally Twice a day 1 tablet with food 12h Aug 30 day(s) Active Keppra 500 mg Orally 3 times [...]
--- OUTSIDE RECORDS SUMMARY | 2018-05-14 15:37 | XMS REPORT | Continuity of Care Document ---
Author Author [facility] Organization [facility] Address Unknown Phone Unavailable Allergies Active Description Code Type Severity Reaction Onset Reported/Identified Relationship to Patient Clinical Status Yes No Known Drug Allergies [id number] Drug Allergy Unknown N/A 11/28/2012 Medications There [...] Dumont Ot 428.21 11/01/2012 ZAIRA CARPENTER, VITALIY Dumont Ot 571.8 11/01/2012 ZAIRA CARPENTER, VITALIY Dumont Ot 790.6 11/01/2012 ZAIRA CARPENTER, VITALIY Dumont Ot 794.31 11/04/2012 KAMILAH CARPENTER, IAM N [...] CLAUDIA CARPENTER, HILLARY J Ot V58.69 03/15/2014 DAORN GUTIERRES MD Ot 345.90 03/15/2014 DARON GUTIERRES [...] KELLY-BRITNI PA, JAYLEEN K Ot 397.0 08/06/2014 KELLY-BRITIN PA, JAYLEEN K Ot 401.9 08/06/2014 KELLY-BRITNI [...] CLAUDIA CARPENTER, HILLARY Chawla Ot F10.10 01/11/2015 CLAUDIA CARPENTER, HILLARY Chawla Ot F15.10 01/11/2015 CLAUDIA CARPENTER, HILLARY Chawla [...] DO Ot I25.10 ATHSCL HEART DISEASE OF [place] CORONARY 01/12/2015 ANNE JOHNSON DO Ot I42.6 [...] PATIENT'S NONCOMPLIANCE W OTH MEDICAL TR 03/21/2015 CLAUDIA CARPENTER, HILLARY Chawla Ot F10.10 [...] Chawla Ot I25.10 ATHSCL HEART DISEASE OF [place] CORONARY 09/02/2015 CLAUDIA CARPENTER, HILLARY Chawla Ot [...] MD Ot I25.10 ATHSCL HEART DISEASE OF [place] CORONARY 04/26/2016 HILLARY TAYLOR MD Ot I50.22 CHRONIC SYSTOLIC (CONGESTIVE) HEART FAIL 08/23/2016 HILLARY TAYLOR MD Ot E83.42 HYPOMAGNESEMIA 08/23/2016 HILLARY TAYLOR MD Ot F10.10 ALCOHOL ABUSE, UNCOMPLICATED 08/23/2016 HILLARY TAYLOR MD Ot F15.10 OTHER STIMULANT ABUSE, UNCOMPLICATED 08/23/2016 HILLARY TAYLOR MD Ot I25.10 ATHSCL HEART DISEASE OF [place] CORONARY 08/23/2016 HILLARY TAYLOR MD Ot I50.22 CHRONIC SYSTOLIC (CONGESTIVE) HEART FAIL 08/23/2016 DIAMOND BABIN MD ([facility]) Ot M25.562 PAIN IN LEFT KNEE 04/13/2017 HILLARY TAYLOR MD Ot E83.42 HYPOMAGNESEMIA 04/13/2017 HILLARY TAYLOR MD Ot F10.10 ALCOHOL ABUSE, UNCOMPLICATED 04/13/2017 HILLARY TAYLOR MD Ot F15.10 OTHER STIMULANT ABUSE, UNCOMPLICATED 04/13/2017 HILLARY TAYLOR MD Ot I25.10 ATHSCL HEART DISEASE OF [place] CORONARY 04/13/2017 HILLARY TAYLOR MD Ot I50.22 CHRONIC SYSTOLIC (CONGESTIVE) HEART FAIL 04/13/2017 DIAMOND BABIN MD ([facility]) Ot M25.562 PAIN IN LEFT KNEE 04/14/2017 HILLARY TAYLOR MD Ot I42.9 CARDIOMYOPATHY, UNSPECIFIED 04/14/2017 HILLARY TAYLOR MD Ot I50.9 HEART FAILURE, UNSPECIFIED 04/14/2017 HILLARY TAYLOR MD Ot Z45.02 ENCNTR FOR ADJUST AND MGMT OF AUTOMATIC 04/15/2017 HILLARY TAYLOR MD Ot I42.9 CARDIOMYOPATHY, UNSPECIFIED 04/15/2017 HILLARY TAYLOR MD Ot I50.9 HEART FAILURE, UNSPECIFIED 04/15/2017 HILLARY TAYLOR MD Ot Z45.02 ENCNTR FOR ADJUST AND MGMT OF AUTOMATIC 04/18/2017 HILLARY TAYLOR MD Ot E78.5 HYPERLIPIDEMIA, UNSPECIFIED 04/18/2017 HILLARY TAYLOR MD Ot F10.20 ALCOHOL DEPENDENCE, UNCOMPLICATED 04/18/2017 HILLARY TAYLOR MD Ot G40.909 EPILEPSY, UNSP, NOT INTRACTABLE, WITHOUT 04/18/2017 HILLARY TAYLOR MD Ot I42.9 CARDIOMYOPATHY, UNSPECIFIED 04/18/2017 HILLARY TAYLOR MD Ot I47.2 VENTRICULAR TACHYCARDIA 04/18/2017 HILLARY TAYLOR MD Ot I49.01 VENTRICULAR FIBRILLATION 04/18/2017 HILLARY TAYLOR MD Ot I50.22 CHRONIC SYSTOLIC (CONGESTIVE) HEART FAIL 04/18/2017 HILLARY TAYLOR MD Ot I50.9 HEART FAILURE, UNSPECIFIED 04/18/2017 HILLARY TAYLOR MD Ot Z45.02 ENCNTR FOR ADJUST AND MGMT OF AUTOMATIC 04/18/2017 HILLARY TAYLOR MD Ot Z91.14 PATIENT'S OTHER NONCOMPLIANCE WITH MEDIC 11/25/2017 HILLARY TAYLOR MD Ot E83.42 HYPOMAGNESEMIA 11/25/2017 HILLARY TAYLOR MD Ot F10.10 ALCOHOL ABUSE, UNCOMPLICATED 11/25/2017 HILLARY TAYLOR MD Ot F15.10 OTHER STIMULANT ABUSE, UNCOMPLICATED 11/25/2017 HILLARY TAYLOR MD Ot I25.10 ATHSCL HEART DISEASE OF [place] CORONARY 11/25/2017 HILLARY TAYLOR MD Ot I50.22 CHRONIC SYSTOLIC (CONGESTIVE) HEART FAIL 11/25/2017 OLAF CARPENTER, DIAMOND Bhatt ([facility]) Ot M25.562 PAIN IN LEFT KNEE 11/29/2017 HILLARY TAYLOR MD Ot F10.10 ALCOHOL ABUSE, UNCOMPLICATED 11/29/2017 HILLARY TAYLOR MD Ot F15.10 OTHER STIMULANT ABUSE, UNCOMPLICATED 11/29/2017 HILLARY TAYLOR MD Ot I25.10 ATHSCL HEART DISEASE OF [place] CORONARY 11/29/2017 HILLARY TAYLOR MD Ot I47.1 SUPRAVENTRICULAR TACHYCARDIA 11/29/2017 HILLARY TAYLOR MD Ot I50.9 HEART FAILURE, UNSPECIFIED 11/29/2017 HILLARY TAYLOR MD Ot Z95.810 PRESENCE OF AUTOMATIC (IMPLANTABLE) CARD 12/07/2017 HILLARY TAYLOR MD Ot F10.10 ALCOHOL ABUSE, UNCOMPLICATED 12/07/2017 HILLARY TAYLOR MD, Ot F15.10 OTHER STIMULANT ABUSE, UNCOMPLICATED 12/07/2017 HILLARY TAYLOR MD, Ot I25.10 ATHSCL HEART DISEASE OF [place] CORONARY 12/07/2017 HILLARY TAYLOR MD, Ot I47.1 SUPRAVENTRICULAR TACHYCARDIA 12/07/2017 HILLARY TAYLOR MD, Ot I50.9 HEART FAILURE, UNSPECIFIED 12/07/2017 HILLARY TAYLOR MD, Ot Z95.810 PRESENCE OF AUTOMATIC (IMPLANTABLE) CARD Procedures Code Description Performed By Performed On 2AB120B INSERTION OF DEFIB GEN INTO ABD SUBCU/FA 04/13/2017 [id number] REMOVE CARD RHYTHM DEV FROM TRUNK SUBCU/ 04/13/2017 [id number] MEASUREMENT OF CARDIAC DEFIBRILLATOR, EX 04/13/2017 [id number] JEHOVAH'S WITNESS OF CARDIAC RHYTHM, SINGLE 04/13/2017 [id number] MEASUREMENT OF CARDIAC DEFIBRILLATOR, EX 04/18/2017 Results Test Result Range Complete blood count [...] methadone detection by screening method NEGATIVE NEGATIVE CBC With Differential/Platelet - 11/20/15 10:34 WBC 7.2 x10E3/uL 3.4-10.8 RBC 4.74 x10E6/uL 4.14-5.80 Hemoglobin 14.7 g/dL 12.6-17.7 Hematocrit 44.1 % 37.5-51.0 MCV 93 fL 79-97 MCH 31.0 pg 26.6-33.0 MCHC 33.3 g/dL 31.5-35.7 RDW 13.8 % 12.3-15.4 Platelets 300 x10E3/uL 150-379 Neutrophils 76 % Lymphs 13 % Monocytes 9 % Eos 1 % Basos 1 % Neutrophils (Absolute) 5.5 x10E3/uL 1.4-7.0 Lymphs (Absolute) 0.9 x10E3/uL 0.7-3.1 Monocytes(Absolute) 0.6 x10E3/uL 0.1-0.9 Eos (Absolute) 0.1 x10E3/uL 0.0-0.4 Baso (Absolute) 0.1 x10E3/uL 0.0-0.2 Immature Granulocytes 0 % Immature Grans (Abs) 0.0 x10E3/uL 0.0-0.1 Comp. Metabolic Panel (14) - 11/20/15 10:34 Glucose, Serum 76 mg/dL 65-99 BUN 8 mg/dL 6-20 Creatinine, Serum 0.76 mg/dL 0.76-1.27 eGFR If NonAfricn Am 120 mL/min/1.73 >59 eGFR If Africn Am 139 mL/min/1.73 >59 BUN/Creatinine Ratio 11 8-19 Sodium, Serum 141 mmol/L 134-144 Potassium, Serum 4.8 mmol/L 3.5-5.2 Chloride, Serum 97 mmol/L 97-108 Carbon Dioxide, Total 27 mmol/L 18-29 Calcium, Serum 9.4 mg/dL 8.7-10.2 Protein, Total, Serum 7.2 g/dL 6.0-8.5 Albumin, Serum 4.4 g/dL 3.5-5.5 Globulin, Total 2.8 g/dL 1.5-4.5 A/G Ratio 1.6 1.1-2.5 Bilirubin, Total 0.8 mg/dL 0.0-1.2 Alkaline Phosphatase, S 111 IU/L 39-117 AST (SGOT) 68 IU/L 0-40 ALT (SGPT) 50 IU/L 0-44 Lipid Panel - 11/20/15 10:34 Cholesterol, Total 215 mg/dL 100-199 Triglycerides 97 mg/dL 0-149 HDL Cholesterol 110 mg/dL >39 VLDL Cholesterol Marcelino 19 mg/dL 5-40 LDL Cholesterol Calc 86 mg/dL 0-99 Magnesium, Serum - 11/20/15 10:34 Magnesium, Serum 1.8 mg/dL 1.6-2.3 Hepatitis Panel (4) - 11/20/15 10:34 HBsAg Screen Negative Negative Hep A Ab, IgM Negative Negative Hep B Core Ab, IgM Negative Negative Hep C Virus Ab <0.1 s/co ratio 0.0-0.9 Panel [id number] - 11/20/15 10:34 HIV Screen 4th Generation wRfx Non Reactive Non Reactive Written Authorization - 11/20/15 10:34 Written Authorization Comment CBC With Differential/Platelet - 03/19/16 12:01 WBC 4.9 x10E3/uL 3.4-10.8 RBC 4.94 x10E6/uL 4.14-5.80 Hemoglobin 15.5 g/dL 12.6-17.7 Hematocrit 45.5 % 37.5-51.0 MCV 92 fL 79-97 MCH 31.4 pg 26.6-33.0 MCHC 34.1 g/dL 31.5-35.7 RDW 13.6 % 12.3-15.4 Platelets 237 x10E3/uL 150-379 Neutrophils 63 % Lymphs 24 % Monocytes 10 % Eos 2 % Basos 1 % Neutrophils (Absolute) 3.1 x10E3/uL 1.4-7.0 Lymphs (Absolute) 1.2 x10E3/uL 0.7-3.1 Monocytes(Absolute) 0.5 x10E3/uL 0.1-0.9 Eos (Absolute) 0.1 x10E3/uL 0.0-0.4 Baso (Absolute) 0.1 x10E3/uL 0.0-0.2 Immature Granulocytes 0 % Immature Grans (Abs) 0.0 x10E3/uL 0.0-0.1 Comp. Metabolic Panel (14) - 03/19/16 12:01 Glucose, Serum 87 mg/dL 65-99 BUN 5 mg/dL 6-20 Creatinine, Serum 0.89 mg/dL 0.76-1.27 eGFR If NonAfricn Am 112 mL/min/1.73 >59 eGFR If Africn Am 130 mL/min/1.73 >59 BUN/Creatinine Ratio 6 8-19 Sodium, Serum 143 mmol/L 134-144 Potassium, Serum 4.6 mmol/L 3.5-5.2 Chloride, Serum 99 mmol/L 96-106 Carbon Dioxide, Total 27 mmol/L 18-29 Calcium, Serum 8.9 mg/dL 8.7-10.2 Protein, Total, Serum 7.8 g/dL 6.0-8.5 Albumin, Serum 4.6 g/dL 3.5-5.5 Globulin, Total 3.2 g/dL 1.5-4.5 A/G Ratio 1.4 1.1-2.5 Bilirubin, Total 0.6 mg/dL 0.0-1.2 Alkaline Phosphatase, S 134 IU/L 39-117 AST (SGOT) 161 IU/L 0-40 ALT (SGPT) 78 IU/L 0-44 Complete urinalysis with reflex to culture - [...] VLDL measurement (mass/volume) 20 mg/ dL 5-40 Methicillin resistant Staphylococcus aureus (MRSA) screening culture - 07:35 Methicillin resistant Staphylococcus aureus (MRSA) screening culture NEG NRG Automated blood complete blood count (hemogram) panel - 04/14/17 04:55 Blood leukocytes automated count (number/volume) 6.2 10*3/uL 4.3-11.0 Blood erythrocytes automated count (number/volume) 4.39 10*6/uL 4.35-5.85 Venous blood hemoglobin measurement (mass/volume) 13.7 g/dL 13.3-17.7 Blood hematocrit (volume fraction) 40 % 40-54 Automated erythrocyte mean corpuscular volume 92 [foz_us] 80-99 Automated erythrocyte mean corpuscular hemoglobin (mass per erythrocyte) 31 pg 25-34 Automated erythrocyte mean corpuscular hemoglobin concentration measurement ( mass/volume) 34 g/dL 32-36 Automated erythrocyte distribution width ratio 12.0 % 10.0-14.5 Automated blood platelet count (count/volume) 303 10*3/uL 130-400 Automated blood platelet mean volume measurement 9.6 [foz_us] 7.4-10.4 Comprehensive metabolic panel - 04/14/17 04:55 Serum or plasma sodium measurement (moles/volume) 140 mmol/L 135-145 Serum or plasma potassium measurement (moles/volume) 4.3 mmol/L 3.6-5.0 Serum or plasma chloride measurement (moles/volume) 106 mmol/L 98-107 Carbon dioxide 25 mmol/L 21-32 Serum or plasma anion gap determination (moles/volume) 9 mmol/L 5-14 Serum or plasma urea nitrogen measurement (mass/volume) 7 mg/dL 7-18 Serum or plasma creatinine measurement (mass/volume) 0.79 mg/dL 0.60-1.30 Serum or plasma urea nitrogen/creatinine mass ratio 9 NRG Serum or plasma creatinine measurement with calculation of estimated glomerular filtration rate > NRG Serum or plasma glucose measurement (mass/volume) 91 mg/dL 70-105 Serum or plasma calcium measurement (mass/volume) 8.8 mg/dL 8.5-10.1 Serum or plasma total bilirubin measurement (mass/volume) 0.9 mg/dL 0.1-1.0 Serum or plasma alkaline phosphatase measurement (enzymatic activity/volume) 73 U/L 40-136 Serum or plasma aspartate aminotransferase measurement (enzymatic activity/ volume) 21 U/L 5-34 Serum or plasma alanine aminotransferase measurement (enzymatic activity/volume ) 18 U/L 0-55 Serum or plasma protein measurement (mass/volume) 6.4 g/dL 6.4-8.2 Serum or plasma albumin measurement (mass/volume) 3.6 g/dL 3.2-4.5 Encounters ACCT No. Visit Date/Time Discharge Status Pt. Type Provider Facility Loc./Unit Complaint [id number] 11/25/2017 12:01:00 11/25/2017 23:59:59 CLS Outpatient HILLARY TAYLOR MD [facility] LAB CAD,CHF [id number] 04/13/2017 10:45:00 04/18/2017 15:15:00 DIS Inpatient HILLARY TAYLOR MD [facility] ICU SEJAL,VT,NICM,HLP [id number] 08/23/2016 09:06:00 08/23/2016 23:59:59 CLS Outpatient DIAMOND BABIN MD ([facility]) [facility] RAD DDU [id number] 04/23/2016 13:12:00 04/23/2016 23:59:59 CLS Outpatient HILLARY TAYLOR MD [facility] CARD CAD,CHF [id number] 11/09/2015 10:55:00 11/09/2015 13:49:00 DIS Emergency RAYMUNDO CARPENTER, HERLINDA Shoemaker [facility] ER SEIZURE [id number] 03/20/2015 15:30:00 03/21/2015 13:55:00 DIS Inpatient ANNE JOHNSON DO [facility] ICU SEIZURES [id number] 01/11/2015 13:00:00 01/12/2015 14:50:00 DIS Inpatient ANNE JOHNSON DO [facility] ICU [id number] 12/20/2014 11:13:00 12/20/2014 23:59:59 CLS Outpatient HILLARY TAYLOR MD [facility] CARD [id number] 10/21/2014 12:11:00 10/21/2014 15:04:00 DIS Emergency WILBER MOORE [facility] ER [id number] 07/10/2014 16:30:00 07/11/2014 07:45:00 DIS Inpatient ZAIRA CARPENTER, VITALIY Dumont [facility] SURGICAL [id number] 04/23/2014 22:50:00 04/24/2014 19:15:00 DIS Inpatient ANNE JOHNSON DO [facility] 4TH [id number] 03/13/2014 22:15:00 03/15/2014 08:15:00 DIS Inpatient DARON GUTIERRES MD [facility] CSD [id number] 02/13/2014 10:15:00 02/14/2014 16:00:00 DIS Outpatient HILLARY TAYLOR MD [facility] [id number] 02/04/2014 09:12:00 02/04/2014 23:59:59 CLS Outpatient JAYLEEN MYERS [facility] CARD [id number] 03/29/2013 12:58:00 03/29/2013 23:59:59 CLS Outpatient JAYLEEN MYERS [facility] CARD [id number] 11/27/2012 21:13:00 11/28/2012 15:45:00 DIS Inpatient IAM TRIANA MD [facility] [address] [id number] 11/04/2012 05:34:00 11/04/2012 18:30:00 DIS Inpatient IAM TRIANA MD [facility] [id number] 10/29/2012 21:40:00 11/01/2012 15:10:00 DIS Inpatient VITALIY MENESES MD [facility] [id number] 02/04/2014 09:10:00 Document Registration [id number] 03/26/2012 15:11:00 Document Registration [id number] 11/25/2011 13:10:00 Document Registration [id number] 09/29/2011 11:53:00 Document Registration [id number] 06/03/2011 06:04:00 Document Registration [id number] 09/28/2009 17:19:00 Document Registration [id number] 09/21/2009 17:41:00 Document Registration [id number] 09/05/2017 09:00:00 09/05/2017 23:59:59 [facility] [id number] 11/21/2015 08:46:00 Document Registration [id number] 11/23/2015 07:05:00 Document Registration [id number] 03/20/2016 08:35:00 Document Registration [id number] 12/20/2014 11:14:04 ACT Document Registration
== END 2018-05-14 06:18 | disposition home or self-care (01) ==
LOC: EDUNIT# 02:33 → ER 02:34
DX: S22.020A Wedge compression fracture of second thoracic vertebra, initial encounter for closed fracture (principal); S01.111A Laceration without foreign body of right eyelid and periocular area, initial encounter; S70.312A Abrasion, left thigh, initial encounter; R10.9 Unspecified abdominal pain; I42.9 Cardiomyopathy, unspecified; G40.909 Epilepsy, unspecified, not intractable, without status epilepticus; F41.9 Anxiety disorder, unspecified; R40.2142 Coma scale, eyes open, spontaneous, at arrival to emergency department; R40.2252 Coma scale, best verbal response, oriented, at arrival to emergency department; R40.2362 Coma scale, best motor response, obeys commands, at arrival to emergency department; F17.210 Nicotine dependence, cigarettes, uncomplicated; Z23 Encounter for immunization; Z82.49 Family history of ischemic heart disease and other diseases of the circulatory system; Z95.810 Presence of automatic (implantable) cardiac defibrillator; Z87.01 Personal history of pneumonia (recurrent); V48.5XXA Car driver injured in noncollision transport accident in traffic accident, initial encounter; Y92.411 Interstate highway as the place of occurrence of the external cause
CPT/HCPCS: 36415; 70450; 70486; 71045; 71260; 72125; 72170; 73552; 74177; 80048; 80076; 80320; 85027; 90715; 93005; 93041

== ENCOUNTER → 2018-07-12 | Outpatient (CLI) | payer MEDICAID ==
[~2018-07-12] MED LIST changes: +ACHD5005 PO
== END | disposition home or self-care (01) ==
LOC: PREOP 05:49
PROVIDERS: ATTEND Internal Medicine Interventional Cardiology
DX: Z01.818 Encounter for other preprocedural examination (principal)

== ENCOUNTER 2023-01-02 12:43 | Emergency (ER) | payer MEDICAID ==
[~2023-01-02] VITALS: Ht 177 cm; Wt 86.0 kg
[~2023-01-02 12:43] MED LIST changes: -AMIO200T4 PO; +AMIO200T65 PO
[2023-01-02 13:22] LABS: BASOPHILS # (AUTO) 0.1 10^3/uL (0.0-0.1); BASOPHILS % (AUTO) 1 % (0-10); EOSINOPHILS # (AUTO) 0.3 10^3/uL (0.0-0.3); EOSINOPHILS % (AUTO) 3 % (0-10); HEMATOCRIT 42 % (40-54); HEMOGLOBIN 13.9 g/dL (13.3-17.7); LYMPHOCYTES # (AUTO) 2.6 10^3/uL (1.0-4.0); LYMPHOCYTES % (AUTO) 26 % (12-44); MEAN CORPUSCULAR HEMOGLOBIN 31 pg (25-34); MEAN CORPUSCULAR HGB CONC 33 g/dL (32-36); MEAN CORPUSCULAR VOLUME 95 fL (80-99); MEAN PLATELET VOLUME 9.6 fL (9.0-12.2); MONOCYTES # (AUTO) 1.1 10^3/uL (0.0-1.0); MONOCYTES % (AUTO) 11 % (0-12); NEUTROPHILS # (AUTO) 5.9 10^3/uL (1.8-7.8); NEUTROPHILS % (AUTO) 59 % (42-75); PLATELET COUNT 322 10^3/uL (130-400); WHITE BLOOD COUNT 9.9 10^3/uL (4.3-11.0)
[2023-01-02 13:25] LABS: ALBUMIN 3.8 GM/DL (3.2-4.5)
[2023-01-02 13:26] LABS: CHLORIDE 105 MMOL/L (98-107); POTASSIUM 4.7 MMOL/L (3.6-5.0); SODIUM 136 MMOL/L (135-145)
[2023-01-02 13:27] LABS: CALCIUM 8.8 MG/DL (8.5-10.1)
[2023-01-02 13:28] LABS: GLUCOSE 84 MG/DL (70-105); TOTAL PROTEIN 6.6 GM/DL (6.4-8.2)
[2023-01-02 13:29] LABS: CARBON DIOXIDE 20 MMOL/L (21-32)
[2023-01-02 13:30] LABS: BILIRUBIN,TOTAL 2.6 MG/DL (0.1-1.0)
--- NOTE | 2023-01-02 13:30 | Diagnostic Imaging Report ---
INDICATION: Chest pain. COMPARISON: 05/14/2018. DISCUSSION: Single portable upright view of the chest was obtained. Right-sided AICD is stable. There is prominent cardiomegaly which is new. No zaira failure. No consolidation, pleural fluid, or pneumothorax. No osseous abnormality. IMPRESSION: 1. New cardiomegaly without zaira failure. Dictated by: Dictated on workstation # [id number]
[2023-01-02 13:31] LABS: ALKALINE PHOSPHATASE 119 U/L (40-136); CREATININE SERUM 0.93 MG/DL (0.60-1.30); GFR ESTIMATED 106
[2023-01-02 13:33] LABS: BUN/CREATININE RATIO 19
[2023-01-02 13:34] LABS: ALANINE AMINOTRANSFERASE 127 U/L (0-55)
[2023-01-02 13:40] LABS: INR 1.3 (0.8-1.4); PROTHROMBIN TIME PATIENT 16.9 SEC (12.2-14.7)
[2023-01-02] MEDS ORDERED: dilTIAZem INJ 25 MG/5 ML VIAL IVP ONE (14:00)
[2023-01-02] MEDS ORDERED: dilTIAZem DRIP PRE-MIX 125 ML IV SCH (14:00)
--- NOTE | 2023-01-02 14:35 | ED Chest Pain ---
General Chief Complaint: General Problems/Pain Stated Complaint: SOA/BLOOD PRESSURE PROBLEMS Nursing Triage Note: PT TO ED /W C/O SOA, INTERMITTENT CP ET WEAKNESS ONSET 2-3 WKS. PT REPORTS HAS PACEMAKER/DEFIBRILLATOR, STATES IT'S BEEN "BEEPING" RECENTLY. ALSO REPORTS HAS NOT SEEN CELL ROOM SUPERVISOR OR PCP FOR COMPLAINTS ET ALSO NOT TAKING PRESCRIBED MEDS. STATES "DID TAKE BROTHERS BP MED". Source: patient, family, old records Exam Limitations: no limitations History of Present Illness Date Seen by Provider: Jan 02, 2023 Time Seen by Provider: 13:16 Initial Comments This 42-year-old man with history of nonischemic cardiomyopathy and arrhythmias including ventricular tachycardia, ventricular fibrillation, and SVT presents to the emergency room with complaints of chest pain over the last 3 weeks accompanied by dyspnea on exertion. He feels very anxious and complains of a pressure in his chest, neck, and head when he bends over. He reports not taking any of his medications or following up with any of his physicians in about a year and a half. He had been seeing Dr. Soliman for cardiology and Dr. Patterson at [facility] for primary care. He has history of alcoholism but as of 2018 reported abstinence. He also had history of other substance abuse. He has documentation in the chart from 2018 including documentation of ICD generator replacement with failed DFT testing. Patient is noted to be tachycardic on the monitor with what appears to be atrial flutter with a heart rate in the 120s. In addition to the chest pain, patient reports insomnia, waking in panics, and leg cramps. He reports his ICD also occasionally alarms. It has not shocked him. Assessment of the ICD in 2018 noted a lead that was pulled back but appeared to be functional. Patient denies any current drug or alcohol abuse. He is rather anxious at this time. Allergies and Home Medications Allergies Coded Allergies: No Known Drug Allergies (Unverified , 11/28/12) Patient Home Medication List Home Medication List Reviewed: Yes Cefdinir (Cefdinir) 300 Mg Capsule, 300 MG PO BID Prescribed by: HERLINDA BLOCK on 01/02/231728 Doxycycline Hyclate (Doxycycline Hyclate) 100 Mg Tablet, 100 MG PO BID Prescribed by: HERLINDA BLOCK on 01/02/231728 Enalapril Maleate (Enalapril Maleate) 2.5 Mg Tablet, 2.5 MG PO BID, (Reported) Entered as Reported by: RAY LOVELL on 11/01/12 1433 Hydrocodone Bit/Acetaminophen (Lortab 5 Mg Tablet) 1 Tab Tab, 1 EACH PO Q4-6HR PRN for PAIN-MODERATE Prescribed by: DELIO VERONICA on 05/14/18 0531 Levetiracetam (Levetiracetam) 500 Mg Tablet, 500 MG PO BID Prescribed by: COURTNEY ABRAHAM on 03/21/15 1256 Metoprolol Tartrate (Metoprolol Tartrate) 25 Mg Tablet, 25 MG PO BID, (Reported) Entered as Reported by: CJ LEA on 03/20/15 1531 [Sotalol Hcl] 80 MG TAB, 80 MG PO BID Prescribed by: FLORINA SORIANO on 04/18/17 1455 Review of Systems Review of Systems Constitutional: no symptoms reported EENTM: No Symptoms Reported Respiratory: See HPI Cardiovascular: See HPI Gastrointestinal: No Symptoms Reported Genitourinary: No Symptoms Reported Musculoskeletal: see HPI Skin: no symptoms reported Psychiatric/Neurological: See HPI Endocrine: No Symptoms Reported Hematologic/Lymphatic: No Symptoms Reported Past Dhjdivd-Srwnvo-Gxozru Hx Patient Social History Tobacco Use?: No Use of E-Cig and/or Vaping dev: No Substance use?: No Alcohol Use?: No Pt feels they are or have been: No Immunizations Up To Date Tetanus Booster (TDap): Unknown Seasonal Allergies Seasonal Allergies: No Past Medical History Surgery/Hospitalization HX: PACEMAKER/DEFIBRILLATOR 19% EF CHF Surgeries: Yes Cardiac, Defibrillator Respiratory: Yes Pneumonia Currently Using CPAP: No Currently Using BIPAP: No Cardiac: Yes Cardiomyopathy (Nonischemic) Neurological: Yes Seizure Disorder Reproductive Disorders: No Sexually Transmitted Disease: No HIV/AIDS: No Genitourinary: No Gastrointestinal: No Musculoskeletal: No Endocrine: No Loss of Vision: Denies Hearing Impairment: Denies Cancer: No Psychosocial: Yes (Polysubstance abuse, history of alcoholism) Anxiety Integumentary: No Blood Disorders: No Adverse Reaction/Blood Tranf: No Family Medical History Deafness or hearing loss 19 FATHER Diabetes mellitus 19 FATHER Hypertension G8 BROTHER Respiratory disorder 19 MOTHER No Pertinent Family Hx Physical Exam Vital Signs Vital Signs - First Documented 01/02/23 12:51 Temp 36.5 Pulse 122 Resp 20 B/P (MAP) 114/80 (91) Pulse Ox 95 O2 Delivery Room Air Capillary Refill : Less Than 3 Seconds Height, Weight, BMI Height: 5'10.00" Weight: 175lbs. 2.0oz. [id number]; 27.00 BMI Method:Stated General Appearance: No Apparent Distress, WD/WN HEENT: PERRL/EOMI, Normal ENT Inspection Neck: Normal Inspection; No JVD Respiratory: Lungs Clear, Normal Breath Sounds, No Accessory Muscle Use, No Respiratory Distress, Other (Tachypnea) Cardiovascular: No Edema, No Murmur, Tachycardia (Regular) Gastrointestinal: Normal Bowel Sounds, Non Tender, Soft Extremity: Normal Inspection, Non Tender, No Pedal Edema Neurologic/Psychiatric: Alert, Oriented x3, No Motor/Sensory Deficits, Normal Mood/Affect Skin: Normal Color, Warm/Dry Focused Exam Lactate Level 01/02/23 16:30: Lactic Acid Level 2.08*H Lactic Acid Level Laboratory Tests Test 01/02/23 16:30 Lactic Acid Level 2.08 MMOL/L (0.50-2.00) *H Progress/Results/Core Measures Results/Orders Lab Results Laboratory Tests Test 01/02/23 12:59 01/02/23 14:07 01/02/23 14:31 01/02/23 14:52 Range/Units White Blood Count 9.9 4.3-11.0 10^3/uL Red Blood Count 4.47 4.30-5.52 10^6/uL Hemoglobin 13.9 13.3-17.7 g/dL Hematocrit 42 40-54 % Mean Corpuscular Volume 95 80-99 fL Mean Corpuscular Hemoglobin 31 25-34 pg Mean Corpuscular Hemoglobin Concent 33 32-36 g/dL Red Cell Distribution Width 12.7 10.0-14.5 % Platelet Count 322 130-400 10^3/uL Mean Platelet Volume 9.6 9.0-12.2 fL Immature Granulocyte % (Auto) 0 % Neutrophils (%) (Auto) 59 42-75 % Lymphocytes (%) (Auto) 26 12-44 % Monocytes (%) (Auto) 11 0-12 % Eosinophils (%) (Auto) 3 0-10 % Basophils (%) (Auto) 1 0-10 % Neutrophils # (Auto) 5.9 1.8-7.8 10^3/uL Lymphocytes # (Auto) 2.6 1.0-4.0 10^3/uL Monocytes # (Auto) 1.1 H 0.0-1.0 10^3/uL Eosinophils # (Auto) 0.3 0.0-0.3 10^3/uL Basophils # (Auto) 0.1 0.0-0.1 10^3/uL Immature Granulocyte # (Auto) 0.0 0.0-0.1 10^3/uL Prothrombin Time 16.9 H 12.2-14.7 SEC INR Comment 1.3 0.8-1.4 Activated Partial Thromboplast Time 32 24-35 SEC Sodium Level 136 135-145 MMOL/L Potassium Level 4.7 3.6-5.0 MMOL/L Chloride Level 105 98-107 MMOL/L Carbon Dioxide Level 20 L 21-32 MMOL/L Anion Gap 11 5-14 MMOL/L Blood Urea Nitrogen 18 7-18 MG/DL Creatinine 0.93 0.60-1.30 MG/DL Estimat Glomerular Filtration Rate 106 BUN/Creatinine Ratio 19 Glucose Level 84 70-105 MG/DL Calcium Level 8.8 8.5-10.1 MG/DL Corrected Calcium 9.0 8.5-10.1 MG/DL Magnesium Level 2.0 1.6-2.4 MG/DL Total Bilirubin 2.6 H 0.1-1.0 MG/DL Aspartate Amino Transf (AST/SGOT) 156 H 5-34 U/L Alanine Aminotransferase (ALT/SGPT) 127 H 0-55 U/L Alkaline Phosphatase 119 40-136 U/L Myoglobin 66.6 10.0-92.0 NG/ML Troponin I < 0.028 <0.028 NG/ML B-Type Natriuretic Peptide 3070.5 H <100.0 PG/ML Total Protein 6.6 6.4-8.2 GM/DL Albumin 3.8 3.2-4.5 GM/DL TSH [place] Testing 0.89 0.35-4.94 UIU/ML Serum Alcohol 11 H <10 MG/DL Urine Opiates Screen NEGATIVE NEGATIVE Urine Oxycodone Screen NEGATIVE NEGATIVE Urine Methadone Screen NEGATIVE NEGATIVE Urine Propoxyphene Screen NEGATIVE NEGATIVE Urine Barbiturates Screen NEGATIVE NEGATIVE Ur Tricyclic Antidepressants Screen NEGATIVE NEGATIVE Urine Phencyclidine Screen NEGATIVE NEGATIVE Urine Amphetamines Screen POSITIVE H NEGATIVE Urine Methamphetamines Screen POSITIVE H NEGATIVE Urine Benzodiazepines Screen NEGATIVE NEGATIVE Urine Cocaine Screen NEGATIVE NEGATIVE Urine Cannabinoids Screen NEGATIVE NEGATIVE D-Dimer 1.39 H 0.00-0.49 UG/ML Test 01/02/23 16:30 Range/Units Lactic Acid Level 2.08 *H 0.50-2.00 MMOL/L My Orders Orders - HERLINDA FONSECA MD Ekg Tracing (01/02/23 13:04) Cbc And Automated Diff (01/02/23 13:16) Magnesium (01/02/23 13:16) Chest 1 View, Ap/Pa Only (01/02/23 13:16) Comprehensive Metabolic Panel (01/02/23 13:16) Myoglobin Serum (01/02/23 13:16) Protime With Inr (01/02/23 13:16) Partial Thromboplastin Time (01/02/23 13:16) Monitor-Rhythm Ecg Trace Only (01/02/23 13:16) Ed Iv/Invasive Line Start (01/02/23 13:16) Bnp Deepak (01/02/23 13:16) Troponin I [place] (01/02/23 13:16) Alcohol (01/02/23 13:56) Drug Screen Stat (Urine) (01/02/23 13:56) Thyroid Analyzer (01/02/23 13:56) Diltiazem Injection (Diltiazem Injection (01/02/23 14:00) Diltiazem Drip Pre-Mix (Diltiazem Drip P (01/02/23 14:00) Fibrin Degradation Products (01/02/23 14:50) Lorazepam Injection (Lorazepam Injection (01/02/23 15:15) Ct Angio Chest W (R/O Pe) (01/02/23 15:12) Iohexol Injection (Omnipaque 350 Mg/Ml 1 (01/02/23 15:15) Received Contrast (Hold Metformin- Contr (01/02/23 15:15) Ns (Ivpb) 100 Ml (Sodium Chloride 0.9% 1 (01/02/23 15:15) Blood Culture (01/02/23 15:52) Sputum Culture (01/02/23 15:52) Urine Culture (01/02/23 15:52) Vital Signs Adult Sepsis Patie Q15M (01/02/23 15:52) O2 (01/02/23 15:52) Remove Rings In Anticipation O (01/02/23 15:52) Lactic Acid Analyzer (01/02/23 15:52) Piperacillin/Tazobactam (Piperacillin/Ta (01/02/23 16:00) Medications Given in ED Current Medications Medications Dose Ordered Sig/Javed Route Start Time Stop Time Status Last Admin Dose Admin Diltiazem HCl 5 mg ONCE ONCE IVP 01/02/23 14:00 01/02/23 14:02 DC 01/02/23 14:10 5 MG Iohexol 100 ml ONCE ONCE IV 01/02/23 15:15 01/02/23 15:17 DC 01/02/23 15:38 75 ML Lorazepam 1 mg ONCE ONCE IVP 01/02/23 15:15 01/02/23 15:16 DC 01/02/23 15:19 1 MG Piperacillin Sod/ Tazobactam Sod 4.5 gm/Sodium Chloride 100 ml @ 200 mls/hr ONCE ONCE IV 01/02/23 16:00 01/02/23 16:29 DC 01/02/23 16:52 200 MLS/HR Sodium Chloride 100 ml ONCE ONCE IV 01/02/23 15:15 01/02/23 15:17 DC 01/02/23 15:38 80 ML Vital Signs/I&O 01/02/23 01/02/23 01/02/23 01/02/23 12:51 14:10 14:11 17:38 Temp 36.5 Pulse 122 122 122 102 Resp 20 16 B/P (MAP) 114/80 (91) 114/80 114/80 96/80 Pulse Ox 95 98 O2 Delivery Room Air Room Air Blood Pressure Mean: 91 Progress Progress Note #1: Time: 15:27 Progress Note Patient's rhythm appeared to be atrial flutter or less likely slow SVT. There was no ischemic appearing ST elevation or depression. A Cardizem drip was initiated with an initial 5 mg bolus. Heart rate decreased to the 90s to 110s. He was alternating between the tacky arrhythmia and sinus tachycardia after the Cardizem. All labs were reviewed and interpreted by me. CBC was unremarkable. CMP was notable for CO2 of 20, bilirubin elevation at 2.6, AST elevation of 156, and ALT elevation of 127. BNP was notably elevated at 3070. TSH was normal. Myoglobin was normal at 66.6. Troponin was negative. EKG demonstrated a tacky arrhythmia as noted below, likely atrial flutter or possibly slow SVT. D-dimer was added and was elevated at 1.39. Coagulation panel was otherwise unremarkable. Despite patient's assertion that he no longer uses drugs or alcohol, his alcohol level was 11 and he tested positive for amphetamine and methamphetamine in his urine drug screen. Chest x-ray demonstrated cardiomegaly without overt failure. CT angiogram has been added to further evaluate his chest pain in the context of elevated D-dimer. The ICD was interrogated with the [employer] door to door sales representative. A defective lead was noted. The lead should be reading at 50 ohms but is only reading at 4 ohms. According to the interrogation report, he has had episodes of SVT and sinus tachycardia including SVT yesterday with heart rate up to 148. This was noted for about 35 minutes. 20 minutes of SVT or sinus tachycardia was also noted on Tuesday. There is an active alert on the device for shock impedance. There was recording of "noise" on December 05 and October 23. He is essentially not using the pacemaker at this time due to the defective lead. The door to door sales representative recommended transferring to a facility with EP services versus turning off of the device with preference to transfer. Cardiology services are not available at this facility today. [employer] door to door sales representative suggested [facility] as a destination. Progress Note #2: Progress Note CTA was negative for PE or aortic pathology. Consolidations bilaterally were noted consistent with pneumonia. Blood cultures and lactic acid were drawn. Patient was treated with Zosyn. Patient was not willing to transfer over a long distance for cardiac care. [facility] had EP services available. Patient chose to leave AMA after antibiotics were received. I did prescribe antibiotics but did not discern it would be appropriate for me to prescribe cardiac medications without any formal cardiac work-up or consultation. Risks reviewed with patient which he repeated back to me before signing out AMA. See discharge instruction for outline of that discussion. EKG : EKG Time: 13:08 Rate: 127 Rhythm: A Fib/Flutter Comment Atrial flutter with no overt ST elevation or depression to suggest ischemia. Right axis deviation. Otherwise no abnormal intervals. Diagnostic Imaging Diagonstic Imaging: Xray Plain Films/CT/US/NM/MRI: chest Comments NAME: AMADOR SCALES [facility] REC#: [id number] PT STATUS: REG ER : 1980 PHYSICIAN: HERLINDA FONSECA MD ADMIT DATE: 01/02/23/ER Draft Date of Exam:01/02/23 CHEST 1 VIEW, AP/PA ONLY INDICATION: Chest pain. COMPARISON: 05/14/2018. DISCUSSION: Single portable upright view of the chest was obtained. Right-sided AICD is stable. There is prominent cardiomegaly which is new. No zaira failure. No consolidation, pleural fluid, or pneumothorax. No osseous abnormality. IMPRESSION: 1. New cardiomegaly without zaira failure. Dictated on workstation # [id number] Dict: 01/02/23 1325 Trans: 01/02/23 1330 [id number] [id number] Interpreted by: VITALIY KO MD Diagonstic Imaging: CT Plain Films/CT/US/NM/MRI: chest Comments NAME: AMADOR SCALES [facility] REC#: [id number] PT STATUS: REG ER : 1980 PHYSICIAN: HERLINDA FONSECA MD ADMIT DATE: 01/02/23/ER Signed Date of Exam:01/02/23 CT ANGIO CHEST W (R/O PE) INDICATION: Chest pain, elevated d-dimer. COMPARISON: 05/14/2018. TECHNIQUE: Contiguous axial images were obtained through the chest during intravenous administration of contrast. MIP reconstructions were created and evaluated. DISCUSSION: Exam is degraded moderately by motion. There is no large or central pulmonary embolus identified. More distal emboli could be obscured by motion. The heart is enlarged. No pleural or pericardial fluid. The thoracic aorta is normal in caliber and configuration. Patchy infiltrates are present bilaterally consistent with pneumonia. Most consolidation is in the right upper lobe. No adenopathy identified. Visualized upper abdomen is unremarkable. Cholelithiasis is present. No osseous abnormality identified. IMPRESSION: 1. Exam is moderately degraded by motion. No large or central pulmonary embolus identified. 2. Cardiomegaly. 3. Cholelithiasis. 4. Pneumonia. Dictated by: Dictated on workstation # [id number] Dict: 01/02/23 1541 Trans: 01/02/23 1547 [facility] [id number] Interpreted by: VITALIY KO MD Electronically signed by: VITALIY KO MD 01/02/23 1547 Departure Impression Primary Impression: Chest pain Qualified Codes: R07.9 - Chest pain, unspecified Additional Impressions: Cardiomyopathy Qualified Codes: I42.9 - Cardiomyopathy, unspecified Polysubstance abuse Medical non-compliance Pneumonia Qualified Codes: J18.9 - Pneumonia, unspecified organism Cholelithiasis Qualified Codes: K80.20 - Calculus of gallbladder without cholecystitis without obstruction Atrial flutter with rapid ventricular response Disposition: 07 AGAINST MEDICAL ADVICE Condition: Against Medical Advice Departure-Patient Inst. Referrals: WILLIAM PATTERSON MD (PCP/Family) Primary Care Physician Patient Instructions: ALCOHOL AND SUBSTANCE ABUSE, Atrial flutter, Chest Pain, Community-acquired pneumonia in adults Add. Discharge Instructions: You are leaving the hospital AGAINST MEDICAL ADVICE. Admission and transfer to a facility with electrophysiology specialty services has been recommended. Leaving the hospital AGAINST MEDICAL ADVICE could result in serious health consequences and possibly . Among these consequences could be worsening of pneumonia leading to sepsis, life-threatening heart rhythms, progressing heart attack, stroke, etc. These medical conditions could lead to serious disability, suffering, and possibly . You are advised to take aspirin 81 mg daily and complete the antibiotics prescribed. Please seek an appointment in the clinic as soon as possible. Call in the morning to schedule an appointment. You should also seek assistance with substance abuse treatment. This can be done at the [facility] ([phone]) or at [facility] ([phone]). Please discontinue use of illicit substances such as methamphetamines as well as alcohol as these substances can be critically damaging to your health, especially with cardiomyopathy. You have a malfunctioning ICD device in your chest. This will not work properly to pace you or defibrillate you if you have a dangerous heart rhythm. You need to have this addressed as soon as possible. Finish your antibiotics as prescribed. Return to the emergency room if you have worsening condition or change your mind about admission to the hospital. All discharge instructions reviewed with patient and/or family. Voiced underst anding. Scripts Doxycycline Hyclate (Doxycycline Hyclate) 100 Mg Tablet 100 MG PO BID, #20 TAB 0 Refills Prov: HERLINDA FONSECA MD 01/02/23 Cefdinir (Cefdinir) 300 Mg Capsule 300 MG PO BID, #20 CAP 0 Refills Prov: HERLINDA FONSECA MD 01/02/23 Copy Copies To 1: [facility] Copies To 2: HILLARY SOLIMAN MD, JOSHUA T MD Jan 02, 2023 14:35
[2023-01-02 14:39] LABS: TSH (THYROID ANALYZER) 0.89 UIU/ML (0.35-4.94)
[2023-01-02 14:53] LABS: AMPHETAMINE SCREEN, URINE POSITIVE (NEGATIVE); BARBITURATE SCREEN URINE NEGATIVE (NEGATIVE); CANNABINOID SCREEN, URINE NEGATIVE (NEGATIVE); COCAINE SCREEN URINE NEGATIVE (NEGATIVE); METHADONE STAT NEGATIVE (NEGATIVE); OPIATE SCREEN URINE NEGATIVE (NEGATIVE); OXYCODONE STAT NEGATIVE (NEGATIVE); PROPOXYPHENE STAT NEGATIVE (NEGATIVE); TRICYCLIC ANTIDEPRESSANTS SCRE NEGATIVE (NEGATIVE)
[2023-01-02] MEDS ORDERED: IOHEXOL 350 MG/ML 100 ML (OMNIPAQUE 350) VIAL IV ONE (15:15)
[2023-01-02] MEDS ORDERED: HOLD METFORMIN - RECEIVED CONTRAST 20 ML VIAL IV SCH (15:15)
[2023-01-02] MEDS ORDERED: NS 100 ML (IVPB) BAG IV ONE (15:15)
--- NOTE | 2023-01-02 15:46 | Diagnostic Imaging Report ---
INDICATION: Chest pain, elevated d-dimer. COMPARISON: 05/14/2018. TECHNIQUE: Contiguous axial images were obtained through the chest during intravenous administration of contrast. MIP reconstructions were created and evaluated. DISCUSSION: Exam is degraded moderately by motion. There is no large or central pulmonary embolus identified. More distal emboli could be obscured by motion. The heart is enlarged. No pleural or pericardial fluid. The thoracic aorta is normal in caliber and configuration. Patchy infiltrates are present bilaterally consistent with pneumonia. Most consolidation is in the right upper lobe. No adenopathy identified. Visualized upper abdomen is unremarkable. Cholelithiasis is present. No osseous abnormality identified. IMPRESSION: 1. Exam is moderately degraded by motion. No large or central pulmonary embolus identified. 2. Cardiomegaly. 3. Cholelithiasis. 4. Pneumonia. Dictated by: Dictated on workstation # [id number]
[2023-01-02] MEDS ORDERED: PIPERACILLIN/Tazobactam 4.5 GM in NS (IVPB) 100 ML 100 ML IV ONE (16:00)
[2023-01-02] MEDS ORDERED: DOXY100T2 PO (17:29)
[2023-01-02] MEDS ORDERED: CEFD300C3 PO (17:29)
[2023-01-02 17:38] VITALS: BP 96/80
== END 2023-01-02 17:38 | disposition left against medical advice (07) ==
LOC: EDUNIT# 12:43 → ER 12:45
DX: I42.9 Cardiomyopathy, unspecified (principal); J18.9 Pneumonia, unspecified organism; I48.92 Unspecified atrial flutter; F19.10 Other psychoactive substance abuse, uncomplicated; K80.20 Calculus of gallbladder without cholecystitis without obstruction; Z91.199 Patient's noncompliance with other medical treatment and regimen due to unspecified reason; E80.6 Other disorders of bilirubin metabolism; R74.01 Elevation of levels of liver transaminase levels; R79.89 Other specified abnormal findings of blood chemistry
CPT/HCPCS: 71045; 71275; 80053; 80306; 83605; 83735; 83874; 83880; 84443; 84484; 85025; 85379; 85610; 85730; 87040; 87088; 93005; 93041; 99284; G0480; 36415; 80320; 96374; 96375

== ENCOUNTER 2023-01-07 16:36 | Inpatient (IN) | payer MEDICAID ==
[~2023-01-07] VITALS: Ht 180 cm; Wt 85.2 kg
[2023-01-07] VITALS (8 sets, daily range): BP systolic 101–125; BP diastolic 75–93
[~2023-01-07 16:36] MED LIST changes: +CEFD300C3 PO; +DOXY100T2 PO
[2023-01-07 16:59] LABS: ALBUMIN 3.7 GM/DL (3.2-4.5)
[2023-01-07 17:00] LABS: CHLORIDE 106 MMOL/L (98-107); POTASSIUM 4.6 MMOL/L (3.6-5.0); SODIUM 137 MMOL/L (135-145)
[2023-01-07] MEDS ORDERED: ASPIRIN 81 MG CHEWABLE TABLET PO ONE (17:00)
[2023-01-07 17:01] LABS: CALCIUM 8.6 MG/DL (8.5-10.1)
--- NOTE | 2023-01-07 17:01 | ED Cardiac General ---
History of Present Illness General Chief Complaint: Chest Pain Stated Complaint: CHEST PAIN/SOA Nursing Triage Note: PT CO OF CHEST PAIN, PT WAS IN TUESDAY AND LEFT AMA. PT STATES HAS BEEN GOING ON FOR 2 WEEKS, PT DEFIB NOT WORKING. REFUSED TO GO TO BE TRANSFERED LAST WEEK. PAIN RATED8/10. PT DEFIB ALARMS AT LEAST TWICE DAILY. Source: patient Exam Limitations: no limitations (JAIDA CELESTE DO) History of Present Illness Date Seen by Provider: Jan 07, 2023 Time Seen by Provider: 16:55 Initial Comments 42-year-old male with extensive cardiac and vascular history presents with ongoing shortness of breath and chest pressure. He came over from [facility] where he presented with the symptoms however he was seen here in the emergency department 5 days ago and was recommended he go to [facility] for AICD replacement as his battery is dying. He refused at that time thinking it was just pneumonia he has taken his antibiotics but states he is not feeling any better. His ICD is alarming indicating a failing battery. 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 Clinic called to transfer him here. Patient agrees to follow what ever medical direction we have provided for him today. He also has reported blood clots in bilateral lower extremities he is not anticoagulated upon inspection his fingers are blanched consistent with Raynaud's type phenomenon. States that this happens every time his hands get cold. Timing/Duration: constant Severity: moderate Location: central Activities at Onset: none Prior CP/Workup: other Modifying Factors: improves with lying down (worsens pressure) Associated Systoms: Chest Pain, Cough, Malaise, Shortness of Air, Weakness (JAIDA CELESTE DO) Allergies and Home Medications Allergies Coded Allergies: No Known Drug Allergies (Unverified , 11/28/12) Patient Home Medication List Home Medication List Reviewed: Yes (JAIDA CELESTE DO) Cefdinir (Cefdinir) 300 Mg Capsule, 300 MG PO BID Prescribed by: HERLINDA BLOCK on 01/02/231728 Doxycycline Hyclate (Doxycycline Hyclate) 100 Mg Tablet, 100 MG PO BID Prescribed by: HERLINDA BLOCK on 01/02/231728 Enalapril Maleate (Enalapril Maleate) 2.5 Mg Tablet, 2.5 MG PO BID, (Reported) Entered as Reported by: RAY LOVELL on 11/01/12 1433 Hydrocodone Bit/Acetaminophen (Lortab 5 Mg Tablet) 1 Tab Tab, 1 EACH PO Q4-6HR PRN for PAIN-MODERATE Prescribed by: DELIO VERONICA on 05/14/18 0531 Levetiracetam (Levetiracetam) 500 Mg Tablet, 500 MG PO BID Prescribed by: COURTNEY ABRAHAM on 03/21/15 1256 Metoprolol Tartrate (Metoprolol Tartrate) 25 Mg Tablet, 25 MG PO BID, (Reported) Entered as Reported by: CJ LEA on 03/20/15 1531 [Sotalol Hcl] 80 MG TAB, 80 MG PO BID Prescribed by: FLORINA SORIANO on 04/18/17 1455 Review of Systems Review of Systems Constitutional: see HPI, malaise EENTM: No Symptoms Reported Respiratory: See HPI, Orthopnea, SOA With Exertion Cardiovascular: Chest Pain, Palpitations Gastrointestinal: No Symptoms Reported Genitourinary: No Symptoms Reported Musculoskeletal: no symptoms reported Skin: see HPI, change in color Psychiatric/Neurological: No Symptoms Reported Endocrine: No Symptoms Reported Hematologic/Lymphatic: No Symptoms Reported (JAIDA CELESTE DO) All Other Systems Reviewed Negative Unless Noted: Yes (JAIDA CELESTE DO) Past Yxjhjpn-Vujwfh-Qljktf Hx Patient Social History Tobacco Use?: No Substance use?: No Alcohol Use?: No Pt feels they are or have been: No (JAIDA CELESTE DO) Immunizations Up To Date Tetanus Booster (TDap): Unknown (JAIDA CELESTE DO) Seasonal Allergies Seasonal Allergies: No (JAIDA CELESTE DO) Past Medical History Surgery/Hospitalization HX: PACEMAKER/DEFIBRILLATOR 19% EF CHF Surgeries: Yes Cardiac, Defibrillator Respiratory: Yes Pneumonia Currently Using CPAP: No Currently Using BIPAP: No Cardiac: Yes Cardiomyopathy Neurological: Yes Seizure Disorder Reproductive Disorders: No Sexually Transmitted Disease: No HIV/AIDS: No Genitourinary: No Gastrointestinal: No Musculoskeletal: No Endocrine: No Loss of Vision: Denies Hearing Impairment: Denies Cancer: No Psychosocial: Yes (Polysubstance abuse, history of alcoholism) Anxiety Integumentary: No Blood Disorders: No Adverse Reaction/Blood Tranf: No (JAIDA CELESTE DO) Family Medical History Deafness or hearing loss 19 FATHER Diabetes mellitus 19 FATHER Hypertension G8 BROTHER Respiratory disorder 19 MOTHER No Pertinent Family Hx (JAIDA CELESTE DO) Physical Exam Vital Signs Vital Signs - First Documented 01/07/23 16:40 Pulse 114 Resp 20 B/P (MAP) 121/99 (106) Pulse Ox 100 Capillary Refill : Less Than 3 Seconds Height, Weight, BMI Height: 5'10.00" Weight: 175lbs. 2.0oz. [id number]; BMI Method:Stated General Appearance: WD/WN, Chronically ill HEENT: PERRL/EOMI, Moist Mucous Membranes Neck: Non Tender Respiratory: Normal Breath Sounds, No Respiratory Distress Cardiovascular: Regular Rate, Rhythm, No Edema Gastrointestinal: Non Tender Extremity: Non Tender, Other (Blanching of fingers of both hands) Neurologic/Psychiatric: Alert, Oriented x3 Skin: Cool (JAIDA CELESTE DO) Vital Signs Vital Signs - First Documented 01/07/23 01/07/23 16:40 17:19 Pulse 114 Resp 20 B/P (MAP) 121/99 (106) Pulse Ox 100 O2 Delivery OxyMask O2 Flow Rate 10.00 (DANNY LISA DO) Progress/Results/Core Measures Results/Orders Lab Results Laboratory Tests Test 01/07/23 16:40 Range/Units My Orders Orders - JAIDA CELESTE DO Ekg Tracing (01/07/23 16:43) Cbc And Automated Diff (01/07/23 16:48) Magnesium (01/07/23 16:48) Chest 1 View, Ap/Pa Only (01/07/23 16:48) Ekg Tracing (01/07/23 16:48) Comprehensive Metabolic Panel (01/07/23 16:48) Protime With Inr (01/07/23 16:48) Partial Thromboplastin Time (01/07/23 16:48) O2 (01/07/23 16:48) Monitor-Rhythm Ecg Trace Only (01/07/23 16:48) Ed Iv/Invasive Line Start (01/07/23 16:48) Creatine Kinase Mb (01/07/23 16:48) Bnp [place] (01/07/23 16:48) Troponin I [place] (01/07/23 16:48) Aspirin Chewable Tablet (Aspirin Chewabl (01/07/23 17:00) Medications Given in ED Current Medications Medications Dose Ordered Sig/Javed Route Start Time Stop Time Status Last Admin Dose Admin Aspirin 324 mg ONCE ONCE PO 01/07/23 17:00 01/07/23 17:01 01/07/23 16:54 324 MG Vital Signs/I&O 01/07/23 16:40 Pulse 114 Resp 20 B/P (MAP) 121/99 (106) Pulse Ox 100 Blood Pressure Mean: 106 (DETAR,JAIDA W DO) Lab Results Laboratory Tests Test 01/07/23 16:04 01/07/23 16:40 01/07/23 18:27 01/07/23 18:55 Range/Units White Blood Count 10.3 4.3-11.0 10^3/uL Red Blood Count 4.28 L 4.30-5.52 10^6/uL Hemoglobin 13.7 13.3-17.7 g/dL Hematocrit 41 40-54 % Mean Corpuscular Volume 95 80-99 fL Mean Corpuscular Hemoglobin 32 25-34 pg Mean Corpuscular Hemoglobin Concent 34 32-36 g/dL Red Cell Distribution Width 13.1 10.0-14.5 % Platelet Count 320 130-400 10^3/uL Mean Platelet Volume 9.4 9.0-12.2 fL Immature Granulocyte % (Auto) 0 % Neutrophils (%) (Auto) 67 42-75 % Lymphocytes (%) (Auto) 21 12-44 % Monocytes (%) (Auto) 8 0-12 % Eosinophils (%) (Auto) 3 0-10 % Basophils (%) (Auto) 1 0-10 % Neutrophils # (Auto) 7.0 1.8-7.8 10^3/uL Lymphocytes # (Auto) 2.1 1.0-4.0 10^3/uL Monocytes # (Auto) 0.8 0.0-1.0 10^3/uL Eosinophils # (Auto) 0.3 0.0-0.3 10^3/uL Basophils # (Auto) 0.1 0.0-0.1 10^3/uL Immature Granulocyte # (Auto) 0.0 0.0-0.1 10^3/uL Prothrombin Time 18.8 H 12.2-14.7 SEC INR Comment 1.5 H 0.8-1.4 Activated Partial Thromboplast Time 33 24-35 SEC Sodium Level 137 135-145 MMOL/L Potassium Level 4.6 3.6-5.0 MMOL/L Chloride Level 106 98-107 MMOL/L Carbon Dioxide Level 22 21-32 MMOL/L Anion Gap 9 5-14 MMOL/L Blood Urea Nitrogen 12 7-18 MG/DL Creatinine 0.83 0.60-1.30 MG/DL Estimat Glomerular Filtration Rate 113 BUN/Creatinine Ratio 14 Glucose Level 131 H 70-105 MG/DL Calcium Level 8.6 8.5-10.1 MG/DL Corrected Calcium 8.8 8.5-10.1 MG/DL Magnesium Level 1.8 1.6-2.4 MG/DL Total Bilirubin 4.1 H 0.1-1.0 MG/DL Aspartate Amino Transf (AST/SGOT) 112 H 5-34 U/L Alanine Aminotransferase (ALT/SGPT) 239 H 0-55 U/L Alkaline Phosphatase 138 H 40-136 U/L Creatine Kinase MB 10.5 *H <6.6 NG/ML Troponin I < 0.028 <0.028 NG/ML B-Type Natriuretic Peptide 3018.3 H <100.0 PG/ML Total Protein 6.5 6.4-8.2 GM/DL Albumin 3.7 3.2-4.5 GM/DL Ammonia 26 11-32 UMOL/L Serum Alcohol < 10 <10 MG/DL Urine Color YELLOW Urine Clarity CLEAR Urine pH 5.5 5-9 Urine Specific [place] 1.015 L 1.016-1.022 Urine Protein NEGATIVE NEGATIVE Urine Glucose (UA) NEGATIVE NEGATIVE Urine Ketones NEGATIVE NEGATIVE Urine Nitrite NEGATIVE NEGATIVE Urine Bilirubin NEGATIVE NEGATIVE Urine Urobilinogen 0.2 < = 1.0 MG/DL Urine Leukocyte Esterase NEGATIVE NEGATIVE Urine RBC (Auto) NEGATIVE NEGATIVE Urine RBC RARE /HPF Urine WBC RARE /HPF Urine Crystals NONE /LPF Urine Bacteria NEGATIVE /HPF Urine Casts PRESENT /LPF Urine Hyaline Casts 2-5 H /LPF Urine Mucus SMALL H /LPF Urine Culture Indicated NO Urine Opiates Screen NEGATIVE NEGATIVE Urine Oxycodone Screen NEGATIVE NEGATIVE Urine Methadone Screen NEGATIVE NEGATIVE Urine Propoxyphene Screen NA NEGATIVE Urine Barbiturates Screen NEGATIVE NEGATIVE Ur Tricyclic Antidepressants Screen NEGATIVE NEGATIVE Urine Phencyclidine Screen NEGATIVE NEGATIVE Urine Amphetamines Screen NEGATIVE NEGATIVE Urine Methamphetamines Screen POSITIVE H NEGATIVE Urine Benzodiazepines Screen NEGATIVE NEGATIVE Urine Cocaine Screen NEGATIVE NEGATIVE Urine Cannabinoids Screen NEGATIVE NEGATIVE My Orders Orders - DANNY LISA DO Furosemide Injection (Furosemide Injec (01/07/23 18:15) Enoxaparin Injection (Enoxaparin Injecti (01/07/23 18:15) Alcohol (01/07/23 18:02) Ammonia (01/07/23 18:02) Drug Screen Stat (Urine) (01/07/23 18:02) Ua Culture If Indicated (01/07/23 18:02) Ed Admission (Communication) (01/07/23 18:08) Hepatitis Panel Acute (01/07/23 18:40) Hiv 1&2 Antibody (01/07/23 18:40) Medications Given in ED Current Medications Medications Dose Ordered Sig/Javed Route Start Time Stop Time Status Last Admin Dose Admin Aspirin 324 mg ONCE ONCE PO 01/07/23 17:00 01/07/23 17:01 DC 01/07/23 16:54 324 MG Enoxaparin Sodium 90 mg ONCE ONCE SC 01/07/23 18:15 01/07/23 18:16 DC 01/07/23 18:14 90 MG Furosemide 80 mg ONCE ONCE IVP 01/07/23 18:15 01/07/23 18:16 DC 01/07/23 18:14 80 MG Lorazepam 1 mg ONCE ONCE IVP 01/07/23 17:30 01/07/23 17:31 DC 01/07/23 17:28 1 MG Vital Signs/I&O 01/07/23 01/07/23 16:40 17:19 Pulse 114 Resp 20 B/P (MAP) 121/99 (106) Pulse Ox 100 O2 Delivery OxyMask O2 Flow Rate 10.00 (DANNY LISA DO) Progress Progress Note : Progress Note Patient is agreeable to follow what ever medical advice we give him today regarding admission or transfer. We will perform cardiac work-up including BNP, chest x-ray etc. Will interrogate pacer. Will provide aspirin. Patient's blood pressure is 120/94 heart rate 108. He is not hypoxic or in any distress currently just feels fatigued. He does appear to have Raynaud's in multiple fingers of both hands however left hand the ring finger is quite blanched. 3 fingertips blanched on the right hand. No claudication or pain in his calves no edema or wounds in his lower extremities (JAIDA CELESTE DO) Progress Note : Progress Note 1754--ASSUMED CARE FROM DR. CELESTE. GIVEN: -ASPIRIN -LOVENOX -LASIX LABS: -CBC NORMAL -CMP WITH NORMAL ELECTROLYTES, BUN/CR NORMAL, GLU 131, BILI 4.1, AST 112, ALT 239, ALK PH OS 138 -MG 1.8 -AMMONIA 26 -TROPONIN NEGATIVE -BNP 3018 -PT 18.8, PTT 33, INR 1.5 -UA CLEAR -ETOH NEGATIVE -UDS + METHAMPHETAMINES EKG DOES NOT SHOW ANY ACUTE PROCESS CXR SHOWS CHF AND CARDIOMEGALY PT ANXIOUS WITH CONSTANT MOVEMENTS, AND SPEECH RAPID AND ERRATIC, APPEARS TO BE UNDER THE INFLUENCE OF SOME SUBSTANCE/S. DISCUSSED TEST RESULTS, NEED FOR ADMIT AND PT IS AGREEABLE TO PLAN REVIEWED PRIOR RECORDS INCLUDING ER VISITS, ADMITS/H&P'S/CONSULTS/DISCHARGE SUMMARIES, TESTS/PROCEDURES (DANNY LISA DO) Initial ECG Impression Time: 16:45 Initial ECG Rate: 106 Initial ECG Rhythm: S.Tach (JAIDA CELESTE DO) Diagnostic Imaging Comments CXR--PER RADIOLOGIST REPORT FINDINGS: Heart is markedly enlarged but similar to previous. Pulmonary vasculature is normal. There are no infiltrates, effusions, or pneumothorax. Right pacemaker is stable. IMPRESSION: 1. Marked cardiomegaly with overall stable chest. Reviewed: Reviewed by Me (DANNY LISA DO) Departure Communication (Admissions) 1756--SPOKE WITH DR. ALMAZAN, GEOPHYSICAL LABORATORY DIRECTOR, HE WILL BE DOWN TO SEE PT 1805--DR. ALMAZAN HERE. ORDERS NOTED FOR DEVICE CHECK IN AM, LOVENOX, LASIX, ECHOCARDIOGRAM IN AM 180--SPOKE WITH DR. ZHANG, HOSPITALIST FOR [facility], ACCEPTS PT FOR ADMIT. SHE WILL DO ADMIT ORDERS (DANNY LISA DO) Impression Primary Impression: CHF (congestive heart failure) Additional Impressions: Cardiac defibrillator in place Hx of ventricular fibrillation Elevated liver enzymes History of alcoholism HX OF POLYSUBSTANCE ABUSE HX OF NON-COMPLIANCE Methamphetamine use Disposition: ADMITTED INPATIENT Condition: Stable Admissions Decision to Admit Reason: Admit from ER (General) Decision to Admit/Date: Jan 07, 2023 Time/Decision to Admit Time: 18:00 (DANNY LISA DO) Departure-Patient Inst. Referrals: WILLIAM PATTERSON MD (PCP/Family) Primary Care Physician JAIDA CELESTE DO Jan 07, 2023 17:01 DANNY LISA DO Jan 07, 2023 18:22
[2023-01-07 17:02] LABS: GLUCOSE 131 MG/DL (70-105); TOTAL PROTEIN 6.5 GM/DL (6.4-8.2)
[2023-01-07 17:03] LABS: CARBON DIOXIDE 22 MMOL/L (21-32)
[2023-01-07 17:04] LABS: BILIRUBIN,TOTAL 4.1 MG/DL (0.1-1.0)
[2023-01-07 17:05] LABS: ALKALINE PHOSPHATASE 138 U/L (40-136)
[2023-01-07 17:06] LABS: BASOPHILS # (AUTO) 0.1 10^3/uL (0.0-0.1); BASOPHILS % (AUTO) 1 % (0-10); CREATININE SERUM 0.83 MG/DL (0.60-1.30); EOSINOPHILS # (AUTO) 0.3 10^3/uL (0.0-0.3); EOSINOPHILS % (AUTO) 3 % (0-10); GFR ESTIMATED 113; HEMATOCRIT 41 % (40-54); HEMOGLOBIN 13.7 g/dL (13.3-17.7); LYMPHOCYTES # (AUTO) 2.1 10^3/uL (1.0-4.0); LYMPHOCYTES % (AUTO) 21 % (12-44); MEAN CORPUSCULAR HEMOGLOBIN 32 pg (25-34); MEAN CORPUSCULAR HGB CONC 34 g/dL (32-36); MEAN CORPUSCULAR VOLUME 95 fL (80-99); MEAN PLATELET VOLUME 9.4 fL (9.0-12.2); MONOCYTES # (AUTO) 0.8 10^3/uL (0.0-1.0); MONOCYTES % (AUTO) 8 % (0-12); NEUTROPHILS % (AUTO) 67 % (42-75); PLATELET COUNT 320 10^3/uL (130-400); WHITE BLOOD COUNT 10.3 10^3/uL (4.3-11.0)
[2023-01-07 17:07] LABS: BUN/CREATININE RATIO 14
--- NOTE | 2023-01-07 17:07 | Diagnostic Imaging Report ---
INDICATION: Two weeks of chest pain. EXAMINATION: Chest from 01/07/2023. COMPARISON: 01/02/2023. FINDINGS: Heart is markedly enlarged but similar to previous. Pulmonary vasculature is normal. There are no infiltrates, effusions, or pneumothorax. Right pacemaker is stable. IMPRESSION: 1. Marked cardiomegaly with overall stable chest. Dictated by: Dictated on workstation # [id number]
[2023-01-07 17:09] LABS: ALANINE AMINOTRANSFERASE 239 U/L (0-55); MAGNESIUM 1.8 MG/DL (1.6-2.4)
[2023-01-07 17:29] LABS: INR 1.5 (0.8-1.4); PROTHROMBIN TIME PATIENT 18.8 SEC (12.2-14.7)
[2023-01-07 17:38] LABS: CREATINE KINASE MB 10.5 NG/ML (<6.6)
[2023-01-07] MEDS ORDERED: FUROSEMIDE INJECTION 40 MG/4 ML VIAL IVP ONE (18:15)
[2023-01-07] MEDS ORDERED: ENOXAPARIN 100 MG/1 ML SYRINGE SC ONE (18:15)
[2023-01-07 18:40] LABS: AMMONIA 26 UMOL/L (11-32)
[2023-01-07 19:16] LABS: BACTERIA,URINE NEGATIVE /HPF; BILIRUBIN,URINE NEGATIVE (NEGATIVE); CLARITY,URINE CLEAR; COLOR,URINE YELLOW; GLUCOSE, URINE (UA) NEGATIVE (NEGATIVE); KETONES,URINE NEGATIVE (NEGATIVE); LEUKOCYTE ESTERASE ,URINE NEGATIVE (NEGATIVE); NITRITE,URINE NEGATIVE (NEGATIVE); PH,URINE 5.5 (5-9); PROTEIN,URINE NEGATIVE (NEGATIVE); RBC,URINE RARE /HPF; WBC,URINE RARE /HPF
[2023-01-07 19:17] LABS: AMPHETAMINE SCREEN, URINE NEGATIVE (NEGATIVE); BARBITURATE SCREEN URINE NEGATIVE (NEGATIVE); CANNABINOID SCREEN, URINE NEGATIVE (NEGATIVE); COCAINE SCREEN URINE NEGATIVE (NEGATIVE); METHADONE STAT NEGATIVE (NEGATIVE); OPIATE SCREEN URINE NEGATIVE (NEGATIVE); OXYCODONE STAT NEGATIVE (NEGATIVE); TRICYCLIC ANTIDEPRESSANTS SCRE NEGATIVE (NEGATIVE)
--- OUTSIDE RECORDS SUMMARY | 2023-01-07 19:53 | XMS REPORT | Clinical Summary ---
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 If you do not see the information that you expected, contact Release of Information in the Health Information Management department at [phone] for further assistance in locating additional records.[facility] Allergies No known active allergies Medications Medication Sig Dispensed Refills Start Date End Date Status LEVETIRACETAM (KEPPRA PO) Take 500 mg by mouth three times daily. 0 Active amiodarone (CORDARONE) 200 mg tablet Take 200 mg by mouth twice daily. Take with food. 0 Active METOPROLOL TARTRATE PO Take 25 mg by mouth twice daily. 0 Active KEPPRA 500 mg tablet Take 1 tablet by mouth 3 times a day as directed by physician. 270 tablet 1 07/05/2017 Active Active Problems Problem Noted Date Diagnosed Date Unclassified epileptic seizures 07/29/2016 Last Assessment & Plan: Patient has multiple risk factors for seizures. I have requested records from [facility] in [place]. EEG ordered. Keprra is the medication of choice given the patient's liver disease. Will try to get him on patient assistance for Keppra XR as this may be more tolerable. Surgical History Surgery Date Site/Laterality Comments SURGERY ICD IMPLANT IN CHEST 2013 Medical History Medical History Date Comments Cardiac dysrhythmia Convulsion (HCC) Coronary artery disease Heart palpitations Liver disease Memory loss Movement disorder Vision decreased Social History Tobacco Use Types Packs/Day Years Used Date Smoking Tobacco: Never Alcohol Use Standard Drinks/Week Comments Yes 7 (1 standard drink = 0.6 oz pur e alcohol) Sex and Gender Information Value Date Recorded Sex Assigned at Not on file Gender Identity Not on file Sexual Orientation Not on file Obstetrics History Last Filed Vital Signs Vital Sign Reading Time Taken Comments Blood Pressure 111/71 07/29/2016 11:21 AM CDT Pulse 73 07/29/2016 11:21 AM CDT Temperature 36.5 C (97.7 F) 07/29/2016 11:21 AM C DT Respiratory Rate 12 07/29/2016 11:21 AM CDT Oxygen Saturation - - Inhaled Oxygen Concentration - - Weight 76.2 kg (168 lb) 07/29/2016 11:21 AM CDT Height 175 cm (5' 8.9") 07/29/2016 11:21 AM CDT Body Mass Index 24.88 07/29/2016 11:21 AM CDT Plan of Treatment Health Maintenance Due Date Last Done Comments COVID-19 VACCINE (#1) 1982 HIV SCREENING 1997 HEPATITIS C SCREENING 2000 PHYSICAL (COMPREHENSIVE) EXAM 2000 DTAP/TDAP VACCINES (2 - Td o r Tdap) 11/24/2021 11/25/2011 DEPRESSION SCREENING 03/14/2022 INFLUENZA VACCINE (#1) 2022 PNEUMOCOCCAL VACCINE 0-64 YRS Aged Out No longer eligible based on patient's age to complete this topic
[2023-01-07] MEDS ORDERED: MELATONIN 3 MG TABLET PO PRN (20:30)
[2023-01-07] MEDS ORDERED: oxyCODONE IMMEDIATE RELEASE 5 MG TABLET PO PRN (20:30)
[2023-01-07] MEDS ORDERED: diphenhydrAMINE 25 MG TABLET PO PRN (20:30)
[2023-01-07] MEDS ORDERED: LACTULOSE SYRUP 10GM/15ML 30ML UDC PO PRN (20:30)
[2023-01-07] MEDS ORDERED: ONDANSETRON 4 MG ORAL DISSOLVE TABLET PO PRN (20:30)
[2023-01-07] MEDS ORDERED: 1/2 NS IV SOLUTION 1000 ML 1,000 ML IV PRN (20:30)
[2023-01-07] MEDS ORDERED: ONDANSETRON 4 MG ORAL DISSOLVE TABLET SL PRN (20:30)
[2023-01-07] MEDS ORDERED: MILK OF MAGNESIA 400 MG/5 ML 30 ML UDC PO PRN (20:30)
[2023-01-07] MEDS ORDERED: ANTACID SUSPENSION 30 ML UDC PO PRN ×2 (20:30)
[2023-01-07] MEDS ORDERED: LORazepam 1 MG TABLET PO PRN (20:30)
[2023-01-07] MEDS ORDERED: BISACODYL 10 MG SUPPOSITORY PR PRN (20:30)
[2023-01-07] MEDS ORDERED: SENNA W/DOCUSATE TABLET PO PRN (20:30)
[2023-01-07] MEDS ORDERED: ACETAMINOPHEN 325 MG TABLET PO PRN (20:30)
[2023-01-07] MEDS ORDERED: morphine INJ 4 MG/ML 1 ML (VIAL/SYRINGE) IV PRN (20:30)
[2023-01-07] MEDS ORDERED: ONDANSETRON INJECTION 4 MG/2 ML (SDV) IV PRN ×2 (20:30)
[2023-01-07] MEDS ORDERED: D5 1/2 NS 1,000 ML IV 1,000 ML IV PRN (20:30)
[2023-01-07] MEDS ORDERED: diphenhydrAMINE INJ 50 MG/ML VIAL IVP PRN (20:30)
[2023-01-07] MEDS ORDERED: CALCIUM CARBONATE 500 MG CHEW TABLET PO PRN (20:30)
--- NOTE | 2023-01-07 20:44 | Tele-ICU Consult ---
Progress Note (Tele-ICU Physician, consultation) Available chart/ vitals / labs / Images reviewed H&P is from ER notes Patient's information available about PMH, allergy reviewed in EMR. ROS as per chart and RN report Video assessment done using teleICU camera. Consultants: Cardiology Hospital course: 42 yo M admitted with history of HFrEF, AICD and cardiomegaly admitted with acute chest pain, SOB. CKMB mild elevation. Device failure reported, awaiting interrogation. Patient in NAD on 3L O2, otherwise hemodynamically stable and appropriate CXR without acute finding Neg sepsis screen No gtt Lovenox, and Lasix rec'd A/P Per Cardiology, admit to Telemetry for monitoring Lines: PIV Kc: N/A OG: N/A Nutrition: Per Cardiology, general Analgesia: PRN morphine VTE Prophylaxis: LMWH Stress Ulcer Prophylaxis: N/A Plans in collaboration with bedside consultants and Primary MD. RN to reach out if any questions or concerns __10__ min of critical care time devoted to this patient today, required to treat and/or prevent further deterioration of critical care condition. DINAH ZAPATA MD Jan 07, 2023 20:44
[2023-01-07] MEDS: MAGNESIUM OXIDE 400 MG TABLET PO SCH (23:02)
[2023-01-07] MEDS: SENNOSIDES 8.6 MG TABLET PO SCH (23:02)
[2023-01-07] MEDS: DOCUSATE SODIUM 100 MG CAPSULE PO SCH (23:02)
[2023-01-08] VITALS (43 sets, daily range): BP systolic 82–147; BP diastolic 50–102
[2023-01-08] MEDS ORDERED: AMIODARONE (Pyxis Kit Only) BOLUS 150 MG/3 ML IV ONE (03:42)
[2023-01-08] MEDS ORDERED: NS (IVPB) 100 ML 100 ML ONE (03:43)
[2023-01-08] MEDS ORDERED: AMIODARONE FOR DRIP 450 MG in NORMAL SALINE (EXCEL) 250 ML 250 ML IV SCH (03:45)
[2023-01-08] MEDS ORDERED: AMIODARONE FOR BOLUS 150 MG in NS (IVPB) 100 ML 100 ML IV ONE (03:45)
[2023-01-08] MEDS ORDERED: AMIODARONE (Pyxis Kit Only) DRIP 450 MG/9 ML VIAL IV ONE (03:46)
[2023-01-08] MEDS ORDERED: NORMAL SALINE (EXCEL) 250 ML 250 ML ONE (03:48)
[2023-01-08 04:27] LABS: BASOPHILS # (AUTO) 0.1 10^3/uL (0.0-0.1); BASOPHILS % (AUTO) 1 % (0-10); EOSINOPHILS # (AUTO) 0.4 10^3/uL (0.0-0.3); EOSINOPHILS % (AUTO) 4 % (0-10); HEMATOCRIT 40 % (40-54); HEMOGLOBIN 13.7 g/dL (13.3-17.7); LYMPHOCYTES # (AUTO) 2.3 10^3/uL (1.0-4.0); LYMPHOCYTES % (AUTO) 25 % (12-44); MEAN CORPUSCULAR HEMOGLOBIN 32 pg (25-34); MEAN CORPUSCULAR HGB CONC 34 g/dL (32-36); MEAN CORPUSCULAR VOLUME 93 fL (80-99); MEAN PLATELET VOLUME 9.7 fL (9.0-12.2); MONOCYTES # (AUTO) 0.8 10^3/uL (0.0-1.0); MONOCYTES % (AUTO) 9 % (0-12); NEUTROPHILS # (AUTO) 5.5 10^3/uL (1.8-7.8); NEUTROPHILS % (AUTO) 60 % (42-75); PLATELET COUNT 304 10^3/uL (130-400); WHITE BLOOD COUNT 9.1 10^3/uL (4.3-11.0)
[2023-01-08 04:44] LABS: ALBUMIN 3.5 GM/DL (3.2-4.5); BILIRUBIN,TOTAL 4.5 MG/DL (0.1-1.0); CALCIUM 8.5 MG/DL (8.5-10.1); CREATININE SERUM 0.86 MG/DL (0.60-1.30); POTASSIUM 4.6 MMOL/L (3.6-5.0); TOTAL PROTEIN 5.9 GM/DL (6.4-8.2)
[2023-01-08] MEDS: THIAMINE 100 MG (VITAMIN B-1) TAB PO SCH (05:45)
[2023-01-08] MEDS: ENOXAPARIN 80 MG/0.8 ML SYRINGE SC SCH ×2 (05:45→17:04)
[2023-01-08] MEDS: THERAPEUTIC MULTIVITAMIN W/MINERALS TABLET PO SCH (05:45)
[2023-01-08 05:48] LABS: MAGNESIUM 1.5 MG/DL (1.6-2.4)
[2023-01-08] MEDS: MAGNESIUM 1 GM/100 ML IVPB 100 ML IV SCH ×5 (06:00→08:18)
[2023-01-08] MEDS ORDERED: NS IV 500 ML 500 ML IV PRN (06:00)
[2023-01-08] MEDS: POTASSIUM CL 10MEQ/50ML IVPB 50 ML IV SCH (06:00)
[2023-01-08] MEDS: POTASSIUM CHLORIDE 20 MEQ TABLET PO SCH (06:00)
[2023-01-08] MEDS ORDERED: MAGNESIUM 1 GM/100 ML IVPB 400 ML IV ONE (06:06)
--- NOTE | 2023-01-08 07:56 | History & Physical-Hospitalist ---
History of Present Illness HPI/Chief Complaint Chief complaint: Exacerbation of congestive heart failure HPI:This is a 42-year-old male who has a history of end-stage congestive heart failure due to polysubstance and alcohol abuse who presents to the ER with shortness of breath found to have an exacerbation of congestive heart failure. Patient was found to have atrial fibrillation so placed on amiodarone drip. Cardiology consulted. Alcohol withdrawal protocol maintained. Patient continued to be hypoxic so oxy mask was added. Patient was confused so we will monitor closely. After rounds patient apparently decompensated and required intubation. Source: patient Exam Limitations: clinical condition Date Seen 01/08/23 Time Seen by a Provider: 07:30 Attending Physician [place] PCP Admitting Physician: Rebecca Polanco DO Attending Physician: Rbeecca Polanco DO Referring Physician Date of Admission Jan 07, 2023 at 19:50 Home Medications & Allergies Home Medications Reviewed patient Home Medication Reconciliation performed by pharmacy medication reconciliations bioinformatics research technician and/or nursing. Patients Allergies have been reviewed. Allergies Allergies Coded Allergies No Known Drug Allergies (Unverified11/28/12) Past Gwvsurj-Ohpckx-Mnrprm Hx Patient Social History Marrital Status: single Employed/Student: unemployed Tobacco Use?: No Smoking Status: Current Everyday Smoker Substance use?: Yes Alcohol Use?: Yes Alcohol Frequency: Daily Pt feels they are or have been: No Immunizations Up To Date Date of Influenza Vaccine: Dec 15, 2016 Tetanus Booster (TDap): Unknown Date of Pneumonia Vaccine: Feb 14, 2014 Seasonal Allergies Seasonal Allergies: No Current Status Advance Directives: No Communicates: Verbally Primary Language: Telugu Preferred Spoken Language: Telugu Is interpretation needed?: No Past Medical History Surgeries: Cardiac, Defibrillator Pneumonia Currently Using CPAP: No Currently Using BIPAP: No Cardiomyopathy Seizure Disorder Sexually Transmitted Disease: No HIV/AIDS: No Loss of Vision: Denies Hearing Impairment: Denies Anxiety Blood Disorders: No Adverse Reaction/Blood Tranf: No Past Medical History 1. Chronic Alcohol Abuse - history of alcohol withdrawal seizure in 2011. 2. 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 Suspected Illicit Substance abuse- pt. has had UDS positive for both opiates and methamphetamines in the past. Patient denies any substance abuse 4. Non-compliance- pt. is not compliant with medication and follow up. Pt. is not interested in treatment for his alcoholism 5. Recurrent seizures of unknown origin- could not afford to go to neuro-Dr. Yusuf 6.History of Defibrillator discharges due to SVT and V-tach, not compliant with medications. Past Surgical History 1. ICD placement for CHF 2. Cardiac Catheterization- 02/14/14 Janny Family Medical History Deafness or hearing loss 19 FATHER Diabetes mellitus 19 FATHER Hypertension G8 BROTHER Respiratory disorder 19 MOTHER No Pertinent Family Hx Review of Systems Constitutional: see HPI, malaise, weakness Respiratory: dyspnea on exertion Physical Exam Physical Exam Vital Signs Vital Signs - First Documented 01/07/23 01/07/23 01/07/23 01/07/23 16:40 17:19 19:53 20:00 Temp 36.3 Pulse 114 Resp 20 B/P (MAP) 121/99 (106) Pulse Ox 100 O2 Delivery OxyMask O2 Flow Rate 10.00 FiO2 92 Capillary Refill : Less Than 3 Seconds Height, Weight, BMI Height: 5'10.00" Weight: 175lbs. 2.0oz. [id number]; 24.13 BMI Method:Stated General Appearance: Anxious, Chronically ill, Mild Distress Respiratory: No Accessory Muscle Use, No Respiratory Distress, Decreased Breath Sounds Cardiovascular: Regular Rate, Rhythm Neurologic/Psychiatric: Alert, Depressed Affect, Disoriented Results Results/Procedures Labs Laboratory Tests 01/07/23 16:40 01/08/23 04:11 01/08/23 14:57 Patient resulted labs reviewed. Assessment/Plan Admission Diagnosis Assessment: Exacerbation of congestive heart failure Atrial fibrillation requiring amiodarone drip AICD malfunction Cardiomyopathy Alcoholism Polysubstance abuse Plan: Supportive care Intubation required Appreciate telemetry ICU Appreciate cardiology Admission Status: Inpatient Order (span 2 midnights) Reason for Inpatient Admission: Respiratory failure REBECCA POLANCO DO Jan 08, 2023 07:56
[2023-01-08] MEDS ORDERED: LIDOCAINE JELLY 2% 6 ML SYRINGE ONE (08:00)
[2023-01-08] MEDS: FUROSEMIDE INJECTION 40 MG/4 ML VIAL IVP SCH (08:17)
--- NOTE | 2023-01-08 08:19 | Tele-ICU Progress Note ---
Progress Note video rounds completed 42 y/o male with hx of alcohol abuse and cardiomyopathy Has HFrEF (25-30% and AICD) AICD: malfunction: awaiting interrogation. Hemodynamically stable HR 105 NSR BP: 101/86 IMP: AICD malfunction PLAN: await cardiology eval I am remotely monitoring this patient from another state. I am unable to do the bedside exam, and history/physical and pertinent information is taken from other notes in the computer and bedside staff. Time spent in evaluation: 15 minutes Focused Exam Height, Weight, BMI Height: 5'10.00" Weight: 175lbs. 2.0oz. [id number]; 24.13 BMI Method:Stated Labs Laboratory Tests 01/07/23 16:40 01/08/23 04:11 Labs Laboratory Tests 01/07/23 16:40 01/08/23 04:11 Results Results/Procedures Labs Laboratory Tests 01/07/23 16:40 01/08/23 04:11 Patient resulted labs reviewed. Results Results/Procedures Labs Laboratory Tests 01/07/23 16:40 01/08/23 04:11 Patient resulted labs reviewed. Results Labs Labs Laboratory Tests 01/07/23 16:04: 01/07/23 16:40: White Blood Count 10.3, Red Blood Count 4.28L, Hemoglobin 13.7, Hematocrit 41, Mean Corpuscular Volume 95, Mean Corpuscular Hemoglobin 32, Mean Corpuscular Hemoglobin Concent 34, Red Cell Distribution Width 13.1, Platelet Count 320, Mean Platelet Volume 9.4, Immature Granulocyte % (Auto) 0, Neutrophils (%) (Auto) 67, Lymphocytes (%) (Auto) 21, Monocytes (%) (Auto) 8, Eosinophils (%) (Auto) 3, Basophils (%) (Auto) 1, Neutrophils # (Auto) 7.0, Lymphocytes # (Auto) 2.1, Monocytes # (Auto) 0.8, Eosinophils # (Auto) 0.3, Basophils # (Auto) 0.1, Immature Granulocyte # (Auto) 0.0, Prothrombin Time 18.8H, INR Comment 1.5H, Activated Partial Thromboplast Time 33, Sodium Level 137, Potassium Level 4.6, Chloride Level 106, Carbon Dioxide Level 22, Anion Gap 9, Blood Urea Nitrogen 12, Creatinine 0.83, Estimat Glomerular Filtration Rate 113, BUN/Creatinine Ratio 14, Glucose Level 131H, Calcium Level 8.6, Corrected Calcium 8.8, Magnesium Level 1.8, Total Bilirubin 4.1H, Aspartate Amino Transf (AST/SGOT) 112H, Alanine Aminotransferase (ALT/SGPT) 239H, Alkaline Phosphatase 138H, Creatine Kinase MB 10.5*H, Troponin I < 0.028, B-Type Natriuretic Peptide 3018.3H, Total Protein 6.5, Albumin 3.7 01/07/23 18:27: Ammonia 26, Serum Alcohol < 10 01/07/23 18:55: Urine Color YELLOW, Urine Clarity CLEAR, Urine pH 5.5, Urine Specific [place] 1.015L, Urine Protein NEGATIVE, Urine Glucose (UA) NEGATIVE, Urine Ketones NEGATIVE, Urine Nitrite NEGATIVE, Urine Bilirubin NEGATIVE, Urine Urobilinogen 0.2, Urine Leukocyte Esterase NEGATIVE, Urine RBC (Auto) NEGATIVE, Urine RBC RARE, Urine WBC RARE, Urine Crystals NONE, Urine Bacteria NEGATIVE, Urine Casts PRESENT, Urine Hyaline Casts 2-5H, Urine Mucus SMALLH, Urine Culture Indicated NO, Urine Opiates Screen NEGATIVE, Urine Oxycodone Screen NEGATIVE, Urine Methadone Screen NEGATIVE, Urine Propoxyphene Screen NA, Urine Barbiturates Screen NEGATIVE, Ur Tricyclic Antidepressants Screen NEGATIVE, Urine Phencyclidine Screen NEGATIVE, Urine Amphetamines Screen NEGATIVE, Urine Methamphetamines Screen POSITIVEH, Urine Benzodiazepines Screen NEGATIVE, Urine Cocaine Screen NEGATIVE, Urine Cannabinoids Screen NEGATIVE 01/08/23 04:11: White Blood Count 9.1, Red Blood Count 4.34, Hemoglobin 13.7, Hematocrit 40, Mean Corpuscular Volume 93, Mean Corpuscular Hemoglobin 32, Mean Corpuscular Hemoglobin Concent 34, Red Cell Distribution Width 13.0, Platelet Count 304, Mean Platelet Volume 9.7, Immature Granulocyte % (Auto) 0, Neutrophils (%) (Auto) 60, Lymphocytes (%) (Auto) 25, Monocytes (%) (Auto) 9, Eosinophils (%) (Auto) 4, Basophils (%) (Auto) 1, Neutrophils # (Auto) 5.5, Lymphocytes # (Auto) 2.3, Monocytes # (Auto) 0.8, Eosinophils # (Auto) 0.4H, Basophils # (Auto) 0.1, Immature Granulocyte # (Auto) 0.0, Sodium Level 138, Potassium Level 4.6, Chloride Level 105, Carbon Dioxide Level 22, Anion Gap 11, Blood Urea Nitrogen 16, Creatinine 0.86, Estimat Glomerular Filtration Rate 112, BUN/Creatinine Ratio 19, Glucose Level 85, Calcium Level 8.5, Corrected Calcium 8.9, Magnesium Level 1.5L, Total Bilirubin 4.5H, Aspartate Amino Transf (AST/SGOT) 119H, Alanine Aminotransferase (ALT/SGPT) 212H, Alkaline Phosphatase 129, Troponin I < 0.028, Total Protein 5.9L, Albumin 3.5 Results Labs Labs Laboratory Tests 01/07/23 16:04: 01/07/23 16:40: White Blood Count 10.3, Red Blood Count 4.28L, Hemoglobin 13.7, Hematocrit 41, Mean Corpuscular Volume 95, Mean Corpuscular Hemoglobin 32, Mean Corpuscular He moglobin Concent 34, Red Cell Distribution Width 13.1, Platelet Count 320, Mean Platelet Volume 9.4, Immature Granulocyte % (Auto) 0, Neutrophils (%) (Auto) 67, Lymphocytes (%) (Auto) 21, Monocytes (%) (Auto) 8, Eosinophils (%) (Auto) 3, Basophils (%) (Auto) 1, Neutrophils # (Auto) 7.0, Lymphocytes # (Auto) 2.1, Monocytes # (Auto) 0.8, Eosinophils # (Auto) 0.3, Basophils # (Auto) 0.1, Immature Granulocyte # (Auto) 0.0, Prothrombin Time 18.8H, INR Comment 1.5H, Activated Partial Thromboplast Time 33, Sodium Level 137, Potassium Level 4.6, Chloride Level 106, Carbon Dioxide Level 22, Anion Gap 9, Blood Urea Nitrogen 12, Creatinine 0.83, Estimat Glomerular Filtration Rate 113, BUN/Creatinine Ratio 14, Glucose Level 131H, Calcium Level 8.6, Corrected Calcium 8.8, Magnesium Level 1.8, Total Bilirubin 4.1H, Aspartate Amino Transf (AST/SGOT) 112H, Alanine Aminotransferase (ALT/SGPT) 239H, Alkaline Phosphatase 138H, Creatine Kinase MB 10.5*H, Troponin I < 0.028, B-Type Natriuretic Peptide 3018.3H, Total Protein 6.5, Albumin 3.7 01/07/23 18:27: Ammonia 26, Serum Alcohol < 10 01/07/23 18:55: Urine Color YELLOW, Urine Clarity CLEAR, Urine pH 5.5, Urine Specific [place] 1.015L, Urine Protein NEGATIVE, Urine Glucose (UA) NEGATIVE, Urine Ketones NEGATIVE, Urine Nitrite NEGATIVE, Urine Bilirubin NEGATIVE, Urine Urobilinogen 0.2, Urine Leukocyte Esterase NEGATIVE, Urine RBC (Auto) NEGATIVE, Urine RBC RARE, Urine WBC RARE, Urine Crystals NONE, Urine Bacteria NEGATIVE, Urine Casts PRESENT, Urine Hyaline Casts 2-5H, Urine Mucus SMALLH, Urine Culture Indicated NO, Urine Opiates Screen NEGATIVE, Urine Oxycodone Screen NEGATIVE, Urine Methadone Screen NEGATIVE, Urine Propoxyphene Screen NA, Urine Barbiturates Screen NEGATIVE, Ur Tricyclic Antidepressants Screen NEGATIVE, Urine Phencyclidine Screen NEGATIVE, Urine Amphetamines Screen NEGATIVE, Urine Methamphetamines Screen POSITIVEH, Urine Benzodiazepines Screen NEGATIVE, Urine Cocaine Screen NEGATIVE, Urine Cannabinoids Screen NEGATIVE 01/08/23 04:11: White Blood Count 9.1, Red Blood Count 4.34, Hemoglobin 13.7, Hematocrit 40, Mean Corpuscular Volume 93, Mean Corpuscular Hemoglobin 32, Mean Corpuscular Hemoglobin Concent 34, Red Cell Distribution Width 13.0, Platelet Count 304, Mean Platelet Volume 9.7, Immature Granulocyte % (Auto) 0, Neutrophils (%) (Auto) 60, Lymphocytes (%) (Auto) 25, Monocytes (%) (Auto) 9, Eosinophils (%) (Auto) 4, Basophils (%) (Auto) 1, Neutrophils # (Auto) 5.5, Lymphocytes # (Auto) 2.3, Monocytes # (Auto) 0.8, Eosinophils # (Auto) 0.4H, Basophils # (Auto) 0.1, Immature Granulocyte # (Auto) 0.0, Sodium Level 138, Potassium Level 4.6, Chlori de Level 105, Carbon Dioxide Level 22, Anion Gap 11, Blood Urea Nitrogen 16, Creatinine 0.86, Estimat Glomerular Filtration Rate 112, BUN/Creatinine Ratio 19, Glucose Level 85, Calcium Level 8.5, Corrected Calcium 8.9, Magnesium Level 1.5L, Total Bilirubin 4.5H, Aspartate Amino Transf (AST/SGOT) 119H, Alanine Aminotransferase (ALT/SGPT) 212H, Alkaline Phosphatase 129, Troponin I < 0.028, Total Protein 5.9L, Albumin 3.5 KVNG ROTHMAN MD Jan 08, 2023 08:19
[2023-01-08] MEDS: DexMEDEtomidine 1,000mcg/250ml 250 ML IV SCH ×2 (08:24→14:50)
[2023-01-08] MEDS ORDERED: LIDOCAINE UROJET 2% GEL 10 ML PKG TOP ONE ×2 (08:30→18:45)
[2023-01-08] MEDS ORDERED: FOLIC ACID 1 MG TAB PO SCH (09:00)
[2023-01-08] MEDS: ASPIRIN enteric coated 81MG TABLET PO SCH (09:45)
[2023-01-08] MEDS: DOCUSATE SODIUM 100 MG CAPSULE PO SCH ×2 (09:45→21:11)
[2023-01-08] MEDS: SENNOSIDES 8.6 MG TABLET PO SCH ×2 (09:46→21:12)
[2023-01-08] MEDS: MAGNESIUM OXIDE 400 MG TABLET PO SCH ×2 (09:46→21:11)
[2023-01-08] MEDS ORDERED: NS IV 1000 ML 500 ML IV SCH (11:00)
[2023-01-08] MEDS ORDERED: NS IV 500 ML 500 ML ONE (13:39)
[2023-01-08] MEDS ORDERED: NALOXONE 0.4 MG/ML 1 ML VIAL ONE ×2 (13:39→13:48)
[2023-01-08] MEDS ORDERED: NS IV 500 ML 500 ML IV SCH (13:45)
[2023-01-08] MEDS ORDERED: NALOXONE 0.4 MG/ML 1 ML VIAL IV ONE ×2 (13:45→14:00)
[2023-01-08] MEDS ORDERED: NOREPINEPHRINE INJECTION 16 MG in NS (IVPB) 250 ML 234 ML IV SCH (14:00)
[2023-01-08] MEDS ORDERED: SUCCINYLCHOLINE INJ 100 MG/5 ML SYR/VIAL INJ ONE (14:00)
[2023-01-08] MEDS ORDERED: ETOMIDATE INJ SOLN 20 MG/10 ML VIAL IV ONE (14:00)
[2023-01-08] MEDS ORDERED: NOREPINEPHRINE 8 MG/250 ML 250 ML IV ONE (14:06)
--- NOTE | 2023-01-08 14:06 | Tele-ICU Progress Note ---
Progress Note Patient's mental status declined. He did not respond to Narcan BP dipped to 70/40, he was given 2 bolus of NS (500 x 2) but did not respond. He was intubated at 1400 to protect his airway after 20 Etomidate and 80 contreras ccinylcholine. Will get CXR and give sedation cautiously Focused Exam Height, Weight, BMI Height: 5'10.00" Weight: 175lbs. 2.0oz. [id number]; 24.13 BMI Method:Stated KVNG ROTHMAN MD Jan 08, 2023 14:06
[2023-01-08] MEDS: NOREPINEPHRINE 8 MG/250 ML 250 ML IV SCH ×3 (14:30→21:29)
--- NOTE | 2023-01-08 14:32 | Consultation-Cardiology ---
HPI-Cardiology Cardiology Consultation: Date of Consultation 01/07/23 Date of Admission Attending Physician [facility] Admitting Physician Admitting Physician: Rebecca Polanco DO Attending Physician: Rebecca Polanco DO Consulting Physician Julio ALMAZNA MD HPI: Time Seen by a Provider: 18:00 Chief Complaint: Late entry -patient was seen on 01/07/2023 at around 6 PM in the evening. Chief complaint of shortness of breath This is a 42-year-old gentleman who follows with Dr. Soliman in cardiology. Patient has severe dilated nonischemic cardiomyopathy with a defibrillator which is right-sided. Apparently was done in 2012. Generator change in 2018 according to the patient. Drug abuse history with meth amphetamine. Patient presents with significant shortness shortness of breath, anxiety and panic disorder. Review of Systems-Cardiology Review of Systems Constitutional: no symptoms reported Eyes: no symptoms reported Ears/Nose/Throat: no symptoms reported Respiratory: SOB with excertion Cardiovascular: other (Tachycardia) Gastrointestinal: no symptoms reported Genitourinary: no symptoms reported Psychiatric/Neurological: anxiety All Other Systems Reviewed Negative Unless Noted: Yes [id number] Hx Patient Social History Alcohol Use?: No Pt feels they are or have been: No Immunizations Up To Date Tetanus Booster (TDap): Unknown Date of Pneumonia Vaccine: Feb 14, 2014 Date of Influenza Vaccine: Dec 15, 2016 Past Medical History PMH As described under Assessment. Family Medical History Family History: Deafness or hearing loss 19 FATHER Diabetes mellitus 19 FATHER Hypertension G8 BROTHER Respiratory disorder 19 MOTHER Allergies and Home Medications Allergies Coded Allergies: No Known Drug Allergies (Unverified , 11/28/12) Patient Home Medication List Home Medication List Reviewed: Yes Cefdinir (Cefdinir) 300 Mg Capsule, 300 MG PO BID Prescribed by: HERLINDA BLOCK on 01/02/23 1729 Doxycycline Hyclate (Doxycycline Hyclate) 100 Mg Tablet, 100 MG PO BID Prescribed by: HERLINDA BLOCK on 01/02/23 1729 Enalapril Maleate (Enalapril Maleate) 2.5 Mg Tablet, 2.5 MG PO BID, (Reported) Entered as Reported by: RAY LOEVLL on 11/01/12 1433 Hydrocodone Bit/Acetaminophen (Lortab 5 Mg Tablet) 1 Tab Tab, 1 EACH PO Q4-6HR PRN for PAIN-MODERATE Prescribed by: DELIO VERONICA on 05/14/18 0531 Levetiracetam (Levetiracetam) 500 Mg Tablet, 500 MG PO BID Prescribed by: COURTNEY ABRAHAM on 03/21/15 1256 Metoprolol Tartrate (Metoprolol Tartrate) 25 Mg Tablet, 25 MG PO BID, (Reported) Entered as Reported by: CJ LEA on 03/20/15 1531 [Sotalol Hcl] 80 MG TAB, 80 MG PO BID Prescribed by: FLORINA SORIANO on 04/18/17 1455 Exam Vital Signs Vital Signs Date Time Temp Pulse Resp B/P (MAP) Pulse Ox O2 Delivery O2 Flow Rate FiO2 01/08/23 18:00 71 17 123/90 (101) 99 Mechanical Ventilator 100.00 01/08/23 16:00 60 01/08/23 11:34 36.0 Physical Exam Constitutional: Patient is very anxious, and active panic disorder, mild to mo derate respiratory distress Chest: Decreased breath sounds bilaterally. CVS: Tachycardia, regular rhythm. Mild peripheral edema. Psychiatry: Very anxious and an active panic disorder. Labs Laboratory Tests Test 01/07/23 18:27 01/07/23 18:55 01/08/23 04:11 01/08/23 14:43 Range/Units Ammonia 26 11-32 UMOL/L Serum Alcohol < 10 <10 MG/DL Urine Color YELLOW Urine Clarity CLEAR Urine pH 5.5 5-9 Urine Specific [place] 1.015 L 1.016-1.022 Urine Protein NEGATIVE NEGATIVE Urine Glucose (UA) NEGATIVE NEGATIVE Urine Ketones NEGATIVE NEGATIVE Urine Nitrite NEGATIVE NEGATIVE Urine Bilirubin NEGATIVE NEGATIVE Urine Urobilinogen 0.2 < = 1.0 MG/DL Urine Leukocyte Esterase NEGATIVE NEGATIVE Urine RBC (Auto) NEGATIVE NEGATIVE Urine RBC RARE /HPF Urine WBC RARE /HPF Urine Crystals NONE /LPF Urine Bacteria NEGATIVE /HPF Urine Casts PRESENT /LPF Urine Hyaline Casts 2-5 H /LPF Urine Mucus SMALL H /LPF Urine Culture Indicated NO Urine Opiates Screen NEGATIVE NEGATIVE Urine Oxycodone Screen NEGATIVE NEGATIVE Urine Methadone Screen NEGATIVE NEGATIVE Urine Propoxyphene Screen NA NEGATIVE Urine Barbiturates Screen NEGATIVE NEGATIVE Ur Tricyclic Antidepressants Screen NEGATIVE NEGATIVE Urine Phencyclidine Screen NEGATIVE NEGATIVE Urine Amphetamines Screen NEGATIVE NEGATIVE Urine Methamphetamines Screen POSITIVE H NEGATIVE Urine Benzodiazepines Screen NEGATIVE NEGATIVE Urine Cocaine Screen NEGATIVE NEGATIVE Urine Cannabinoids Screen NEGATIVE NEGATIVE White Blood Count 9.1 4.3-11.0 10^3/uL Red Blood Count 4.34 4.30-5.52 10^6/uL Hemoglobin 13.7 13.3-17.7 g/dL Hematocrit 40 40-54 % Mean Corpuscular Volume 93 80-99 fL Mean Corpuscular Hemoglobin 32 25-34 pg Mean Corpuscular Hemoglobin Concent 34 32-36 g/dL Red Cell Distribution Width 13.0 10.0-14.5 % Platelet Count 304 130-400 10^3/uL Mean Platelet Volume 9.7 9.0-12.2 fL Immature Granulocyte % (Auto) 0 % Neutrophils (%) (Auto) 60 42-75 % Lymphocytes (%) (Auto) 25 12-44 % Monocytes (%) (Auto) 9 0-12 % Eosinophils (%) (Auto) 4 0-10 % Basophils (%) (Auto) 1 0-10 % Neutrophils # (Auto) 5.5 1.8-7.8 10^3/uL Lymphocytes # (Auto) 2.3 1.0-4.0 10^3/uL Monocytes # (Auto) 0.8 0.0-1.0 10^3/uL Eosinophils # (Auto) 0.4 H 0.0-0.3 10^3/uL Basophils # (Auto) 0.1 0.0-0.1 10^3/uL Immature Granulocyte # (Auto) 0.0 0.0-0.1 10^3/uL Sodium Level 138 135-145 MMOL/L Potassium Level 4.6 3.6-5.0 MMOL/L Chloride Level 105 98-107 MMOL/L Carbon Dioxide Level 22 21-32 MMOL/L Anion Gap 11 5-14 MMOL/L Blood Urea Nitrogen 16 7-18 MG/DL Creatinine 0.86 0.60-1.30 MG/DL Estimat Glomerular Filtration Rate 112 BUN/Creatinine Ratio 19 Glucose Level 85 70-105 MG/DL Calcium Level 8.5 8.5-10.1 MG/DL Corrected Calcium 8.9 8.5-10.1 MG/DL Magnesium Level 1.5 L 1.6-2.4 MG/DL Total Bilirubin 4.5 H 0.1-1.0 MG/DL Aspartate Amino Transf (AST/SGOT) 119 H 5-34 U/L Alanine Aminotransferase (ALT/SGPT) 212 H 0-55 U/L Alkaline Phosphatase 129 40-136 U/L Troponin I < 0.028 <0.028 NG/ML Total Protein 5.9 L 6.4-8.2 GM/DL Albumin 3.5 3.2-4.5 GM/DL Glucometer 49 *L 70-110 MG/DL Test 01/08/23 14:45 01/08/23 14:57 01/08/23 15:49 Range/Units Lactic Acid Level 6.93 *H 0.50-2.00 MMOL/L White Blood Count 10.2 4.3-11.0 10^3/uL Red Blood Count 4.34 4.30-5.52 10^6/uL Hemoglobin 13.8 13.3-17.7 g/dL Hematocrit 42 40-54 % Mean Corpuscular Volume 98 80-99 fL Mean Corpuscular Hemoglobin 32 25-34 pg Mean Corpuscular Hemoglobin Concent 33 32-36 g/dL Red Cell Distribution Width 12.9 10.0-14.5 % Platelet Count 295 130-400 10^3/uL Mean Platelet Volume 9.9 9.0-12.2 fL Immature Granulocyte % (Auto) 1 % Neutrophils (%) (Auto) 74 42-75 % Lymphocytes (%) (Auto) 13 12-44 % Monocytes (%) (Auto) 10 0-12 % Eosinophils (%) (Auto) 1 0-10 % Basophils (%) (Auto) 1 0-10 % Neutrophils # (Auto) 7.6 1.8-7.8 10^3/uL Lymphocytes # (Auto) 1.4 1.0-4.0 10^3/uL Monocytes # (Auto) 1.0 0.0-1.0 10^3/uL Eosinophils # (Auto) 0.1 0.0-0.3 10^3/uL Basophils # (Auto) 0.1 0.0-0.1 10^3/uL Immature Granulocyte # (Auto) 0.1 0.0-0.1 10^3/uL B-Type Natriuretic Peptide 2683.1 H <100.0 PG/ML Triglycerides Level 79 <150 MG/DL ECG Impression ECG Initial ECG Rhythm: S.Tach A/P-Cardiology Assessment/Admission Diagnosis Active methamphetamine use, Panic disorder, Severe dilated cardiomyopathy, Acute on chronic systolic congestive heart failure, Cardiac ICD in situ Plan Active methamphetamine use, Panic disorder, discussed with ER attending. Severe dilated cardiomyopathy, echo in the a.m. previous echocardiogram showed severe LV systolic dysfunction. Acute on chronic systolic congestive heart failure, IV Lasix. Stable creatinine. Significantly elevated BNP. Normal troponin. Cardiac ICD in situ, device interrogation tomorrow. Julio ALMAZAN MD Jan 08, 2023 14:32
[2023-01-08] MEDS ORDERED: DEXTROSE 50% 50 ML (IMS) SYR ONE (14:45)
--- NOTE | 2023-01-08 15:07 | Diagnostic Imaging Report ---
EXAM: CHEST 1 VIEW, AP/PA ONLY INDICATION: Intubation. ETT placement. COMPARISON: 01/07/2023. FINDINGS: Cardiomegaly with normal central pulmonary vascularity. New ETT tip midway between the level of the clavicles and bran. NG tube tip in the stomach. The side-port is likely in the distal esophagus. No focal pulmonary opacity. No pleural effusion or pneumothorax. AICD. IMPRESSION: 1. New ETT tip in the expected position. 2. New NGT tip in the stomach with the side-port in the distal esophagus. This could be advanced 6 cm. 3. Stable cardiomegaly with normal pulmonary vascularity. Dictated by: Dictated on workstation # [id number]
[2023-01-08 15:12] LABS: BASOPHILS # (AUTO) 0.1 10^3/uL (0.0-0.1); BASOPHILS % (AUTO) 1 % (0-10); EOSINOPHILS # (AUTO) 0.1 10^3/uL (0.0-0.3); EOSINOPHILS % (AUTO) 1 % (0-10); HEMATOCRIT 42 % (40-54); HEMOGLOBIN 13.8 g/dL (13.3-17.7); LYMPHOCYTES # (AUTO) 1.4 10^3/uL (1.0-4.0); LYMPHOCYTES % (AUTO) 13 % (12-44); MEAN CORPUSCULAR HEMOGLOBIN 32 pg (25-34); MEAN CORPUSCULAR HGB CONC 33 g/dL (32-36); MEAN CORPUSCULAR VOLUME 98 fL (80-99); MEAN PLATELET VOLUME 9.9 fL (9.0-12.2); MONOCYTES % (AUTO) 10 % (0-12); NEUTROPHILS # (AUTO) 7.6 10^3/uL (1.8-7.8); NEUTROPHILS % (AUTO) 74 % (42-75); PLATELET COUNT 295 10^3/uL (130-400); WHITE BLOOD COUNT 10.2 10^3/uL (4.3-11.0)
[2023-01-08] MEDS ORDERED: FUROSEMIDE INJECTION 40 MG/4 ML VIAL IVP ONE (16:15)
--- NOTE | 2023-01-08 17:05 | Consultation - Surgery ---
MONTES 01/08/23 1705: History of Present Illness History of Present Illness Patient Consulted On(taylor/time) 01/08/23 17:00 Date Seen by Provider: Jan 08, 2023 Time Seen by Provider: 17:00 History of Present Illness Patient is currently intubated. All information was obtained through previous notes and nurse. Patient presented to the ED yesterday with SOB and chest pressire, he needed an AICD replacement as his battery was dying. Blood clots were found b/l in his LE. He has a known PMH of CHF, alcoholism, and meth usage. Surgery was consulted due to central line placement. Allergies and Home Medications Allergies Coded Allergies: No Known Drug Allergies (Unverified , 11/28/12) Patient Home Medication List Home Medication List Reviewed: No Cefdinir (Cefdinir) 300 Mg Capsule, 300 MG PO BID Prescribed by: HERLINDA BLOCK on 01/02/23 1729 Doxycycline Hyclate (Doxycycline Hyclate) 100 Mg Tablet, 100 MG PO BID Prescribed by: HERLINDA BLOCK on 01/02/23 1729 Enalapril Maleate (Enalapril Maleate) 2.5 Mg Tablet, 2.5 MG PO BID, (Reported) Entered as Reported by: RAY LOVELL on 11/01/12 1433 Hydrocodone Bit/Acetaminophen (Lortab 5 Mg Tablet) 1 Tab Tab, 1 EACH PO Q4-6HR PRN for PAIN-MODERATE Prescribed by: DELIO VERONICA on 05/14/18 0531 Levetiracetam (Levetiracetam) 500 Mg Tablet, 500 MG PO BID Prescribed by: COURTNEY ABRAHAM on 03/21/15 1256 Metoprolol Tartrate (Metoprolol Tartrate) 25 Mg Tablet, 25 MG PO BID, (Reported) Entered as Reported by: CJ LEA on 03/20/15 1531 [Sotalol Hcl] 80 MG TAB, 80 MG PO BID Prescribed by: FLORINA SORIANO on 04/18/17 1455 Past Facuygl-Mscpvr-Nnvtxv Hx Patient Social History Smoking Status: Current Everyday Smoker Recent Hopitalizations: No Alcohol Use?: Yes Immunizations Up To Date Tetanus Booster (TDap): Unknown Date of Pneumonia Vaccine: Feb 14, 2014 Date of Influenza Vaccine: Dec 15, 2016 Seasonal Allergies Seasonal Allergies: No Surgeries History of Surgeries: Yes Surgeries: Cardiac, Defibrillator Respiratory History of Respiratory Disorde: Yes Respiratory Disorders: Pneumonia Cardiovascular History of Cardiac Disorders: Yes Cardiac Disorders: Cardiomyopathy Neurological History of Neurological Disord: Yes Neurological Disorders: Seizure Disorder Reproductive System Hx Reproductive Disorders: No Sexually Transmitted Disease: No HIV/AIDS: No Genitourinary History of Genitourinary Disor: No Gastrointestinal History of Gastrointestinal Di: No Musculoskeletal History of Musculoskeletal Dis: No Endocrine History of Endocrine Disorders: No HEENT Loss of Vision: Denies Hearing Impairment: Denies Cancer History of Cancer: No Psychosocial History of Psychiatric Problem: Yes (Polysubstance abuse, history of alcoholism) Behavioral Health Disorders: Anxiety Integumentary History of Skin or Integumenta: No Blood Transfusions History of Blood Disorders: No Adverse Reaction to a Blood Tr: No Family Medical History Significant Family History: No Pertinent Family Hx Family Medial History: Deafness or hearing loss 19 FATHER Diabetes mellitus 19 FATHER Hypertension G8 BROTHER Respiratory disorder 19 MOTHER Review of Systems-General ROS-Unable to Obtain: Patient intubated Physical Exam-General Problems Physical Exam Vital Signs Vital Signs - First Documented 01/07/23 01/07/23 01/07/23 01/07/23 16:40 17:19 19:53 20:00 Temp 36.3 Pulse 114 Resp 20 B/P (MAP) 121/99 (106) Pulse Ox 100 O2 Delivery OxyMask O2 Flow Rate 10.00 FiO2 92 Capillary Refill : Less Than 3 Seconds General Appearance: severe distress (intubated ) Data Review Labs Laboratory Tests 01/07/23 18:27: Ammonia 26, Serum Alcohol < 10 01/07/23 18:55: Urine Color YELLOW, Urine Clarity CLEAR, Urine pH 5.5, Urine Specific [place] 1.015L, Urine Protein NEGATIVE, Urine Glucose (UA) NEGATIVE, Urine Ketones NEGATIVE, Urine Nitrite NEGATIVE, Urine Bilirubin NEGATIVE, Urine Urobilinogen 0.2, Urine Leukocyte Esterase NEGATIVE, Urine RBC (Auto) NEGATIVE, Urine RBC RARE, Urine WBC RARE, Urine Crystals NONE, Urine Bacteria NEGATIVE, Urine Casts PRESENT, Urine Hyaline Casts 2-5H, Urine Mucus SMALLH, Urine Culture Indicated NO, Urine Opiates Screen NEGATIVE, Urine Oxycodone Screen NEGATIVE, Urine Methadone Screen NEGATIVE, Urine Propoxyphene Screen NA, Urine Barbiturates Screen NEGATIVE, Ur Tricyclic Antidepressants Screen NEGATIVE, Urine Phencyclidine Screen NEGATIVE, Urine Amphetamines Screen NEGATIVE, Urine Metham phetamines Screen POSITIVEH, Urine Benzodiazepines Screen NEGATIVE, Urine Cocaine Screen NEGATIVE, Urine Cannabinoids Screen NEGATIVE 01/08/23 04:11: White Blood Count 9.1, Red Blood Count 4.34, Hemoglobin 13.7, Hematocrit 40, Mean Corpuscular Volume 93, Mean Corpuscular Hemoglobin 32, Mean Corpuscular Hemoglobin Concent 34, Red Cell Distribution Width 13.0, Platelet Count 304, Mean Platelet Volume 9.7, Immature Granulocyte % (Auto) 0, Neutrophils (%) (Auto) 60, Lymphocytes (%) (Auto) 25, Monocytes (%) (Auto) 9, Eosinophils (%) (Auto) 4, Basophils (%) (Auto) 1, Neutrophils # (Auto) 5.5, Lymphocytes # (Auto) 2.3, Monocytes # (Auto) 0.8, Eosinophils # (Auto) 0.4H, Basophils # (Auto) 0.1, Immature Granulocyte # (Auto) 0.0, Sodium Level 138, Potassium Level 4.6, Chloride Level 105, Carbon Dioxide Level 22, Anion Gap 11, Blood Urea Nitrogen 16, Creatinine 0.86, Estimat Glomerular Filtration Rate 112, BUN/Creatinine Ratio 19, Glucose Level 85, Calcium Level 8.5, Corrected Calcium 8.9, Magnesium Level 1.5L, Total Bilirubin 4.5H, Aspartate Amino Transf (AST/SGOT) 119H, Alanine Aminotransferase (ALT/SGPT) 212H, Alkaline Phosphatase 129, Troponin I < 0.028, Total Protein 5.9L, Albumin 3.5 01/08/23 14:43: Glucometer 49*L 01/08/23 14:45: Lactic Acid Level 6.93*H 01/08/23 14:57: White Blood Count 10.2, Red Blood Count 4.34, Hemoglobin 13.8, Hematocrit 42, Mean Corpuscular Volume 98, Mean Corpuscular Hemoglobin 32, Mean Corpuscular Hemoglobin Concent 33, Red Cell Distribution Width 12.9, Platelet Count 295, Mean Platelet Volume 9.9, Immature Granulocyte % (Auto) 1, Neutrophils (%) (Auto) 74, Lymphocytes (%) (Auto) 13, Monocytes (%) (Auto) 10, Eosinophils (%) (Auto) 1, Basophils (%) (Auto) 1, Neutrophils # (Auto) 7.6, Lymphocytes # (Auto) 1.4, Monocytes # (Auto) 1.0, Eosinophils # (Auto) 0.1, Basophils # (Auto) 0.1, Immature Granulocyte # (Auto) 0.1, B-Type Natriuretic Peptide 2683.1H 01/08/23 15:49: Triglycerides Level 79 Assessment/Plan Assessment/Plan Assessment/Plan Assessment: CHF unstable BP failing AICD battery Plan: central line placement DARRELL REBOLLAR DO 01/09/23 1443: History of Present Illness History of Present Illness History of Present Illness Patient intubated. No family at bedside. Patient with with EtoH and meth use. Was having increasing respiratory difficulties nad hypoxic required intubation. Now on pressors. Needs central line placed. Allergies and Home Medications Allergies Coded Allergies: No Known Drug Allergies (Unverified , 11/28/12) Patient Home Medication List Home Medication List Reviewed: Yes Cefdinir (Cefdinir) 300 Mg Capsule, 300 MG PO BID Prescribed by: HERLINDA BLOCK on 01/02/23 1729 Doxycycline Hyclate (Doxycycline Hyclate) 100 Mg Tablet, 100 MG PO BID Prescribed by: HERLINDA BLOCK on 01/02/23 1729 Enalapril Maleate (Enalapril Maleate) 2.5 Mg Tablet, 2.5 MG PO BID, (Reported) Entered as Reported by: RAY LOVELL on 11/01/12 1433 Hydrocodone Bit/Acetaminophen (Lortab 5 Mg Tablet) 1 Tab Tab, 1 EACH PO Q4-6HR PRN for PAIN-MODERATE Prescribed by: DELIO VERONICA on 05/14/18 0531 Levetiracetam (Levetiracetam) 500 Mg Tablet, 500 MG PO BID Prescribed by: COURTNEY ABRAHAM on 03/21/15 1256 Metoprolol Tartrate (Metoprolol Tartrate) 25 Mg Tablet, 25 MG PO BID, (Reported) Entered as Reported by: CJ LEA on 03/20/15 1531 [Sotalol Hcl] 80 MG TAB, 80 MG PO BID Prescribed by: FLORINA SORIANO on 04/18/17 1455 Past Gkspzcn-Tqsqfn-Izyugy Hx Reviewed Nursing Assessment Reviewed/Agree w Nursing PMH: Yes Family Medical History Significant Family History: No Pertinent Family Hx Family Medial History: Deafness or hearing loss 19 FATHER Diabetes mellitus 19 FATHER Hypertension G8 BROTHER Respiratory disorder 19 MOTHER Review of Systems-General ROS-Unable to Obtain: intubated unable to answer Physical Exam-General Problems Physical Exam General Appearance: WD/WN, no apparent distress, other (intubated on vent) HEENT: PERRL/EOMI, normal ENT inspection Neck: non-tender, supple Respiratory: chest non-tender, no respiratory distress, no accessory muscle use Cardiovascular: regular rate, rhythm Gastrointestinal: non tender, soft Rectal: deferred Back: normal inspection, no CVA tenderness Extremities: normal range of motion, normal inspection Neurologic/Psychiatric: No alert, No normal mood/affect, No oriented x 3 Skin: normal color; No warm/dry Lymphatic: no adenopathy Assessment/Plan Assessment/Plan Assessment/Plan CHF Acute respiratory failure hypotension requiring levophed failing AICD battery +methamphetamine Intubated On pressors through peripheral IV will place central line chest x ray post placement. medical management Supervisory-Addendum Brief Verification & Attestation Participated in pt care: history, MDM, physical Personally performed: exam, history, MDM, supervision of care Care discussed with: Medical Student Procedures: n/a Results interpretation: Verified all documentation Verification and Attestation of Medical Student E/M Service A medical student performed and documented this service in my presence. I reviewed and verified all information documented by the medical student and made modifications to such information, when appropriate. I personally performed the physical exam and medical decision making. Darrell Rebollar, Jan 08, 2023,17:50 MONTES Jan 08, 2023 17:05 DARRELL REBOLLAR DO Jan 09, 2023 14:43
[2023-01-08] MEDS ORDERED: LIDOCAINE UROJET 2% GEL 10 ML PKG ONE (17:38)
--- NOTE | 2023-01-08 18:13 | Tele-ICU Progress Note ---
Progress Note now intubated and sedated Lactate elevate at >6 He has been cultured. Will start empiric zosyn since this may represent sepsis, although CHF is in the DD Focused Exam Lactate Level 01/08/23 14:45: Lactic Acid Level 6.93*H Height, Weight, BMI Height: 5'10.00" Weight: 175lbs. 2.0oz. 79.365974kh; 24.13 BMI Method:Stated Lactic Acid Level Laboratory Tests Test 01/08/23 14:45 Lactic Acid Level 6.93 MMOL/L (0.50-2.00) *H Labs Laboratory Tests 01/08/23 04:11 01/08/23 14:57 Results Results/Procedures Labs Laboratory Tests 01/07/23 16:40 01/08/23 04:11 01/08/23 14:57 Patient resulted labs reviewed. Results Labs Labs Laboratory Tests 01/07/23 18:27: Ammonia 26, Serum Alcohol < 10 01/07/23 18:55: Urine Color YELLOW, Urine Clarity CLEAR, Urine pH 5.5, Urine Specific [place] 1.015L, Urine Protein NEGATIVE, Urine Glucose (UA) NEGATIVE, Urine Ketones NEGATIVE, Urine Nitrite NEGATIVE, Urine Bilirubin NEGATIVE, Urine Urobilinogen 0.2, Urine Leukocyte Esterase NEGATIVE, Urine RBC (Auto) NEGATIVE, Urine RBC RARE, Urine WBC RARE, Urine Crystals NONE, Urine Bacteria NEGATIVE, Urine Casts PRESENT, Urine Hyaline Casts 2-5H, Urine Mucus SMALLH, Urine Culture Indicated NO, Urine Opiates Screen NEGATIVE, Urine Oxycodone Screen NEGATIVE, Urine Methadone Screen NEGATIVE, Urine Propoxyphene Screen NA, Urine Barbiturates Screen NEGATIVE, Ur Tricyclic Antidepressants Screen NEGATIVE, Urine Phencyclidine Screen NEGATIVE, Urine Amphetamines Screen NEGATIVE, Urine Methamphetamines Screen POSITIVEH, Urine Benzodiazepines Screen NEGATIVE, Urine Cocaine Screen NEGATIVE, Urine Cannabinoids Screen NEGATIVE 01/08/23 04:11: White Blood Count 9.1, Red Blood Count 4.34, Hemoglobin 13.7, Hematocrit 40, Mean Corpuscular Volume 93, Mean Corpuscular Hemoglobin 32, Mean Corpuscular Hemoglobin Concent 34, Red Cell Distribution Width 13.0, Platelet Count 304, Mean Platelet Volume 9.7, Immature Granulocyte % (Auto) 0, Neutrophils (%) (Auto) 60, Lymphocytes (%) (Auto) 25, Monocytes (%) (Auto) 9, Eosinophils (%) (Auto) 4, Basophils (%) (Auto) 1, Neutrophils # (Auto) 5.5, Lymphocytes # (Auto) 2.3, Monocytes # (Auto) 0.8, Eosinophils # (Auto) 0.4H, Basophils # (Auto) 0.1, Immature Granulocyte # (Auto) 0.0, Sodium Level 138, Potassium Level 4.6, Chloride Level 105, Carbon Dioxide Level 22, Anion Gap 11, Blood Urea Nitrogen 16, Creatinine 0.86, Estimat Glomerular Filtration Rate 112, BUN/Creatinine Ratio 19, Glucose Level 85, Calcium Level 8.5, Corrected Calcium 8.9, Magnesium Level 1.5L, Total Bilirubin 4.5H, Aspartate Amino Transf (AST/SGOT) 119H, Al anine Aminotransferase (ALT/SGPT) 212H, Alkaline Phosphatase 129, Troponin I < 0.028, Total Protein 5.9L, Albumin 3.5 01/08/23 14:43: Glucometer 49*L 01/08/23 14:45: Lactic Acid Level 6.93*H 01/08/23 14:57: White Blood Count 10.2, Red Blood Count 4.34, Hemoglobin 13.8, Hematocrit 42, Mean Corpuscular Volume 98, Mean Corpuscular Hemoglobin 32, Mean Corpuscular Hemoglobin Concent 33, Red Cell Distribution Width 12.9, Platelet Count 295, Mean Platelet Volume 9.9, Immature Granulocyte % (Auto) 1, Neutrophils (%) (Auto) 74, Lymphocytes (%) (Auto) 13, Monocytes (%) (Auto) 10, Eosinophils (%) (Auto) 1, Basophils (%) (Auto) 1, Neutrophils # (Auto) 7.6, Lymphocytes # (Auto) 1.4, Monocytes # (Auto) 1.0, Eosinophils # (Auto) 0.1, Basophils # (Auto) 0.1, Immature Granulocyte # (Auto) 0.1, B-Type Natriuretic Peptide 2683.1H 01/08/23 15:49: Triglycerides Level 79 KVNG ROTHMAN MD Jan 08, 2023 18:13
[2023-01-08] MEDS ORDERED: DEXTROSE 50% 50 ML (IMS) SYR IV ONE (18:15)
[2023-01-08] MEDS ORDERED: PIPERACILLIN/Tazobactam 4.5 GM in NS (IVPB) 100 ML 100 ML IV SCH (18:15)
--- NOTE | 2023-01-08 18:29 | Cardiology Progress Note ---
Cardiology SOAP Progress Note Subjective: Patient was intubated this afternoon for significant shortness of breath and anxiety. Objective: I&O/Vital Signs 01/08/23 01/08/23 01/08/23 01/08/23 07:00 07:00 07:42 08:00 Temp 36.0 Pulse 93 94 100 Resp 24 20 B/P (MAP) 113/87 (96) 111/82 (92) Pulse Ox 100 77 O2 Delivery OxyMask OxyMask OxyMask O2 Flow Rate 5.00 6.00 6.00 01/08/23 01/08/23 01/08/23 01/08/23 08:00 08:24 09:00 10:00 Pulse 100 87 67 Resp 19 26 B/P (MAP) 111/82 92/52 (65) 82/62 (69) Pulse Ox 90 91 O2 Delivery OxyMask OxyMask OxyMask O2 Flow Rate 6.00 6.00 6.00 FiO2 92 01/08/23 01/08/23 01/08/23 01/08/23 11:00 11:34 12:00 12:00 Temp 36.0 Pulse 66 68 65 Resp 30 28 29 B/P (MAP) 99/81 (87) 99/81 (87) 104/84 (97) Pulse Ox 99 98 99 O2 Delivery OxyMask OxyMask OxyMask OxyMask O2 Flow Rate 6.00 8.00 8.00 6.00 FiO2 92 01/08/23 01/08/23 01/08/23 01/08/23 12:24 12:28 13:00 14:00 Pulse 68 63 65 71 Resp 21 B/P (MAP) 110/87 147/76 (106) 84/50 (61) Pulse Ox 93 90 O2 Delivery OxyMask O2 Flow Rate 8.00 01/08/23 01/08/23 01/08/23 01/08/23 14:08 14:19 14:20 14:30 Pulse 60 68 68 Resp 23 B/P (MAP) 110/87 110/87 Pulse Ox 100 O2 Delivery Mechanical Ventilator O2 Flow Rate 100.00 FiO2 60 01/08/23 01/08/23 01/08/23 01/08/23 15:00 15:15 16:00 16:00 Pulse 66 68 68 Resp 23 16 B/P (MAP) 129/73 (105) 110/87 110/87 (95) Pulse Ox 99 100 99 O2 Delivery Mechanical Ventilator Mechanical Ventilator Mechanical Ventilator O2 Flow Rate 100.00 100.00 FiO2 60 01/08/23 01/08/23 17:00 18:00 Pulse 70 71 Resp 20 17 B/P (MAP) 112/81 (92) 123/90 (101) Pulse Ox 99 99 O2 Delivery Mechanical Ventilator Mechanical Ventilator O2 Flow Rate 100.00 100.00 01/08/23 00:00 Intake Total 50 ml Output Total 1000 ml Balance -950 ml Weight (Pounds): 175 Weight (Ounces): 2.0 Weight (Calculated Kilograms): 79.202237 Constitutional: other (Intubated/ventilated.) Respiratory: lungs clear to auscultation Cardiovascular: regular rate-rhythm; No diastolic murmur, No systolic murmur Gastrointestional: soft Extremities: pedal edema Neurologic/Psychiatric: other (Intubated/ventilated) Results/Procedures: Labs Laboratory Tests 01/07/23 18:27: Ammonia 26, Serum Alcohol < 10 01/07/23 18:55: Urine Color YELLOW, Urine Clarity CLEAR, Urine pH 5.5, Urine Specific [place] 1.015L, Urine Protein NEGATIVE, Urine Glucose (UA) NEGATIVE, Urine Ketones NEGATIVE, Urine Nitrite NEGATIVE, Urine Bilirubin NEGATIVE, Urine Urobilinogen 0.2, Urine Leukocyte Esterase NEGATIVE, Urine RBC (Auto) NEGATIVE, Urine RBC RARE, Urine WBC RARE, Urine Crystals NONE, Urine Bacteria NEGATIVE, Urine Casts PRESENT, Urine Hyaline Casts 2-5H, Urine Mucus SMALLH, Urine Culture Indicated NO, Urine Opiates Screen NEGATIVE, Urine Oxycodone Screen NEGATIVE, Urine Methadone Screen NEGATIVE, Urine Propoxyphene Screen NA, Urine Barbiturates Screen NEGATIVE, Ur Tricyclic Antidepressants Screen NEGATIVE, Urine Phencyclidine Screen NEGATIVE, Urine Amphetamines Screen NEGATIVE, Urine Methamphetamines Screen POSITIVEH, Urine Benzodiazepines Screen NEGATIVE, Urine Cocaine Screen NEGATIVE, Urine Cannabinoids Screen NEGATIVE 01/08/23 04:11: White Blood Count 9.1, Red Blood Count 4.34, Hemoglobin 13.7, Hematocrit 40, Mean Corpuscular Volume 93, Mean Corpuscular Hemoglobin 32, Mean Corpuscular Hemoglobin Concent 34, Red Cell Distribution Width 13.0, Platelet Count 304, Mean Platelet Volume 9.7, Immature Granulocyte % (Auto) 0, Neutrophils (%) (Auto) 60, Lymphocytes (%) (Auto) 25, Monocytes (%) (Auto) 9, Eosinophils (%) (Auto) 4, Basophils (%) (Auto) 1, Neutrophils # (Auto) 5.5, Lymphocytes # (Auto) 2.3, Monocytes # (Auto) 0.8, Eosinophils # (Auto) 0.4H, Basophils # (Auto) 0.1, Immature Granulocyte # (Auto) 0.0, Sodium Level 138, Potassium Level 4.6, Chloride Level 105, Carbon Dioxide Level 22, Anion Gap 11, Blood Urea Nitrogen 16, Creatinine 0.86, Estimat Glomerular Filtration Rate 112, BUN/Creatinine Ratio 19, Glucose Level 85, Calcium Level 8.5, Corrected Calcium 8.9, Magnesium Level 1.5L, Total Bilirubin 4.5H, Aspartate Amino Transf (AST/SGOT) 119H, Alanine Aminotransferase (ALT/SGPT) 212H, Alkaline Phosphatase 129, Troponin I < 0.028, Total Protein 5.9L, Albumin 3.5 01/08/23 14:43: Glucometer 49*L 01/08/23 14:45: Lactic Acid Level 6.93*H 01/08/23 14:57: White Blood Count 10.2, Red Blood Count 4.34, Hemoglobin 13.8, Hematocrit 42, Mean Corpuscular Volume 98, Mean Corpuscular Hemoglobin 32, Mean Corpuscular Hemoglobin Concent 33, Red Cell Distribution Width 12.9, Platelet Count 295, Mean Platelet Volume 9.9, Immature Granulocyte % (Auto) 1, Neutrophils (%) (Auto) 74, Lymphocytes (%) (Auto) 13, Monocytes (%) (Auto) 10, Eosinophils (%) (Auto) 1, Basophils (%) (Auto) 1, Neutrophils # (Auto) 7.6, Lymphocytes # (Auto) 1.4, Monocytes # (Auto) 1.0, Eosinophils # (Auto) 0.1, Basophils # (Auto) 0.1, Immature Granulocyte # (Auto) 0.1, B-Type Natriuretic Peptide 2683.1H 01/08/23 15:49: Triglycerides Level 79 A/P: Assessment/Dx: Active methamphetamine use, Panic disorder, Severe dilated cardiomyopathy, Acute on chronic systolic congestive heart failure, Cardiac ICD in situ Plan: Active methamphetamine and panic disorder, intubated for respiratory distress and significant air hunger. Severe dilated cardiomyopathy, echocardiogram today showed severe LV systolic dysfunction with dilated LV. Acute on chronic systolic congestive heart failure, Stable creatinine. Significantly elevated BNP. Normal troponin. I discussed with the RN. We will place a Kc catheter and give another dose of IV Lasix. Cardiac ICD in situ, device interrogation pending Atrial flutter overnight with heart rate over 130s. Was given amiodarone infusion. Full dose Lovenox. Patient converted to sinus rhythm teletype adjuster. Continue amiodarone for now. We will also continue Lovenox full dose for now. Hopefully on device interrogation we should know if the patient has had other episodes of atrial flutter/atrial fibrillation. Lactic acidosis, increased LFTs could be secondary to hepatic congestion. Guarded prognosis. Focused Exam Lactate Level 01/08/23 14:45: Lactic Acid Level 6.93*H Lactic Acid Level Laboratory Tests Test 01/08/23 14:45 Lactic Acid Level 6.93 MMOL/L (0.50-2.00) *H Julio ALMAZAN MD Jan 08, 2023 18:29
[2023-01-08 18:35] LABS: ABG BASE EXCESS -13.6 MMOL/L (-2.5-2.5); ABG OXYGEN SATURATION 100 % (94-100); ABG PCO2 33 MMHG (35-45); ABG PO2 243 MMHG (79-93); ABG TCO2 14.2 MMOL/L (21.0-31.0)
[2023-01-08 18:36] LABS: ABG PH 7.21 (7.37-7.43); INSPIRED O2 60%; VENTILATOR YES
--- NOTE | 2023-01-08 18:42 | Procedure/Intervention Note ---
Procedure Note Vital Signs Vital Signs Date Time Temp Pulse Resp B/P (MAP) Pulse Ox O2 Delivery O2 Flow Rate FiO2 01/09/23 11:00 87 17 115/86 (99) 98 Mechanical Ventilator 21.00 01/09/23 10: 21 01/09/23 07:50 37.1 Procedure Note Unable to obtain consent from patient as he is not alert. Central line was placed due to need for half-way pressors. Time out was conducted. Sterile technique was used including cap, gown, sterile gloves, large sheet, handwashing, and chlorexidine prep. The left internal jugular vein was visualized with ultrasound and punctured with a 19 gauge finder needle, dark nonpulsatile blood withdrawn then a wire introducer was placed. A small incision was made at the skin surface with a scalpel and the introducer needle was exchanged for a dilator over the guidewire. The dilator was then removed and the central venous cather was placed over the guidewire. Guidewire was then removed. Each lumen of the catheter had blood withdrawn and flushed with sterile saline. 2 sutures were used to keep the catheter in placed. Sterile bandage was placed over the catheter. Patient tolerated the procedure well. Post-procedure chest x- ray noted correct placement of the left IJ central line and no pneumothorax. The line was placed by Dr. Enriquez with assistance by Dr. Win, family nurse. Verification and Attestation of Medical Student E/M Service A medical insurance coding specialist performed and documented this service in my presence. I reviewed and verified all information documented by the medical insurance coding specialist and made modifications to such information, when appropriate. I personally was present for procedure and medical decision making. Darrell Enriquez, Jan 09, 2023,14:53 PATI WIN MD, RESIDENT Jan 08, 2023 18:42 DARRELL ENRIQUEZ DO Jan 09, 2023 14:55
--- NOTE | 2023-01-08 18:43 | Diagnostic Imaging Report ---
Indication: Central line placement COMPARISON: Imaging from same date TECHNIQUE: 2 radiographs the chest dated 01/08/2023 at 1830. FINDINGS: Interval placement of a left IJ central venous catheter with the distal tip overlying the superior aspect of the superior vena cava. Endotracheal tube appears stable overlying the tracheal air column. Pacer/AICD is present with battery pack overlying the right chest. Enteric catheter is present extending into the left upper abdomen. The cardiac silhouette is significantly enlarged. No definite pulmonary vascular congestion. No significant pleural effusion. No pneumothorax. No new focal pulmonary opacity. No acute osseous abnormality. IMPRESSION: Placement of a left IJ central venous catheter with the distal tip overlying the superior aspect of the superior vena cava without pneumothorax. Otherwise, similar examination, including significant cardiomegaly and additional unchanged lines. Dictated by: Dictated on workstation # [id number]
[2023-01-08] MEDS ORDERED: SODIUM BICARB 8.4% 50 MEQ/50 ML (ABBOTT) SYR IV ONE (18:45)
[2023-01-08] MEDS ORDERED: PIPERACILLIN/Tazobactam 4.5 GM in NS (IVPB) 100 ML 100 ML IV ONE (22:00)
--- NOTE | 2023-01-08 22:19 | Tele-ICU Progress Note ---
Subjective Date Seen by a Provider: Jan 08, 2023 Time Seen by a Provider: 22:13 Subjective/Events-last exam Called for LA 7.06 at 8pm, at 2:30 pm was 6.93, pt with very low LVEF 10%, T Bili 4.5, renal funacion ok, on IV levophed 0.6 BP 124/67, ABG 7.21/33/243 with HCO3 13, given 2 amps of IV NaHCO3 suspect high LA is from poor perfusion from low LVEF, will repeat LA and if still high give more NaHCO3, asked to RN to call senior controls analyst about starting IV dobutamine, CXR shows enlarged heart, not much congestion Sepsis Event Evaluation Height, Weight, BMI Height: 5'10.00" Weight: 175lbs. 2.0oz. [id number]; 24.13 BMI Method:Stated Focused Exam Lactate Level 01/08/23 14:45: Lactic Acid Level 6.93*H 01/08/23 19:45: Lactic Acid Level 7.06*H Lactic Acid Level Laboratory Tests Test 01/08/23 19:45 Lactic Acid Level 7.06 MMOL/L (0.50-2.00) *H Exam Exam Patient acknowledged, consented, and participated in this virtual visit which was conducted using real time audio/video Vital Signs Date Time Temp Pulse Resp B/P (MAP) Pulse Ox O2 Delivery O2 Flow Rate FiO2 01/08/23 22:03 77 122/86 01/08/23 22:00 76 20 122/86 (98) 100 Mechanical Ventilator 40.00 01/08/23 21:45 77 21 123/89 (100) 100 Mechanical Ventilator 40.00 01/08/23 21:30 77 20 121/92 (102) 100 Mechanical Ventilator 40.00 01/08/23 21:29 76 126/87 01/08/23 21:19 76 126/87 01/08/23 21:19 78 126/87 01/08/23 21:15 78 19 126/87 (100) 100 Mechanical Ventilator 40.00 01/08/23 21:00 78 20 124/91 (102) 100 Mechanical Ventilator 40.00 01/08/23 20:45 78 21 127/89 (102) 100 Mechanical Ventilator 40.00 01/08/23 20:30 78 20 125/93 (104) 100 Mechanical Ventilator 40.00 01/08/23 20:15 80 19 129/95 (106) 100 Mechanical Ventilator 40.00 01/08/23 20:00 99 Mechanical Ventilator 40 01/08/23 20:00 76 26 132/99 (110) 97 Mechanical Ventilator 40.00 01/08/23 19:49 36.0 01/08/23 19:45 73 21 124/97 (106) 99 Mechanical Ventilator 40.00 01/08/23 19:30 73 23 116/88 (97) 99 Mechanical Ventilator 40.00 01/08/23 19:15 76 132/99 01/08/23 19:15 74 21 130/77 (94) 99 Mechanical Ventilator 40.00 01/08/23 19:00 70 01/08/23 19:00 68 19 121/92 (102) 99 Mechanical Ventilator 40.00 01/08/23 19:00 62 77/51 01/08/23 18:54 40 01/08/23 18:52 Mechanical Ventilator 40.00 01/08/23 18:34 71 123/90 01/08/23 18:30 71 123/90 01/08/23 18:28 75 16 100 60 01/08/23 18:00 71 17 123/90 (101) 99 Mechanical Ventilator 100.00 01/08/23 17:00 70 20 112/81 (92) 99 Mechanical Ventilator 100.00 01/08/23 16:00 99 Mechanical Ventilator 60 01/08/23 16:00 68 16 110/87 (95) 100 Mechanical Ventilator 100.00 01/08/23 15:15 68 110/87 01/08/23 15:00 66 23 129/73 (105) 99 Mechanical Ventilator 100.00 01/08/23 14:30 68 110/87 01/08/23 14:20 68 110/87 01/08/23 14:19 60 23 100 60 01/08/23 14:08 Mechanical Ventilator 100.00 01/08/23 14:00 71 21 84/50 (61) 90 01/08/23 13:00 65 147/76 (106) 93 OxyMask 8.00 01/08/23 12:28 63 01/08/23 12:24 68 110/87 01/08/23 12:00 OxyMask 6.00 92 01/08/23 12:00 65 29 104/84 (97) 99 OxyMask 8.00 10/28/23 11:34 36.0 68 28 99/81 (87) 98 OxyMask 8.00 01/08/23 11:00 66 30 99/81 (87) 99 OxyMask 6.00 01/08/23 10:00 67 26 82/62 (69) 91 OxyMask 6.00 01/08/23 09:00 87 19 92/52 (65) 90 OxyMask 6.00 01/08/23 08:24 100 111/82 01/08/23 08:00 OxyMask 6.00 92 01/08/23 08:00 100 20 111/82 (92) 77 OxyMask 6.00 01/08/23 07:42 36.0 OxyMask 6.00 01/08/23 07:00 94 01/08/23 07:00 93 24 113/87 (96) 100 OxyMask 5.00 01/08/23 06:00 90 20 112/92 (99) 93 OxyMask 5.00 01/08/23 05:00 99 110/92 (98) 100 OxyMask 5.00 01/08/23 04:21 127 01/08/23 04:18 129 01/08/23 04:00 128 20 113/102 (106) 99 OxyMask 5.00 01/08/23 03:58 130 109/78 01/08/23 03:00 131 24 96/90 (92) 97 OxyMask 5.00 01/08/23 02:10 OxyMask 5.00 01/08/23 02:00 130 24 108/90 (96) 93 OxyMask 5.00 01/08/23 01:43 OxyMask 6.00 01/08/23 01:00 107 01/08/23 01:00 106 14 109/78 (88) 93 Nasal Cannula 3.00 01/08/23 00:00 103 20 125/91 (102) 99 Nasal Cannula 3.00 01/08/23 00:00 36.3 Nasal Cannula 4.00 01/07/23 23:00 108 16 125/93 (104) 97 Nasal Cannula 3.00 I & O 01/08/23 07:00 Intake Total 1153 ml Output Total 2000 ml Balance -847 ml Height & Weight Height: 5'10.00" Weight: 175lbs. 2.0oz. 79.319144yw; 24.13 BMI Method:Stated General Appearance: Anxious, Chronically ill, Mild Distress HEENT: PERRL/EOMI, Moist Mucous Membranes Neck: Non Tender Respiratory: No Accessory Muscle Use, No Respiratory Distress, Decreased Breath Sounds Cardiovascular: Regular Rate, Rhythm Capillary Refill: Less Than 3 Seconds Extremity: Non Tender, Other (Blanching of fingers of both hands) Neurologic/Psychiatric: Alert, Depressed Affect, Disoriented Skin: Cool Results Lab Laboratory Tests 01/07/23 16:40 01/08/23 04:11 01/08/23 14:57 KVNG FAGAN MD Jan 08, 2023 22:19
[2023-01-08 23:14] LABS: ABG BASE EXCESS -11.2 MMOL/L (-2.5-2.5); ABG OXYGEN SATURATION 100 % (94-100); ABG PCO2 33 MMHG (35-45); ABG PO2 159 MMHG (79-93); ABG TCO2 15.8 MMOL/L (21.0-31.0)
[2023-01-08 23:16] LABS: INSPIRED O2 40%; VENTILATOR YES
[2023-01-08 23:17] LABS: ABG PH 7.26 (7.37-7.43)
[2023-01-09] VITALS (35 sets, daily range): BP systolic 95–126; BP diastolic 66–99
[2023-01-09] MEDS: NOREPINEPHRINE 8 MG/250 ML 250 ML IV SCH ×3 (00:34→08:53)
[2023-01-09] MEDS: PIPERACILLIN/Tazobactam 4.5 GM in NS (IVPB) 100 ML 100 ML IV SCH ×2 (02:21→08:54)
[2023-01-09 05:06] LABS: BASOPHILS # (AUTO) 0.1 10^3/uL (0.0-0.1); BASOPHILS % (AUTO) 0 % (0-10); EOSINOPHILS % (AUTO) 0 % (0-10); HEMATOCRIT 42 % (40-54); HEMOGLOBIN 14.3 g/dL (13.3-17.7); LYMPHOCYTES # (AUTO) 2.8 10^3/uL (1.0-4.0); LYMPHOCYTES % (AUTO) 14 % (12-44); MEAN CORPUSCULAR HEMOGLOBIN 32 pg (25-34); MEAN CORPUSCULAR HGB CONC 34 g/dL (32-36); MEAN CORPUSCULAR VOLUME 93 fL (80-99); MEAN PLATELET VOLUME 9.7 fL (9.0-12.2); MONOCYTES # (AUTO) 1.3 10^3/uL (0.0-1.0); MONOCYTES % (AUTO) 6 % (0-12); NEUTROPHILS # (AUTO) 15.9 10^3/uL (1.8-7.8); NEUTROPHILS % (AUTO) 79 % (42-75); PLATELET COUNT 345 10^3/uL (130-400); WHITE BLOOD COUNT 20.2 10^3/uL (4.3-11.0)
[2023-01-09 05:07] LABS: ABG BASE EXCESS -4.2 MMOL/L (-2.5-2.5); ABG OXYGEN SATURATION 99 % (94-100); ABG PCO2 34 MMHG (35-45); ABG PH 7.38 (7.37-7.43); ABG PO2 102 MMHG (79-93); ABG TCO2 21.1 MMOL/L (21.0-31.0)
[2023-01-09 05:08] LABS: INSPIRED O2 25%; VENTILATOR YES
[2023-01-09 05:29] LABS: LYMPHOCYTES % (MANUAL) 14 %; MONOCYTES % (MANUAL) 9 %; NEUTROPHILS % (MANUAL) 77 %; POLYCHROMASIA SLIGHT
[2023-01-09 05:38] LABS: ALBUMIN 2.9 GM/DL (3.2-4.5); CALCIUM 7.8 MG/DL (8.5-10.1); CREATININE SERUM 2.18 MG/DL (0.60-1.30); POTASSIUM 4.9 MMOL/L (3.6-5.0); TOTAL PROTEIN 5.7 GM/DL (6.4-8.2)
[2023-01-09] MEDS: POTASSIUM CHLORIDE 20 MEQ TABLET PO SCH (05:48)
[2023-01-09] MEDS: POTASSIUM CL 10MEQ/50ML IVPB 50 ML IV SCH (05:48)
[2023-01-09] MEDS: ENOXAPARIN 80 MG/0.8 ML SYRINGE SC SCH (06:15)
[2023-01-09] MEDS: THERAPEUTIC MULTIVITAMIN W/MINERALS TABLET PO SCH (06:15)
[2023-01-09] MEDS: THIAMINE 100 MG (VITAMIN B-1) TAB PO SCH (06:15)
[2023-01-09] MEDS: MAGNESIUM 1 GM/100 ML IVPB 100 ML IV SCH (06:27)
[2023-01-09] MEDS: FUROSEMIDE INJECTION 40 MG/4 ML VIAL IVP SCH (08:27)
[2023-01-09] MEDS: ASPIRIN enteric coated 81MG TABLET PO SCH (08:54)
[2023-01-09] MEDS ORDERED: PANTOPRAZOLE INJECTION 40 MG VIAL IV SCH (09:00)
--- NOTE | 2023-01-09 10:05 | Progress Note - Hospitalist ---
Subjective HPI/CC On Admission Date Seen by Provider: Jan 09, 2023 Time Seen by Provider: 11:00 Chief complaint: Exacerbation of congestive heart failure HPI:This is a 42-year-old male who has a history of end-stage congestive heart failure due to polysubstance and alcohol abuse who presents to the ER with shortness of breath found to have an exacerbation of congestive heart failure. Patient was found to have atrial fibrillation so placed on amiodarone drip. Cardiology consulted. Alcohol withdrawal protocol maintained. Patient continued to be hypoxic so oxy mask was added. Patient was confused so we will monitor closely. After rounds patient apparently decompensated and required intubation. Focused Exam Lactate Level 01/09/23 05:00: Lactic Acid Level 2.64*H 01/09/23 07:30: Lactic Acid Level 2.43*H 01/09/23 09:36: Lactic Acid Level 2.14*H Lactic Acid Level Objective Exam Vital Signs Vital Signs Date Time Temp Pulse Resp B/P (MAP) Pulse Ox O2 Delivery O2 Flow Rate FiO2 01/09/23 11:00 87 17 115/86 (99) 98 Mechanical Ventilator 21.00 01/09/23 10:29 21 01/09/23 07:50 37.1 Capillary Refill : Less Than 3 Seconds Results/Procedures Lab Laboratory Tests 01/09/23 05:00 Patient resulted labs reviewed. LISHA ZHANG DO Jan 09, 2023 10:05
--- NOTE | 2023-01-09 10:47 | Diagnostic Imaging Report ---
EXAMINATION: Chest radiograph, portable AP view. DATE: 01/09/2023 10:38 AM INDICATION: 42-year-old male, line placement. COMPARISON: January 08, 2023. FINDINGS: The left internal jugular central venous line overlies the upper SVC. The nasogastric tube is in the proximal stomach. The endotracheal tube is approximately 4.1 cm above the bran. There is redemonstrated cardiomegaly. There is no identified pneumothorax. There is nonspecific left basilar airspace consolidation which is unchanged. The cardiac assist device and lead is again noted. IMPRESSION: 1. Support lines and tubes, as above. 2. Unchanged nonspecific left basilar airspace consolidation and cardiomegaly. Dictated by: Dictated on workstation # [id number]
--- NOTE | 2023-01-09 11:04 | Discharge Summary ---
Discharge Summary Hospital Course Was the Problem List Reviewed?: Yes Problems/Dx: (1) CHF (congestive heart failure) Hospital Course Date of Admission: Jan 08, 2023 at 16:27 Admission Diagnosis : Family Physician/Provider: [place] Date of Discharge: 01/09/23 Discharge Diagnosis: [ ] Hospital Course: Short course after he was admitted for AECHF due to alcoholism and non- compliance. Cardiology consulted. AF RVR required Amio drip. Hypotension and complete decompensation required intubation. Cardiogenic shock utilized pressors. Poor prognosis understood by next of kin and the decision was made to terminally extubated and he was pronounced . Labs and Pending Lab Test: Laboratory Tests 01/08/23 14:43: Glucometer 49*L 01/08/23 14:45: Lactic Acid Level 6.93*H 01/08/23 14:57: White Blood Count 10.2, Red Blood Count 4.34, Hemoglobin 13.8, Hematocrit 42, Mean Corpuscular Volume 98, Mean Corpuscular Hemoglobin 32, Mean Corpuscular Hemoglobin Concent 33, Red Cell Distribution Width 12.9, Platelet Count 295, Mean Platelet Volume 9.9, Immature Granulocyte % (Auto) 1, Neutrophils (%) (Auto) 74, Lymphocytes (%) (Auto) 13, Monocytes (%) (Auto) 10, Eosinophils (%) (Auto) 1, Basophils (%) (Auto) 1, Neutrophils # (Auto) 7.6, Lymphocytes # (Auto) 1.4, Monocytes # (Auto) 1.0, Eosinophils # (Auto) 0.1, Basophils # (Auto) 0.1, Immature Granulocyte # (Auto) 0.1, B-Type Natriuretic Peptide 2683.1H 01/08/23 15:49: Triglycerides Level 79 01/08/23 18:28: Arterial Blood pH 7.21*L, Arterial Blood Partial Pressure CO2 33L, Arterial Blood Partial Pressure O2 243H, Arterial Blood HCO3 13*L, Arterial Blood Total CO2 14.2L, Arterial Blood Oxygen Saturation 100, Arterial Blood Base Excess - 13.6L, Blood Gas Ventilator Setting YES, Blood Gas Inspired Oxygen 60% 01/08/23 19:27: Glucometer 138H 01/08/23 19:45: Lactic Acid Level 7.06*H 01/08/23 23:00: Lactic Acid Level 6.84*H 01/08/23 23:05: Arterial Blood pH 7.26*L, Arterial Blood Partial Pressure CO2 33L, Arterial Blood Partial Pressure O2 159H, Arterial Blood HCO3 15*L, Arterial Blood Total CO2 15.8L, Arterial Blood Oxygen Saturation 100, Arterial Blood Base Excess - 11.2L, Blood Gas Ventilator Setting YES, Blood Gas Inspired Oxygen 40% 01/09/23 00:37: Glucometer 156H 01/09/23 05:00: Arterial Blood pH 7.38, Arterial Blood Partial Pressure CO2 34L, Arterial Blood Partial Pressure O2 102H, Arterial Blood HCO3 20L, Arterial Blood Total CO2 21.1, Arterial Blood Oxygen Saturation 99, Arterial Blood Base Excess -4.2L, Blood Gas Ventilator Setting YES, Blood Gas Inspired Oxygen 25%, White Blood Count 20.2H, Red Blood Count 4.53, Hemoglobin 14.3, Hematocrit 42, Mean Corpuscular Volume 93, Mean Corpuscular Hemoglobin 32, Mean Corpuscular Hemog lobin Concent 34, Red Cell Distribution Width 12.6, Platelet Count 345, Mean Platelet Volume 9.7, Immature Granulocyte % (Auto) 0, Neutrophils (%) (Auto) 79H , Lymphocytes (%) (Auto) 14, Monocytes (%) (Auto) 6, Eosinophils (%) (Auto) 0, Basophils (%) (Auto) 0, Neutrophils # (Auto) 15.9H, Lymphocytes # (Auto) 2.8, Monocytes # (Auto) 1.3H, Eosinophils # (Auto) 0.0, Basophils # (Auto) 0.1, Immature Granulocyte # (Auto) 0.1, Neutrophils % (Manual) 77, Lymphocytes % (Manual) 14, Monocytes % (Manual) 9, Polychromasia SLIGHT, Sodium Level 134L, Potassium Level 4.9, Chloride Level 100, Carbon Dioxide Level 19L, Anion Gap 15H , Blood Urea Nitrogen 35H, Creatinine 2.18H, Estimat Glomerular Filtration Rate 38, BUN/Creatinine Ratio 16, Glucose Level 105, Lactic Acid Level 2.64*H, Calcium Level 7.8L, Corrected Calcium 8.7, Magnesium Level 2.5H, Total Bilirubin 6.0H, Aspartate Amino Transf (AST/SGOT) 06985R, Alanine Aminotransferase (ALT/SGPT) 4641#H, Alkaline Phosphatase 169H, Total Protein 5.7L, Albumin 2.9L 01/09/23 07:30: Lactic Acid Level 2.43*H 01/09/23 09:36: Lactic Acid Level 2.14*H Home Meds Active Doxycycline Hyclate 100 Mg Tablet 100 Mg PO BID Cefdinir 300 Mg Capsule 300 Mg PO BID Lortab 5 Mg Tablet (Acetaminophen/Hydrocodone Bitart) 1 Tab Tab 1 Each PO Q4- 6HR PRN MDD 10 3 Days [Sotalol Hcl] 80 MG Tab 80 Mg PO BID Levetiracetam 500 Mg Tablet 500 Mg PO BID Reported Metoprolol Tartrate 25 Mg Tablet 25 Mg PO BID Enalapril Maleate 2.5 Mg Tablet 2.5 Mg PO BID Assessment/Pt Instructions Discharge Planning: <30 minutes discharge planning Discharge Physical Examination Vital Signs Vital Signs Date Time Temp Pulse Resp B/P (MAP) Pulse Ox O2 Delivery O2 Flow Rate FiO2 01/09/23 10:29 86 18 98 21 01/09/23 10:00 126/99 (107) Mechanical Ventilator 21.00 01/09/23 07:50 37.1 Allergies: Coded Allergies: No Known Drug Allergies (Unverified , 11/28/12) Discharge Summary Date of Admission Jan 08, 2023 at 16:27 Date of Discharge Admission Diagnosis Assessment: Exacerbation of congestive heart failure Atrial fibrillation requiring amiodarone drip AICD malfunction Cardiomyopathy Alcoholism Polysubstance abuse Plan: Supportive care Intubation required Appreciate telemetry ICU Appreciate cardiology Comfort Measures/ End of Life Care: Comfort Measures LISHA ZHANG DO Jan 09, 2023 11:04
[2023-01-09] MEDS: morphine INJ 4 MG/ML 1 ML (VIAL/SYRINGE) IV PRN ×2 (11:12→12:31)
[2023-01-09] MEDS ORDERED: ARTIFICIAL TEARS Ophth solution 0.4 ML UNIT DOSE OU PRN (11:15)
[2023-01-09] MEDS ORDERED: ATROPINE 1% OPHTHALMIC SOLN 2 ML SL PRN (11:15)
[2023-01-09] MEDS ORDERED: GLYCOPYRROLATE INJ 0.2 MG/ML 2 ML VIAL IV PRN (11:15)
[2023-01-09] MEDS ORDERED: RT-Ipratropium/Albuterol NEB 3 ML VIAL INH PRN (11:15)
[2023-01-09] MEDS ORDERED: SCOPOLAMINE 1.5 MG PATCH TOP SCH (11:15)
[2023-01-09] MEDS ORDERED: ONDANSETRON INJECTION 4 MG/2 ML (SDV) IVP PRN (11:15)
[2023-01-09] MEDS ORDERED: BISACODYL 10 MG SUPPOSITORY PR PRN (11:15)
[2023-01-09] MEDS ORDERED: SALIVA SUBSTITUTE 60 ML SPRAY MM PRN (11:15)
[2023-01-09] MEDS ORDERED: PROMETHAZINE INJ 25 MG/ML VIAL IVP PRN (11:15)
[2023-01-09] MEDS ORDERED: ACETAMINOPHEN 650 MG SUPPOSITORY PR PRN (11:15)
[2023-01-09] MEDS ORDERED: SALIVA SUBSTITUTE 236 ML SPRAY MM PRN (12:00)
[2023-01-10 13:28] LABS: HEPATITIS C ANTIBODY C Non-Reactive (Non-Reactive)
== END 2023-01-09 14:54 | disposition expired | DRG 208 ==
LOC: EDUNIT# 16:36 → ER 16:38 → INTOOBSV 19:50 → ICU 19:50 → OBSVTOIN 01-08 16:27
PROVIDERS: ADMIT Internal Medicine; ATTEND Internal Medicine
PROC: 5A1935Z Respiratory Ventilation, Less than 24 Consecutive Hours (ICD-10-PCS; principal; 2023-01-08)
PROC: 0BH17EZ Insertion of Endotracheal Airway into Trachea, Via Natural or Artificial Opening (ICD-10-PCS; 2023-01-08)
PROC: 02HV33Z Insertion of Infusion Device into Superior Vena Cava, Percutaneous Approach (ICD-10-PCS; 2023-01-08)
DX: J96.01 Acute respiratory failure with hypoxia (principal); I50.23 Acute on chronic systolic (congestive) heart failure; I42.0 Dilated cardiomyopathy; I42.6 Alcoholic cardiomyopathy; I47.20 Ventricular tachycardia, unspecified; I47.10 Supraventricular tachycardia, unspecified; I48.92 Unspecified atrial flutter; E87.20 Acidosis, unspecified; T82.191A Other mechanical complication of cardiac pulse generator (battery), initial encounter; I82.403 Acute embolism and thrombosis of unspecified deep veins of lower extremity, bilateral; Z66 Do not resuscitate; Z51.5 Encounter for palliative care; R57.0 Cardiogenic shock; I95.9 Hypotension, unspecified; F10.21 Alcohol dependence, in remission; F15.10 Other stimulant abuse, uncomplicated; F17.200 Nicotine dependence, unspecified, uncomplicated; Z91.199 Patient's noncompliance with other medical treatment and regimen due to unspecified reason; I48.91 Unspecified atrial fibrillation; G40.909 Epilepsy, unspecified, not intractable, without status epilepticus; F41.0 Panic disorder [episodic paroxysmal anxiety]; R74.8 Abnormal levels of other serum enzymes; I73.00 Raynaud's syndrome without gangrene; Z79.899 Other long term (current) drug therapy; Z79.891 Long term (current) use of opiate analgesic
CPT/HCPCS: 36415; 36600; 71045; 80053; 80074; 80306; 80320; 81000; 82140; 82553; 82805; 82947; 83605; 83735; 83880; 84478; 84484; 85007; 85025; 85027; 85610; 85730; 87040; 87389; 93005; 93041; 93306; 94002; 94003; 94799; 96372; 96374; 96375; G0378